=== PATIENT | female | born 1930 | race Caucasian/White ===

== ENCOUNTER 2016-12-02 15:24 | Inpatient (IN) | payer MEDICARE ==
[2016-12-02 15:56] LABS: #Basophils 0.1 thou/uL (0.0-0.2); #Eosinphils 0.1 thou/uL (0.0-0.7); #Lymphocytes 1.5 thou/uL (1.20-3.40); #Monocytes 0.4 thou/uL (0.11-0.59); #Neutrophils 4.1 thou/uL (1.40-6.50); %Basophils 0.8 % (0.0-1.0); %Eosinophils 0.8 % (0.0-10.0); %Lymphocytes 24.7 % (21.0-51.0); %Monocytes 7.1 % (0.0-10.0); Hematocrit 39.9 % (36.0-47.0); Mean Platelet Volume 10.1 fL (7.4-10.4); Red Blood Cell (RBC) Count 4.04 mill/uL (4.20-5.40); White Blood Cell (WBC) Count 6.2 thou/uL (4.8-10.8)
[2016-12-02 16:14] LABS: ALT (SGPT) 71 U/L (8-55); AST (SGOT) 116 U/L (5-34); Alkaline Phosphatase 78 U/L (40-150); Anion Gap 15 mmol/L (10-20); BUN (Urea Nitrogen) 31 mg/dL (9.8-20.1); Bilirubin, Total 0.6 mg/dL (0.2-1.2); Calc. Creatinine Clearance 0 mL/min (70-130); Calcium 9.2 mg/dL (7.8-10.44); Carbon Dioxide 23 mmol/L (23-31); Chloride 104 mmol/L (98-107); Estimated GFR-MDRD 26; Globulin 2.5 g/dL (2.4-3.5); Protein, Total 5.9 g/dL (6.0-8.3)
[2016-12-02 16:18] LABS: Troponin I 0.142 ng/mL (< 0.028)
[2016-12-02] MEDS ORDERED: Ondansetron HCl/PF 4 MG/2 ML Vial ONE (16:35)
[2016-12-02] MEDS ORDERED: Morphine Sulfate 2 MG/ML SYRINGE ONE (16:35)
[2016-12-02 17:02] LABS: Bilirubin Negative (Negative); Blood, Urine Large (Negative); Glucose, Urine (Dipstick) Negative (Negative); Ketone, Urine Trace mg/dL (Negative); Nitrite Negative (Negative); Protein, Urine (Dipstick) 100 mg/dL (Neg-Trace); Urobilinogen 0.2 mg/dL (0.2-1.0)
[2016-12-02 17:03] LABS: RBC/HPF 0-3 HPF (0-3); Squamous Epithelial 0-3 HPF (0-3); WBC/HPF 0-3 HPF (0-3)
[2016-12-02 17:15] LABS: Bacteria/HPF 1+ HPF (None Seen); Hyaline Casts/LPF 0-3 HYALINE CAST LPF (0-3 Hyaline); Renal Epithelial None Seen HPF (0-3); Transitional Epithelial NONE SEEN HPF (0-3)
[2016-12-02 20:26] LABS: Troponin I 0.138 ng/mL (< 0.028)
[2016-12-02] MEDS ORDERED: Acetaminophen 325 MG TAB PO PRN (20:29)
[2016-12-02] MEDS ORDERED: Ondansetron ODT 4 MG TAB SL PRN (20:29)
[2016-12-02] MEDS ORDERED: Sodium Chloride 0.9% 1,000 ML IV SCH (20:29)
[2016-12-02] MEDS ORDERED: Ondansetron HCl/PF 4 MG/2 ML Vial IVP PRN (20:29)
[2016-12-02] MEDS ORDERED: HumaLOG 300 UNITS/3 ML VIAL SC PRN ×2 (21:44)
[2016-12-02] MEDS ORDERED: cloNIDine HCl 0.1 MG TAB PO PRN (21:44)
[2016-12-02] MEDS ORDERED: Dextrose 5% in Water 1,000 ML IV PRN (21:44)
[2016-12-02] MEDS ORDERED: Ondansetron ODT 4 MG TAB PO PRN (21:44)
[2016-12-02] MEDS ORDERED: Dextrose 50% Abboject 50 ML SYRINGE SLOW IVP PRN (21:44)
[2016-12-02] MEDS ORDERED: Acetaminophen 500 MG TAB PO PRN (21:44)
[2016-12-02] MEDS: Sodium Chloride 0.9% 1,000 ML IV SCH (22:56)
--- NOTE | 2016-12-02 23:14 | HP ---
DATE OF ADMISSION: 12/02/2016 PRIMARY CARE PHYSICIAN: Nidia Hood MD CHIEF COMPLAINT: Dizziness, general weakness. HISTORY OF PRESENT ILLNESS: This is an 86-year-old female who presents to [facility], complaining of vertigo, dizziness, lightheadedness over the last several days. Patient has noted increasing frequency and severity of symptoms, limiting her ability in the last 24 hours to sit up or stand up. Patient states the room is spinning when she gets up or tries to move around short distances or sitting on the side of the bed. Patient's daughter reports she has not b een able to stand up or to mobilize any distance to the restroom or out of her bed. The patient sta araceli also that she had a fall on 10/24/2016, with persistent and progressive back pain. Patient has taken multiple pain medications including Tylenol and was recently prescribed a narcotic pain patch. Patient states that she has no specific complete resolution of her symptoms and was actually sched uled to receive a bone scan and CT of the spine set up by her pain specialist. Patient admits that her appetite has been decreased and she has not been drinking much water. The patient denies any sp ecific diarrhea or vomiting, but does admit to nausea. Patient denied any specific blood in her sto ol or hematuria. The patient admits to multiple somatic complaints mainly related to back pain in c onnection with prior history of vertebral compression fractures. In the emergency room, the patient underwent general evaluation, receiving intravenous normal saline x1 liter as well as morphine sulf ate and Zofran. Patient underwent lumbar radiographs on 10/29/2016, showing multilevel degenerative changes. Patient was also noted on metabolic survey showing evidence of acute kidney injury as wel l as rhabdomyolysis with the total CK of 1585. The patient was transferred to the telemetry unit fo r further evaluation. PAST MEDICAL HISTORY: 1. Chronic obstructive pulmonary disease. 2. Ischemic cardiomyopathy with ejection fraction of 30% to 35%. 3. Moderate aortic stenosis. 4. History of chronic atrial fibrillation with chronic anticoagulation with Xarelto. 5. Hypertension. 6. Diabetes mellitus, type 2, on oral hypoglycemics. 7. Dyslipidemia. 8. Coronary artery disease. 9. Hypothyroidism. 10. Congestive heart failure with systolic component. 11. History of bladder cancer. 12. History of vertebral compression fractures. 13. History of falls. PAST SURGICAL HISTORY: 1. Status post mastoid ear surgery. 2. Status post colonoscopy. 3. Status post cystourethrectomy. 4. Status post laminectomy. 5. Status post right total knee arthroplasty. 6. Status post cholecystectomy. 7. Status post hysterectomy. 8. Status post thyroidectomy due to goiter. 9. Status post ankle surgery and right wrist surgery. CURRENT MEDICATIONS: Based on previous review of the electronic medical record: 1. Aspirin 81 mg one tablet p.o. daily. 2. Vitamin D3 of 2000 units p.o. daily. 3. Zetia 10 mg p.o. at bedtime. 4. Lasix 40 mg p.o. daily p.r.n. 5. Krill Oil Soft Gel 1 capsule p.o. at bedtime. 6. Lactobacillus 1 capsule p.o. daily. 7. Lisinopril 5 mg p.o. at bedtime. 8. Magnesium oxide 400 mg p.o. b.i.d. 9. Crestor 20 mg p.o. at bedtime. 10. Coenzyme Q10 of 200 mg p.o. daily. 11. Super B-Complex 150 mg p.o. daily. 12. Metformin 1000 mg p.o. b.i.d. 13. Carvedilol 12.5 mg p.o. b.i.d. 14. Cymbalta 30 mg p.o. daily. 15. Neurontin 300 mg p.o. at bedtime. 16. Levothyroxine 25 mcg p.o. daily. 17. Spiriva HandiHaler 18 mcg inhaled daily. ALLERGIES: To CODEINE and LEVAQUIN. FAMILY HISTORY: Sister with advanced COPD. Mother with the history of coronary artery disease at a ge 60. SOCIAL HISTORY: Patient lives independently in the [place]. Accompanied by her daughter in the hospital. Ambulates with the use of a rolling walker and standby assistance. Recent fall on 10/24/2016. No current alcohol, tobacco, or illicit drug use. REVIEW OF SYSTEMS: The following complete review of systems was negative, unless otherwise mentione d in the HPI or below: Constitutional: Weight loss or gain, ability to conduct usual activities. Skin: Rash, itching. Eyes: Double vision, pain. ENT/Mouth: Nose bleeding, neck stiffness, pain, tenderness. Cardiovascular: Palpitations, dyspnea on exertion, orthopnea. Respiratory: Shortness of breath, wheezing, cough, hemoptysis, fever or night sweats. Gastrointestinal: Poor appetite, abdominal pain, heartburn, nausea, vomiting, constipation, or diar wesly. Genitourinary: Urgency, frequency, dysuria, nocturia. Musculoskeletal: Pain, swelling. Neurologic/Psychiatric: Anxiety, depression. Allergy/Immunologic: Skin rash, bleeding tendency. PHYSICAL EXAMINATION: VITAL SIGNS: On admission, blood pressure 146/61, pulse 90, respiratory rate 19, temperature 98.4 d egrees Fahrenheit, O2 saturation 96% on room air. GENERAL APPEARANCE: This is an 86-year-old female, alert and oriented x3, pleasant, smili ng, in no acute distress. HEENT EXAM: Pupils are equal, round, and reactive to light and accommodation. Extraocular muscles are intact. No scleral icterus, no conjunctival injection. Nares patent. OP is clear. Oral mucos a is dry. NECK: Supple, no cervical adenopathy, no thyromegaly, no carotid bruits, no JVD appreciated. Cervi carlos spine with full active and passive range of motion. CHEST: Lungs are clear to auscultation bilaterally. CARDIOVASCULAR EXAM: S1 and S2 with irregular rate and rhythm. A 2-3/6 systolic ejection murmur in the left lower sternal border. ABDOMEN: Obese, soft, nontender, and nondistended. Bowel sounds are positive in all four quadrants . There is no hepatosplenomegaly, no abdominal bruits, no rebound or guarding appreciated. EXTREMITIES: Warm and dry with fair turgor. No clubbing, cyanosis, or asymmetric edema appreciated . Pulses are palpable distally at the dorsalis pedis, posterior tibial, and popliteal arteries bila terally. Capillary refill less than 2 seconds. NEUROLOGIC EXAM: Cranial nerves II through XII are grossly intact. No focal or lateralizing signs appreciated. PERTINENT LABORATORY DATA AND X-RAY FINDINGS: Sodium 138, potassium 4.0, chloride 104, CO2 of 23, B UN 31, creatinine 1.86 with estimated GFR of 26, glucose 99, calcium 9.2, AST 116, ALT of 71, alkali ne phosphatase 78. Total CK of 1585. Troponin I ranged between 0.138 to 0.142. Albumin 3.4. CBC showed a white blood cell count 6.2, hemoglobin 13, hematocrit 40, platelet count 124 with normal di fferential. Urinalysis positive for blood and 1+ urine bacteria on microscopy. Lumbar spine radiog raphs dated on 10/29/2016, showed advanced multilevel lumbar degenerative changes. EKG dated on 01/2017, by my interpretation shows atrial fibrillation with premature ventricular complexes. Atten uated R waves noted in the precordial leads. Left axis deviation. No acute ST-T wave changes appre ciated. ASSESSMENT AND PLAN: 1. Acute kidney injury. We will continue intravenous normal saline at 75 mL per hour. Avoid nephr otoxic agents including lisinopril and metformin. Hold diuretic therapy. Repeat creatinine in the a.m. Suspect iatrogenic influence prompting presentation. 2. Vertigo/dizziness. We will continue IV fluid hydration and monitor clinically. We will obtain PT and OT evaluation in the a.m. Check orthostatic vital signs every 3 hours x2. 3. Rhabdomyolysis. Suspect multifactorial. We will hold all statin agents. Continue intravenous normal saline as I stated previously. Repeat total CK in the a.m. 4. Elevated troponin I. Review of electronic medical record shows elevated values dating back to 0 04/2015. Suspect secondarily to demand ischemia and chronic kidney disease. 5. Back pain with history of vertebral compression fractures. We will obtain 3 phase bone scan. S ymptomatic and supportive measures. Consider neurosurgical consult with likely TLSO bracing for dis charge. Continue symptomatic and supportive management. 6. Chronic atrial fibrillation with controlled ventricular response. We will continue rate control measures. Resume Xarelto. We will continue to monitor for acute blood loss and consider risk of a nticoagulation in the context of recent fall in 10/2016. 7. Hypothyroidism. Continue levothyroxine 25 mcg p.o. daily. 8. Prophylaxis. Sequential compression devices while in bed. Pepcid 20 mg p.o. b.i.d. General fa ll precautions. PT and OT evaluation pending. 9. Code status is FULL. Surrogate medical decision maker is the patient's daughter.
[2016-12-02 23:15] LABS: Troponin I 0.137 ng/mL (< 0.028)
[2016-12-03 05:45] LABS: Band 8 % (5-11); Hematocrit 34.9 % (36.0-47.0); Mean Platelet Volume 9.6 fL (7.4-10.4); Neutrophil 52 % (42-75); Red Blood Cell (RBC) Count 3.53 mill/uL (4.20-5.40); White Blood Cell (WBC) Count 5.6 thou/uL (4.8-10.8)
[2016-12-03] MEDS: Levothyroxine Sodium 25 MCG TAB PO SCH (05:50)
[2016-12-03 05:53] LABS: ALT (SGPT) 60 U/L (8-55); AST (SGOT) 96 U/L (5-34); Alkaline Phosphatase 67 U/L (40-150); Anion Gap 11 mmol/L (10-20); BUN (Urea Nitrogen) 24 mg/dL (9.8-20.1); Bilirubin, Total 0.5 mg/dL (0.2-1.2); CK (CPK) 1121 U/L (29-168); Calc. Creatinine Clearance 28 mL/min (70-130); Calcium 8.5 mg/dL (7.8-10.44); Carbon Dioxide 27 mmol/L (23-31); Chloride 111 mmol/L (98-107); Estimated GFR-MDRD 31; Protein, Total 4.9 g/dL (6.0-8.3)
[2016-12-03] MEDS: Ipratropium Bromide 2.5 ml Neb NEB SCH ×5 (07:46→23:59)
[2016-12-03] MEDS: Sodium Chloride 0.9% 1,000 ML IV SCH ×2 (08:55→22:33)
[2016-12-03] MEDS: Famotidine 20 MG TAB PO SCH (09:00)
[2016-12-03] MEDS: Carvedilol 6.25 MG TAB PO SCH ×2 (09:00→20:26)
[2016-12-03] MEDS: Ondansetron HCl/PF 4 MG/2 ML Vial IVP PRN (10:40)
--- NOTE | 2016-12-03 12:10 | PDOC.PN ---
- Subjective Encounter Start Date: 12/03/16 Encounter Start Time: 10:00 -: old records requested/rev Pt was unique carlin exmained on rounds earlier. Chart has been reviewe din its entirety. This is my first visit with this patient. No F/C, no N/V/D?C, no CP ro SOB, no cough or sputum rpduction. Bone scan is to be done later this morning. Pain is well controlled at present. NO palpitations, no syncope or presyncope today 10 point ROS performed and neg for all systems except as per HPI - Objective Resuscitation Status: Resuscitation Status FULL:Full Resuscitation MAR Reviewed: Yes Vital Signs & Weight: Vital Signs (12 hours) Temp Pulse Pulse Pulse Pulse Resp BP 12/03/16 11:56 97.9 F 87 16 12/03/16 10:49 12/03/16 09:00 130/67 12/03/16 08:57 98.9 F 83 16 12/03/16 08:18 98.9 F 83 81 91 84 16 12/03/16 07:46 71 16 12/03/16 04:00 97.6 F 80 18 BP BP BP BP BP BP Pulse Ox 12/03/16 11:56 155/70 H 99 12/03/16 10:49 138/82 150/65 H 12/03/16 09:00 12/03/16 08:57 130/67 94 L 12/03/16 08:18 138/58 L 156/88 H 169/72 H 94 L 12/03/16 07:46 100 12/03/16 04:00 122/56 L 96 Weight Admit Weight 160 lb 4.8 oz Weight 158 lb 11.2 oz I&O: 12/02/16 12/03/16 12/04/16 06:59 06:59 06:59 Intake Total 945 Output Total 1200 Balance -255 Result Diagrams: 12/03/16 05:13 12/03/16 05:13 Additional Labs: Accuchecks 12/03/16 10:57 POC Glucose 83 Radiology Reviewed by me: Yes EKG Reviewed by me: Yes Phys Exam - Physical Examination Constitutional: NAD HEENT: PERRLA, moist MMs, sclera anicteric, oral pharynx no lesions Neck: no nodes, no JVD, supple, full ROM Respiratory: no wheezing, no rales, no rhonchi, clear to auscultation bilateral Cardiovascular: RRR, no significant murmur, no rub Gastrointestinal: soft, non-tender, no distention, positive bowel sounds Musculoskeletal: no edema, pulses present Neurological: non-focal, normal sensation, moves all 4 limbs Lymphatic: no nodes Psychiatric: normal affect, A&O x 3 Skin: no rash, normal turgor, cap refill <2 seconds Dx/Plan (1) Pre-syncope Status: Acute Comment: better today. continue IV fluids, hold diuretics. suspect overdiuresis and orthostasis. (2) WARREN (acute kidney injury) Code(s): N17.9 - ACUTE KIDNEY FAILURE, UNSPECIFIED Status: Acute Comment: Cr improved but not mal. continue hydratiosn. due to hypovolemia (3) Dehydration, moderate Code(s): E86.0 - DEHYDRATION Status: Acute (4) Rhabdomyolysis Code(s): M62.82 - RHABDOMYOLYSIS Status: Acute Comment: CK improved. 1100 today. continue IV fluids, monitoring renal function (5) Compression fracture Code(s): [id number] - Status: Acute Comment: for bone scan today. If positive , will ask neurosurgery to eval for vertebroplasty vs LSO brace - Plan cont current plan of care, plan discussed w/ family, PT/OT * .
--- NOTE | 2016-12-03 14:54 | NM ---
WHOLE BODY BONE SCAN: Date: 12/03/16 HISTORY: Compression fracture. RADIOPHARMACEUTICAL: 33 mCi technetium-99m MDP injected intravenously. COMPARISON: 06/03/16. CORRELATION: Lumbar spine x-rays of 10/29/16. FINDINGS: There is new intense uptake at T12 level consistent with acute fracture. Mild residual stable activi ty is seen at T9 level (region of vertebroplasty on this CT scan of 06/03/16). There is new area of increased uptake in the T4 vertebral body also likely due to a new fracture. Intense uptake in the left shoulder is again seen. Increased uptake in the right shoulder joint, both elbows, wrists, left knee, and both feet are cons istent with degenerative changes. There are postop changes of right total knee arthroplasty. Focus of increased uptake in the inferior aspect of the right SI joint is stable. Mild increased upt judy at L5-S1 level is consistent with degenerative changes and stable. Increased uptake in the mandible likely due to periodontal disease is again seen. Tracer excretion through the kidneys is within normal limits. IMPRESSION: New acute compression fractures at T12 and T4 levels. POS: [facility]
--- NOTE | 2016-12-03 17:51 | CT ---
CT THORACIC SPINE NONCONTRAST: 12/03/16 HISTORY: 86-year-old female status post fall resulting in T12 compression fracture. COMPARISON: T-spine CT of 06/03/16. FINDINGS: There is a new burst fracture of T12, including anterior and middle columns, and mild bony retropuls ion of the superior half of the posterior surface of the vertebral body, decreasing the anteroposter ior dimension of the spinal canal by approximately 20%. There is overall approximately 40-75% loss o f height. Again noted is the vertebroplasty cement within the old T9 compression fracture. Again noted is an o ld mild anterior wedge compression fracture deformity of T8. Neither of these have bony retropulsion . There is mild depression of the superior end plate of the T4 vertebral body, with minimal bony ret ropulsion, new since the previous CT. There is no compromise of the spinal canal caliber by this. A new finding of air fluid level in a mildly dilated esophagus. There is no pleural effusion or consol idation visualized at the posterior lung bases. IMPRESSION: 1. Acute burst fracture of T12 with mild bony retropulsion. 2. Mild compression fracture of T4 (approximately 10-20% loss of height) of indeterminate age. It occurred sometime after the previous CT of 06/03/16. 3. Old compression fracture of T9, treated with vertebroplasty. 4. Old compression fracture of T8. 5. Diffuse severe osteopenia. POS: [facility]
--- NOTE | 2016-12-03 18:10 | CT ---
CT LUMBAR SPINE NONCONTRAST: 12/03/16 HISTORY: 86-year-old female status post fall with acute on chronic low back pain. COMPARISON: None. FINDINGS: There are five [id number] lumbar type vertebrae. There is a comminuted fracture of the anterior and posterior columns of the T12 vertebral body, resulting in approximately 40-75% loss of height. There is mild bony retropulsion which decreases the anteroposterior dimension of the spinal canal by approximately 20%, and decreases the cross-sectional area of the spinal canal by approximately 20%. There is edema in the prevertebral space associated with this. There is vertebroplasty cement within an old L2 compression fracture with about 25% loss of height m aximum. Severe degenerative facet disease at L4-5 results in grade II anterolisthesis of L4 on L5. There is severe degenerative disc disease at L1-2, L2-3, and L4-5. Severe chronic bilateral neural foraminal stenosis at L4-5 due to the spondylolisthesis, diffuse disc bulge, and degenerative facet hypertroph y. Severe central spinal canal stenosis and moderately severe bilateral neural foraminal stenosis at L3-4 due to diffuse disc bulge, slight degenerative retrolisthesis of L3 on L4, and degenerative fa cet changes. Severe right neural foraminal stenosis at L2-3, and moderate to severe right neural for aminal stenosis at L1-2. Diffuse, severe osteopenia. Lesions in the liver and kidneys, incompletely evaluated. IMPRESSION: 1. Acute burst fracture of T12. 2. Old compression fracture of L2 treated with vertebroplasty. 3. Severe lumbar spondylosis with high grade degenerative disc disease and high grade facet ost eoarthrosis at certain levels. 4. Grade II spondylolisthesis at L4-5. 5. Severe central spinal canal stenosis and severe neural foraminal stenosis at various levels. 6. Severe osteopenia/osteoporosis. POS: [facility]
[2016-12-03] MEDS: Aspirin 81 mg Enteric Coated Tablet PO SCH (20:26)
[2016-12-03] MEDS: Gabapentin 300 MG CAP PO SCH (20:26)
[2016-12-04] MEDS: Ondansetron HCl/PF 4 MG/2 ML Vial IVP PRN (03:19)
[2016-12-04] MEDS: Levothyroxine Sodium 25 MCG TAB PO SCH (05:37)
[2016-12-04 06:25] LABS: #Eosinphils 0.1 thou/uL (0.0-0.7); #Lymphocytes 1.2 thou/uL (1.20-3.40); #Monocytes 0.5 thou/uL (0.11-0.59); #Neutrophils 4.5 thou/uL (1.40-6.50); %Basophils 0.6 % (0.0-1.0); %Eosinophils 0.9 % (0.0-10.0); %Lymphocytes 19.5 % (21.0-51.0); %Monocytes 8.2 % (0.0-10.0); Hematocrit 36.4 % (36.0-47.0); Mean Platelet Volume 9.9 fL (7.4-10.4); Red Blood Cell (RBC) Count 3.67 mill/uL (4.20-5.40); White Blood Cell (WBC) Count 6.3 thou/uL (4.8-10.8)
[2016-12-04 06:38] LABS: Anion Gap 12 mmol/L (10-20); BUN (Urea Nitrogen) 16 mg/dL (9.8-20.1); Calc. Creatinine Clearance 38 mL/min (70-130); Calcium 8.2 mg/dL (7.8-10.44); Carbon Dioxide 23 mmol/L (23-31); Chloride 108 mmol/L (98-107); Estimated GFR-MDRD 44
[2016-12-04] MEDS: Ipratropium Bromide 2.5 ml Neb NEB SCH ×4 (08:18→23:22)
[2016-12-04] MEDS: Carvedilol 6.25 MG TAB PO SCH ×2 (08:36→22:42)
[2016-12-04] MEDS: Famotidine 20 MG TAB PO SCH (08:37)
--- NOTE | 2016-12-04 10:13 | PDOC.PN ---
- Subjective Encounter Start Date: 12/04/16 Encounter Start Time: 09:10 Pt seen and examined, husbad and daughters at bedside. Questions answered. No f/C, no V/D. nauseated all day and night, responded to zofran. NSG to see today, LSO brace ordered, pt doesnt like. encouraged her to use it all the time. No Cough, no CP or SON. feels week. asking for something for itching with pain meds, asking for sleep aid. 10 point ROS performed and neg for all systems except as per HPI - Objective Resuscitation Status: Resuscitation Status FULL:Full Resuscitation MAR Reviewed: Yes Vital Signs & Weight: Vital Signs (12 hours) Temp Pulse Resp BP BP BP Pulse Ox 12/04/16 08:36 172/72 H 12/04/16 08:29 98.0 F 94 16 172/72 H 182/76 H 97 12/04/16 08:18 72 16 12/04/16 04:00 97.7 F 76 18 143/66 H 93 L 12/04/16 03:21 97.8 F 86 18 158/74 H 95 12/03/16 23:59 62 16 96 Weight Admit Weight 160 lb 4.8 oz Weight 158 lb 11.2 oz I&O: 12/03/16 12/04/16 12/05/16 06:59 06:59 06:59 Intake Total 945 3113 Output Total 1200 800 Balance -255 2313 Result Diagrams: 12/04/16 04:57 12/04/16 04:57 Additional Labs: Accuchecks 12/04/16 12/03/16 12/03/16 05:59 20:36 15:36 POC Glucose 106 88 94 12/03/16 12/03/16 10:57 06:37 POC Glucose 83 81 Radiology Reviewed by me: Yes EKG Reviewed by me: Yes Phys Exam - Physical Examination Constitutional: NAD HEENT: PERRLA, moist MMs, sclera anicteric, oral pharynx no lesions Neck: no nodes, no JVD, supple, full ROM Respiratory: no wheezing, no rales, no rhonchi, clear to auscultation bilateral Cardiovascular: no rub, irregular Gastrointestinal: soft, non-tender, no distention, positive bowel sounds Musculoskeletal: no edema, pulses present Neurological: non-focal, normal sensation, moves all 4 limbs Lymphatic: no nodes Psychiatric: normal affect, A&O x 3 Skin: no rash, normal turgor, cap refill <2 seconds Dx/Plan (1) Pre-syncope Status: Acute Comment: better today. continue IV fluids, hold diuretics. suspect overdiuresis and orthostasis. (2) WARREN (acute kidney injury) Code(s): N17.9 - ACUTE KIDNEY FAILURE, UNSPECIFIED Status: Resolved Comment : Cr improved but not quite back to baseline. recheck in the AM. Due to hypovolemia (3) Dehydration, moderate Code(s): E86.0 - DEHYDRATION Status: Resolved (4) Rhabdomyolysis Code(s): M62.82 - RHABDOMYOLYSIS Status: Acute Comment: CK improved. 1100 12/03. recheck in AM (5) Compression fracture Code(s): [id number] - Status: Acute Comment: T12 burst fracture. Neurosurgery to see today, not surgicla candidate and burst fractures not typically amenable to vertebroplasty. Suspect LSO brace will be recommendations. Discussed with NSG team, will follow up on their recs, adn their assistance is greatly appreciated. Mobilize iwth PT and brace - Plan cont current plan of care, PT/OT * . pt will likely need SNF or IPR placement for rehab
[2016-12-04] MEDS ORDERED: traZODone HCl 50 MG TAB PO PRN (10:17)
--- NOTE | 2016-12-04 14:03 | PRG ---
DATE OF SERVICE: 12/04/2016 This a 30-minute initial hospital visit note, in which 30 minutes were spent in review the imaging r ecord, evaluation and examination of the patient, and formulation of a plan. Greater than 50% of e time was spent in counseling on Idania Vela. CHIEF COMPLAINT: T12 burst fracture with mid thoracic and mid lumbar history of fractures treated w ith vertebroplasty. HISTORY OF PRESENT ILLNESS: Ms. Vela is an 86-year-old woman who fell two nights ago and sustained a fracture, bone scan revealed increased activity in the T12 segment. A CT scan of the thoracic an d lumbar spine demonstrated evidence of a prior mid to lower thoracic vertebroplasty treated fractur e and midlumbar spine vertebroplasty fracture, but also a new T12 burst fracture. The patient has b een neurologically intact. A TLSO clamshell brace was arranged when the patient is out of bed. PHYSICAL EXAMINATION: She is alert, appropriate. She has excellent strength throughout her lower e xtremity myotomes and this appears to be doing quite well. IMPRESSION AND PLAN: I have emphasized the patient and her daughter the importance of wearing the b race. We will arrange for followup in my clinic in 6 weeks with upright AP and lateral thoracic and lumbar spine x-rays and the brace should be worn at all times when the patient is out of bed. This will be likely for duration of 3 months and I have emphasized this as well to the patient and her d romieer. We will arrange for outpatient followup. DIAGNOSES: 1. T12 burst fracture. 2. Osteoporosis. 3. History of compression fractures, treated with vertebroplasty.
[2016-12-04] MEDS: Sodium Chloride 0.9% 1,000 ML IV SCH (14:10)
[2016-12-04] MEDS: Gabapentin 300 MG CAP PO SCH (22:38)
[2016-12-04] MEDS: Aspirin 81 mg Enteric Coated Tablet PO SCH (22:42)
[2016-12-05] MEDS: Sodium Chloride 0.9% 1,000 ML IV SCH ×2 (03:39→16:10)
[2016-12-05] MEDS: Levothyroxine Sodium 25 MCG TAB PO SCH (06:05)
[2016-12-05] MEDS: Ipratropium Bromide 2.5 ml Neb NEB SCH ×4 (07:54→23:52)
[2016-12-05] MEDS: Carvedilol 6.25 MG TAB PO SCH ×2 (08:04→20:22)
[2016-12-05] MEDS: Famotidine 20 MG TAB PO SCH (08:06)
[2016-12-05] MEDS: traMADol HCl 50 MG TAB PO PRN ×2 (09:03→20:21)
[2016-12-05] MEDS: hydrOXYzine 25 MG TAB PO PRN (09:03)
[2016-12-05 09:27] LABS: #Monocytes 0.4 thou/uL (0.11-0.59); #Neutrophils 4.6 thou/uL (1.40-6.50); %Basophils 0.6 % (0.0-1.0); %Eosinophils 0.7 % (0.0-10.0); %Lymphocytes 16.1 % (21.0-51.0); %Monocytes 6.8 % (0.0-10.0); Hematocrit 36.3 % (36.0-47.0); Mean Platelet Volume 9.1 fL (7.4-10.4); Red Blood Cell (RBC) Count 3.66 mill/uL (4.20-5.40)
[2016-12-05 09:46] LABS: Anion Gap 9 mmol/L (10-20); BUN (Urea Nitrogen) 10 mg/dL (9.8-20.1); Calc. Creatinine Clearance 51 mL/min (70-130); Calcium 8.2 mg/dL (7.8-10.44); Carbon Dioxide 27 mmol/L (23-31); Chloride 109 mmol/L (98-107); Estimated GFR-MDRD 58
[2016-12-05] MEDS: Potassium Chloride 20 MEQ TAB PO SCH ×3 (10:15→18:26)
--- NOTE | 2016-12-05 12:29 | PDOC.PN ---
- Subjective Encounter Start Date: 12/05/16 Encounter Start Time: 09:30 Pt seen and examined earlier on rounds, chart reviewed, discusse diwht neurosurgery and nursing Pt refused PT earleir due to pain in her back. Medicated and PT to return later. Discussed with patient regarding rehab and she is agreeable 10 point ROS performed and neg froa ll systems except as per HPI - Objective Resuscitation Status: Resuscitation Status FULL:Full Resuscitation MAR Reviewed: Yes Vital Signs & Weight: Vital Signs (12 hours) Temp Pulse Resp BP BP BP Pulse Ox 12/05/16 10:49 97.9 F 98 18 134/80 92 L 12/05/16 08:04 152/85 H 12/05/16 07:54 98.4 F 72 12 98 12/05/16 04:52 98.4 F 80 20 150/81 H 98 Weight Admit Weight 160 lb 4.8 oz Weight 165 lb 12.8 oz I&O: 12/04/16 12/05/16 12/06/16 06:59 06:59 06:59 Intake Total 3113 2540 Output Total 800 1500 Balance 2313 1040 Result Diagrams: 12/05/16 09:18 12/05/16 09:18 Additional Labs: Accuchecks 12/05/16 12/05/16 12/04/16 11:44 05:40 20:38 POC Glucose 91 89 113 H 12/04/16 16:40 POC Glucose 88 Phys Exam - Physical Examination Constitutional: NAD HEENT: PERRLA, moist MMs, sclera anicteric, oral pharynx no lesions Neck: no nodes, no JVD, supple, full ROM Respiratory: no wheezing, no rales, no rhonchi, clear to auscultation bilateral Cardiovascular: RRR, no significant murmur, no rub Gastrointestinal: soft, non-tender, no distention, positive bowel sounds Musculoskeletal: no edema, pulses present Neurological: non-focal, normal sensation, moves all 4 limbs Lymphatic: no nodes Psychiatric: normal affect, A&O x 3 Skin: no rash, normal turgor, cap refill <2 seconds Dx/Plan (1) Pre-syncope Status: Resolved Comment: better today. suspect overdiuresis and orthostasis. (2) WARREN (acute kidney injury) Code(s): N17.9 - ACUTE KIDNEY FAILURE, UNSPECIFIED Status: Resolved Comment : Cr improved but not quite back to baseline. recheck in the AM. Due to hypovolemia (3) Dehydration, moderate Code(s): E86.0 - DEHYDRATION Status: Resolved (4) Rhabdomyolysis Code(s): M62.82 - RHABDOMYOLYSIS Status: Acute Qualifiers: Rhabdomyolysis type: traumatic Encounter type: initial encounter Qualified Code(s): T79.6XXA - Traumatic ischemia of muscle, initial encounter Comment: CK improved. 1100 12/03. recheck in AM (5) Compression fracture Code(s): [id number] - Status: Acute Comment: T12 burst fracture. Neurosurgery to see today, not surgicla candidate and burst fractures not typically amenable to vertebroplasty. Suspect LSO brace will be recommendations. Discussed with NSG team, will follow up on their recs, adn their assistance is greatly appreciated. 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
[2016-12-05] MEDS ORDERED: Metoprolol Tartrate 25 MG TAB PO SCH (20:15)
[2016-12-05] MEDS: Gabapentin 300 MG CAP PO SCH (20:21)
[2016-12-05] MEDS: Aspirin 81 mg Enteric Coated Tablet PO SCH (20:21)
[2016-12-05] MEDS ORDERED: Diltiazem HCl 125 MG, Admixture Fee 1 EACH in Sodium Chloride 0.9% 100 ML SLOW IVP SCH (23:30)
[2016-12-06] MEDS: Levothyroxine Sodium 25 MCG TAB PO SCH (05:46)
[2016-12-06] MEDS: Sodium Chloride 0.9% 1,000 ML IV SCH (05:47)
[2016-12-06 06:08] LABS: #Basophils 0.1 thou/uL (0.0-0.2); #Eosinphils 0.1 thou/uL (0.0-0.7); #Lymphocytes 1.4 thou/uL (1.20-3.40); #Monocytes 0.6 thou/uL (0.11-0.59); #Neutrophils 4.2 thou/uL (1.40-6.50); %Basophils 0.8 % (0.0-1.0); %Lymphocytes 22.3 % (21.0-51.0); %Monocytes 9.9 % (0.0-10.0); Hematocrit 39.2 % (36.0-47.0); Mean Platelet Volume 9.9 fL (7.4-10.4); Red Blood Cell (RBC) Count 3.92 mill/uL (4.20-5.40); White Blood Cell (WBC) Count 6.4 thou/uL (4.8-10.8)
[2016-12-06 06:32] LABS: Anion Gap 11 mmol/L (10-20); BUN (Urea Nitrogen) 10 mg/dL (9.8-20.1); Calc. Creatinine Clearance 56 mL/min (70-130); Calcium 8.4 mg/dL (7.8-10.44); Carbon Dioxide 22 mmol/L (23-31); Chloride 112 mmol/L (98-107); Estimated GFR-MDRD 64; Magnesium 1.4 mg/dL (1.6-2.6)
[2016-12-06] MEDS: Ipratropium Bromide 2.5 ml Neb NEB SCH ×3 (06:46→19:54)
[2016-12-06] MEDS: Famotidine 20 MG TAB PO SCH (08:30)
[2016-12-06] MEDS: Carvedilol 6.25 MG TAB PO SCH ×3 (08:30→20:44)
--- NOTE | 2016-12-06 09:42 | PDOC.PN ---
- Subjective Encounter Start Date: 12/06/16 Encounter Start Time: 09:30 Subjective: f/u for WARREN, T12 vertebral fx and A-fib with RVR. Overall feeling ok but -: had RVR overnight on Cardizem gtt. Rate controlled currently. Less back -: pain, only stood 15 sec per nursing. - Objective Resuscitation Status: Resuscitation Status FULL:Full Resuscitation MAR Reviewed: Yes Vital Signs & Weight: Vital Signs (12 hours) Temp Pulse Resp BP Pulse Ox 12/06/16 08:30 134/62 12/06/16 08:27 98.0 F 66 16 95 12/06/16 06:46 75 16 96 12/05/16 23:52 80 16 95 Weight Admit Weight 160 lb 4.8 oz Weight 169 lb I&O: 12/05/16 12/06/16 12/07/16 06:59 06:59 06:59 Intake Total 2540 3049 Output Total 1500 500 Balance 1040 2549 Result Diagrams: 12/06/16 04:39 12/06/16 04:39 Additional Labs: Accuchecks 12/05/16 12/05/16 12/05/16 20:19 17:01 11:44 POC Glucose 104 111 H 91 Microbiology 12/02/16 16:25 Urine Straight Catheter Urine Culture - Final NO GROWTH AT 36 HOURS Laboratory Tests 12/05/16 12/05/16 12/06/16 09:18 10:11 04:39 Potassium 2.8 L* Magnesium 1.8 1.4 L EKG Reviewed by me: Yes (Tele - A-fib in 70's) Phys Exam - Physical Examination Constitutional: NAD HEENT: PERRLA, oral pharynx no lesions Neck: no JVD, supple Respiratory: no wheezing Cardiovascular: irregular Gastrointestinal: soft, non-tender, no distention, positive bowel sounds Musculoskeletal: no edema, pulses present Neurological: normal sensation, moves all 4 limbs Psychiatric: A&O x 3 Skin: normal turgor, cap refill <2 seconds Dx/Plan (1) Chronic atrial fibrillation with RVR Code(s): I48.2 - CHRONIC ATRIAL FIBRILLATION Status: Acute Comment: Cardizem gtt overnight now with rate control, d/c Cardizem gtt, continue Coreg, monitor on tele (2) Hypokalemia Code(s): E87.6 - HYPOKALEMIA Status: Acute Comment: Resolved with supplementation (3) Compression fracture Code(s): BRJ5554 - Status: Acute Comment: T12 burst fracture. Neurosurgery to see today, not surgicla candidate and burst fractures not typically amenable to vertebroplasty. Suspect LSO brace will be recommendations. Discussed with NSG team, will follow up on their recs, adn their assistance is greatly appreciated. Mobilize iwth PT and brace (4) Rhabdomyolysis Code(s): M62.82 - RHABDOMYOLYSIS Status: Acute Qualifiers: Rhabdomyolysis type: traumatic Encounter type: initial encounter Qualified Code(s): T79.6XXA - Traumatic ischemia of muscle, initial encounter Comment: CK improved. 1100 12/03. recheck in AM, resolved (5) WARREN (acute kidney injury) Code(s): N17.9 - ACUTE KIDNEY FAILURE, UNSPECIFIED Status: Resolved Comment : Cr improved but not quite back to baseline. Resolved (6) Dehydration, moderate Code(s): E86.0 - DEHYDRATION Status: Resolved (7) Hypomagnesemia Code(s): E83.42 - HYPOMAGNESEMIA Status: Acute Comment: Magnesium 400mg BID - Plan plan discussed w/ family, PT/OT, social professionals, out of bed/ambulate, DVT proph w/SCDs Stable overall -: Pain control as tolerated -: LSO for mobilization and standing -: CM for SNF options, unable to tolerate inpt rehab -: Magnesium 400mg BID * Saline lock IVF's * D/C Cardizem * Likely to SNF in 24-48h
[2016-12-06] MEDS ORDERED: Magnesium Oxide 400 MG TAB PO SCH (09:45)
[2016-12-06] MEDS: hydrOXYzine 25 MG TAB PO PRN (13:19)
[2016-12-06] MEDS: traMADol HCl 50 MG TAB PO PRN (13:19)
[2016-12-06 14:43] VITALS: BMI 27.2
[2016-12-06] MEDS ORDERED: Digoxin 0.5 MG/2 ML AMP SLOW IVP SCH (15:00)
--- NOTE | 2016-12-06 15:04 | EKG ---
Test Reason : STAT Blood Pressure : / mmHG Vent. Rate : 140 BPM Atrial Rate : 127 BPM P-R Int : 000 ms QRS Dur : 116 ms QT Int : 320 ms P-R-T Axes : 000 007 170 degrees QTc Int : 488 ms Atrial fibrillation with rapid ventricular response Non-specific intra-ventricular conduction delay Septal infarct , age undetermined cannot be excluded Abnormal ECG Confirmed by GUADALUPE SILVERIO ([id number]) on 12/06/2016 3:04:09 PM Referred By: Confirmed By:GUADALUPE SILVERIO
[2016-12-06] MEDS: Aspirin 81 mg Enteric Coated Tablet PO SCH (20:43)
[2016-12-06] MEDS: Magnesium Oxide 400 MG TAB PO SCH (20:45)
[2016-12-06] MEDS: Gabapentin 300 MG CAP PO SCH (20:45)
--- NOTE | 2016-12-06 21:01 | CON ---
CARDIOLOGY CONSULTATION NOTE DATE OF CONSULTATION: 12/06/2016 REASON FOR CONSULTATION: Atrial fibrillation with a rapid rate, generalized weakness and dizziness. HISTORY OF PRESENT ILLNESS: Ms. Vela is a very pleasant 86-year-old patient of Dr. Antonio Blake. The patient has a history of coronary artery disease, history of atrial fibrillation diagnosed recently, history of pacemaker defibrillator implantation, atrial fibrillation with a rapid rate. Ms. Vela does have a history of coronary artery disease and underwent cardiac catheterization in 2000. She had a left dominant system with a 40% to 50% circumflex lesion. The inferior wall was akinetic at that time, she had myocardial infarction. She has done well over the years, but has developed an ejection fraction less than 35% and underwent defibrillator implantation; a dual chamber device was placed in 04/2015. The patient was doing well until this admission when she was admitted to the hospital for reasons outlined below. 1. Cardiac history, as mentioned previous defibrillator. 2. Coronary artery disease, stable. No angina. 3. The family says that she was seen by the clinical nurse occupational medicine just a couple of weeks ago and started on Xarelto. PAST MEDICAL HISTORY: 1. Chronic obstructive pulmonary disease. 2. Ischemic cardiomyopathy. 3. Moderate aortic stenosis. 4. Atrial fibrillation, recently diagnosed. 7. Diabetes. 8. Dyslipidemia. 9. She has a thoracic vertebral fracture, being treated conservatively. PAST SURGICAL HISTORY: 1. Colonoscopy. 2. Laminectomy. 3. Cholecystectomy. 4. Thyroid. MEDICATIONS PRIOR TO ADMISSION: 1. Aspirin 81 mg a day. 2. Zetia. 3. Lasix. 4. Lisinopril. 5. Xarelto was recently started. FAMILY HISTORY: Sister with COPD. REVIEW OF SYSTEMS: Constitutional: She was unable to get up and walk around due to thoracic vertebral fracture. Vision: No changes. Hearing: No changes. Pulmonary: No cough or wheezing. Gastrointestinal: No nausea, vomiting or diarrhea. Skin: No rashes. Neurologic: No unilateral weakness or numbness. Psychiatric: No unusual depression or anxiety. Hematologic: No unusual bruising. Genitourinary: No burning with urination. Musculoskeletal: No unusual joint pains. PHYSICAL EXAMINATION: GENERAL: This is a pleasant elderly woman in no distress. VITAL SIGNS: Blood pressure is 139/67 and pulse 108, it is irregular. HEENT: Eyes; sclerae nonicteric. Mouth; mucous membranes are moist. NECK: Supple. No lymphadenopathy. LUNGS: Clear. No wheezing, rales or rhonchi. CARDIAC: Irregularly irregular with a 2/6 systolic murmur. No diastolic murmur , no S3. ABDOMEN: Soft and nontender. EXTREMITIES: There is mild edema. SKIN: Warm and dry. IMAGING DATA: Reviewing the records, the patient does have atrial fibrillation. The patient had a rapid atrial fibrillation last night with a rate up to 150. She was started on intravenous Cardizem. The most recent ejection fraction is 30% to 35% per the notes. ASSESSMENT: 1. Congestive heart failure, systolic, chronic, stable. 2. Atrial fibrillation, which is now persistent. 3. Chronic obstructive pulmonary disease. 4. Generalized weakness. PLAN: 1. I discussed the options with the patient and family. One option would be to give amiodarone and try to cardiovert and see if we can maintain sinus rhythm , but the family indicates she already has pretty significant lung disease and they prefer not to do that. 2. The other option therefore will be rate control. We will give her digoxin 0.25 mg IV this afternoon, then 0.125 mg a day. 3. We would recommend continuing Xarelto. 4. Increase carvedilol. 5. Okay to be released home tomorrow. MTDD
--- NOTE | 2016-12-06 22:55 | DIS ---
DATE OF ADMISSION: 12/02/2016 DATE OF DISCHARGE: 12/06/2016 DISCHARGE DIAGNOSES: 1. Chronic atrial fibrillation with variable rate control, on chronic anticoagulation with Xarelto. 2. Ischemic cardiomyopathy with ejection fraction of 30% to 35%, compensated. 3. Acute kidney injury, resolved. 4. Rhabdomyolysis, mild, resolved. 5. T12 burst fracture, medical management. 6. Hypokalemia, resolved. 7. Moderate dehydration, resolved. 8. Hypomagnesemia. 9. Deconditioning. CONSULTATION: Dr. Barros with Neurosurgical Service. PERTINENT LABORATORY DATA AND X-RAY FINDINGS: Potassium ranged between 2.8 and 4.3, creatinine rang ed between 0.84 and 1.86 with estimated GFR ranging between 26 and 64, AST ranged between 96 and 116 , ALT ranged between 60 and 71, troponin I ranged between 0.137 and 0.142. CBC showed hemoglobin ra nging between 11.0 and 12.8. Urine culture dated on 12/02/2016, showed no growth at [address] o f the thoracic spine dated on 12/03/2016, showed acute burst fracture of T12. Mild compression frac ture of T4, indeterminate age. Old compression fracture of T8 and T9. Diffuse severe osteopenia. Bone scan dated on 12/03/2016, showed new acute compression fracture at T12 and T4. CT of the lumba r spine dated on 12/03/2016, showed old compression fracture of L2, treated with vertebroplasty. Se torrey lumbar spondylosis with high-grade degenerative disk disease and high-grade facet osteoarthrosi s. Severe central spinal canal stenosis and severe neural foraminal stenosis at various levels. Se torrey osteopenia/osteoporosis. HOSPITAL COURSE: Patient was admitted to the telemetry unit after initially presenting with general ized weakness and dizziness with associated dehydration, acute kidney injury, and vertigo. Patient underwent general evaluation and initiated on IV fluid therapy after patient was noted with acute ki dney injury. Patient was discontinued on lisinopril and metformin and all nephrotoxic agents. Sherry ent was also monitored for recovery of renal function, which improved with IV fluid hydration and av oidance of nephrotoxic agents. Patient also was noted with mild rhabdomyolysis, improving with hydr ation therapy. Patient was also evaluated due to severe back pain with multiple areas of old compre ssion fracture, as well as new compression fracture at T12. Patient was evaluated by the neurosurgi carlos service with recommendations for application of a lumbosacral orthotics brace for ambulation and mobilization. Patient also received intermittent IV pain control with narcotics in addition to tra nsitioning to oral tramadol for pain control. Due to patient's limited mobility status, fall risk, and living situation, patient was deemed an appropriate candidate for ongoing skilled care. Patient has been approved for [facility] in a supervised setting. Overall, the patient remained clinically stable through the remainder of the hospital course. The patient did have an e pisode of rapid ventricular response in the context of known chronic atrial fibrillation, treated wi th a short course of diltiazem intravenously. Overall, the patient remained clinically stable for t he hospital course and ready for discharge on 12/06/2016. DISCHARGE MEDICATIONS: 1. Acetaminophen 1000 mg p.o. every 6 hours p.r.n. 2. Enteric-coated aspirin 81 mg one tablet p.o. at bedtime. 3. Coreg 6.25 mg p.o. b.i.d. 4. Vitamin D3 of 2000 units p.o. daily. 5. Neurontin 300 mg p.o. at bedtime. 6. Krill oil one capsule p.o. at bedtime. 7. Lactobacillus one capsule p.o. daily. 8. Levothyroxine 37.5 mcg p.o. daily. 9. Lisinopril 5 mg p.o. at bedtime. 10. Magnesium oxide 400 mg p.o. b.i.d. 11. Xarelto 15 mg p.o. at bedtime. 12. Crestor 40 mg p.o. at bedtime. 13. Torsemide 20 mg p.o. every morning. 14. Coenzyme Q10 of 200 mg p.o. daily. 15. Multivitamin one tablet p.o. daily. 16. Metformin 1000 mg p.o. b.i.d. 17. Tramadol 50 mg p.o. b.i.d. p.r.n. FOLLOWUP: Patient will follow up with her primary care provider, Dr. David Whelan within 7 days of dis charge. The patient will follow up with [facility] on 01/06/2017 at 1 :40 p.m. CONDITION ON DISCHARGE: Fair. ACTIVITY: Ad marge. LSO bracing for ambulation and mobilization. High fall risk precautions. DIET: Regular as tolerated. CODE STATUS: FULL. DISPOSITION: Discharged to [facility] on 12/06/2016. Total time preparing and coordinating discharge is 35 minutes.
[2016-12-07] MEDS: Ipratropium Bromide 2.5 ml Neb NEB SCH ×3 (00:35→13:20)
[2016-12-07] MEDS: Levothyroxine Sodium 25 MCG TAB PO SCH (05:02)
[2016-12-07] MEDS ORDERED: Digoxin 0.125 MG TAB PO SCH (09:00)
[2016-12-07] MEDS: Carvedilol 6.25 MG TAB PO SCH (09:19)
[2016-12-07] MEDS: Magnesium Oxide 400 MG TAB PO SCH (09:20)
[2016-12-07] MEDS: Famotidine 20 MG TAB PO SCH (09:20)
[2016-12-07] MEDS: traMADol HCl 50 MG TAB PO PRN (10:07)
--- NOTE | 2016-12-07 10:07 | PRG ---
DATE OF SERVICE: 12/07/2016 SUBJECTIVE: Ms. Vela is feeling well today. No chest pain or pressure. Her blood pressure is imp roved at 139/67. She did not have any significant tachycardia last night. PHYSICAL EXAMINATION: VITAL SIGNS: Pulse today is 80 and irregular. LUNGS: Clear. CARDIAC: Irregulary, irregular. ASSESSMENT: 1. Atrial fibrillation, persistent right now controlled. 2. Congestive heart failure, systolic, chronic, stable. PLAN: 1. She is on Carvedilol 12.5 mg twice daily. 2. Digoxin 0.125 mg orally. 3. She is able to be released to the rehab now to see Dr. Blake in 3-4 weeks.
[2016-12-07] MEDS: hydrOXYzine 25 MG TAB PO PRN (10:08)
[2016-12-07 15:57] VITALS: BP 172/90; TEMP 98.8
--- NOTE | 2016-12-07 23:07 | ADD-DIS ---
ADDENDUM DATE OF ADMISSION: 12/02/2016 DATE OF DISCHARGE: 12/07/2016 HOSPITAL COURSE: The patient's discharge was held for approximately 24 hours for adjustment to card iac medications regarding atrial fibrillation. Coreg was increased to 12.5 mg b.i.d. and the patien t was initiated on digoxin 0.125 mg daily for more optimal rate control. Telemetry monitoring shows chronic atrial fibrillation with variable rates in the 90s to low 100s. The patient to continue an ticoagulation with Xarelto 15 mg p.o. at bedtime. Overall, patient remained clinically stable throu gh the remainder of the hospital course and ready for discharge on 12/07/2016. Please see dictated discharge summary dated 12/06/2016 for full details and medication list.
== END 2016-12-07 17:05 | DRG 683 ==
LOC: ERS 15:24 → 2NO 18:10
PROVIDERS: ADMIT Internal Medicine; ATTEND Internal Medicine
DX: N17.9 Acute kidney failure, unspecified (principal); I48.1 Persistent atrial fibrillation; I48.2 Chronic atrial fibrillation; I11.0 Hypertensive heart disease with heart failure; I50.22 Chronic systolic (congestive) heart failure; J44.9 Chronic obstructive pulmonary disease, unspecified; E86.0 Dehydration; E11.9 Type 2 diabetes mellitus without complications; E83.42 Hypomagnesemia; E03.9 Hypothyroidism, unspecified; T79.6XXA Traumatic ischemia of muscle, initial encounter; M81.0 Age-related osteoporosis without current pathological fracture; E87.6 Hypokalemia; I25.5 Ischemic cardiomyopathy; I35.0 Nonrheumatic aortic (valve) stenosis; R79.89 Other specified abnormal findings of blood chemistry; S22.081D Stable burst fracture of T11-T12 vertebra, subsequent encounter for fracture with routine healing; Z79.01 Long term (current) use of anticoagulants; Z88.1 Allergy status to other antibiotic agents; Z88.5 Allergy status to narcotic agent; Z82.49 Family history of ischemic heart disease and other diseases of the circulatory system; Z83.6 Family history of other diseases of the respiratory system; X58.XXXA Exposure to other specified factors, initial encounter
CPT/HCPCS: 36415; 36416; 51701; 72128; 72131; 78306; 80048; 80053; 81003; 81015; 82550; 82553; 83735; 84484; 85007; 85025; 85027; 87086; 93005; 93010; 93290; 94640; 96361; 96374; 96375; 99214; A4216; A4353; A9503; G0463; G8978-GP-CL; G8979-GP-CK; G8987-GO-CL; G8988-GO-CJ; G8996-GN-CJ; G8996-GN-CK; G8997-GN-CJ; J1160; J2270; J2405; J7050; J7644

== ENCOUNTER 2016-12-12 19:03 | Inpatient (IN) | payer MEDICARE ==
[~2016-12-12 19:03] MED LIST: Iopamidol 370 76% 50 ML VIAL FS ONE
[2016-12-12 19:28] LABS: #Eosinphils 0.1 thou/uL (0.0-0.7); #Lymphocytes 1.4 thou/uL (1.20-3.40); #Monocytes 0.7 thou/uL (0.11-0.59); #Neutrophils 3.6 thou/uL (1.40-6.50); %Basophils 0.7 % (0.0-1.0); %Eosinophils 1.1 % (0.0-10.0); %Lymphocytes 23.9 % (21.0-51.0); %Monocytes 11.3 % (0.0-10.0); Hematocrit 38.4 % (36.0-47.0); Mean Platelet Volume 9.4 fL (7.4-10.4); Red Blood Cell (RBC) Count 3.79 mill/uL (4.20-5.40); White Blood Cell (WBC) Count 5.8 thou/uL (4.8-10.8)
[2016-12-12 19:47] LABS: ALT (SGPT) 45 U/L (8-55); AST (SGOT) 29 U/L (5-34); Alkaline Phosphatase 66 U/L (40-150); BUN (Urea Nitrogen) 21 mg/dL (9.8-20.1); Bilirubin, Total 1.5 mg/dL (0.2-1.2); Calc. Creatinine Clearance 0 mL/min (70-130); Calcium 9.8 mg/dL (7.8-10.44); Estimated GFR-MDRD 43; Globulin 2.5 g/dL (2.4-3.5); Magnesium 1.7 mg/dL (1.6-2.6); Protein, Total 5.7 g/dL (6.0-8.3)
[2016-12-12 19:51] LABS: Troponin I 0.122 ng/mL (< 0.028)
[2016-12-12 19:57] LABS: Anion Gap 14 mmol/L (10-20); Carbon Dioxide 36 mmol/L (23-31); Chloride 87 mmol/L (98-107)
[2016-12-12 21:23] LABS: Bilirubin Negative (Negative); Blood, Urine Trace (Negative); Glucose, Urine (Dipstick) Negative (Negative); Ketone, Urine Negative (Negative); Nitrite Negative (Negative); Protein, Urine (Dipstick) Trace mg/dL (Neg-Trace); Urobilinogen 0.2 mg/dL (0.2-1.0)
[2016-12-12 21:24] LABS: Bacteria/HPF None Seen HPF (None Seen); Hyaline Casts/LPF 0-3 HYALINE CAST LPF (0-3 Hyaline); RBC/HPF None Seen HPF (0-3); Squamous Epithelial 0-3 HPF (0-3); WBC/HPF 0-3 HPF (0-3)
[2016-12-12 23:19] LABS: Troponin I 0.115 ng/mL (< 0.028)
--- NOTE | 2016-12-12 23:26 | CT ---
CT OF ABDOMEN AND PELVIS PERFORMED WITHOUT CONTRAST ENHANCEMENT: History: Nausea and vomiting. Abdominal pain. Constipation. FINDINGS: The lung bases are clear of any confluent infiltrates. Tiny bilateral effusions and atelectatic mari ges are seen in both bases. Liver shows normal size. There is marked intra and extrahepatic ductal dilatation. In reviewing a study, this was present on the prior exam and appears slightly more pronounced on today's study b ut is probably on the basis of cholecystectomy given the long-standing nature. Spleen and pancreas r egions are unremarkable. Right and left adrenal glands are normal in appearance. Small exophytic hypodensities involving the kidneys are statistically most likely cysts. Cortically based calcification is seen within the left kidney. There is cortical scarring of the left kidney which is smaller as compared to the right. The re is no significant periaortic or mesenteric adenopathy. CT OF PELVIS PERFORMED WITH CONTRAST ENHANCEMENT: Some diverticulosis of the sigmoid colon. The appendix is difficult to definitely identify. Review of osseous structures show vertebroplasty changes of L2 and a burst type fracture of T12. In reviewing the CT of the lumbar spine of 12-03-16, these changes appear stable. IMPRESSION: 1. Small bilateral pleural effusions with bibasilar atelectasis. 2. Intra and extrahepatic biliary ductal dilatation which is felt most likely to be on the basis of cholecystectomy. 3. Somewhat atrophic appearing left kidney. Hypodensities involving both kidneys are most likely cys t. 4. Sigmoid diverticulosis. 5. Burst fracture of T12 and vertebroplasty changes of L2. These changes were noted on a previous CT examination of 12-03-16. POS: FILIBERTO
--- NOTE | 2016-12-12 23:53 | HP ---
DATE OF ADMISSION: 12/12/2016 PRIMARY CARE PHYSICIAN: Dr. David Whelan. CHIEF COMPLAINT: Nausea, vomiting. HISTORY OF PRESENT ILLNESS: This is an 86-year-old female, who presents to [facility] in transfer from [facility] where the patient was recent ly discharged from [facility] after an admission in 12/02/2016 through 2016 for acute kidney injury, dehydration, rhabdomyolysis as well as pain control after sustaining a T12 burst fracture. The patient was treated for mild hypokalemia as well as moderate dehydration, overall stabilizing and transferring for ongoing rehabilitation due to the burst fracture, pain cont rol and limited mobility. The patient was placed on a TLSO brace by the Neurosurgical Services and the patient states she has been receiving approximately 2 hours of rehabilitation at [place] on a daily basis. The patient admits to decreased oral intake as well as decreased fluid intake. The pa tio states she has been having to eat sitting up with wearing the TLSO brace, which puts pressure on her stomach causing her to become nauseated. The patient admits to decreased intake of her food corroborated by family members. The patient admits more nausea then emesis, but does state that she had bowel movements in the last 24 hours after an apparent week long difficulty with constipation. The patient states she received MiraLax as well as Dulcolax suppositories, which were successful in relieving her symptoms. The patient denied any specific hematemesis, melena or difficulty with uri nation. The patient denies any prominent chest pain, shortness of breath, increased lower extremity swelling. The patient does admit that she feels thirsty and fatigue. No specific dizziness, unila teral weakness, difficulty with speech, or facial droop. In the emergency room, the patient underwe nt general evaluation including metabolic survey showing evidence of mild dehydration with elevated creatinine of 1.19. The patient received IV fluids with normal saline as well as antiemetics. The patient also underwent CT imaging of the abdomen and pelvis showing no evidence of acute process wit hout evidence for bowel obstruction. The patient was transferred to the Hospitalist Service for fur ther evaluation. PAST MEDICAL HISTORY: 1. Chronic atrial fibrillation with chronic anticoagulation with Xarelto. 2. Ischemic cardiomyopathy with ejection fraction of 30% to 35%, compensated. 3. History of chronic kidney disease, stage 2. 4. T12 burst fracture, medical management. 5. Deconditioning. 6. Chronic obstructive pulmonary disease. 7. Moderate aortic stenosis. 8. Hypertension. 9. Diabetes mellitus type 2, on oral hypoglycemics. 10. Dyslipidemia. 11. Coronary artery disease, chronic and stable. 12. Hypothyroidism. 13. History of bladder cancer. 14. History of vertebral compression fractures. 15. History of falls. PAST SURGICAL HISTORY: 1. Status post mastoid ear surgery. 2. Status post colonoscopy. 3. Status post cystourethrectomy. 4. Status post laminectomy. 5. Status post right total knee arthroplasty. 6. Status post cholecystectomy. 7. Status post hysterectomy. 8. Status post thyroidectomy due to goiter. 9. Status post ankle surgery and right wrist surgery. CURRENT MEDICATIONS: 1. Enteric coated aspirin 81 mg 1 tablet p.o. daily. 2. Coreg 12.5 mg p.o. b.i.d. 3. Vitamin D3 of 2000 units p.o. daily. 4. Digoxin 0.125 mg p.o. daily. 5. Neurontin 300 mg p.o. at bedtime. 6. Krill oil 1 capsule p.o. at bedtime. 7. Lactobacillus 1 capsule p.o. daily. 8. Levothyroxine 37.5 mcg p.o. daily. 9. Lisinopril 5 mg p.o. daily. 10. Magnesium oxide 400 mg p.o. b.i.d. 11. Xarelto 15 mg p.o. at bedtime. 12. Crestor 40 mg p.o. at bedtime. 13. Torsemide 20 mg p.o. q.a.m. 14. Coenzyme Q10 of 300 mg p.o. daily. 15. Multivitamin 1 tablet p.o. daily. 16. Metformin 1000 mg p.o. b.i.d. 17. Tramadol 50 mg p.o. b.i.d. p.r.n. ALLERGIES: CODEINE and LEVAQUIN. FAMILY HISTORY: Sister with advanced COPD. Mother with history of coronary artery disease at age 6 0. SOCIAL HISTORY: The patient resides in [place], [place]. Currently, her resident of [facility] with recent discharge from [facility] on 12/07/2016. Accomp anied by her daughter in the emergency room. No current alcohol, tobacco or illicit drug use. Hist ory of recent fall on 10/24/2016. Ambulatory with use of a rolling walker with standby assistance w ith the use of TLSO brace. REVIEW OF SYSTEMS: The following complete review of systems was negative, unless otherwise mentione d in the HPI or below: Constitutional: Weight loss or gain, ability to conduct usual activities. Skin: Rash, itching. Eyes: Double vision, pain. ENT/Mouth: Nose bleeding, neck stiffness, pain, tenderness. Cardiovascular: Palpitations, dyspnea on exertion, orthopnea. Respiratory: Shortness of breath, wheezing, cough, hemoptysis, fever or night sweats. Gastrointestinal: Poor appetite, abdominal pain, heartburn, nausea, vomiting, constipation, or diar wesly. Genitourinary: Urgency, frequency, dysuria, nocturia. Musculoskeletal: Pain, swelling. Neurologic/Psychiatric: Anxiety, depression. Allergy/Immunologic: Skin rash, bleeding tendency Otherwise negative except as stated per HPI. PHYSICAL EXAMINATION: VITAL SIGNS: Currently, blood pressure 132/76, pulse 67, respiratory rate 18, temperature 98.3 degr ees Fahrenheit, O2 saturation 94% on room air. GENERAL APPEARANCE: This is an 86-year-old female, alert and oriented x3, pleasant, smili ng, in no acute distress. HEENT: Pupils are equal, round, and reactive to light and accommodation. Extraocular muscles are i ntact. No scleral icterus, no conjunctival injection. Nares patent. OP is clear. Oral mucosa is dry. NECK: Supple, no cervical adenopathy, no thyromegaly, no carotid bruits, no JVD appreciated. Cervi carlos spine with full active and passive range of motion. No meningeal signs appreciated. CHEST: Lungs are clear to auscultation bilaterally. CARDIOVASCULAR: S1, S2 with irregular rate and rhythm. ABDOMEN: Rounded, soft, nontender, nondistended. Bowel sounds are positive in all four quadrants. There is no hepatosplenomegaly, no abdominal bruits, no rebound or guarding appreciated. EXTREMITIES: Warm and dry with fair turgor. No clubbing, cyanosis or asymmetric edema appreciated. Pulses palpable distally at the dorsalis pedis, posterior tibial, and popliteal arteries bilateral ly. Capillary refill is less than 2 seconds. NEUROLOGIC: Cranial nerves II-XII are grossly intact. No focal or lateralizing signs appreciated. PERTINENT LABORATORY AND X-RAY FINDINGS: Sodium 134, potassium 3.2, chloride 87, CO2 of 36, BUN 21, creatinine 1.19 with estimated GFR of 43, glucose 129, calcium 9.8, magnesium 1.7, total bilirubin 1.5, AST 29, ALT 45, alkaline phosphatase 66, troponin I 0.122. BNP 1041, previously noted 749 on 0 05/09/2015. Albumin is 3.2. CBC showed a white blood cell count 5.8, hemoglobin 12, hematocrit 38, MCV 101, platelet count 170 with normal differential. Urinalysis showed specific gravity of 1.007. CT of the abdomen and pelvis dated 12/12/2016 showed no evidence for bowel obstruction. Prominent intra and extrahepatic ductal dilatation consistent with prior cholecystectomy. Bilateral renal cys t noted. T12 burst fracture noted. Please see dictated report for full details. No acute process identified. Telemetry monitoring shows atrial fibrillation with heart rate in the 80s. ASSESSMENT AND PLAN: 1. Nausea and vomiting. Suspect multifactorial including dehydration. Continue Zofran 4 mg IV q.6 hours p.r.n. Continue intravenous D5 normal saline with 40 mEq of potassium chloride at night at 7 5 mL per hour. Continue supportive management. Check digoxin level in the a.m. 2. Dehydration. We will continue intravenous fluids as outlined in #1. Continue to monitor clinic al response. Encourage free water intake. 3. Acute kidney injury on chronic kidney disease, stage 2. See #1 and #2 above. Avoid nephrotoxic agents and contrast media. Hold lisinopril, metformin, and diuretics. Repeat creatinine in the a. m. 4. Hypokalemia. We will provide potassium chloride supplementation and repeat potassium level in t he a.m. 5. Chronic atrial fibrillation, rate controlled, on chronic Xarelto. We will continue to monitor o n the observation unit with telemetry. Continue Xarelto 15 mg p.o. at bedtime. 6. T12 burst fracture. Stable currently. Medical management. Continue TLSO bracing when ambulati ng or with activity level. Hold bracing while the patient is eating meals. 7. Prophylaxis. Sequential compression devices while in bed. Pepcid 20 mg p.o. b.i.d. 8. Code status is FULL. Surrogate medical decision maker is the patient's daughter.
[2016-12-13] MEDS ORDERED: cloNIDine 0.1 MG TAB PO PRN (00:01)
[2016-12-13] MEDS ORDERED: hydrALAZINE 20 MG/ML VIAL SLOW IVP PRN (00:01)
[2016-12-13] MEDS ORDERED: HumaLOG 300 UNITS/3 ML VIAL SC PRN ×2 (00:01)
[2016-12-13] MEDS ORDERED: Dextrose 50% Abboject 50 ML SYRINGE SLOW IVP PRN (00:01)
[2016-12-13] MEDS ORDERED: Dextrose 5% in Water 1,000 ML IV PRN (00:01)
[2016-12-13] MEDS ORDERED: Ondansetron ODT 4 MG TAB PO PRN (00:01)
[2016-12-13] MEDS ORDERED: Acetaminophen 500 MG TAB PO PRN (00:01)
[2016-12-13] MEDS: D5 NS w/ 40 mEq KCl 1,000 ML IV SCH ×2 (00:25→15:04)
[2016-12-13 02:23] LABS: Band 1 % (5-11); Hematocrit 34.9 % (36.0-47.0); Mean Platelet Volume 8.9 fL (7.4-10.4); Neutrophil 59 % (42-75); Red Blood Cell (RBC) Count 3.44 mill/uL (4.20-5.40); White Blood Cell (WBC) Count 5.2 thou/uL (4.8-10.8)
[2016-12-13 02:36] LABS: Troponin I 0.119 ng/mL (< 0.028)
[2016-12-13 02:40] LABS: BUN (Urea Nitrogen) 21 mg/dL (9.8-20.1); Calc. Creatinine Clearance 41 mL/min (70-130); Calcium 9.5 mg/dL (7.8-10.44); Estimated GFR-MDRD 47
[2016-12-13 02:49] LABS: Anion Gap 11 mmol/L (10-20); Carbon Dioxide 39 mmol/L (23-31); Chloride 90 mmol/L (98-107)
[2016-12-13 03:40] LABS: Digoxin 1.06 ng/mL (0.8-2.0)
[2016-12-13] MEDS: Ondansetron HCl/PF 4 MG/2 ML Vial IVP PRN (08:09)
[2016-12-13] MEDS ORDERED: Aspirin 325 mg Enteric Coated Tablet PO SCH (09:00)
[2016-12-13] MEDS ORDERED: Famotidine 20 MG TAB PO SCH (09:00)
[2016-12-13 10:54] LABS: ALT (SGPT) 38 U/L (8-55); AST (SGOT) 25 U/L (5-34); Alkaline Phosphatase 60 U/L (40-150); Bilirubin, Direct 0.6 mg/dL (0.1-0.3); Bilirubin, Total 1.3 mg/dL (0.2-1.2); Protein, Total 5.2 g/dL (6.0-8.3)
--- NOTE | 2016-12-13 13:58 | PDOC.PN ---
- Subjective Encounter Start Date: 12/13/16 Encounter Start Time: 09:50 -: old records requested/rev Pt seen and examined earlier on rounds, pt re-visited later in the morning when results available. Pt known to me from previous hospitalization. Family at bedside, all questions answered. 45 minutes in total spent with patient and family. Navya barton my first visit with this patient this hospital stay Admitted yesterday with persistent nausea and anorexia with moderate dehydrations. repsonds to zofran, but short lived. Still not well enough to want to eat nauseated, no vomiting, no D/C, no CP or sOB at present, no F/C 10 point ROS performed and neg for all systems except as per HPI - Objective Resuscitation Status: Resuscitation Status FULL:Full Resuscitation MAR Reviewed: Yes Vital Signs & Weight: Vital Signs (12 hours) Temp Pulse Resp BP Pulse Ox 12/13/16 11:22 98.6 F 67 22 H 169/67 H 91 L 12/13/16 07:36 98.1 F 64 16 166/70 H 95 12/13/16 04:05 98.3 F 60 17 123/58 L 93 L Weight Admit Weight 160 lb 12.8 oz Weight 160 lb 12.8 oz I&O: 12/12/16 12/13/16 12/14/16 06:59 06:59 06:59 Intake Total 564 Balance 564 Result Diagrams: 12/13/16 02:05 12/13/16 02:05 Additional Labs: Accuchecks 12/13/16 12/13/16 11:51 06:30 POC Glucose 122 H 119 H Radiology Reviewed by me: Yes EKG Reviewed by me: Yes Phys Exam - Physical Examination Constitutional: NAD HEENT: PERRLA, moist MMs, sclera anicteric, oral pharynx no lesions Neck: no nodes, no JVD, supple, full ROM Respiratory: no wheezing, no rales, no rhonchi, clear to auscultation bilateral Cardiovascular: RRR, no significant murmur, no rub, gallop Gastrointestinal: soft, non-tender, no distention, positive bowel sounds LUQ/LLQ hyperactive, RUQ/RLQ very hypoactive Musculoskeletal: no edema, pulses present Neurological: non-focal, normal sensation, moves all 4 limbs Lymphatic: no nodes Psychiatric: normal affect, A&O x 3 Skin: no rash, normal turgor, cap refill <2 seconds Dx/Plan (1) Nausea alone Status: Acute Comment: started severla days ago. UGI looks okay, LFTs normal despite increased biliary dilation. Will ask GI to evaluate. Will likely need to be changed to inpatient status (2) Chronic atrial fibrillation with RVR Code(s): I48.2 - CHRONIC ATRIAL FIBRILLATION Status: Chronic Comment: rate controlled, CCM (3) Compression fracture Code(s): HAD5491 - Status: Acute Comment: T12 burst fracture. acute during last hospital stay, non operative, wearing LSO brace. removing during meals to see if nausea improved (4) Diabetes 1.5, managed as type 2 Code(s): E13.9 - OTHER SPECIFIED DIABETES MELLITUS WITHOUT COMPLICATIONS Status: Chronic (5) WARREN (acute kidney injury) Code(s): N17.9 - ACUTE KIDNEY FAILURE, UNSPECIFIED Status: Resolved Comment : Cr improved but not quite back to baseline. Resolved - Plan cont current plan of care, plan discussed w/ family, PT/OT, licensed master social worker * .
--- NOTE | 2016-12-13 15:04 | RAD ---
UPPER GI: HISTORY: Persistent nausea. FINDINGS: This examination was limited. The patient took a few sips of barium and aspirated. No additional b arium was given at that time. The esophageal mucosa was normal. There were marked pronounced terti logan contractions of the esophagus and delayed passage of the barium through the GE junction which ap pears narrowed. The contrast retained in the esophagus until the patient was given some sips of waqas er, at which time it passed through the GE junction region. The stomach could not be well assessed due to the limited amount of barium. There was emptying into the duodenum. IMPRESSION: Limited examination. The patient aspirated some barium, and the exam was terminated at that time. There was evidence of tertiary contractions of the distal esophagus with delayed emptying of the bar ium from the esophagus, related to narrowing at the level of the gastroesophageal junction. POS: [facility]
[2016-12-14] MEDS: Ondansetron HCl/PF 4 MG/2 ML Vial IVP PRN (04:02)
[2016-12-14] MEDS: D5 NS w/ 40 mEq KCl 1,000 ML IV SCH ×2 (04:42→18:28)
--- NOTE | 2016-12-14 05:02 | CON ---
DATE OF CONSULTATION: 12/13/2016 CHIEF COMPLAINT: Nausea and vomiting. HISTORY OF PRESENT ILLNESS: Ms. Vela is an 86-year-old woman who was recently discharged from the hospital after a back injury. She was readmitted yesterday with persistent nausea and dry heaves. She has had nausea with dry heaves several times per day and has tolerated minimal oral intake. She had been taking ibuprofen 2 tablets every 6 hours. She has had a brace on for her back injury and has been working with physical therapy. She does have chronic constipation and has taken MiraLax da zara in the past that has been off of this recently per her report. She has had to strain at firm js wel movements. She has had no blood in the stool. Weight has been stable. PAST MEDICAL HISTORY: Atrial fibrillation on Xarelto, ischemic cardiomyopathy, chronic kidney disea se, T12 burst fracture recently, COPD, moderate aortic stenosis, hypertension, diabetes mellitus typ e 2, hyperlipidemia, hypothyroidism, coronary artery disease, and history of bladder cancer. PAST SURGICAL HISTORY: Ear surgery, laminectomy, knee replacement, cholecystectomy, hysterectomy, t hyroidectomy, ankle surgery, wrist surgery. FAMILY HISTORY: Negative for GI malignancy. SOCIAL HISTORY: No alcohol, tobacco or drugs. ALLERGIES: CODEINE, LEVOFLOXACIN. MEDICATIONS AT HOME: Famotidine as an inpatient. Prior to admission, she was taking aspirin, Xarel to, Coreg, digoxin, Neurontin, fish oil, Lactobacillus, levothyroxine, lisinopril, magnesium, Xarelt o, Crestor, torsemide, Coenzyme Q10, multiple vitamins, metformin, and tramadol. REVIEW OF SYSTEMS: Negative x10 systems reviewed except as stated in the history of present illness . PHYSICAL EXAMINATION: VITAL SIGNS: Temperature 98.7, pulse 65, blood pressure 147/66. GENERAL: She is in no acute distress, awake and alert. HEENT: Eyes have no scleral icterus. Oropharynx is clear without lesions. NECK: No cervical or supraclavicular lymphadenopathy. LUNGS: Clear to auscultation bilaterally. HEART: Regular rate and rhythm without murmur. ABDOMEN: Soft, nontender, nondistended. Bowel sounds are present. EXTREMITIES: No lower extremity edema. LABORATORY DATA: White blood cell count 5.2, hemoglobin 11.1, platelets 144, bilirubin 1.3, AST 25, ALT 38, alkaline phosphatase 60, albumin 3. IMPRESSION: 1. Nausea and vomiting, persistent for the last week. She has been taking NSAIDs with ibuprofen 2 tablets every 6 hours. We should rule out peptic ulcer disease. 2. Abnormal upper GI series showing dilated esophagus with slow emptying of contrast from the esoph ovidio. There is also some aspiration noted. She had an esophagogastroduodenoscopy with empiric dila tion of the esophagus back in 09/2015. The EGD at that time was normal. She could have achalasia d eveloping. 3. Chronic constipation. She has a history of collagenous colitis; however, her primary problem mo re recently has been constipation. This could be contributing to the nausea. RECOMMENDATIONS: 1. We will plan EGD to evaluate for esophageal stricture and rule out peptic ulcer disease. 2. Avoid NSAIDs. 3. Start proton pump inhibitor. 4. Start MiraLax daily.
[2016-12-14] MEDS: Pantoprazole 40 MG VIAL IVP SCH (09:17)
--- NOTE | 2016-12-14 13:06 | PQF ---
DATE: 12-15-16 ATTN: DR. GINA FULLER Please exercise your independent, professional judgment in responding to the clarification form. Clinical indicators are provided on the bottom of this form for your review Please check appropriate box(s): HEART FAILURE: A.TYPE: [ x ] Systolic / HFrEF [ ] Diastolic / HFpEF [ ] Combined Systolic / Diastolic B.ACUITY [ ] Acute[ ] Acute on Chronic [ x ] Chronic C.WITH (if appropriate) [ ] Hypertensive Heart Disease[ ] Hypertensive Heart and Kidney Disease [ ] Other diagnosis [ ] Unable to determine In addition, please specify: Present on Admission (POA): [ ] Yes [ ] No [ ] Unable to determine For continuity of documentation, please document condition throughout progress notes and discharge summary. Thank You. CLINICAL INDICATORS - SIGNS / SYMPTOMS / LABS ER DOCUMENTATION: HISTORY OF CHF ER DIAGNOSIS: DEHYDRATION, CHF EXACERBATION, ELEVATED TROPONIN CT OF ABDOMEN AND PELVIS 12-12-16: SMALL BILATERAL PLEURAL EFFUSIONS WITH BIBASILAR ATELECTASIS BNP: 12-12-16: 1041.0 RISKS: ER DOCUMENTATION: HISTORY OF CHF, HTN, DM 2, CAD TREATMENTS: CARDIAC MONITORING (ER AND H&P) HOME MEDS OF COREG, LISINOPRIL, TORSEMIDE (This form is maintained as a part of the permanent medical record) 2014 [employer]. All Rights Reserved RENEE [email or web address] Office: [phone] KATHLEEN
[2016-12-14] MEDS ORDERED: Ondansetron HCl/PF 4 MG/2 ML Vial IVP PRN (13:12)
--- NOTE | 2016-12-14 13:21 | PQF ---
DATE: 12-15-16 ATTN: DR. GINA FULLER Please exercise your independent, professional judgment in responding to the clarification form. Clinical indicators are provided on the bottom of this form for your review Please check appropriate box(s): [ ] NSTEMI [ ] NSTEMI Type II (d/t demand ischemia) [ x ] Demand Ischemia [ ] Associated Diagnosis: [ ] Other diagnosis [ ] Unable to determine In addition, please specify: Present on Admission (POA): [ x ] Yes [ ] No [ ] Unable to determine For continuity of documentation, please document condition throughout progress notes and discharge summary. Thank You. CLINICAL INDICATORS - SIGNS / SYMPTOMS/ LABS are present in the medical record: LABS: 12-12-16: 0.122 0.115 12-13-16: 0.119 RISK FACTORS: ER: DOCUMENTATION: DM 2, HYPERLIPIDEMIA, CHF H&P: HX OF CAD, CKD 2, CHRONIC A FIB, HX OF ISCHEMIC LOANS CONSULTANT TREATMENT: SERIES OF LABS (This form is maintained as a part of the permanent medical record) 2014 [employer]. All Rights Reserved RENEE [email or web address] Office: [phone] [facility]
--- NOTE | 2016-12-14 13:39 | OP ---
DATE OF PROCEDURE: 12/14/2016 SURGEON: Dr. Jone Frias PREOPERATIVE DIAGNOSES: 1. Persistent nausea and vomiting. 2. Abnormal upper GI series. PROCEDURE: After informed consent was obtained, the patient placed in left lateral decubitus positi on. Anesthesia was administered per the Anesthesia Department. Forward viewing endoscope was inser diane into the esophagus under direct visualization with ease and passed to the second portion of the duodenum with ease. Second portion of the duodenum and duodenal bulb were normal. The pylorus, ant rum, body, fundus, and cardia were normal. Retroflexion in the stomach was normal. The esophagus s howed no obvious stricture at the GE junction; however, it did not open fully on insufflation. The esophagus seemed slightly dilated. A 54 [place] Connolly was passed without resistance. Reinsertion of the endoscope showed no post-dilatation changes. ASSESSMENT: 1. Dilated esophagus - possible achalasia. 2. Otherwise, normal esophagogastroduodenoscopy - no change with passage of the Connolly dilator. RECOMMENDATIONS: 1. Esophageal manometry. 2. Possible botulism toxin injection.
--- NOTE | 2016-12-14 15:03 | RAD ---
KUB: Indication: Dobbhoff placement. FINDINGS: Dobbhoff tube tip is seen in the region of the gastric antrum. There is enteric contrast within the region of the colon. There is vertebroplasty change at L2. There is mild thoracolumbar scoliosis. Yolie ng bases are clear. There is vertebroplasty change at L2 and T9. There is a mild compression abnorma lity of T12 as seen on the comparison CT dated 12-03-16. IMPRESSION: Dobbhoff tube tip seen in the region of the gastric antrum. POS: [facility]
--- NOTE | 2016-12-14 16:04 | PDOC.PN ---
- Subjective Encounter Start Date: 12/14/16 Encounter Start Time: 16:00 Subjective: f/u for nausea and dysphagia. EGD performed with dilated esophagus but -: no lesions. ? Achalasia, Dobhoff FT placed per GI recommendations. -: Overall doing better. No current nausea. - Objective MAR Reviewed: Yes Vital Signs & Weight: Vital Signs (12 hours) Temp Pulse Resp BP Pulse Ox 12/14/16 15:35 98.8 F 87 20 173/74 H 93 L 12/14/16 11:47 98.4 F 63 20 176/76 H 94 L 12/14/16 09:17 60 142/66 H 12/14/16 07:45 97.6 F 61 18 12/14/16 07:40 97.6 F 61 18 187/75 H 99 Weight Admit Weight 160 lb 12.8 oz Weight 161 lb 11.2 oz I&O: 12/13/16 12/14/16 12/15/16 06:59 06:59 06:59 Intake Total 850 Output Total 300 Balance 550 Result Diagrams: 12/13/16 02:05 12/13/16 02:05 Additional Labs: Accuchecks 12/14/16 12/14/16 12/13/16 11:53 06:09 20:33 POC Glucose 120 H 134 H 129 H 12/13/16 15:48 POC Glucose 160 H Microbiology 12/02/16 16:25 Urine Straight Catheter Urine Culture - Final NO GROWTH AT 36 HOURS Laboratory Tests 12/05/16 12/05/16 12/06/16 09:18 10:11 04:39 Hgb Potassium 2.8 L* Creatinine Magnesium 1.8 1.4 L Digoxin 12/12/16 12/12/16 12/13/16 19:15 19:15 02:05 Hgb 12.2 Potassium Creatinine 1.19 H Magnesium Digoxin 1.06 Radiology Reviewed by me: Yes (EGD - ? achalasia and dilated esophagus) EKG Reviewed by me: Yes (Tele - A-fib in 80's) Phys Exam - Physical Examination Constitutional: NAD Dobhoff in place HEENT: PERRLA, oral pharynx no lesions Neck: no JVD, supple Respiratory: no wheezing, clear to auscultation bilateral Cardiovascular: irregular Gastrointestinal: soft, non-tender, no distention, positive bowel sounds Musculoskeletal: no edema, pulses present Neurological: normal sensation, moves all 4 limbs Psychiatric: A&O x 3 Skin: normal turgor, cap refill <2 seconds Dx/Plan (1) Nausea alone Status: Acute Comment: Improved, trial of TF's with Dobhoff after esophageal dilation noted on EGD (2) Hypokalemia Code(s): E87.6 - HYPOKALEMIA Status: Acute Comment: Persistent, KCL 40meq BID, repeat K+ level in am (3) Chronic atrial fibrillation with RVR Code(s): I48.2 - CHRONIC ATRIAL FIBRILLATION Status: Chronic Comment: rate controlled, CCM (4) Hypertension Code(s): I10 - ESSENTIAL (PRIMARY) HYPERTENSION Status: Chronic Qualifiers: Hypertension type: essential hypertension Qualified Code(s): I10 - Essential (primary) hypertension Comment: Labile, resume home BP regimen, hold Lisinopril another 24h then resume. (5) Hypothyroidism Code(s): E03.9 - HYPOTHYROIDISM, UNSPECIFIED Status: Chronic Comment: Continue Levothyroxine 25mcg daily (6) WARREN (acute kidney injury) Code(s): N17.9 - ACUTE KIDNEY FAILURE, UNSPECIFIED Status: Resolved Comment : Resolved (7) Dehydration, moderate Code(s): E86.0 - DEHYDRATION Status: Resolved (8) T12 burst fracture Code(s): S22.081A - STABLE BURST FRACTURE OF T11-T12 VERTEBRA, INIT FOR CLOS FX Status: Acute Comment: TLSO brace, pain control, PT/OT - Plan plan discussed w/ family, PT/OT, social insurance analyst, speech therapy, out of bed/ ambulate, DVT proph w/SCDs Stable overall -: Dobhoff FT per GI recs -: Resume home BP regimen -: Saline lock IVF -: Resume Gabapentin 300mg HS * Full liquids * AM lab: BMP
[2016-12-14] MEDS ORDERED: traMADol HCl 50 MG TAB PO PRN (16:26)
[2016-12-14] MEDS ORDERED: Rivaroxaban 15 MG TAB PO SCH (17:00)
[2016-12-14] MEDS ORDERED: Potassium Chloride 10 MEQ TAB PO SCH (17:00)
[2016-12-14] MEDS ORDERED: cloNIDine 0.1 MG TAB PER TUBE PRN (17:51)
[2016-12-14] MEDS ORDERED: Acetaminophen 500 MG TAB PER TUBE PRN (17:51)
[2016-12-14] MEDS ORDERED: Ondansetron ODT 4 MG TAB PER TUBE PRN (17:51)
[2016-12-14] MEDS ORDERED: traMADol HCl 50 MG TAB PER TUBE PRN (17:54)
[2016-12-14] MEDS ORDERED: Potassium Chloride 10 MEQ TAB PER TUBE SCH (18:00)
[2016-12-14] MEDS ORDERED: Rivaroxaban 15 MG TAB PER TUBE SCH (18:00)
[2016-12-14] MEDS ORDERED: Sodium Bicarbonate Tab 325 MG TAB PER TUBE PRN (18:26)
[2016-12-14] MEDS ORDERED: Pancrelipase DR 12000 1 CAP FS PRN (18:26)
[2016-12-14] MEDS: Gabapentin 300 MG CAP PO SCH (18:33)
[2016-12-14 19:28] LABS: Magnesium 1.8 mg/dL (1.6-2.6)
[2016-12-14 19:31] LABS: Phosphorus 1.7 mg/dL (2.3-4.7)
[2016-12-14] MEDS: Aspirin 81 mg Enteric Coated Tablet PER TUBE SCH (20:05)
[2016-12-14] MEDS: Carvedilol 6.25 MG TAB PER TUBE SCH (20:07)
[2016-12-14] MEDS ORDERED: Gabapentin 300 MG CAP PO SCH (21:00)
[2016-12-14] MEDS ORDERED: Acetaminophen 500 MG TAB PO SCH (21:00)
[2016-12-14] MEDS ORDERED: Aspirin 81 mg Enteric Coated Tablet PO SCH (21:00)
[2016-12-14] MEDS ORDERED: Carvedilol 6.25 MG TAB PO SCH (21:00)
[2016-12-14] MEDS: Acetaminophen 500 MG TAB PER TUBE SCH (21:25)
[2016-12-15 05:03] LABS: Anion Gap 7 mmol/L (10-20); BUN (Urea Nitrogen) 10 mg/dL (9.8-20.1); Calc. Creatinine Clearance 51 mL/min (70-130); Calcium 9.6 mg/dL (7.8-10.44); Carbon Dioxide 33 mmol/L (23-31); Chloride 105 mmol/L (98-107); Estimated GFR-MDRD 61
[2016-12-15] MEDS: Levothyroxine Sodium 25 MCG TAB PER TUBE SCH (05:34)
[2016-12-15] MEDS ORDERED: Levothyroxine Sodium 25 MCG TAB PO SCH (06:00)
[2016-12-15] MEDS ORDERED: Lactinex Tablet PO SCH (09:00)
[2016-12-15] MEDS ORDERED: Stress 600 With Zinc 1 TAB PO SCH (09:00)
[2016-12-15] MEDS: Lactinex Tablet PER TUBE SCH (09:00)
[2016-12-15] MEDS ORDERED: Magnesium Oxide 400 MG TAB PO SCH (09:00)
[2016-12-15] MEDS ORDERED: Ubidecarenone 50 MG CAP PO SCH (09:00)
[2016-12-15] MEDS ORDERED: Vit A,C & E/Lutein/Minerals Tablet PO SCH (09:00)
[2016-12-15] MEDS ORDERED: Digoxin 0.125 MG TAB PO SCH (09:00)
[2016-12-15] MEDS: Stress 600 With Zinc 1 TAB PO SCH (09:00)
[2016-12-15] MEDS: Acetaminophen 500 MG TAB PER TUBE SCH ×2 (09:01→20:56)
[2016-12-15] MEDS: Vit A,C & E/Lutein/Minerals Tablet PER TUBE SCH (09:01)
[2016-12-15] MEDS: Ubidecarenone 50 MG CAP PER TUBE SCH (09:01)
[2016-12-15] MEDS: Digoxin 0.125 MG TAB PER TUBE SCH (09:01)
[2016-12-15] MEDS: Pantoprazole 40 MG VIAL IVP SCH (09:02)
[2016-12-15] MEDS: Carvedilol 6.25 MG TAB PER TUBE SCH ×2 (09:02→20:55)
[2016-12-15] MEDS: Magnesium Oxide 400 MG TAB PO SCH (09:02)
--- NOTE | 2016-12-15 14:12 | PDOC.PN ---
- Subjective Encounter Start Date: 12/15/16 Encounter Start Time: 14:00 Subjective: f/u for n/v and abd pain. EGD showing ? achalasia now with Dobhoff FT -: receiving Jevity. Tolerating TF's but doesn't like the tube in the nose. - Objective MAR Reviewed: Yes Vital Signs & Weight: Vital Signs (12 hours) Temp Pulse Resp BP Pulse Ox 12/15/16 11:30 97.8 F 64 20 146/67 H 96 12/15/16 09:01 72 12/15/16 08:59 97.8 F 72 18 91 L 12/15/16 08:00 97.8 F 72 18 137/64 91 L 12/15/16 04:45 97.8 F 71 16 119/75 93 L 12/15/16 04:27 97.9 F 71 16 129/59 L 92 L Weight Admit Weight 160 lb 12.8 oz Weight 161 lb I&O: 12/14/16 12/15/16 12/16/16 06:59 06:59 06:59 Intake Total 850 600 30 Output Total 300 1 Balance 550 599 30 Result Diagrams: 12/13/16 02:05 12/15/16 04:25 Additional Labs: Accuchecks 12/15/16 12/15/16 12/14/16 10:38 05:42 20:56 POC Glucose 118 H 111 H 124 H 12/14/16 17:09 POC Glucose 109 Microbiology 12/02/16 16:25 Urine Straight Catheter Urine Culture - Final NO GROWTH AT 36 HOURS Laboratory Tests 12/05/16 12/05/16 12/06/16 09:18 10:11 04:39 Hgb Potassium 2.8 L* Creatinine Phosphorus Magnesium 1.8 1.4 L Digoxin 12/12/16 12/12/16 12/13/16 19:15 19:15 02:05 Hgb 12.2 Potassium Creatinine 1.19 H Phosphorus Magnesium Digoxin 1.06 12/14/16 18:59 Hgb Potassium Creatinine Phosphorus 1.7 L Magnesium 1.8 Digoxin EKG Reviewed by me: Yes (Tele - A-fib, V-paced) Phys Exam - Physical Examination Constitutional: NAD HEENT: PERRLA, oral pharynx no lesions Neck: no JVD, supple Respiratory: no wheezing, clear to auscultation bilateral Cardiovascular: irregular Gastrointestinal: soft, non-tender, no distention, positive bowel sounds Musculoskeletal: no edema, pulses present Neurological: normal sensation, moves all 4 limbs Psychiatric: A&O x 3 Skin: normal turgor, cap refill <2 seconds Dx/Plan (1) Nausea alone Status: Acute Comment: Improved, trial of TF's with Dobhoff after esophageal dilation noted on EGD (2) Hypokalemia Code(s): E87.6 - HYPOKALEMIA Status: Acute Comment: Persistent, KCL 40meq BID, repeat K+ level in am (3) Chronic atrial fibrillation with RVR Code(s): I48.2 - CHRONIC ATRIAL FIBRILLATION Status: Chronic Comment: rate controlled, CCM (4) Hypertension Code(s): I10 - ESSENTIAL (PRIMARY) HYPERTENSION Status: Chronic Qualifiers: Hypertension type: essential hypertension Qualified Code(s): I10 - Essential (primary) hypertension Comment: Labile, resume home BP regimen, hold Lisinopril another 24h then resume. (5) Hypothyroidism Code(s): E03.9 - HYPOTHYROIDISM, UNSPECIFIED Status: Chronic Comment: Continue Levothyroxine 25mcg daily (6) WARREN (acute kidney injury) Code(s): N17.9 - ACUTE KIDNEY FAILURE, UNSPECIFIED Status: Resolved Comment : Resolved (7) Dehydration, moderate Code(s): E86.0 - DEHYDRATION Status: Resolved (8) T12 burst fracture Code(s): S22.081A - STABLE BURST FRACTURE OF T11-T12 VERTEBRA, INIT FOR CLOS FX Status: Acute Comment: TLSO brace, pain control, PT/OT (9) Achalasia of esophagus Code(s): K22.0 - ACHALASIA OF CARDIA Status: Chronic Comment: Continue supportive measures, Dobhoff FT with Jevity, ? Botulism toxin injections - Plan plan discussed w/ family, PT/OT, group social worker, speech therapy, out of bed/ ambulate, DVT proph w/SCDs Stable currentlly -: Continue esophageal manometry -: ? Botulism toxin injections in am -: Antiemetics prn -: PT/OT for mobilization * AM lab: Phosphorous, BMP * Kphos 500mg BID
[2016-12-15] MEDS: Rivaroxaban 15 MG TAB PER TUBE SCH (16:12)
[2016-12-15] MEDS: K-Phos Neutral 250 MG TAB PO SCH (16:13)
[2016-12-15] MEDS: Aspirin 81 mg Enteric Coated Tablet PER TUBE SCH (20:55)
[2016-12-15] MEDS: Gabapentin 300 MG CAP PO SCH (20:55)
--- NOTE | 2016-12-15 21:14 | PRG ---
DATE OF SERVICE: 12/15/2016 SUBJECTIVE: Ms. Vela has tolerated her Dobbhoff tube feeds without any problems. She has no nause a. Her symptoms have been primarily dysphagia more so than nausea. OBJECTIVE: VITAL SIGNS: Temperature 97.9, pulse 72, blood pressure 137/63. GENERAL: She is in no acute distress, alert and oriented x3. LUNGS: Clear to auscultation bilaterally. HEART: Regular rate and rhythm. ABDOMEN: Soft, nontender, nondistended. Bowel sounds are present. EXTREMITIES: No lower extremity edema. LABORATORY DATA: Creatinine 0.83. IMPRESSION: Dysphagia. The esophagus appears dilated by EGD. The swallow study on 12/13/2016 show s a dilated esophagus that appears somewhat sigmoid with a tapered bird's beak type appearance, give n her esophageal symptoms although this is consistent with achalasia. We discussed options includin g referral for esophageal manometry. She would prefer to empirically treat for achalasia with Botox injection. PLAN: EGD with Botox injection of the lower esophageal sphincter tomorrow.
[2016-12-16] MEDS: Levothyroxine Sodium 25 MCG TAB PER TUBE SCH (05:29)
[2016-12-16 05:45] LABS: Anion Gap 9 mmol/L (10-20); BUN (Urea Nitrogen) 15 mg/dL (9.8-20.1); Calc. Creatinine Clearance 56 mL/min (70-130); Calcium 9.6 mg/dL (7.8-10.44); Carbon Dioxide 34 mmol/L (23-31); Chloride 104 mmol/L (98-107); Estimated GFR-MDRD 67
[2016-12-16] MEDS: K-Phos Neutral 250 MG TAB PO SCH ×2 (08:21→17:50)
[2016-12-16] MEDS: Acetaminophen 500 MG TAB PER TUBE SCH ×2 (08:22→20:02)
[2016-12-16] MEDS: Carvedilol 6.25 MG TAB PER TUBE SCH ×2 (08:22→20:01)
[2016-12-16] MEDS: Digoxin 0.125 MG TAB PER TUBE SCH (08:23)
[2016-12-16] MEDS: Pantoprazole 40 MG VIAL IVP SCH (08:24)
[2016-12-16] MEDS: Magnesium Oxide 400 MG TAB PO SCH (08:24)
[2016-12-16] MEDS: Lactinex Tablet PER TUBE SCH (08:24)
[2016-12-16] MEDS: Ubidecarenone 50 MG CAP PER TUBE SCH (08:25)
[2016-12-16] MEDS: Stress 600 With Zinc 1 TAB PO SCH (08:25)
[2016-12-16] MEDS: Vit A,C & E/Lutein/Minerals Tablet PER TUBE SCH (08:25)
--- NOTE | 2016-12-16 13:52 | PDOC.PN ---
- Subjective Encounter Start Date: 12/16/16 Encounter Start Time: 13:45 Subjective: f/u for dysphagia and esophageal dilation and suspected achalasia. -: Plan for LES Botox injections today. - Objective MAR Reviewed: Yes Vital Signs & Weight: Vital Signs (12 hours) Temp Pulse Pulse Pulse Resp BP BP 12/16/16 11:20 98 F 77 26 H 12/16/16 10:29 72 71 147/84 H 12/16/16 08:23 75 12/16/16 08:22 98.5 F 75 17 152/69 H 12/16/16 07:25 98.5 F 75 17 12/16/16 04:06 97.5 F L 72 24 H BP BP Pulse Ox Pulse Ox Pulse Ox 12/16/16 11:20 153/70 H 99 12/16/16 10:29 141/71 H 92 L 96 12/16/16 08:23 12/16/16 08:22 99 12/16/16 07:25 152/69 H 99 12/16/16 04:06 146/67 H 100 Weight Admit Weight 160 lb 12.8 oz Weight 163 lb 9.6 oz I&O: 12/15/16 12/16/16 12/17/16 06:59 06:59 06:59 Intake Total 600 1810 Output Total 1 Balance 599 1810 Result Diagrams: 12/13/16 02:05 12/16/16 04:45 Additional Labs: Accuchecks 12/16/16 12/16/16 12/15/16 11:05 05:34 20:42 POC Glucose 119 H 122 H 114 H 12/15/16 16:53 POC Glucose 130 H EKG Reviewed by me: Yes (Tele - A-fib with V-pacing) Phys Exam - Physical Examination Constitutional: NAD Dobhoff FT in nares HEENT: PERRLA, oral pharynx no lesions Neck: no JVD, supple Respiratory: no wheezing, clear to auscultation bilateral Cardiovascular: irregular Gastrointestinal: soft, non-tender, no distention, positive bowel sounds Musculoskeletal: no edema, pulses present Neurological: normal sensation, moves all 4 limbs Psychiatric: A&O x 3 Skin: normal turgor, cap refill <2 seconds Dx/Plan (1) Nausea alone Status: Acute Comment: Improved, trial of TF's with Dobhoff after esophageal dilation noted on EGD (2) Hypokalemia Code(s): E87.6 - HYPOKALEMIA Status: Acute Comment: Improved, KCL 40meq BID , repeat K+ level in am (3) Chronic atrial fibrillation with RVR Code(s): I48.2 - CHRONIC ATRIAL FIBRILLATION Status: Chronic Comment: rate controlled, CCM (4) Hypertension Code(s): I10 - ESSENTIAL (PRIMARY) HYPERTENSION Status: Chronic Qualifiers: Hypertension type: essential hypertension Qualified Code(s): I10 - Essential (primary) hypertension Comment: Labile, resume home BP regimen, hold Lisinopril another 24h then resume. (5) Hypothyroidism Code(s): E03.9 - HYPOTHYROIDISM, UNSPECIFIED Status: Chronic Comment: Continue Levothyroxine 25mcg daily (6) WARREN (acute kidney injury) Code(s): N17.9 - ACUTE KIDNEY FAILURE, UNSPECIFIED Status: Resolved Comment : Resolved (7) Dehydration, moderate Code(s): E86.0 - DEHYDRATION Status: Resolved (8) T12 burst fracture Code(s): S22.081A - STABLE BURST FRACTURE OF T11-T12 VERTEBRA, INIT FOR CLOS FX Status: Acute Comment: TLSO brace, pain control, PT/OT (9) Achalasia of esophagus Code(s): K22.0 - ACHALASIA OF CARDIA Status: Chronic Comment: Continue supportive measures, Dobhoff FT with Jevity, Botulism toxin injections planned today (10) Hypophosphatemia Code(s): E83.39 - OTHER DISORDERS OF PHOSPHORUS METABOLISM Status: Acute Comment: Improved with KPhos, continue current rx and monitor clinically - Plan plan discussed w/ family, PT/OT, social media director, speech therapy, out of bed/ ambulate, DVT proph w/SCDs Stable overall -: Plan for Botox injections today -: Hold TF's -: PT for mobilization with TLSO brace -: Continue Magnesium and Kphos daily * Likely back to [facility] in 24-48h
[2016-12-16] MEDS ORDERED: PHENYLEPHRINE-NS 100 MCG/ML 10 ML SYRINGE ONE (14:37)
[2016-12-16] MEDS ORDERED: Propofol 200 MG/20 ML VIAL ONE (14:37)
[2016-12-16] MEDS: Rivaroxaban 15 MG TAB PER TUBE SCH (17:50)
[2016-12-16] MEDS: Aspirin 81 mg Enteric Coated Tablet PER TUBE SCH (20:01)
[2016-12-16] MEDS: Gabapentin 300 MG CAP PO SCH (20:01)
[2016-12-17] MEDS: Levothyroxine Sodium 25 MCG TAB PER TUBE SCH (05:39)
[2016-12-17] MEDS: Vit A,C & E/Lutein/Minerals Tablet PER TUBE SCH (08:38)
[2016-12-17] MEDS: Ubidecarenone 50 MG CAP PER TUBE SCH (08:38)
[2016-12-17] MEDS: Digoxin 0.125 MG TAB PER TUBE SCH (08:38)
[2016-12-17] MEDS: Carvedilol 6.25 MG TAB PER TUBE SCH (08:38)
[2016-12-17] MEDS: Stress 600 With Zinc 1 TAB PO SCH (08:38)
[2016-12-17] MEDS: Lactinex Tablet PER TUBE SCH (08:38)
[2016-12-17] MEDS: K-Phos Neutral 250 MG TAB PO SCH ×2 (08:39→17:21)
[2016-12-17] MEDS: Pantoprazole 40 MG VIAL IVP SCH (08:39)
[2016-12-17] MEDS: Magnesium Oxide 400 MG TAB PO SCH (08:39)
[2016-12-17] MEDS: Acetaminophen 500 MG TAB PER TUBE SCH (08:59)
[2016-12-17 12:33] VITALS: BMI 25.5
--- NOTE | 2016-12-17 14:14 | PRG ---
DATE OF SERVICE: 12/17/2016 SUBJECTIVE: Ms. Vela has been swallowing much better since the Botox injection to her lower esopha geal sphincter. She has just been on full liquids so far. She does seem to have had significant ra pid improvement. OBJECTIVE: ABDOMEN: Soft, nontender, nondistended. Bowel sounds are present. IMPRESSION: Achalasia status post injection of Botox to the lower esophageal sphincter with signifi cant improvement. RECOMMENDATIONS: 1. Advance to a mechanical soft diet. 2. I will sign off for now. The patient is hoping to be discharged home later today or tomorrow if she tolerates the solid diet well. 3. I will sign off. Please call if GI can be of assistance.
[2016-12-17 15:47] VITALS: BP 148/66; TEMP 97.8
[2016-12-17] MEDS: Rivaroxaban 15 MG TAB PER TUBE SCH (17:21)
--- NOTE | 2016-12-17 18:59 | DIS ---
DATE OF ADMISSION: 12/12/2016 DATE OF DISCHARGE: 12/17/2016 PRIMARY CARE PHYSICIAN: Dr. David Whelan. DISCHARGE DIAGNOSES: 1. Achalasia cardia. 2. Chronic systolic congestive heart failure. 3. Demand ischemia. CONDITION OF PATIENT AT THE TIME OF DISCHARGE: Stable. I assessed Ms. Vela on the day of discharge. She denies any chest pain or shortness of breath. Vital signs are stable. She is able to tolerate mechanical soft diet. S1 and S2 are heard, regular. Lungs are clear to auscultation bilaterally. DISCHARGE MEDICATIONS: No changes were made to her home medications as dictated on the history and physical note from 12/12/2016. HOSPITAL COURSE: Ms. Vela is a pleasant 86-year-old lady who was admitted to [facility] on 12/17/2016, for nausea and vomiting. She was seen by GI service. She had EGD on 12/14/2016, which showed possible achalasia. She went on to have repeat EGD on 12/16/2016. She had botulism toxin injection into the lower esophageal sphincter. She clinically improved and was tolerating mechanical soft diet on the day of discharge. Many thanks for allowing me to participate in your patient's care. Please feel free to contact me if any questions or concerns. DISCHARGE DESTINATION: [facility], from which she was admitted to the hospital. TOTAL AMOUNT OF TIME SPENT COORDINATING THIS DISCHARGE: 32 minutes. KATHLEEN
== END 2016-12-17 17:02 | DRG 392 ==
LOC: ERS 19:03 → 2SE 22:00 → OBSVTOIN 12-13 15:13
PROVIDERS: ADMIT Family Medicine; ATTEND Family Medicine
PROC: 0D758ZZ Dilation of Esophagus, Via Natural or Artificial Opening Endoscopic (ICD-10-PCS; principal; 2016-12-14)
PROC: 3E0G8GC Introduction of Other Therapeutic Substance into Upper GI, Via Natural or Artificial Opening Endoscopic (ICD-10-PCS; 2016-12-16)
DX: K22.0 Achalasia of cardia (principal); N17.9 Acute kidney failure, unspecified; I24.8 Other forms of acute ischemic heart disease; E11.22 Type 2 diabetes mellitus with diabetic chronic kidney disease; E83.39 Other disorders of phosphorus metabolism; I48.2 Chronic atrial fibrillation; J44.9 Chronic obstructive pulmonary disease, unspecified; E86.0 Dehydration; I13.0 Hypertensive heart and chronic kidney disease with heart failure and stage 1 through stage 4 chronic kidney disease, or unspecified chronic kidney disease; I50.22 Chronic systolic (congestive) heart failure; E03.9 Hypothyroidism, unspecified; E87.6 Hypokalemia; I25.5 Ischemic cardiomyopathy; Z85.51 Personal history of malignant neoplasm of bladder; Z79.01 Long term (current) use of anticoagulants; Z79.84 Long term (current) use of oral hypoglycemic drugs; N18.2 Chronic kidney disease, stage 2 (mild); K59.00 Constipation, unspecified; Z87.311 Personal history of (healed) other pathological fracture
CPT/HCPCS: 36415; 36416; 51701; 74000; 74176; 74247; 80048; 80053; 80076; 80162; 81003; 81015; 82553; 83735; 83880; 84100; 84484; 85007; 85025; 85027; A4216; A4353; C9113; G8978-GP-CK; G8979-GP-CJ; J0585; J2405; J2704; Q0162

== ENCOUNTER 2017-01-17 12:51 | Outpatient (CLI) | payer MEDICARE ==
--- NOTE | 2017-01-17 18:24 | RAD ---
LUMBAR SPINE THREE VIEWS: History: T12 compression fracture. Comparison: CT lumbar spine 12-03-16. FINDINGS: Severe compression deformity at the T12 vertebra is noted. This has progressed significantly since th e CT scan of 12-03-16. There is now a vertebral plana type deformity at the T12 level. Vertebroplasty changes at L2 with mild loss of central height at L2 which appears stable. Spondylolis thesis at L4-5 is stable. There is scoliotic curvature with convexity to the left at L3, stable. Vert ebroplasty changes are also noted at T9, however, this was not visualized on the CT scan. Atherosclerotic calcification and mild aneurysmal dilatation of the abdominal aorta again noted. IMPRESSION: Progression of the compression deformity at T12 with vertebral plana now noted. POS: [facility]
--- NOTE | 2017-01-17 18:26 | RAD ---
THORACIC SPINE TWO VIEWS: History: Follow up T12 compression fracture. Comparison: Thoracic spine CT, 06-03-16. FINDINGS: Vertebroplasty changes at the T9 vertebra again noted. Vertebral plana deformity at T12 is seen. This is better evaluated on lumbar spine films. Please see separate report of lumbar spine. There is mild anterior wedging of the T8 vertebra which appears stable. The other thoracic vertebra m aintain height and alignment. Mild degenerative change is seen. Osteopenia. IMPRESSION: Progression of the compression of T12 vertebra. See lumbar spine films which better evaluate this def ormity. POS: [facility]
== END 2017-01-17 12:52 | disposition home or self-care (01) ==
LOC: TBSIIMAG 12:51
PROVIDERS: ATTEND Surgery
DX: S22.089D Unspecified fracture of T11-T12 vertebra, subsequent encounter for fracture with routine healing (principal)
CPT/HCPCS: 72070; 72100

== ENCOUNTER 2017-02-06 10:49 | Inpatient (IN) | payer MEDICARE ==
[2017-02-06] MEDS ORDERED: Acetaminophen 500 MG TAB ONE ×2 (11:31)
[2017-02-06] MEDS ORDERED: Ondansetron HCl/PF 4 MG/2 ML Vial ONE (11:42)
[2017-02-06 11:44] LABS: Hematocrit 37.4 % (36.0-47.0); Mean Platelet Volume 8.8 fL (7.4-10.4); Red Blood Cell (RBC) Count 3.54 mill/uL (4.20-5.40); White Blood Cell (WBC) Count 6.4 thou/uL (4.8-10.8)
[2017-02-06 11:51] LABS: Lactic Acid - Sepsis 2.1 mmol/L (0.5-2.2)
[2017-02-06 12:03] LABS: ALT (SGPT) 10 U/L (8-55); AST (SGOT) 25 U/L (5-34); Alkaline Phosphatase 55 U/L (40-150); Anion Gap 17 mmol/L (10-20); BUN (Urea Nitrogen) 18 mg/dL (9.8-20.1); Bilirubin, Total 1.5 mg/dL (0.2-1.2); Calc. Creatinine Clearance 0 mL/min (70-130); Carbon Dioxide 24 mmol/L (23-31); Chloride 100 mmol/L (98-107); Estimated GFR-MDRD 51; Globulin 2.4 g/dL (2.4-3.5)
[2017-02-06 12:11] LABS: #Lymphocytes 0.8 thou/uL (1.20-3.40); #Monocytes 0.5 thou/uL (0.11-0.59); #Neutrophils 5.1 thou/uL (1.40-6.50); %Eosinophils 0.3 % (0.0-10.0); %Lymphocytes 12.9 % (21.0-51.0); Macrocytosis SLIGHT = 6-15 cells (100X) (0-5/hpf)
--- NOTE | 2017-02-06 12:45 | RAD ---
AP VIEW OF THE CHEST: INDICATION: Weakness with fever and productive cough. COMPARISON: Prior exam dated 12/26/16. FINDINGS: There is stable cardiomegaly. AICD is unchanged. Pulmonary vasculature is within normal limits. No pleural effusion or pneumothorax is evident. Chronic osseous changes are similar. IMPRESSION: Stable cardiomegaly. POS: [facility]
[2017-02-06 14:07] LABS: Bilirubin Negative (Negative); Blood, Urine Negative (Negative); Glucose, Urine (Dipstick) Negative (Negative); Ketone, Urine 15 mg/dL (Negative); Nitrite Negative (Negative); Protein, Urine (Dipstick) 100 mg/dL (Neg-Trace)
[2017-02-06 14:09] LABS: Bacteria/HPF None Seen HPF (None Seen); Hyaline Casts/LPF 0-3 HYALINE CAST LPF (0-3 Hyaline); RBC/HPF None Seen HPF (0-3); Squamous Epithelial 0-3 HPF (0-3); WBC/HPF 0-3 HPF (0-3)
[2017-02-06 14:25] LABS: Renal Epithelial None Seen HPF (0-3); Transitional Epithelial 0-3 HPF (0-3)
[2017-02-06] MEDS ORDERED: Piperacillin/Tazobactam 3.375 GM in Sodium Chloride 0.9% 100 ML IVPB SCH ×2 (15:15→23:59)
[2017-02-06] MEDS ORDERED: Ondansetron ODT 4 MG TAB SL PRN (19:49)
[2017-02-06] MEDS ORDERED: HYDROcodone/Acetaminophen 5/325 mg Tablet PO PRN ×2 (19:49)
[2017-02-06] MEDS ORDERED: Acetaminophen 325 MG TAB PO PRN ×2 (19:49→19:56)
[2017-02-06] MEDS ORDERED: Sodium Chloride 0.9% 1,000 ML IV SCH (19:49)
[2017-02-06] MEDS ORDERED: Ondansetron HCl/PF 4 MG/2 ML Vial IVP PRN (19:49)
[2017-02-06] MEDS ORDERED: Bisacodyl 5 MG TAB PO PRN (19:56)
[2017-02-06] MEDS ORDERED: Dextrose 5% in Water 1,000 ML IV PRN (19:56)
[2017-02-06] MEDS ORDERED: Dextrose 50% Abboject 50 ML SYRINGE SLOW IVP PRN (19:56)
[2017-02-06] MEDS ORDERED: traMADol HCl 50 MG TAB PO PRN (19:56)
[2017-02-06] MEDS ORDERED: Ondansetron ODT 4 MG TAB PO PRN (19:56)
[2017-02-06 20:02] VITALS: BMI 24.7
[2017-02-06] MEDS: Docusate 100 MG CAP PO SCH (20:41)
[2017-02-06] MEDS: Aspirin 81 mg Enteric Coated Tablet PO SCH (20:41)
[2017-02-06] MEDS: Carvedilol 6.25 MG TAB PO SCH (20:42)
[2017-02-06] MEDS: Gabapentin 300 MG CAP PO SCH (20:42)
--- NOTE | 2017-02-06 22:54 | HP-2 ---
CODE STATUS: Full. PRIMARY CARE PHYSICIAN: Krystal, ATTENDING PHYSICIAN: Dr. Marina. RESIDENT: Sharita. HISTORIAN: Self. SPECIALIST: Dr. Blake who is her inspector barrel. CHIEF COMPLAINT: Shortness of breath and fever. HISTORY OF PRESENT ILLNESS: This is an 86-year-old female with past medical history of CHF, COPD, AFib, diabetes type 2 and hypertension who was brought [facility] the ED from [facility] facility by EMS for worsened shortness of breath, fever, productive cough, nausea and weakness. She noticed that she did not have this much energy for physical therapy. The upper respiratory symptoms started on Tuesday and had progressed, but then the fever started this morning. She has been having shortness of breath and then had been doing breathing treatments and oxygen at the retirement facility and then went to see Dr. Blake who told her that her pacemaker needed to be adjusted with a third wire put in because it was malfunctioning. He gave her 2 days of torsemide and decreased her lisinopril dose at that time. She also reports chronic constipation and her last bowel movement was on . In the ER, she was given 1 gram of vancocmycin, 3.375 grams of Zosyn, 1 gram of Tylenol, 1 liter of normal saline and 4 mg of Zofran. PAST MEDICAL HISTORY: 1. COPD. 2. Heart failure, which reduced the ejection fraction, the EF of 30% to 35% in 04/2015. 3. Coronary artery disease. 4. AFib. 5. Diabetes type 2. 6. Hyperlipidemia. 7. Hypertension. 8. Hypothyroidism. 9. Achalasia. 10. T11-T12 Burst Fracture PAST SURGICAL HISTORY: 1. Cholecystectomy. 2. Knee surgery. 3. Back surgery. 4. Arm surgery. 5. AICD/pacemaker placement. 6. Bladder cancer surgery. ALLERGIES: 1. CODEINE. 2. LEVAQUIN. 3. DULOXETINE. MEDICATIONS: 1. Magnesium oxide 40 mg b.i.d. 2. Tramadol 50 mg q.12 hours as needed. 3. Gabapentin 300 mg at bedtime. 4. Aspirin 81 mg delayed release daily. 5. Metformin 500 mg b.i.d. 6. Vitamin D3 one tablet daily. 7. B complex 150 mg 1 tablet daily. 8. CoQ10 200 mg 1 tablet daily. 9. Krill oil 300 mg 1 tablet at bedtime. 10. Crestor 40 mg 1 tablet at bedtime. 11. Synthroid 25 mcg 1 tablet daily. 12. Lisinopril 2.5 mg daily. 13. Xarelto 15 mg daily with supper. 14. Digoxin 125 mcg daily. 15. Carvedilol 6.25 mg b.i.d. 16. DuoNebs inhaled q.4-6 hours p.r.n. shortness of breath. 17. Albuterol nebulizer q.4-6 Hours p.r.n. wheezing. 18. Calcium 600+ D, 600 one tablet daily. 19. Vitamin C 100 mg b.i.d. FAMILY HISTORY: No sick contacts and noncontributory. SOCIAL HISTORY: Former smoker. Denies alcohol or drug use. Currently, at the [facility]. REVIEW OF SYSTEMS: General: Positive for fever and chills. Negative for appetite changes Eyes: Denies vision changes or eye pain. ENT: Positive for nasal congestion, rhinorrhea and sore throat. Respiratory: Positive for cough , congestion and shortness of breath. Cardiovascular: Negative for chest pain or edema. Gastrointestinal: Positive for nausea and constipation. Negative for vomiting, diarrhea or abdominal pain. Genitourinary: Negative for dysuria or polyuria. Skin: Negative for rashes or lesions. Musculoskeletal: Positive for pain and tenderness. Neurologic: Negative for weakness or numbness. PHYSICAL EXAMINATION: VITAL SIGNS: Blood pressure 143/50, pulse 76, respiratory rate 26, temperature 103.2, pulse ox 97% on room air and weight 68.49 kilograms. GENERAL: Alert, oriented x3, in no acute distress, well-nourished and appropriately interactive. EYES: Pupils are equal, round and reactive to light. Extraocular muscles are intact. Conjunctivae within normal limits. ENT: Nasal mucosa and oropharynx within normal limits. NECK: Supple. No lymphadenopathy, no thyromegaly. CARDIOVASCULAR: Irregularly irregular. 3/6 systolic murmur, 2+ radial and pedal pulses. RESPIRATORY: Normal effort. No retractions. Rales on the left side. No wheezes. SKIN: Warm and dry. No cyanosis. ABDOMEN: Soft, nontender to palpation, normoactive bowel sounds. No mass or distention. EXTREMITIES: No cyanosis or edema. MUSCULOSKELETAL: Structure and tone within normal limits. Full range of motion. NEUROLOGIC: No focal deficits. Sensation within normal limits. PSYCHIATRIC: Appropriate. LABORATORY AND IMAGING DATA: WBC 6.4, hemoglobin 12.2, hematocrit 37.4 and platelets 113. Sodium 137, potassium 3.7, chloride 100, CO2 of 24, BUN 18, creatinine 1.03, GFR 51, glucose 127, calcium 9.0, total protein 6.0, albumin 3.6, T-bilirubin 1.5, AST 25, ALT 10, alkaline phosphatase 55, lactic acid 2.1. Influenza A and B negative. EKG, AFib. Chest x-ray, stable cardiomegaly. ASSESSMENT AND PLAN: This is an 86-year-old female who presents with: 1. Community-acquired pneumonia versus viral upper respiratory infection. The patient has upper respiratory symptoms and also has high fevers and left-sided rales and shortness of breath as well as productive cough. Cannot get a lateral chest x-ray due the to patient's burst fracture at T11-T12. We will check a viral respiratory panel and if it is positive, then we will discontinue antibiotics. There is no other source for the fever found at this time. We will check blood culture and urine culture. We will give Tylenol as needed for fever. 2. Shortness of breath secondary to pacemaker malfunction. Per the daughter, the pacemaker needs a third wire and Dr. Blake thinks shortness of breath is cardiac in nature. We will check a BMP. No signs of fluid overload on exam or on x-ray. We will consider letting Dr. Blake know the patient is here tomorrow. 3. T11-T12 burst fracture. The patient should be in a clamshell brace, but left it at rehabilitation. The patient's daughter will bring it tomorrow. We will order PT, OT once the patient has her brace and the patient will need to go back to retirement facility after discharge from the hospital. 4. Systolic congestive heart failure with ejection fraction of 30% to 35% on diuresis. Continue home medications. We will fluid restrict. We will check a BMP and monitor for any signs of fluid overload. 5. Hypertension. Continue home medications. 6. Chronic obstructive pulmonary disease, oxygen as needed, DuoNebs, not in an acute exacerbation at this time. 7. Atrial fibrillation. We will continue home medications. 8. Diabetes type 2. We will continue metformin, Accu-Cheks a.c. and at bedtime , diabetic diet. 9. VT prophylaxis. Patient is on Xarelto. We will continue. Disposition and length of hospital stay, admit to tele, likely greater than 2 days. Symptomatic medications will be provided. History of physical exam as well as management were discussed with Dr. Marina. KATHLEEN
[2017-02-07 05:25] LABS: #Monocytes 0.5 thou/uL (0.11-0.59); #Neutrophils 2.1 thou/uL (1.40-6.50); %Basophils 0.4 % (0.0-1.0); %Eosinophils 0.3 % (0.0-10.0); %Lymphocytes 26.9 % (21.0-51.0); %Monocytes 14.1 % (0.0-10.0); Hematocrit 30.3 % (36.0-47.0); Mean Platelet Volume 8.9 fL (7.4-10.4); Red Blood Cell (RBC) Count 2.81 mill/uL (4.20-5.40); White Blood Cell (WBC) Count 3.6 thou/uL (4.8-10.8)
[2017-02-07] MEDS: Levothyroxine Sodium 25 MCG TAB PO SCH (05:35)
[2017-02-07 05:43] LABS: Anion Gap 11 mmol/L (10-20); BUN (Urea Nitrogen) 17 mg/dL (9.8-20.1); Calc. Creatinine Clearance 49 mL/min (70-130); Calcium 7.9 mg/dL (7.8-10.44); Carbon Dioxide 26 mmol/L (23-31); Chloride 106 mmol/L (98-107); Estimated GFR-MDRD 61
[2017-02-07 08:20] LABS: Hematocrit 30.8 % (36.0-47.0)
--- NOTE | 2017-02-07 08:54 | PDOC.FM ---
- Subjective Subjective: Pt states she is doing much better compared to yesterday. Says SOB is better. Has not gotten up and walked around yet as she is still waiting on her back brace. Denies any fever, chills. Denies any chest pain. Denies any acute events overnight. States does not have much of an appetite. Denies any pain. No other concerns or complaints at this time. - Objective MAR Reviewed: Yes Vital Signs & Weight: Vital Signs (12 hours) Temp Pulse Resp BP Pulse Ox 02/07/17 04:00 98.0 F 62 16 98/66 94 L Weight Weight 69.672 kg I&O: 02/06/17 02/07/17 02/08/17 06:59 06:59 06:59 Intake Total 1275 Balance 1275 Result Diagrams: 02/07/17 08:07 02/07/17 04:50 Radiology Reviewed by me: Yes (stable cardiomegaly) <Toan Phelan - Last Filed: 02/07/17 09:17> - Objective Vital Signs & Weight: Vital Signs (12 hours) Temp Pulse Resp BP Pulse Ox 02/07/17 09:38 97.8 F 66 20 120/56 L 97 02/07/17 04:00 98.0 F 62 16 98/66 94 L Weight Weight 69.672 kg I&O: 02/06/17 02/07/17 02/08/17 06:59 06:59 06:59 Intake Total 1275 Balance 1275 Result Diagrams: 02/07/17 08:07 02/07/17 04:50 <Tres Mack - Last Filed: 02/07/17 12:07> Phys Exam - Physical Examination HEENT: moist MMs Neck: no nodes, no JVD, supple, full ROM Respiratory: no wheezing, no rales, no rhonchi decreased breath sounds in the bases Cardiovascular: RRR, no rub systolic murmur noted Gastrointestinal: soft, non-tender, no distention, positive bowel sounds Musculoskeletal: no edema, pulses present Neurological: non-focal, moves all 4 limbs Lymphatic: no nodes Psychiatric: normal affect, A&O x 3 Skin: no rash <Toan Phelan - Last Filed: 02/07/17 09:17> Dx/Plan (1) Community acquired pneumonia Code(s): J18.9 - PNEUMONIA, UNSPECIFIED ORGANISM Status: Acute QualifierTitle: Laterality: unspecified laterality Qualified Code(s): J18.9 - Pneumonia, unspecified organism Plan: -Possible Pneumonia vs URI. Having increased SOB, cough over the weekend. Having fevers as well. -Given Vanc and Zosyn yesterdy. -Blood cx- NGTD, Urine Cx-NGTD. Flu- Neg -Viral Respiratory panel pending -CXR- negative. Could not get 2 view xray due to burst fx and does not have back brace, will get 2 view CXR today when gets brace -Pt not requiring O2 at this time. Has hx of COPD. Will tx for possible pneumonia with augmentin for now. Checking Procalcitonin (2) COPD (chronic obstructive pulmonary disease) Status: Acute Plan: -Came in for increased SOB. Does not seem like COPD excacerbation. Possible pnuemonia -Allergic to Levaquin, so treating possible pneumonia with Augmentin at this time. -Will continue to monitor vital signs. Not requiring O2 at this time. (3) Afib Code(s): I48.91 - UNSPECIFIED ATRIAL FIBRILLATION Status: Chronic QualifierTitle: Atrial fibrillation type: paroxysmal Qualified Code(s): I48.0 - Paroxysmal atrial fibrillation Plan: Has pacemaker. Heart in normal rhythm at this time. Sees Dr. Blake. Says that she currently is being evaluated for faulty pacemaker. May need a 3rd wire. Could be the possible cause of her SOB. Has appointment with pacemaker company this . -Will consult Cardiology and see if they want any evaluation for the pacemaker while here. -On tele. Vital signs stable. (4) Systolic CHF Code(s): I50.20 - UNSPECIFIED SYSTOLIC (CONGESTIVE) HEART FAILURE Status: Acute Plan: EF-30% on diuresis BNP-709 seems to be around baseline looking at past labs. -No sign of fluid overload on CXR or physical exam. No swelling noted. -Will continue home medications at this time. (5) Diabetes type 2, controlled Code(s): E11.9 - TYPE 2 DIABETES MELLITUS WITHOUT COMPLICATIONS Status: Acute Plan: continue home meds -Accuchecks in morning and night time. -No need for inuslin at this time (6) Burst fracture of thoracic vertebra Code(s): S22.001A - STABLE BURST FRACTURE OF UNSP THORACIC VERTEBRA, INIT Status: Acute Plan: -Has burst fx of T11-T12 back in October. Not allowed to get out of bed without backbrace. -Daughter bringing brace today. Will then get 2 view XRay. -Will get PT/OT to assess for SOB. - Plan Plan: This patient has multiple problems that could be causing SOB. All could be related leading to a mixed picture. A.fib with possbile pacemaker malfunction. Recent illness could just be exacerbating COPD and CHF. Will evaluate all problems as discussed above. Xarelto for DVT ppx <Toan Phelan - Last Filed: 02/07/17 09:17> Attending Addendum - Attending Addendum I personally evaluated the patient and discussed the management with Dr. Phelan. I agree with the History, Examination, Assessment and Plan documented above with any addition or exceptions noted below. Patient here with productive cough, shortness of breath, and fever. XR does not show focal pneumonia, though has received empiric abx. Will repeat 2 view CXR today to confirm or refute infection. Could be viral in nature. Will check pro- calcitonin to rule out serious bacterial cause. Also consulting Cardiology to see if some degree of pacemaker malfunction could be the cause of her symptoms. <Tres Mack - Last Filed: 02/07/17 12:07>
[2017-02-07] MEDS: metFORMIN 500 MG TAB PO SCH ×2 (09:23→18:05)
[2017-02-07] MEDS: Docusate 100 MG CAP PO SCH ×2 (09:23→20:52)
[2017-02-07] MEDS: Ubidecarenone 50 MG CAP PO SCH (09:24)
[2017-02-07] MEDS: Carvedilol 6.25 MG TAB PO SCH ×2 (09:24→20:52)
[2017-02-07] MEDS: Lisinopril 2.5 MG TAB PO SCH (09:24)
[2017-02-07] MEDS: Digoxin 0.125 MG TAB PO SCH (09:24)
[2017-02-07] MEDS: Polyethylene Glycol 3350 17 GM Packet PO SCH (09:26)
--- NOTE | 2017-02-07 16:08 | RAD ---
CHEST 2 VIEWS: History Dyspnea. Chest pain. Pneumonia. COMPARISON: 02/06/17. FINDINGS: Cardiac silhouette is upper limits of normal in size. Pulmonary vasculature is unremarkable. Medias tinum is midline with aortic calcification. Mild atelectasis projects over each lung base. There is calcification over the aorta. Dual-lead left subclavian cardiac electronic device remains in place. No evidence of pneumothorax. Osseous structures are demineralized. wharf laborer leads overlie the chest. IMPRESSION: 1. Borderline cardiomegaly. 2. Chronic obstructive pulmonary disease. 3. Atherosclerosis. 4. Stable radiographic appearance of the chest. POS: [facility]
[2017-02-07] MEDS: Rivaroxaban 15 MG TAB PO SCH (18:05)
--- NOTE | 2017-02-07 19:25 | CON ---
DATE OF CONSULTATION: 02/07/2017 DATE OF ADMISSION: 02/06/2017 INDICATION FOR CONSULTATION: An 86-year-old female with history of cardiomyopathy and shortness of b reath. HISTORY OF PRESENT ILLNESS: This is a very unfortunate 86-year-old female seen in followup by Dr. Corutney gonzalez for quite some time. She has a history of nonischemic cardiomyopathy with mild coronary arter y disease. She has had a significant decrease in left ventricular systolic function and she eventual ly underwent an AICD implant. Since that time, it appears that her ejection fraction has gotten wors e. Her shortness of breath has become worse and she has used oxygen while at physical therapist. Placido matamoros recently was seen in the office on 02/03/2017. At that time, it was decided that perhaps she shoul d visit with the proposal coordinator to have an upgrade of the AICD at least to have it interrogated. Her ejection fraction has decreased and the ejection fraction is now about 30%-35% on last echocard iogram. She is pacing about 60% at the time. She denied any chest pain at this time. She continues to have shortness of breath. She recently has had a fall from bed. She had had a ruptured disk and has been in turtle shell and had difficulty also ambulating due to this. She actually was brought t o the emergency room after she was found to have a low grade fever and upper respiratory tract infect ion by the rehab facility where she resides and she has been having some coughing. She denied any ch est pain and she says her shortness of breath has not become significantly worse than what it was. A t this time, we will interrogate the device and see how much she is pacing still and then we will ask proposal coordinator to see her for evaluation of possible upgrade. PAST MEDICAL HISTORY: Significant for her coronary artery disease, cardiomyopathy, a T12 disk ruptur e for which she is wearing a cast type surgically was called a turtle shell. She also has a history of hypertension and hypercholesterolemia. She has had bladder cancer. She has diabetes. She has hi story of cholecystectomy, hysterectomy, thyroidectomy, right knee replacement. She has had a hand mackay rgery. She has had a history of colon polyps. She has mild diverticulosis. She has mild aortic tramaine ve regurgitation. She has had a history of lumbar spinal stenosis. She has had a distal radius and ulnar fracture. ALLERGIES: She is allergic to LEVOFLOXACIN, TRAMADOL, CODEINE, and ADHESIVE TAPE. LIST OF MEDICATIONS: Prior to admission included Colace, MiraLax, Marinol, ipratropium/albuterol neb ulizer solutions, promethazine, bisacodyl, tramadol, torsemide 20 mg a day, Xarelto 15 mg a day, metf ormin 1000 mg b.i.d., levothyroxine 25 mcg daily, digoxin 100 mcg daily, Tylenol, vitamin D3, [place] 3 Krill oil, gabapentin 300 mg daily, Prolensa 0.07% ophthalmic drops, Coreg 6.25 mg b.i.d., aspirin 8 1 mg a day. She is also taking Crestor 40 mg a day, Zetia 10 mg 1/2 tab daily, Lisinopril 2.5 mg a d ay. REVIEW OF SYSTEMS: The 12-point review of systems is negative except for the following: The continu ed shortness of breath and some sore throat, mild fever, back pain associated with the recent fractur e or difficulties ambulating due to this also. Otherwise, she denies any hemoptysis. She had no sig nificant sputum production. She had no GI or complaints. PHYSICAL EXAMINATION: GENERAL: Reveals an elderly female who is in no acute distress. She is alert and oriented, very ple asant. VITAL SIGNS: Her blood pressure is 131/62, heart rate 64, respiratory rate 18. She is afebrile at t his time 97.2. HEENT: Reveals the head to be normocephalic, atraumatic. Carotid pulses are present. I did not hea r any significant bruits. CHEST: Has some mild rales or rhonchi noted in the left base and there were none in the right noted. CARDIOVASCULAR: Exam reveals a regular rate and rhythm. I did not hear any significant murmur. She has a very soft systolic murmur noted at the apex. ABDOMEN: Soft and nontender. She has obesity. I cannot palpate any masses. EXTREMITIES: Showed no clubbing or cyanosis. She did not have any significant edema. Pedal pulses are difficult to palpate. Popliteal pulses are present and also some decrease in the left femoral pu lse. NEUROLOGIC: She appears to be intact. LABORATORY AND DATA: Shows a creatinine 0.87, BUN was 17. Her sodium is 139 with potassium of 3.6, hemoglobin is 9.8. Her BNP was 709. IMPRESSION: 1. Evidence of worsening congestive heart failure type symptoms with decrease in his ejection fracti on. She has undergone a dual chamber automated implantable cardioverter defibrillator in the past an d she appears to be pacing at least 60% at the time by recent evaluation. She may benefit from under going an upgrade to a biventricular device since she is pacing more than 50% of the time. 2. Upper respiratory tract infection with sore throat, mild fever and coughing. She will be treated with antibiotics. She has already been started on these here in the hospital. 3. History of hypertension. This is under good control at this time. 4. History of dyslipidemia. When she becomes more stable, I would resume her anti-cholesterol medic ations. 5. Some degree of deconditioning due to the recent back fracture. She is unable to ambulate very we ll due to this and this needs to be dealt with by the primary care service. 6. History of chronic obstructive pulmonary disease and history of tobacco abuse in the past. This appears to be relatively stable at this time. We will continue to monitor very carefully. We will c heck the automated implantable cardioverter defibrillator and will discuss with proposal coordinator f or consultation whether or not she may be a candidate for upgrade to a biventricular device which may improve her left ventricular systolic function and decrease her overall congestive heart failure sym ptoms. At this time, I would agree with present management of her medications. She appears to be co mfortable otherwise.
[2017-02-07] MEDS: guaiFENesin/DM ER PO SCH (20:52)
[2017-02-07] MEDS: Amoxicillin/Potassium Clav 875 MG TAB PO SCH (20:52)
[2017-02-07] MEDS: Gabapentin 300 MG CAP PO SCH (20:53)
[2017-02-07] MEDS: Aspirin 81 mg Enteric Coated Tablet PO SCH (20:53)
[2017-02-08] MEDS: Levothyroxine Sodium 25 MCG TAB PO SCH (05:50)
[2017-02-08] MEDS: guaiFENesin/DM ER PO SCH ×2 (08:50→20:59)
[2017-02-08] MEDS: Digoxin 0.125 MG TAB PO SCH (08:50)
[2017-02-08] MEDS: Lisinopril 2.5 MG TAB PO SCH (08:51)
[2017-02-08] MEDS: Ubidecarenone 50 MG CAP PO SCH (08:51)
[2017-02-08] MEDS: Amoxicillin/Potassium Clav 875 MG TAB PO SCH ×2 (08:51→20:58)
[2017-02-08] MEDS: Carvedilol 6.25 MG TAB PO SCH ×2 (08:51→20:59)
[2017-02-08] MEDS: Polyethylene Glycol 3350 17 GM Packet PO SCH (08:52)
[2017-02-08] MEDS: Docusate 100 MG CAP PO SCH ×2 (08:53→20:59)
--- NOTE | 2017-02-08 08:55 | PDOC.FM ---
- Subjective Subjective: Pt reports doing about the same compared to yesterday. Denies any acute events overnight. Using 3 L of O2 overnight. has not gotten up much due to difficulty with back brace. Still having productive cough. No fevers or chills. No other concerns or complaints at this time. - Objective Vital Signs & Weight: Vital Signs (12 hours) Temp Pulse Resp BP BP Pulse Ox 02/08/17 08:44 98.1 F 62 16 123/60 100 02/08/17 04:06 97 02/08/17 04:00 98.9 F 62 18 134/61 99 Weight Weight 69.536 kg I&O: 02/07/17 02/08/17 02/09/17 06:59 06:59 06:59 Intake Total 1275 1028 Balance 1275 1028 Result Diagrams: 02/07/17 08:07 02/07/17 04:50 Radiology Reviewed by me: Yes Radiology: CXR 2 view: borderline cardiomegaly. COPD. Atherosclerosis. Stable radiographic appearance of chest. <Toan Phelan - Last Filed: 02/08/17 11:18> - Objective Vital Signs & Weight: Vital Signs (12 hours) Temp Pulse Resp BP BP BP Pulse Ox 02/08/17 11:22 98.3 F 60 16 124/60 95 02/08/17 08:51 62 123/60 02/08/17 08:50 62 02/08/17 08:45 98.1 F 62 16 100 02/08/17 08:44 98.1 F 62 16 123/60 100 02/08/17 04:06 97 02/08/17 04:00 98.9 F 62 18 134/61 99 Weight Weight 69.536 kg I&O: 02/07/17 02/08/17 02/09/17 06:59 06:59 06:59 Intake Total 1275 1028 Balance 1275 1028 Result Diagrams: 02/07/17 08:07 02/07/17 04:50 <Tres Mack - Last Filed: 02/08/17 12:37> Phys Exam - Physical Examination HEENT: moist MMs, oral pharynx no lesions Neck: no nodes, supple Respiratory: no wheezing, no rales breath sounds decreased in bases. No crackles, rhales rhonchi noted Cardiovascular: RRR systolic murmur noted Gastrointestinal: soft, non-tender, no distention, positive bowel sounds Musculoskeletal: no edema, pulses present Neurological: non-focal, normal sensation, moves all 4 limbs Lymphatic: no nodes Psychiatric: normal affect Skin: no rash, normal turgor, cap refill <2 seconds <TapanToan - Last Filed: 02/08/17 11:18> Dx/Plan (1) Viral URI with cough Code(s): J06.9 - ACUTE UPPER RESPIRATORY INFECTION, UNSPECIFIED; B97.89 - OTH VIRAL AGENTS THE CAUSE OF DISEASES CLASSD ELSWHR Status: Acute Plan: -Viral URI vs Pneumonia. Looking more like Viral URI picture at this time. -2 view CXR negative for pneumonia. Procalcitonin normal. Viral resp panel positive for parainfluenza infection. -Will still continue abx Augmentin at this time as Viral URI could be leading to a little COPD excacerbation. -Will continue supportive care at this time. -Mucinex DM for congestion (2) COPD (chronic obstructive pulmonary disease) Status: Acute Plan: -Came in for increased SOB. Possibly mild COPD excacerbation 2/2 Viral URI -Allergic to Levaquin, so treating possible pneumonia with Augmentin at this time. -Will continue to monitor vital signs. Not requiring O2 this morning. -Uses O2 as needed. (3) Afib Code(s): I48.91 - UNSPECIFIED ATRIAL FIBRILLATION Status: Chronic QualifierTitle: Atrial fibrillation type: paroxysmal Qualified Code(s): I48.0 - Paroxysmal atrial fibrillation Plan: Has pacemaker. Heart in normal rhythm at this time. Sees Dr. Blake. Says that she currently is being evaluated for faulty pacemaker. May need a 3rd wire. Could be the possible cause of her SOB. Has appointment with pacemaker company this . -Cardiology- Dr. Rahman consulted. Recommends getting pacemaker evaluated. thinks could benefit from biventricular pacemaker. Consulted Electrophysiology- Dr. Wilde, will await recommendations -On tele. Vital signs stable. -RRR on exam. Will continue to monitor (4) Systolic CHF Code(s): I50.20 - UNSPECIFIED SYSTOLIC (CONGESTIVE) HEART FAILURE Status: Acute Plan: EF-30% on diuresis BNP-709 seems to be around baseline looking at past labs. -No sign of fluid overload on CXR or physical exam. No swelling noted. -Will continue home medications at this time. -Cardiology Consulted-Dr. Rahman Will follow recs (5) Diabetes type 2, controlled Code(s): E11.9 - TYPE 2 DIABETES MELLITUS WITHOUT COMPLICATIONS Status: Acute Plan: continue home meds -Accuchecks in morning and night time. Blood sugars stable -No need for inuslin at this time (6) Burst fracture of thoracic vertebra Code(s): S22.001A - STABLE BURST FRACTURE OF UNSP THORACIC VERTEBRA, INIT Status: Acute Plan: -Has burst fx of T11-T12 back in October. Not allowed to get out of bed without backbrace. -Daughter bringing brace today. Will then get 2 view XRay. -Will get PT/OT to help with tx and get out of bed to prevent deconditioning. (7) Community acquired pneumonia Code(s): J18.9 - PNEUMONIA, UNSPECIFIED ORGANISM Status: Ruled-out QualifierTitle: Laterality: unspecified laterality Qualified Code(s): J18.9 - Pneumonia, unspecified organism Plan: -URI likely. Procalcitonin neg and Repeat CXR not concerning for pneumonia. Pneumonia ruled out at this time. -Given Vanc and Zosyn yesterdy. -Blood cx- NGTD, Urine Cx-NGTD. Flu- Neg -Viral Respiratory positive for paraflu infection. -Will provide supportive care. Augmentin discussed in problems above <Toan Phelan - Last Filed: 02/08/17 11:18> Attending Addendum - Attending Addendum I personally evaluated the patient and discussed the management with Dr. Phelan. I agree with the History, Examination, Assessment and Plan documented above with any addition or exceptions noted below. Patient with some improvement in symptoms. She has positive parainfluenza virus infection, likely resulting in at least part of her symptoms. She has suboptimal AICD that may also be contributing to symptoms, and EP has been consulted to consider biventricular pacing. Await their recs. Continue therapy and symptomatic support. <Tres Mack - Last Filed: 02/08/17 12:37>
[2017-02-08] MEDS: metFORMIN 500 MG TAB PO SCH ×2 (10:31→17:09)
[2017-02-08 14:19] LABS: Folate,Hemolysate >620.0 ng/mL (Not Estab.); Hematocrit 28.8 % (34.0-46.6); RBC Folate Test Component Greater than 2153 ng/mL (>498)
[2017-02-08] MEDS: Rivaroxaban 15 MG TAB PO SCH (16:41)
[2017-02-08] MEDS: Gabapentin 300 MG CAP PO SCH (20:58)
[2017-02-08] MEDS: Aspirin 81 mg Enteric Coated Tablet PO SCH (20:59)
--- NOTE | 2017-02-08 22:45 | CON ---
DATE OF CONSULTATION: 02/08/2017 ELECTROPHYSIOLOGY CONSULTATION REPORT REFERRING PHYSICIAN: Janis Rahman M.D. I am seeing Ms. 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 Her problems are: 1. Chronic systolic congestive heart failure with likely ischemic cardiomyopathy. A. Worsening LVEF of 30%-35% on last echocardiogram. 2. Chronic dual chamber ICD implant in place, a [employer] device. A. Increasing ventricular pacing up to 60% of the time is noted with wide complex. 3. Current admission with upper respiratory tract infection, now resolved. 4. Coronary artery risk factors for hypertension, hypercholesterolemia, and type 2 diabetes. 5. History of bladder cancer, thyroidectomy. ALLERGIES: LEVOFLOXACIN, TRAMADOL, CODEINE, ADHESIVE TAPE. MEDICATIONS AT HOME: Included aspirin, metformin, cholecalciferol, vitamin D, Krill omega 3 fatty acids, rosuvastatin, levothyroxine, lisinopril, rivaroxaban , vitamin C, digoxin, carvedilol, coenzyme Q10, Tylenol, gabapentin, docusate, polyethylene glycol, loratadine, dronabinol, promethazine, bisacodyl. SUBJECTIVE: Ms. Vela was admitted with issues with fevers and some cough. She was evaluated for generalized weakness. She was noted to have not much energy on physical therapy. URTI symptoms have progressed since Tuesday. X- rays were not revealing pneumonia. She is doing better on that. She has some mild cough. No other sinus infections, fevers not present since admission. She denies PND, orthopnea, or lower extremity edema. no dizziness or loss of consciousness. No stroke-like symptoms or bleeding issues are noted. REVIEW OF SYSTEMS: The rest of the 12-point review of system is unremarkable. PAST MEDICAL HISTORY: As above. She has a history of cholecystectomy, hysterectomy, thyroidectomy, COPD, paroxysmal atrial fibrillation, achalasia, diabetes, hyperlipidemia, hypertension, arm surgery, bladder cancer surgery. SOCIAL HISTORY: Prior smoker. Denies ETOH or drug use. She is in a half-way facility. FAMILY HISTORY: Noncontributory. OBJECTIVE DATA: VITAL SIGNS: Blood pressure 126/60, heart rate is 64, respiratory rate is 16, temperature 98.3 degrees Fahrenheit. GENERAL: Alert and oriented woman, in no apparent distress. NECK: Supple. Jugular veins are not distended. CHEST: Coarse without crackles. CARDIAC: Heart sounds are regular to rate and rhythm. No murmur or gallop. ABDOMEN: Benign. Bowel sounds positive. EXTREMITIES: Lower extremities without edema, clubbing, or cyanosis. Pulses are adequate. NEUROLOGIC: The patient is nonfocal. MUSCULOSKELETAL: No joint swelling or deformities. SKIN: Without rash. DATABASE: EKGs reviewed, initial EKG suggestive of possible atrial fibrillation rate of 79 beats per minute, narrow complex QRS is seen. Subsequent EKG shows continued atrial fibrillation with ventricular pacing, intermittently natively-conducted beats are also seen. LABORATORY DATA: The white cell count is 3.6, previous is 6.4; hemoglobin 9.8 and today 10.0, original 12.2; platelet counts are 101. Sodium 139, potassium 3.6, BUN is 17, creatinine 0.87. BNP initially 709. Echo from 04/2015 reveals moderate aortic stenosis, LVEF 30%-35%, mild tricuspid regurgitation. Chest x- ray this admit reveals no acute cardiopulmonary process but chronic COPD and borderline cardiomegaly. ASSESSMENT AND PLAN: Ms. Vela is a pleasant 86-year-old woman with a prior history of congestive heart failure, cardiomyopathy with a keypagwd-xy-jijaczfe reduced left ventricular systolic function of 30% -35% on last echo in 2015. also seem to be persisting in slow atrial fibrillation on xarelto dig andf coreg. She was noted to have increased fluid levels, elevated OptiVol levels and increased RV pacing on the ICD interrogation at last cardiology office visit. She was given torsemide, but consideration was given even as an outpatient to consider a biventricular ICD upgrade. My plan would be at this point: 1. We will re-interrogate the ICD today, attempt reducing ventricular pacing. It that is not feasible and indeed her LVEF is still reduced, it could be a good consideration to upgrade the device to biventricular device. We will make arrangements for this, but we will recheck again tomorrow to ascertain that her URTI symptoms now resolve. KATHLEEN
[2017-02-09] MEDS: Levothyroxine Sodium 25 MCG TAB PO SCH (05:41)
[2017-02-09 07:21] LABS: #Eosinphils 0.1 thou/uL (0.0-0.7); #Lymphocytes 1.1 thou/uL (1.20-3.40); #Monocytes 0.4 thou/uL (0.11-0.59); #Neutrophils 1.7 thou/uL (1.40-6.50); %Basophils 0.7 % (0.0-1.0); %Lymphocytes 32.6 % (21.0-51.0); %Monocytes 12.6 % (0.0-10.0); Hematocrit 33.1 % (36.0-47.0); Mean Platelet Volume 8.4 fL (7.4-10.4); Red Blood Cell (RBC) Count 3.09 mill/uL (4.20-5.40); White Blood Cell (WBC) Count 3.3 thou/uL (4.8-10.8)
--- NOTE | 2017-02-09 08:20 | PDOC.FM ---
- Subjective Subjective: Pt reports feeling better this morning. Says that cough is resolving. says that nasal congestion is improving. Denies fever or chills. Denies any acute events overnight. Used O2 at night but uses O2 at home PRN. Got up with PT yesterday and walked the halls. Got a little short of breath. Overall doing well. No other concerns or complaints - Objective Vital Signs & Weight: Vital Signs (12 hours) Temp Pulse Resp BP BP Pulse Ox 02/09/17 07:42 66 16 100 02/09/17 04:20 98.0 F 65 22 H 173/75 H 95 02/08/17 20:59 123/60 02/08/17 20:29 68 18 100 02/08/17 20:20 98.8 F 68 18 97 Weight Weight 69.4 kg I&O: 02/08/17 02/09/17 02/10/17 06:59 06:59 06:59 Intake Total 1028 340 Balance 1028 340 Result Diagrams: 02/09/17 07:11 02/07/17 04:50 EKG Reviewed by me: Yes <Toan Phelan - Last Filed: 02/09/17 08:26> - Objective Vital Signs & Weight: Vital Signs (12 hours) Temp Pulse Resp BP BP BP Pulse Ox 02/09/17 10:54 98.7 F 71 20 137/62 96 02/09/17 10:47 61 02/09/17 09:30 99.1 F 61 16 99 02/09/17 09:28 61 142/65 H 02/09/17 09:27 142/65 H 02/09/17 08:00 99.1 F 61 20 142/65 H 99 02/09/17 07:42 66 16 100 02/09/17 04:20 98.0 F 65 22 H 173/75 H 95 Weight Weight 69.4 kg I&O: 02/08/17 02/09/17 02/10/17 06:59 06:59 06:59 Intake Total 1028 340 Balance 1028 340 Result Diagrams: 02/09/17 07:11 02/07/17 04:50 <Tres Mack - Last Filed: 02/09/17 11:54> Phys Exam - Physical Examination HEENT: PERRLA, moist MMs, oral pharynx no lesions Neck: no nodes, no JVD, supple, full ROM Respiratory: no wheezing, no rales, no rhonchi, clear to auscultation bilateral Cardiovascular: RRR, no rub systolic murmur noted Gastrointestinal: soft, non-tender, no distention, positive bowel sounds Musculoskeletal: no edema, pulses present Neurological: non-focal, normal sensation, moves all 4 limbs Lymphatic: no nodes Psychiatric: normal affect Skin: no rash, normal turgor, cap refill <2 seconds <Toan Phelan - Last Filed: 02/09/17 08:26> Dx/Plan (1) Viral URI with cough Code(s): J06.9 - ACUTE UPPER RESPIRATORY INFECTION, UNSPECIFIED; B97.89 - OTH VIRAL AGENTS THE CAUSE OF DISEASES CLASSD ELSWHR Status: Acute Plan: -Paraflu positive Viral URI. -2 view CXR negative for pneumonia. Procalcitonin normal. Viral resp panel positive for parainfluenza infection. -Will still continue abx Augmentin at this time as Viral URI could be leading to a little COPD excacerbation. -Will continue supportive care at this time. -Mucinex DM for congestion (2) COPD (chronic obstructive pulmonary disease) Status: Acute Plan: -Came in for increased SOB. Possibly mild COPD excacerbation 2/2 Viral URI -Allergic to Levaquin, so treating with Augmentin at this time. -Will continue to monitor vital signs. Used O2 overnight. Uses O2 as needed. (3) Afib Code(s): I48.91 - UNSPECIFIED ATRIAL FIBRILLATION Status: Chronic QualifierTitle: Atrial fibrillation type: paroxysmal Qualified Code(s): I48.0 - Paroxysmal atrial fibrillation Plan: Has pacemaker. Heart in normal rhythm at this time. Sees Dr. Blake. Says that she currently is being evaluated for faulty pacemaker. May need a 3rd wire. Could be the possible cause of her SOB. Has appointment with pacemaker company this . -Cardiology- Dr. Rahman consulted. Recommends getting pacemaker evaluated. thinks could benefit from biventricular pacemaker. -Electrophysiology-Dr. Wilde-Plan is to revaluate pacemaker today and possibly consider replacement or switching out. Will await recommendations. -On tele. Vital signs stable. -RRR on exam. Will continue to monitor (4) Systolic CHF Code(s): I50.20 - UNSPECIFIED SYSTOLIC (CONGESTIVE) HEART FAILURE Status: Acute Plan: EF-30% on diuresis BNP-709 seems to be around baseline looking at past labs. -No sign of fluid overload on CXR or physical exam. No swelling noted. -Will continue home medications at this time. -Cardiology Consulted-Dr. Rahman Will follow recs -Electrophys consulted- Dr. Wilde will follow recs (5) Diabetes type 2, controlled Code(s): E11.9 - TYPE 2 DIABETES MELLITUS WITHOUT COMPLICATIONS Status: Acute Plan: continue home meds -Accuchecks in morning and night time. Blood sugars stable -No need for inuslin at this time (6) Burst fracture of thoracic vertebra Code(s): S22.001A - STABLE BURST FRACTURE OF UNSP THORACIC VERTEBRA, INIT Status: Acute Plan: -Has burst fx of T11-T12 back in October. Not allowed to get out of bed without backbrace. -PT/OT consulted to help with tx and get out of bed to prevent deconditioning. (7) Community acquired pneumonia Code(s): J18.9 - PNEUMONIA, UNSPECIFIED ORGANISM Status: Ruled-out QualifierTitle: Laterality: unspecified laterality Qualified Code(s): J18.9 - Pneumonia, unspecified organism Plan: -URI likely. Procalcitonin neg and Repeat CXR not concerning for pneumonia. Pneumonia ruled out at this time. -Given Vanc and Zosyn yesterdy. -Blood cx- NGTD, Urine Cx-NGTD. Flu- Neg -Viral Respiratory positive for paraflu infection. -Will provide supportive care. Augmentin discussed in problems above (8) Macrocytic anemia Code(s): D53.9 - NUTRITIONAL ANEMIA, UNSPECIFIED Status: Acute Plan: MCV elevated. Hgb around 10. Seems to be around baseline. -RBC folate in range. -Vitamin B12 checked at past visits and was normal. -Will continue to monitor. <Toan Phelan - Last Filed: 02/09/17 08:26> Attending Addendum - Attending Addendum I personally evaluated the patient and discussed the management with Dr. Phelan. I agree with the History, Examination, Assessment and Plan documented above with any addition or exceptions noted below. Patient improved symptomatically. She has been confirmed to have parainfluenza virus URTI. In regards to EP, they have deferred intervention at this time. Patient feeling well. Will see if cardiology has any further recommendations, and possible d/c back to SNF today. <Tres Mack - Last Filed: 02/09/17 11:54>
[2017-02-09] MEDS: guaiFENesin/DM ER PO SCH (09:27)
[2017-02-09] MEDS: Amoxicillin/Potassium Clav 875 MG TAB PO SCH (09:27)
[2017-02-09] MEDS: Docusate 100 MG CAP PO SCH (09:27)
[2017-02-09] MEDS: Ubidecarenone 50 MG CAP PO SCH (09:27)
[2017-02-09] MEDS: Carvedilol 6.25 MG TAB PO SCH (09:27)
[2017-02-09] MEDS: metFORMIN 500 MG TAB PO SCH (09:27)
[2017-02-09] MEDS: Lisinopril 2.5 MG TAB PO SCH (09:28)
[2017-02-09] MEDS: Polyethylene Glycol 3350 17 GM Packet PO SCH (09:28)
[2017-02-09] MEDS: Digoxin 0.125 MG TAB PO SCH (10:47)
[2017-02-09 11:47] VITALS: TEMP 98.7
[2017-02-09 14:32] VITALS: BP 129/57
--- NOTE | 2017-02-10 14:00 | DIS-2 ---
DATE OF ADMISSION: 02/06/2017 DATE OF DISCHARGE: 02/09/2017 ADMITTING ATTENDING: Dr. Luke Marina DISCHARGE ATTENDING: Dr. Tres Makc RESIDENT: Toan Phelan M.D., PGY1. CONSULTATIONS: Dr. Rahman of Cardiology and Dr. Wilde with Electrophysiology. PROCEDURES: None. IMAGING STUDY: Chest x-ray on 02/06/2017, which showed stable cardiomegaly. Would get a chest x-ray on 02/07/2017 which would show; 1) borderline cardiomegaly; 2) chronic obstructive pulmonary diseas e; 3) atherosclerosis; 4) stable radiographic appearance of the chest. She also got an echo while here which showed an ejection fraction of 30-35%, defibrillator wire in th e right ventricle, left atrium moderately dilated, moderate mitral regurgitation, moderate aortic melania nosis, moderate aortic regurgitation. DISCHARGE MEDICATIONS: Tylenol 1000 mg p.o. b.i.d., aspirin 81 mg p.o. at bedtime, Bisacodyl 10 mg s ubcu daily, carvedilol 6.25 mg p.o. b.i.d., vitamin D3 p.o. daily, digoxin 0.125 mg daily, docusate 1 00 mg p.o. b.i.d., dronabinol 2.5 mg p.o. b.i.d., gabapentin 1 tab p.o. at bedtime, Mucinex DM 1 tab p.o. q.12h., Krill oil 1 cap p.o. at bedtime, levothyroxine 25 mcg p.o. daily, lisinopril 2.5 mg p.o. daily, Loratadine 2.5 mg daily, metformin 500 mg b.i.d., 17 grams p.o. daily of polyethylene glycol, Promethazine 25 mg p.o. q.6h., rivaroxaban 15 mg p.o. q.p.m., Rosuvastatin 40 mg p.o. q.p.m., tramad ol 50 mg p.o. q.12h. as needed, CoQ10 100 mg p.o. daily, PreserVision AREDs 2 soft gel 1 daily, and Super B complex 140 mg p.o. daily. No medications were discontinued at this visit. PRIMARY DIAGNOSES: 1. Influenza positive viral upper respiratory infection with a productive cough. 2. Mild chronic obstructive pulmonary disease exacerbation. 3. History of paroxysmal atrial fibrillation. 4. Systolic congestive heart failure with ejection fraction of 30-35%. 5. Type 2 diabetes, controlled. 6. Burst fracture of T11, T12. 7. Macrocytic anemia. HISTORY OF PRESENT ILLNESS AND BRIEF HOSPITAL COURSE: This is an 86-year-old female that was at a [facility] as she had recently had a burst fracture of T11, T12, and was being treated . She had this back in October and was being treated at care home facility where she start ed having fever, productive cough and increased weakness. She did not have much energy in physical t herapy. Says that the symptoms started Tuesday, just started to progressively get worse. When she came to the ER, she had a temperature of 103.2, had increased respiratory rate at 26 and was satting fine 97% on room air. They did a chest x-ray and thought maybe they saw a possible community-acquir ed pneumonia versus viral upper respiratory infection. Also, the other thought was maybe CHF exacerb ation which was not fluid overloaded. Chest x-ray did not look fluid overloaded and did not show sig ns of CHF exacerbation. She had though been currently seeing Dr. Blake who told her that her pace maker was malfunctioning. She did have an appointment for later this week to get her pacema ker evaluated and for possible replacement. The thought is maybe that pacemaker could also be leadin g to a little bit of increased shortness of breath. So at this visit her white blood cell count was never elevated, it was 6.4 on admission. Her BMP did not show any abnormalities except for a BNP whi ch is a little elevated at 709, but was sitting around her baseline from previous visits. We got a p rocalcitonin because we were unsure of pneumonia diagnosis which was shown to be 0.20, not concerning for bacterial type infection. We also got a RSV panel which showed flu positive. She was parainflu heri negative. We got urine cultures, blood cultures, which showed no growth at 48 hours. One blood culture did grow out coag negative Staph, but we determined that to be a contaminant, and then we di d a repeat 2 view chest x-ray, AP, lateral and again did not see anything on chest x-ray concerning f or pneumonia. So at this time we called her upper respiratory infection due to the parainfluenza pos itive respiratory panel. She was started on vancomycin and Zosyn down in the ER. We would then swit ch her antibiotics more to just Augmentin. The reason we gave her antibiotics even for a viral URI i s we thought maybe she had a little bit of mild COPD exacerbation due to the viral URI and so we james diane her with Augmentin during her hospital stay. We treated her with Augmentin as she was allergic t o Levaquin. Also, during this time due to a history of being worked up for a faulty pacemaker, we c onsulted Dr. Rahman with Cardiology who at this time thought she was stable on all her blood pressure m edications for CHF, did not note CHF exacerbation, but did agree that shortness of breath may be due to the pacemaker. At this time consulted Dr. Wilde with Electrophysiology. Dr. Wilde came and saw her on the , at which time he thought that she would do better getting a biventricular pacemaker, bu t was a little concerned with her viral upper respiratory infection. She reassessed her on Tuesday and said that she was able to go home, but did say that she will need to follow up outpatient and wo uld replacement and fix pacemaker on a later date when she was not dealing with an illness. On the day of admission, again, she never had any increase in her white blood cell count. Her BNP staye d stable throughout. She never did spike a fever again, was satting fine on room air during the day. She did use some O2 while here, but she uses O2 occasionally at home as well, was not changed from baseline. Family thought she was stable to go back to the care home unit so at this time we di scharged her. DISCHARGE DISPOSITION: Stable. DISCHARGE INSTRUCTIONS: 1. Location: alf facility. 2. Diet is a heart healthy diet. 3. Activities; activity as tolerated. We will do rehab and PT and OT for the back fracture. 4. Disposition: She will need to follow up with her primary care physician within a week for hospit al followup. One other follow up with Dr. Blake within a month and then will need to follow up [facility] Dr. Wilde within 2 weeks after resolution of illness to get assessed for replacement of the pacemak er.
== END 2017-02-09 14:10 | DRG 153 ==
LOC: ERS 10:49 → 2NO 15:11
PROVIDERS: ADMIT Family Medicine; ATTEND Family Medicine
DX: J06.9 Acute upper respiratory infection, unspecified (principal); I50.20 Unspecified systolic (congestive) heart failure; T82.198A Other mechanical complication of other cardiac electronic device, initial encounter; J44.1 Chronic obstructive pulmonary disease with (acute) exacerbation; E11.9 Type 2 diabetes mellitus without complications; D53.9 Nutritional anemia, unspecified; J11.1 Influenza due to unidentified influenza virus with other respiratory manifestations; I48.91 Unspecified atrial fibrillation; S22.081D Stable burst fracture of T11-T12 vertebra, subsequent encounter for fracture with routine healing; X58.XXXD Exposure to other specified factors, subsequent encounter; Z87.891 Personal history of nicotine dependence; Y71.3 Surgical instruments, materials and cardiovascular devices (including sutures) associated with adverse incidents; E78.5 Hyperlipidemia, unspecified; I25.5 Ischemic cardiomyopathy
CPT/HCPCS: 36415; 36416; 51701; 71010; 71020; 80048; 80053; 81003; 81015; 82747; 83605; 83880; 84145; 84443; 85025; 87040; 87086; 87149; 87633; 93005; 93306; 94640; 94760; 96361; 96365; 96366; 96375; A4216; A4353; G8978-GP-CL; G8979-GP-CK; G8987-GO-CL; G8988-GO-CJ; J2405; J2543; J3370; J7050; J7620

== ENCOUNTER 2017-03-02 12:43 | Outpatient (CLI) | payer MEDICARE ==
--- NOTE | 2017-03-02 15:04 | RAD ---
THORACIC SPINE 2 VIEWS: HISTORY: An 86-year-old female with unspecified injury at the T1 level of the thoracic spine. Views of the thoracic spine demonstrate kyphoplasty changes at T9 with some vertical height loss of T 8 and mild vertical height loss of T11 which appear stable. There are generalized disk-osteophytosis changes. Diffuse bone demineralization. Stable appearance from prior study. IMPRESSION: Stable severe T12 burst fracture. Status post kyphoplasty changes at T9. Mild vertical height loss at T8 and T1. No new process. No acute fracture. POS: [facility]
--- NOTE | 2017-03-02 15:11 | RAD ---
STANDING FRONTAL AND LATERAL RADIOGRAPH OF LUMBAR SPINE: Date: 03-02-17 Comparison: 01-17-17 History: Re-evaluate lumbar spine fracture seen on prior imaging. FINDINGS: There is tortuosity and calcification of the abdominal aorta. Incompletely imaged transvenous pacing device is present. There is evidence of prior kyphoplasty at the L2 vertebral body. There is a burst fracture with sever e loss of vertebral body height at the T12 level demonstrating anterior and posterior displacement of fracture fragments, not significantly changed when compared to the 01-17-17 examination. There is an terolisthesis of L4 on L5 measuring approximately 1.6 cm, unchanged. There is multilevel lower lumbar spine facet hypertrophic change. IMPRESSION: 1. Stable burst fracture with severe loss of vertebral body height at T12. 2. Atherosclerotic disease. 3. Stable anterolisthesis of L4 on L5 measuring in the 1.6 cm range. No new fracture. POS: [facility]
== END 2017-03-02 12:44 | disposition home or self-care (01) ==
LOC: TBSIIMAG 12:43
PROVIDERS: ATTEND Surgery
DX: M80.88XA Other osteoporosis with current pathological fracture, vertebra(e), initial encounter for fracture (principal); M54.5 Low back pain; S22.081A Stable burst fracture of T11-T12 vertebra, initial encounter for closed fracture; I70.90 Unspecified atherosclerosis; M43.16 Spondylolisthesis, lumbar region; Z98.890 Other specified postprocedural states; R29.890 Loss of height
CPT/HCPCS: 72072; 72110

== ENCOUNTER 2017-03-14 13:47 | Outpatient (CLI) | payer MEDICARE ==
[2017-03-14 14:29] LABS: Hemoglobin 11.8 g/dL (12.0-16.0); Mean Corpuscular HGB CONC 31.4 g/dL (32.0-36.0); Mean Corpuscular Hemoglobin 32.9 pg (27.0-31.0); Mean Platelet Volume 9.5 fL (7.4-10.4); Platelet Count 190 thou/uL (130-400); RBC Distribution Width 12.2 % (11.5-14.5); White Blood Cell (WBC) Count 4.4 thou/uL (4.8-10.8)
[2017-03-14 14:53] LABS: Anion Gap 13 mmol/L (10-20); BUN (Urea Nitrogen) 15 mg/dL (9.8-20.1); Calc. Creatinine Clearance 0 mL/min (70-130); Calcium 9.2 mg/dL (7.8-10.44); Carbon Dioxide 26 mmol/L (23-31); Chloride 103 mmol/L (98-107); Estimated GFR-MDRD 32; Glucose 114 mg/dL (83-110); Potassium 4.1 mmol/L (3.5-5.1); Sodium 138 mmol/L (136-145)
--- NOTE | 2017-03-15 23:40 | EKG ---
Test Reason : Blood Pressure : / mmHG Vent. Rate : 054 BPM Atrial Rate : 014 BPM P-R Int : 000 ms QRS Dur : 108 ms QT Int : 420 ms P-R-T Axes : 000 030 251 degrees QTc Int : 398 ms Demand pacemaker; interpretation is based on intrinsic rhythm Atrial fibrillation with slow ventricular response with premature ventricular or aberrantly conducted complexes Possible Anterior infarct , age undetermined Marked ST abnormality, possible inferolateral subendocardial injury Abnormal ECG When compared with ECG of 06-FEB-2017 17:58, Atrial fibrillation has replaced Electronic ventricular pacemaker Confirmed by Miryam RODRIGUEZ ([id number]) on 03/15/2017 11:39:40 PM Referred By: [facility] Confirmed By:Miryam RODRIGUEZ
== END 2017-03-14 13:48 | disposition home or self-care (01) ==
LOC: LABBT 13:47
PROVIDERS: ATTEND Internal Medicine Cardiovascular Disease
DX: Z01.810 Encounter for preprocedural cardiovascular examination (principal); Z01.812 Encounter for preprocedural laboratory examination
CPT/HCPCS: 80048; 85027; 93005; 93010

== ENCOUNTER 2017-03-16 05:58 | Day surgery (SDC) | payer MEDICARE ==
[2017-03-15 15:05] VITALS: BMI 22.2
[2017-03-16] MEDS ORDERED: Propofol 1,000 MG/100 ML VIAL IV ONE (07:27)
[2017-03-16] MEDS ORDERED: Lidocaine 1% PF 5 ML VIAL ONE (07:27)
== END 2017-03-16 10:35 | disposition home or self-care (01) ==
LOC: CCL 05:58
PROVIDERS: ATTEND Internal Medicine Cardiovascular Disease
DX: I48.1 Persistent atrial fibrillation (principal); I25.5 Ischemic cardiomyopathy; I25.10 Atherosclerotic heart disease of native coronary artery without angina pectoris; I47.2 Ventricular tachycardia; I10 Essential (primary) hypertension; I35.0 Nonrheumatic aortic (valve) stenosis; E78.00 Pure hypercholesterolemia, unspecified; E89.0 Postprocedural hypothyroidism; Z87.891 Personal history of nicotine dependence; J44.9 Chronic obstructive pulmonary disease, unspecified; E78.5 Hyperlipidemia, unspecified; Z86.010 Personal history of colon polyps; Z88.5 Allergy status to narcotic agent; Z88.1 Allergy status to other antibiotic agents; Z91.048 Other nonmedicinal substance allergy status; Z79.899 Other long term (current) drug therapy; Z79.01 Long term (current) use of anticoagulants; Z79.82 Long term (current) use of aspirin; Z79.84 Long term (current) use of oral hypoglycemic drugs; Z96.651 Presence of right artificial knee joint; Z95.810 Presence of automatic (implantable) cardiac defibrillator; Z90.49 Acquired absence of other specified parts of digestive tract; Z90.711 Acquired absence of uterus with remaining cervical stump; Z98.890 Other specified postprocedural states
CPT/HCPCS: 92960; J2001; J2704

== ENCOUNTER 2017-07-17 17:07 | Emergency (ER) | payer MEDICARE ==
[2017-07-17] MEDS ORDERED: Lidocaine 2% 10 ML INJ ONE (17:48)
[2017-07-17] MEDS ORDERED: Lidocaine 1% w/Epinephrine 1:100K 20 ML VIAL ONE (17:55)
[2017-07-17] MEDS ORDERED: Bacitracin Zinc 1 Packet ONE ×2 (18:39→18:45)
== END 2017-07-17 19:11 | disposition home or self-care (01) ==
LOC: SCSER 17:07
DX: S81.812A Laceration without foreign body, left lower leg, initial encounter (principal); E11.9 Type 2 diabetes mellitus without complications; E78.5 Hyperlipidemia, unspecified; J44.9 Chronic obstructive pulmonary disease, unspecified; I11.0 Hypertensive heart disease with heart failure; I50.9 Heart failure, unspecified; E03.9 Hypothyroidism, unspecified; M19.90 Unspecified osteoarthritis, unspecified site; Z87.891 Personal history of nicotine dependence; Z79.84 Long term (current) use of oral hypoglycemic drugs; Z79.01 Long term (current) use of anticoagulants; Z79.82 Long term (current) use of aspirin; Z79.899 Other long term (current) drug therapy; W20.8XXA Other cause of strike by thrown, projected or falling object, initial encounter
CPT/HCPCS: 12004; J2001

== ENCOUNTER 2017-12-13 13:34 | Outpatient (CLI) | payer MEDICARE ==
--- NOTE | 2017-12-13 15:12 | RAD ---
CHEST PA AND LATERAL: History: 87-year-old female with history of dyspnea. Comparison: 02-07-17 FINDINGS: Two views of the chest demonstrate cardiomegaly. Left ICD. Small bilateral pleural effusions. Multile paula vertebroplasty changes with bony demineralization with at least one thoracolumbar vertebral body showing marked vertebral collapse, but stable. Biapical pleural thickening. IMPRESSION: Cardiomegaly with small bilateral pleural effusions. Bony demineralization with some healed rib fract ures as well as multiple lumbar and thoracic vertebral body compressions with multilevel vertebroplas ty changes. Healed right rib fractures. Arthrosis changes of both shoulders. No significant no intrat horacic disease. POS: [facility]
== END 2017-12-13 13:35 | disposition home or self-care (01) ==
LOC: RAD 13:34
PROVIDERS: ATTEND Internal Medicine Pulmonary Disease
DX: R06.00 Dyspnea, unspecified (principal); J90 Pleural effusion, not elsewhere classified; I51.7 Cardiomegaly; M19.012 Primary osteoarthritis, left shoulder; M19.011 Primary osteoarthritis, right shoulder
CPT/HCPCS: 71046

== ENCOUNTER 2018-02-16 09:16 | Inpatient (IN) | payer MEDICARE ==
[2018-02-16] MEDS ORDERED: Amiodarone 150 MG, Admixture Fee 1 EACH in Dextrose 5% in Water 100 ML IVPB SCH (10:15)
[2018-02-16 10:24] LABS: #Eosinphils 0.1 thou/uL (0.0-0.7); #Lymphocytes 1.2 thou/uL (1.20-3.40); #Monocytes 0.6 thou/uL (0.11-0.59); #Neutrophils 3.7 thou/uL (1.40-6.50); %Basophils 0.8 % (0.0-1.0); %Eosinophils 1.6 % (0.0-10.0); %Lymphocytes 21.7 % (21.0-51.0); %Monocytes 9.8 % (0.0-10.0); Hemoglobin 8.6 g/dL (12.0-16.0); Mean Corpuscular HGB CONC 30.8 g/dL (32.0-36.0); Mean Corpuscular Hemoglobin 28.3 pg (27.0-31.0); Mean Corpuscular Volume 91.9 fL (78.0-98.0); Mean Platelet Volume 8.3 fL (7.4-10.4); Platelet Count 191 thou/uL (130-400); RBC Distribution Width 17.9 % (11.5-14.5); Red Blood Cell (RBC) Count 3.04 mill/uL (4.20-5.40); White Blood Cell (WBC) Count 5.6 thou/uL (4.8-10.8)
[2018-02-16 10:37] LABS: INR-International Normal Ratio 2.5; Prothrombin Time 26.8 SEC (12.0-14.7)
--- NOTE | 2018-02-16 10:38 | RAD ---
PORTABLE CHEST ONE VIEW: Date: 02-16-18 Time: 10:17 a.m. History: Dyspnea. FINDINGS: Comparison made with exam of 02-06-17. The heart is enlarged. Left sided AICD remains in place. Lungs are expanded without focal areas of co nsolidation, pneumothoraces, cachorro pulmonary edema or pleural effusions. There are degenerative benavides es in the shoulder joints. IMPRESSION: No acute process. POS: OFF
[2018-02-16 10:47] LABS: ALT (SGPT) 19 U/L (8-55); AST (SGOT) 24 U/L (5-34); Albumin 3.6 g/dL (3.4-4.8); Alkaline Phosphatase 73 U/L (40-150); Anion Gap 16 mmol/L (10-20); BUN (Urea Nitrogen) 29 mg/dL (9.8-20.1); Bilirubin, Total 1.1 mg/dL (0.2-1.2); CK (CPK) 51 U/L (29-168); Calc. Creatinine Clearance 0 mL/min (70-130); Calcium 9.6 mg/dL (7.8-10.44); Carbon Dioxide 28 mmol/L (23-31); Chloride 96 mmol/L (98-107); Estimated GFR-MDRD 26; Globulin 2.7 g/dL (2.4-3.5); Glucose 143 mg/dL (83-110); Potassium 4.1 mmol/L (3.5-5.1); Protein, Total 6.3 g/dL (6.0-8.3); Sodium 136 mmol/L (136-145)
[2018-02-16 11:07] LABS: CKMB 1.8 ng/mL (0-6.6)
[2018-02-16] MEDS ORDERED: Dextrose 50% Abboject 50 ML SYRINGE SLOW IVP PRN (12:23)
[2018-02-16] MEDS ORDERED: Dextrose 5% in Water 1,000 ML IV PRN (12:23)
[2018-02-16] MEDS ORDERED: Amiodarone 450 MG in Dextrose 5% in Water 250 ML IVPB SCH (13:00)
[2018-02-16 13:59] LABS: Reticulocyte Count 1.9 % (0.5-1.5)
[2018-02-16] MEDS ORDERED: Furosemide 40 MG/4 ML VIAL SLOW IVP SCH (14:00)
[2018-02-16] MEDS ORDERED: Midazolam HCl 2 mg/2 ml Vial ONE (14:10)
[2018-02-16 14:21] LABS: Iron 23 ug/dL (50-170); Iron Binding Capacity, Total 409 mcg/dL (265-497)
[2018-02-16 14:44] LABS: CKMB 1.8 ng/mL (0-6.6)
[2018-02-16 14:55] LABS: Folate (Folic Acid) 13.6 ng/mL (7.0-31.4)
--- NOTE | 2018-02-16 15:20 | HP ---
CHIEF COMPLAINT: Shortness of breath and generalized weakness. HISTORY OF PRESENT ILLNESS: The patient is an 87-year-old female, who felt sick for the last several weeks. This was mainly generalized weakness and a shortness of breath. Even without any exertion, she felt short of breath. Apparently, she had her pacemaker checked, which showed that she was shocked for a wide-complex tachycardia. She does not remember feeling of being shocked. She denied any chest pain. No fever. No chills. No cough. No headache. She just finished antibiotic for some abscesses of her teeth in the jaw. PAST MEDICAL HISTORY: 1. Chronic obstructive pulmonary disease. 2. Congestive heart failure with LVEF of 30% to 35% based on latest echocardiogram from 2016. 3. Coronary artery disease. 4. Atrial fibrillation. 5. Diabetes mellitus type 2. 6. Hyperlipidemia. 7. Hypertension. 8. Hypothyroidism. 9. Achalasia. 10. T11-T12 burst fracture. PAST SURGICAL HISTORY: 1. Cholecystectomy. 2. Knee surgery. 3. Back surgery. 4. Arm surgery. 5. AICD/pacemaker placement. 6. Bladder cancer surgery. ALLERGIES: CODEINE, LEVAQUIN, AND DULOXETINE. MEDICATIONS: Please refer to the medications list. FAMILY HISTORY: Her father had chronic obstructive pulmonary disease, he in his 60s and mother had heart disease and she in her 60s. REVIEW OF SYSTEMS: All 14-systems were reviewed and they were positive for positive findings in HPI, otherwise they were negative. PHYSICAL EXAMINATION: VITAL SIGNS: Blood pressure is 128/87, pulse is 110, respiratory rate is 23, and pulse oximetry is 91% on room air. HEENT: Head is atraumatic and normocephalic. Eyes are PERRLA. Sclerae are nonicteric. Conjunctivae palish. Oral mucosa is moist. NECK: Supple. No lymphadenopathy. Thyroid is not palpable. CHEST: Left upper chest area with a placed AICD/pacemaker. No erythema or tenderness to palpation. LUNGS: Clear. HEART: S1 and S2. Tachycardic, somewhat irregularly irregular. No S3. No S4. ABDOMEN: Soft, nontender, and nondistended. EXTREMITIES: No clubbing, cyanosis, or edema. She has diminished pulses on both tibialis posterior and dorsalis pedis arteries similar bilaterally. NEUROLOGIC: She is alert and oriented x4. There is no any motor or sensory deficits. Cranial nerves are intact. SKIN: No rash or erythema. LABORATORY DATA: Labs showed white count of 5.6, hemoglobin 8.6, hematocrit 27.9, and platelet count is 191,000. Chemistry showed sodium of 136, potassium of 4.1, chloride 96, BUN 29, creatinine 1.86. Glucose 143. [QAMARKER] 1919.6, and troponin I 0.072. The rest of chemistry within normal limits. INR 2.5. PT of 26.8. EKG, first EKG done at 0925 hours showed wide QRS tachycardia with frequent premature ventricular complexes and the second EKG done at 1114 hours showed atrial fibrillation with Q-waves in V1 and V2 and ST-segment depression in V5 and V6. Both EKGs were reviewed personally by me. Chest x-ray was personally reviewed by me and it showed no acute intrathoracic disease. AICD in place. Heart is somewhat enlarged and some degenerative changes in both shoulders. IMPRESSION: 1. Wide-complex tachycardia, status post shocks by automatic implantable cardioverter-defibrillator. 2. Atrial fibrillation with rapid ventricular response, status post amiodarone bolus at 150 mg x1. 3. Chronic obstructive pulmonary disease. 4. Heart failure with left ventricular ejection fraction of 30% to 35%. 5. Coronary artery disease. Her first troponin I is mildly elevated. 6. Diabetes mellitus type 2. 7. Hyperlipidemia. 8. Hypertension. 9. Hypothyroidism. 10. Renal insufficiency, [id number] most likely. 11. Achalasia. 12. T11-T12 burst fracture per history. PLAN: Full admission to the telemetry floor. Condition is guarded. IV Hep-Lock. Start Lasix 40 q.12 IV push. Close heart monitoring. EP consult with Dr. Wilde. Continue Xarelto. We will keep her n.p.o. in case she needs to have any procedure done by proof sorter. We will reconcile her home medications and we will follow with serial BMPs every morning. Job ID: [id number]
[2018-02-16 15:57] LABS: Troponin I 0.053 ng/mL (< 0.028)
[2018-02-16] MEDS ORDERED: Furosemide 40 MG/4 ML VIAL ONE (15:57)
[2018-02-16] MEDS ORDERED: Ondansetron PF 4 MG/2 ML Vial ONE ×2 (16:05→19:30)
[2018-02-16] MEDS ORDERED: Lorazepam 2 MG/ML VIAL ONE (16:37)
--- NOTE | 2018-02-16 16:53 | CON ---
DATE OF CONSULTATION: 02/16/2018 REASON FOR CONSULTATION: Ventricular tachycardia and atrial fibrillation. HISTORY OF PRESENT ILLNESS: Ms. Vela is a pleasant 87-year-old woman, known to our practice for history of persistent atrial fibrillation, chronic systolic heart failure with ischemic cardiomyopathy, and occlusion of a dual-chamber ICD that was placed in April of 2015. She also carries a diagnosis of COPD. She has had chronic shortness of breath, but unfortunately this has been progressive over the past 1 to 2 months. Earlier this year, she had congestive heart failure exacerbation and fluid overload, and required outpatient diuresing, but when she was seen last month in clinic, was doing well and fluid levels are stable. She was not having any recurrent atrial arrhythmias since her cardioversion in February of this year. She is maintained on renally dosed Xarelto for stroke prophylaxis and other than some superficial bleeding and frequent bruising, has not had any significant bleeding dyscrasias. Ms. Vela presented to the emergency room today for worsening shortness of breath and fatigue as well as with low blood pressure that has been progressive over the past few weeks. When she presented to the emergency room, she was found to have atrial fibrillation with RVR, and occasionally, a wide-complex tachycardia at approximately 140 to 150 beats per minute, resembling a slow VT. She was given IV amiodarone 150 mg, which slowed her rate to approximately 100 to 110 beats per minute. She continues to have substantial shortness of breath as well as fatigue. She denies any heart racing, palpitations, chest pain or pressure, syncope or near syncope, stroke or stroke-like symptoms. We see that her hemoglobin is 8.6, which is lower than her baseline of 10 to 11. She denies any blood in her stool, blood in her urine, or any history of GI bleed. Her daughters are present with her during exam. REVIEW OF SYSTEMS: A 12-point review of systems is conducted and is negative except as listed above in the HPI. PAST MEDICAL HISTORY: 1. Chronic systolic heart failure. 2. Ischemic cardiomyopathy, LV ejection fraction 30% to 35%. 3. Dual-chamber Medtronic ICD in situ, placed in April. 4. Persistent atrial fibrillation, status post cardioversion in February 2017. 5. COPD. 6. History of back fracture. 7. Diabetes. 8. Hypertension. 9. Hyperlipidemia. 10. Hypothyroidism. 11. Achalasia. 12. Bladder cancer, status post surgical intervention. ALLERGIES: INCLUDE CODEINE, LEVOFLOXACIN, ADHESIVE TAPE, AND DULOXETINE. HOME MEDICATIONS: Include: 1. Metformin 500 mg p.o. b.i.d. 2. MiraLAX daily. 3. Furosemide as needed. 4. Levoxyl 50 mcg daily. 5. Coreg 3.125 mg p.o. b.i.d. 6. DHEA daily. 7. Xarelto 15 mg daily. 8. Aspirin 81 mg daily. 9. Crestor 40 mg p.o. at bedtime. 10. Gabapentin 300 mg p.o. daily. 11. Tylenol PM at bedtime. FAMILY HISTORY: Noncontributory. SOCIAL HISTORY: Former smoker. Denies alcohol or illicit drug use. PHYSICAL EXAMINATION: VITAL SIGNS: Available on the ER chart for review. Heart rate is currently 120 beats per minute. GENERAL: Ms. Vela is alert and oriented. Her speech is clear. She is in mild distress. Appears short of breath. NECK: Supple. There is mild jugular venous distention in a semi upright position. PULMONARY: Lungs are clear to auscultation. Respirations are somewhat rapid and do appears to be slightly labored. CARDIAC: Heart rate is irregularly irregular and rapid at 120 beats per minute. No substantial murmur, rub, or gallop is appreciated. PMI is nondisplaced. Defibrillator is seated at the left infraclavicular fossa without swelling, bruising, erosion, or drainage. ABDOMEN: Benign. There are positive bowel sounds throughout. Hepatojugular reflux is negative. There are no palpable masses. EXTREMITIES: Warm and dry to touch without clubbing, cyanosis, or edema. NEUROLOGIC: Grossly intact and nonfocal. MUSCULOSKELETAL: Gait was not assessed. DIAGNOSTIC STUDIES: EKG currently reflects atrial fibrillation with RVR at a rate of 120 beats per minute. Review of previous EKGs show transition from atrial fibrillation to a slow ventricular tachycardia at 140 to 150 beats per minute with evidence of a fusion beat. DEVICE INTERROGATION: This patient has a Lenet Evera XT DR, date of implant is May 12, 2015. New parameters are stable. There is adequate sensing. Capture thresholds are stable. Current mode is DDDR with a lower rate limit of 60, upper track limit of 120 beats per minute. VT detection zone is 150 to 200 beats per minute. Four episodes of VT were captured and 4/4 were successfully pace terminated. Frequent nonsustained VT episodes were captured. Frequent paroxysmal atrial fibrillation episodes were also captured starting since her most recent interrogation a few weeks past. She has not had any shocks. OptiVol fluid index is currently stable and below the threshold and has been since December. LABORATORY DATA: Hemoglobin 8.6, platelet count 191. INR is 2.5. Chemistry panel; potassium 4.1, sodium 136, BUN is 29, creatinine 1.86. Troponin 0.07. BNP 1919. IMAGING STUDIES: Chest x-ray, heart is enlarged. Left-sided AICD in place. No acute processes, cachorro pulmonary edema or pleural effusions are seen. IMPRESSION: 1. Paroxsymal atrial fibrillation with recurrence and rapid ventricular response. 2. Slow ventricular tachycardia with intermittent response to ATP. 3. Congestive heart failure, chronic systolic heart failure, and ischemic cardiomyopathy with an ejection fraction of 30% to 35%. 4. Elevated CHADS-VASc score of 7, on Xarelto, renally dosed. 5. Anemia with a hemoglobin drop at 8.6 with unknown etiology. RECOMMENDATIONS: Ms. Vela is dyspneic, short of breath and feeling quite poorly. She is in atrial fibrillation with RVR. Her immediate recommendation would be for a cardioversion while she is in the emergency room. She is anticoagulated and n.p.o. She was given an amiodarone bolus of 150 mg. We will start her on amiodarone drip and convert her to p.o. amiodarone as we monitor her through her hospital stay. We will have the defibrillator reps come by and decrease her VT detection rate to 140 beats per minute, who recommend further investigation into her anemia possibly with Hemoccult for looking into obscure GI bleed. We will continue to monitor for bleeding issues as well as recurrent ventricular and atrial arrhythmias. We recommend continuing Xarelto unless acute bleeding issues are evident. We recommend she would be admitted to telemetry for further monitoring and evaluation. We will continue to follow through her stay. Job ID: [id number]
[2018-02-16 17:15] LABS: Actual Bicarbonate (HCO3a) 22.5 mEq/L (22-28); Analyzer IN Cardio ER; Base Excess (BEa) -2.2 mEq/L (-2.0 to +3.0); CO2 Tension 38.5 mmHg (35.0-45.0); Calcium, Ionized 1.15 mmol/L (1.12-1.30); Carboxyhemoglobin (COHb) 0.1 gm% (0.0-3.0); Hemoglobin (Hb) 9.7 g/dL (12.0-16.0); O2 Tension (PaO2) 124.2 mmHg (> 60.0); Potassium - ABG Lab 4.69 mmol/L (3.70-5.30); pH, Arterial 7.39 (7.35-7.45)
[2018-02-16 17:18] LABS: Puncture Site LRA
[2018-02-16 17:19] LABS: ALV-art Gradient 41.575 (0-20)
[2018-02-16] MEDS ORDERED: methylPREDNISolone Sod Succ/PF 125 MG/2 ML VIAL ONE (18:29)
[2018-02-16] MEDS ORDERED: Morphine 4 MG/ML VIAL ONE (19:32)
[2018-02-16] MEDS: Rivaroxaban 15 MG TAB PO SCH (23:17)
[2018-02-17 05:48] LABS: #Lymphocytes 0.4 thou/uL (1.20-3.40); #Monocytes 0.4 thou/uL (0.11-0.59); #Neutrophils 5.4 thou/uL (1.40-6.50); %Basophils 0.3 % (0.0-1.0); %Eosinophils 0.4 % (0.0-10.0); %Monocytes 5.7 % (0.0-10.0); %Neutrophils 87.6 % (42.0-75.0); Hemoglobin 8.4 g/dL (12.0-16.0); Mean Corpuscular HGB CONC 30.5 g/dL (32.0-36.0); Mean Corpuscular Hemoglobin 28.5 pg (27.0-31.0); Mean Corpuscular Volume 93.3 fL (78.0-98.0); Mean Platelet Volume 9.8 fL (7.4-10.4); PLT Morphology Comment Appears Decreased; Platelet Count 107 thou/uL (130-400); Red Blood Cell (RBC) Count 2.96 mill/uL (4.20-5.40); White Blood Cell (WBC) Count 6.1 thou/uL (4.8-10.8)
[2018-02-17 05:50] LABS: Anion Gap 22 mmol/L (10-20); BUN (Urea Nitrogen) 39 mg/dL (9.8-20.1); Calc. Creatinine Clearance 24 mL/min (70-130); Calcium 9.4 mg/dL (7.8-10.44); Carbon Dioxide 23 mmol/L (23-31); Chloride 96 mmol/L (98-107); Estimated GFR-MDRD 18; Glucose 136 mg/dL (83-110); Sodium 135 mmol/L (136-145)
[2018-02-17] MEDS ORDERED: Furosemide 40 MG/4 ML VIAL SLOW IVP SCH (06:00)
[2018-02-17] MEDS ORDERED: Sodium Bicarbonate 150 MEQ in Dextrose 5% in Water 1,000 ML IV SCH (08:15)
[2018-02-17] MEDS ORDERED: Sodium Chloride 0.9% 1,000 ML IV SCH ×2 (08:30→15:55)
--- NOTE | 2018-02-17 08:45 | PDOC.PN ---
- Subjective Encounter Start Date: 02/17/18 (f/u hyperkalemia) Encounter Start Time: 08:43 Subjective: Pt reports she feels better today. Denies any pain. Does report some -: nausea. - Objective Resuscitation Status - Order Detail: 02/16/18 12:23 Resuscitation Status Routine Resuscitation Status: FULL: Full Resuscitation Vital Signs & Weight: Vital Signs (12 hours) Temp Pulse Resp BP Pulse Ox 02/17/18 07:27 97.4 F L 60 16 125/62 98 02/17/18 07:20 60 20 98 02/17/18 04:15 98.0 F 100 15 114/50 L 96 02/17/18 02:14 60 16 94 L 02/17/18 00:36 97.2 F L 100 18 120/59 L 100 02/16/18 22:40 98.2 F 60 16 111/49 L 100 Weight Weight 216 lb 7.903 oz I&O: 02/16/18 02/17/18 02/18/18 06:59 06:59 06:59 Intake Total 500 Balance 500 Result Diagrams: 02/17/18 04:44 02/17/18 13:23 Additional Labs: Accuchecks 02/17/18 06:20 POC Glucose 158 H EKG Reviewed by me: Yes (paced rhythm, a fib) Phys Exam - Physical Examination Constitutional: NAD Respiratory: no wheezing, no rales, no rhonchi Cardiovascular: no significant murmur, irregular Gastrointestinal: soft, non-tender, no distention, positive bowel sounds Musculoskeletal: no edema Neurological: non-focal, moves all 4 limbs Psychiatric: normal affect Skin: no rash Dx/Plan (1) Hyperkalemia Code(s): E87.5 - HYPERKALEMIA Status: Acute (2) Chronic systolic heart failure Code(s): I50.22 - CHRONIC SYSTOLIC (CONGESTIVE) HEART FAILURE Status: Chronic (3) Atrial fibrillation Code(s): I48.91 - UNSPECIFIED ATRIAL FIBRILLATION Status: Chronic Qualifiers: Atrial fibrillation type: unspecified Qualified Code(s): I48.91 - Unspecified atrial fibrillation (4) Wide-complex tachycardia Code(s): I47.2 - VENTRICULAR TACHYCARDIA Status: Acute (5) Diabetes type 2, controlled Code(s): E11.9 - TYPE 2 DIABETES MELLITUS WITHOUT COMPLICATIONS Status: Chronic (6) WARREN (acute kidney injury) Code(s): N17.9 - ACUTE KIDNEY FAILURE, UNSPECIFIED Status: Acute Comment: Resolved (7) Anemia Code(s): D64.9 - ANEMIA, UNSPECIFIED Status: Acute Qualifiers: Anemia type: unspecified type Qualified Code(s): D64.9 - Anemia, unspecified - Plan * Hyperkalemia - by history pt has had a low blood pressure over the past few days and has taken 1/2 her usual lasix dose. No UOP overnight concerning for intravascular depletion and she has received additional IV lasix today. * d/c lasix * d/c gabapentin * start NS at 75 ml/hr and reassess in early afternoon * renal ultrasound * Nephrology consult * low potassium/renal diet * Systolic heart failure - will consult dr. Blake to be part of patient's care, due to renal issues and a fib with RVR * resume home carvedilol * resume home statin * resume home aspirin after procedure * wide complex tachy - EP * Dm - monitor blood sugars and sliding scale insulin * anemia - stable here, will need outpatient evaluation of this * * dvt prophy - full anticoagulation with Xarelto * gi prophy - not indicated * * reviewed with patient the critical nature of renal function/elevated potassium and giving IVF to try and correct this. Discussed that this may cause temporary worsening of her heart due to the low EF. She remains at high risk in current condition. No questions or further needs at end of eval. Pt demonstrates understanding and agrees. 15:57/Pt evaluated and has some basilar rales, no shortness of breath. Last potassium 5.0. Will lower IVF rate to 40 ml/hr and continue to hydrate. Next check of renal function in AM. REviewed current status with patient/3 daughters , no questions or further needs at end of eval.
[2018-02-17 08:54] LABS: Anion Gap 23 mmol/L (10-20); BUN (Urea Nitrogen) 41 mg/dL (9.8-20.1); Calc. Creatinine Clearance 23 mL/min (70-130); Carbon Dioxide 21 mmol/L (23-31); Chloride 96 mmol/L (98-107); Estimated GFR-MDRD 17; Glucose 147 mg/dL (83-110); Potassium 5.3 mmol/L (3.5-5.1); Sodium 135 mmol/L (136-145)
--- NOTE | 2018-02-17 10:23 | ULT ---
RENAL ULTRASOUND: COMPARISON: None. HISTORY: Acute kidney injury. TECHNIQUE: Multiplanar, chavez scale, and color Doppler images were obtained in a renal ultrasound. FINDINGS: Cysts are seen in the left kidney measuring up to 2.2 cm in size. The kidneys demonstrate normal cor tical echogenicity without hydronephrosis or calculi and measure 9.5 and 7.8 cm in length on the righ t and left, respectively. Limited visualization of the urinary bladder is unremarkable. IMPRESSION: Left renal cysts. POS: [facility]
--- NOTE | 2018-02-17 11:56 | PDOC.CTH ---
Cardiology Progress Note - Subjective EP PROGRESS NOTE: 02/17/18 Patient seen for a.fib, VT, and ICD management. - Objective Vital Signs Temp Pulse Resp BP Pulse Ox 02/17/18 11:25 97.4 F L 61 29 H 139/78 100 02/17/18 11:02 60 18 99 02/17/18 07:27 97.4 F L 60 16 125/62 98 02/17/18 07:20 60 20 98 02/17/18 04:15 98.0 F 100 15 114/50 L 96 02/17/18 02:14 60 16 94 L 02/17/18 00:36 97.2 F L 100 18 120/59 L 100 Weight 216 lb 7.903 oz 02/16/18 02/17/18 02/18/18 06:59 06:59 06:59 Intake Total 500 Balance 500 - Physical Examination General/Neuro: alert & oriented x3, NAD Neck: carotid US brisk, no JVD present Lungs: CTA, unlabored respirations Heart: PMI normal, RRR Abdomen: NT/ND, soft - Telemetry Telemetry Rhythm: SR (AP/VS) - Labs Result Diagrams: 02/17/18 04:44 02/17/18 13:23 Troponin/CKMB CK-MB (CK-2) 1.8 ng/mL (0-6.6) 02/16/18 13:49 Troponin I 0.055 ng/mL (< 0.028) H 02/16/18 15:18 - Assessment/Plan 1. Paroxysmal atrial fibrillation - diagnosed in 2016. s/p CV in 02/2017. maintained SR until 2-3 weeks ago by ICD report. -successful CV on02/16 in ER. Now AP, VS. sinus rhythm -on amiodarone gtt. will be transitioned to PO before DC 2. Ventricular tachycardia -slow, rates 140-150bpm -Responsive to ATP therapies from ICD -No ICD shocks required/given by device 3. Congestive hear failure -Optivol fluid levels below threshold on ICD report -Lasix DCd d/t WARREN intravascular depletion 4. Ischemic cardiomyopathy -EF 30-35% 5. CHADS2-VASC: 7 - renal dosed Xarelto 15mg QHS 6. Anemia -Hgb 8.4 today -stool guiac x 3 ordered -etiology unknown 7. Hyperkalemia -6.0 this AM 8. Acute Kidney injury - Creat 1.86 yesterday, 2.58 today. Nephrology consulted. 9. Dual chamber ICD - normal operation. -VT detect reduced to 140-200 In sinus rhythm after CV yesterday. Remains on Amiodarone gtt to suppress AF & VT. Continue Xarelto unless acute bleeding occurs. Continue current EP treatment plan. Changing to PO amiodarone today. 200mg TID. Will reduce to 200mg BID upon discharge home.
[2018-02-17 13:55] LABS: Anion Gap 21 mmol/L (10-20); BUN (Urea Nitrogen) 45 mg/dL (9.8-20.1); Calc. Creatinine Clearance 21 mL/min (70-130); Calcium 8.7 mg/dL (7.8-10.44); Carbon Dioxide 22 mmol/L (23-31); Chloride 95 mmol/L (98-107); Estimated GFR-MDRD 16; Glucose 181 mg/dL (83-110); Sodium 133 mmol/L (136-145)
[2018-02-17] MEDS: Levothyroxine Sodium 50 MCG TAB PO SCH (13:59)
[2018-02-17 15:41] LABS: Bilirubin Small (Negative); Blood, Urine Moderate (Negative); Clarity CLOUDY (Clear); Glucose, Urine (Dipstick) Negative (Negative); Leukocyte Trace (Negative); Nitrite Negative (Negative); Protein, Urine (Dipstick) 100 mg/dL (Neg-Trace); Specific Gravity, Urine 1.023 (1.002-1.036); Urobilinogen 0.2 mg/dL (0.2-1.0)
[2018-02-17 15:44] LABS: Bacteria/HPF None Seen HPF (None Seen); Pathc Cast-AUWi Flag 4.36 (0-2.49); RBC/HPF 0-3 HPF (0-3)
[2018-02-17 15:55] LABS: Hyaline Casts/LPF 0-3 HYALINE CAST LPF (0-3 Hyaline); Other Casts/LPF None Seen LPF (0-3 Hyaline)
[2018-02-17 15:56] LABS: Crystals/HPF 1+ AMORPH URATES HPF (Negative)
--- NOTE | 2018-02-17 17:24 | CON ---
DATE OF CONSULTATION: 02/17/2018 SERVICE: Pulmonary Medicine. REASON FOR CONSULT: IMCU patient. HISTORY OF PRESENT ILLNESS: The patient is an 87-year-old white female with past medical history significant for a pacemaker that was placed. She was in her usual state of health when she started developing increasing fatigue, and shortness of breath. It came on over a period of three or four weeks. She was not having any fevers or chills. She is coughing a little bit, but felt that was coming from her upper airway. She noted having a raspy voice. She did not have any chest discomfort. Ultimately, somebody checked her pacemaker and she was apparently in prolonged episode of ventricular tachycardia. As such, she was asked to come directly to the emergency department. Ultimately, she returned to sinus rhythm after cardioversion in the emergency department. She was maintained on the amiodarone. Ultimately, she has been suggested to go home on an amiodarone taper. She currently denies any chest pain or fevers or chills. Her strength is improving a little bit. PAST MEDICAL HISTORY: 1. COPD. 2. Chronic systolic heart failure (30% EF). 3. Coronary artery disease. 4. Atrial fibrillation. 5. Type 2 diabetes mellitus. 6. Dyslipidemia. 7. Hypertension. 8. Hypothyroidism. 9. Achalasia. 10. T11-T12 burst fracture. 11. Ventricular tachycardia, stable. PAST SURGICAL HISTORY: 1. Cholecystectomy. 2. Knee surgery. 3. Back surgery. 4. Arm surgery. 5. AICD placement. 6. Bladder cancer surgery. ALLERGIES: CODEINE, LEVAQUIN, DULOXETINE. MEDICATIONS: List of her inpatient medications was reviewed. No specific updates were made at this time. REVIEW OF SYSTEMS: General, head, ears, eyes, nose, throat, cardiovascular, respiratory, GI, , musculoskeletal, neurologic, and skin are negative, except as mentioned is the HPI. PHYSICAL EXAMINATION: VITAL SIGNS: Afebrile, pulse 61, blood pressure 139/78, respirations 29, saturation 100% on room air. GENERAL: The patient is awake and alert, in no apparent distress. LUNGS: Excellent air entry. There is a minimally prolonged expiratory phase, but I do not appreciate any wheezing, rhonchi, or crackles. HEART: Normal rate regular. ABDOMEN: Soft, nontender, and nondistended. Bowel sounds are positive. MUSCULOSKELETAL: No cyanosis or clubbing. No pitting in the bilateral lower extremities. NEUROLOGIC: Grossly nonfocal. LABORATORY DATA: WBC 6.1, hemoglobin 8.4, platelets 107,000 and downtrending. Retic count is 1.9%, MCV 93, with a very elevated RDW. Creatinine 2.56 and up-trending (baseline 1.5). Potassium 5.3, anion gap 23. Troponin 0.053, BNP 1900, in historic high, B12 and folate fall within the normal limits. Iron deficiency is noted. TIBC falls at the upper limits of normal. PH 7.39, pCO2 38, PO2 124. IMAGING DATA: 1. Ultrasound of the kidneys demonstrates no hydronephrosis. That being said, there was limited evaluation of the urinary bladder. 2. Chest x-ray demonstrates no acute cardiopulmonary abnormality. Left-sided AICD is in good position. ASSESSMENT: 1. Atrial fibrillation with rapid ventricular response, returned to sinus rhythm following cardioversion. 2. Sustained ventricular tachycardia, resolved. 3. Chronic systolic heart failure. 4. Acute kidney injury on CKD 3. DISCUSSION AND PLAN: I agree with gentle IV hydration. I think that the heart failure event was associated with the tachy arrhythmia and not associated with true volume overload. The patient is moving in the right direction. She remains in sinus rhythm. We will check a TSH with tomorrow morning's laboratories, but from my perspective, she is stable for transition to the Telemetry unit. If her laboratories continue to improve, she will be a candidate for discharge from the hospital in the morning with an amiodarone taper. Iron deficiency will need to be worked up on the in- or outpatient setting. When she leaves the ICU, she will have no further requirements for inpatient Pulmonary/Critical Care opinion, and I will sign off. She does not have any active lung issues. Job ID: [id number]
[2018-02-17] MEDS: Rivaroxaban 15 MG TAB PO SCH (17:52)
[2018-02-17] MEDS: Sodium Chloride 0.9% 1,000 ML IV SCH (17:52)
--- NOTE | 2018-02-17 19:07 | CON ---
DATE OF CONSULTATION: REASON FOR CONSULTATION: Congestive heart failure. PRIMARY PERIPATOLOGIST: Dr. Antonio Blake. HISTORY OF PRESENT ILLNESS: Ms. Vela is an 87-year-old woman who re-presented with tachycardia. She has had weakness and fatigue noted recently. She then had a reading on her ICD and was found to be in atrial fibrillation. She was recommended to proceed to the emergency room. While in the emergency room, she was seen and evaluated by Dr. Wilde and underwent a cardioversion after being placed on IV amiodarone. She feels much better. She states she has diuresed. PAST MEDICAL HISTORY: 1. Nonischemic cardiomyopathy. 2. COPD. 3. Diabetes mellitus. 4. Hypertension. 5. Hyperlipidemia. 6. Hypothyroidism. 7. Achalasia. 8. Moderate aortic stenosis. 9. Paroxysmal atrial fibrillation, on anticoagulation therapy. ALLERGIES: 1. CODEINE. 2. LEVOFLOXACIN. 3. ADHESIVE TAPE. 4. DULOXETINE. MEDICATIONS: Include: 1. Aspirin. 2. Crestor. 3. Xarelto. 4. Coreg. 5. Levoxyl. 6. Lasix. 7. MiraLAX. 8. Metformin. FAMILY HISTORY: Negative. SOCIAL HISTORY: Previous tobacco use. REVIEW OF SYSTEMS: A 10-point review of systems is reviewed and as above, otherwise negative. PHYSICAL EXAMINATION: VITAL SIGNS: Blood pressure 139/60, pulse 60, and temperature 97.2. GENERAL: Patient is a pleasant female who is in no acute distress. The patient appears their stated age. NEUROLOGIC: The patient is alert and oriented x3 with no focal neurologic deficits. HEENT: Sclerae without icterus. Mouth has moist mucous membranes with normal pallor. NECK: No JVD. Carotid upstroke brisk. No bruits bilaterally. LUNGS: Crackles noted bilaterally. BACK: No scoliosis or kyphosis. CARDIAC: Regular rate and rhythm with normal S1 and S2. No S3 or S4 noted. No significant rubs, murmurs, thrills, or gallops noted throughout the precordium. PMI is not displaced. There is no parasternal heave. ABDOMEN: Soft, nontender, nondistended. No peritoneal signs present. No hepatosplenomegaly. No abnormal striae. EXTREMITIES: 2+ femoral and 2+ dorsalis pedis pulses. No cyanosis, clubbing, or edema. SKIN: No gross abnormalities. PERTINENT LABORATORY: Hemoglobin 8.4. Creatinine 2.76. IMPRESSION: 1. Acute on chronic systolic heart failure. 2. Ventricular tachycardia. 3. Atrial fibrillation. 4. Status post ICD. 5. Moderate aortic stenosis. RECOMMENDATIONS: Ms. Vela appears to be doing much better. She has diuresed. Her creatinine unfortunately has increased, so we will continue to monitor closely. Nephrology has been consulted. IV Lasix was discontinued this morning due to increase in her creatinine. Continue carvedilol and discontinue aspirin. Job ID: [id number]
[2018-02-17] MEDS: Amiodarone 200 MG TAB PO SCH (20:22)
[2018-02-17] MEDS: Carvedilol 3.125 MG TAB PO SCH (20:22)
[2018-02-17] MEDS: Magnesium Oxide 400 MG TAB PO SCH (20:22)
[2018-02-17] MEDS: Rosuvastatin 20 MG TAB PO SCH (20:22)
[2018-02-17] MEDS ORDERED: Aspirin 81 mg Enteric Coated Tablet PO SCH (21:00)
--- NOTE | 2018-02-17 22:18 | CON ---
DATE OF CONSULTATION: TYPE OF CONSULTATION: Nephrology. REASON FOR CONSULTATION: Elevated creatinine. HISTORY OF PRESENT ILLNESS: This is a very pleasant 87-year-old female, who was admitted for ventricular tachycardia and uncontrolled atrial fibrillation. The patient's creatinine baseline was 1.8 yesterday, was increased to 2.76, so I was consulted. Prior baseline was 1.6 earlier this morning. PAST MEDICAL HISTORY: Significant for congestive heart failure, ischemic cardiomyopathy, EF 10%, ICD, atrial fibrillation, COPD, back fracture, diabetes, hypertension, hyperlipidemia, hypothyroidism, achalasia, and bladder cancer. MEDICATIONS: Home medication list reviewed. Hospital medication list reviewed. ALLERGIES: REVIEWED. REVIEW OF SYSTEMS: A 15-point review of systems was performed, negative except what is noted above. GENERAL: HEAD: NECK: No swelling or lumps. NOSE: No epistaxis or discharge. EYES: No diplopia or pain. RESPIRATORY: CARDIOVASCULAR: GASTROINTESTINAL: /SURGICAL GARMENT FITTER: MUSCULOSKELETAL: No joint pain. NEUROPSYCHIATRIC SYSTEMS: No suicidal ideation. No ideation. SKIN: Denies any rash or ulcer. CONSTITUTIONAL: No fever or chills. PHYSICAL EXAMINATION: GENERAL: The patient is awake and alert. VITAL SIGNS: Afebrile. Pulse 61, breathing 16, and blood pressure 139/78. Awake, alert, in no acute distress. GENERAL APPEARANCE AND MENTAL STATUS: Fair. HEAD/NECK: Normocephalic. Atraumatic. EYES: EOMI. No deformity. EARS: Clear. No ulcers. NOSE: Intact. No lesions. MOUTH: Clear. No discharge. THROAT: Clear. No exudate. LUNGS: Clear. No crackles. CARDIAC: S1, S2. No rub. ABDOMEN: Benign. Bowel sounds positive. GENITALIA/RECTUM: Trammell absent. BACK/EXTREMITIES: Edema 0+. NEUROLOGICAL: Alert and motor intact. SKIN: LYMPHATICS: LABORATORY DATA: Labs show creatinine 2.7. Potassium 5. ASSESSMENT AND PLAN: 1. Acute kidney injury on CKD due to cardiorenal syndrome. Continue gentle hydration. 2. Hyperkalemia, improved. 3. Metabolic acidosis, improved. No indication for dialysis. We will follow renal function closely. I will follow renal imaging once it is available. Kidney shows left renal cyst. Job ID: [id number]
[2018-02-18] MEDS: Sodium Chloride 0.9% 1,000 ML IV SCH (02:42)
[2018-02-18] MEDS: Ondansetron PF 4 MG/2 ML Vial IVP PRN (04:53)
[2018-02-18 05:21] LABS: #Lymphocytes 0.7 thou/uL (1.20-3.40); #Monocytes 0.3 thou/uL (0.11-0.59); #Neutrophils 7.5 thou/uL (1.40-6.50); %Basophils 0.1 % (0.0-1.0); %Eosinophils 0.2 % (0.0-10.0); %Lymphocytes 8.7 % (21.0-51.0); %Monocytes 3.5 % (0.0-10.0); %Neutrophils 87.5 % (42.0-75.0); Hemoglobin 8.3 g/dL (12.0-16.0); Mean Corpuscular Hemoglobin 28.5 pg (27.0-31.0); Mean Corpuscular Volume 91.7 fL (78.0-98.0); Mean Platelet Volume 11.1 fL (7.4-10.4); Platelet Count 72 thou/uL (130-400); Red Blood Cell (RBC) Count 2.91 mill/uL (4.20-5.40); White Blood Cell (WBC) Count 8.6 thou/uL (4.8-10.8)
[2018-02-18 05:29] LABS: Anion Gap 19 mmol/L (10-20); BUN (Urea Nitrogen) 57 mg/dL (9.8-20.1); Calc. Creatinine Clearance 20 mL/min (70-130); Calcium 8.2 mg/dL (7.8-10.44); Carbon Dioxide 21 mmol/L (23-31); Chloride 96 mmol/L (98-107); Estimated GFR-MDRD 15; Glucose 141 mg/dL (83-110); Potassium 5.9 mmol/L (3.5-5.1); Sodium 130 mmol/L (136-145)
[2018-02-18] MEDS: HumaLOG 300 UNITS/3 ML VIAL SC PRN (05:58)
[2018-02-18] MEDS: Levothyroxine Sodium 50 MCG TAB PO SCH (05:58)
[2018-02-18 06:37] VITALS: BMI 26.4
[2018-02-18 07:45] LABS: Potassium 5.5 mmol/L (3.5-5.1)
[2018-02-18] MEDS: Carvedilol 3.125 MG TAB PO SCH ×2 (08:28→20:12)
[2018-02-18] MEDS: Amiodarone 200 MG TAB PO SCH ×3 (08:28→20:12)
[2018-02-18] MEDS: Magnesium Oxide 400 MG TAB PO SCH (08:28)
[2018-02-18] MEDS: Ferrous Sulfate 325 MG TAB PO SCH (08:28)
--- NOTE | 2018-02-18 08:33 | PDOC.CTH ---
Cardiology Progress Note - Subjective Feels a little SOB. Mild wheezing noted. - Objective Vital Signs Temp Pulse Resp BP Pulse Ox 02/18/18 07:13 97.8 F 60 26 H 114/52 L 97 02/18/18 06:41 60 14 99 02/18/18 03:52 98.7 F 58 L 16 114/56 L 93 L 02/18/18 02:07 60 12 97 02/17/18 23:56 97.6 F 60 16 110/51 L 96 02/17/18 22:14 63 16 97 Weight 171 lb 1.259 oz 02/17/18 02/18/18 02/19/18 06:59 06:59 06:59 Intake Total 500 1930 Output Total 450 Balance 500 1480 - Physical Examination General/Neuro: alert & oriented x3, NAD Neck: no JVD present Lungs: CTA, unlabored respirations, other: (mild wheezing and crackles present) Heart: PMI normal, RRR Abdomen: NT/ND, soft Extremities: + femoral B - Labs Result Diagrams: 02/18/18 03:55 02/18/18 07:09 Troponin/CKMB CK-MB (CK-2) 1.8 ng/mL (0-6.6) 02/16/18 13:49 Troponin I 0.055 ng/mL (< 0.028) H 02/16/18 15:18 - Assessment/Plan 1. Acute on chrinis HF 2. Afib 3. VT 4. s/p AICD 5. Acute on chronic RI Stop ACEI, ARB Pt may have been overdiuresed IVF slowly Renal following Continue amiodarone, ACT Hold lasix Monitor CBC
--- NOTE | 2018-02-18 11:04 | PRG ---
DATE OF SERVICE: 02/18/2018 SUBJECTIVE: An 87-year-old female being seen for acute kidney injury. The patient denies any nausea, vomiting, or chest pain. OBJECTIVE: CONSTITUTIONAL: On examination, the patient is awake, alert. VITAL SIGNS: Afebrile, pulse 60, breathing 16, and blood pressure 114/56. GENERAL APPEARANCE AND MENTAL STATUS: Fair. HEAD/NECK: Normocephalic. Atraumatic. EYES: EOMI. No deformity. EARS: Clear. No ulcers. NOSE: Intact. No lesions. MOUTH: Clear. No discharge. THROAT: Clear. No exudate. LUNGS: Clear. No crackles. CARDIAC: S1, S2. No rub. ABDOMEN: Benign. Bowel sounds positive. GENITALIA/RECTUM: Trammell absent. BACK/EXTREMITIES: Edema 0+. NEUROLOGICAL: Alert and motor intact. LABORATORY DATA: Labs show hemoglobin 8.3. Potassium is 5.5, creatinine 3.03. ASSESSMENT AND PLAN: 1. Acute kidney injury with chronic kidney disease, stage 4 due to cardiorenal syndrome. 2. Hyperkalemia. We will give Kayexalate. Continue gentle hydration. 3. Metabolic acidosis, stable. 4. Medications based on glomerular filtration rate are appropriate. 5. Hyponatremia due to renal failure. No indication for dialysis. There is no hydronephrosis. Job ID: [id number]
--- NOTE | 2018-02-18 13:44 | PDOC.PN ---
- Subjective Encounter Start Date: 02/18/18 Encounter Start Time: 10:00 Pt seen for followup re: hyperkalemia. Feels better. Denies chest pain, shortness of breath, fevers or chills. - Objective Resuscitation Status - Order Detail: 02/16/18 12:23 Resuscitation Status Routine Resuscitation Status: FULL: Full Resuscitation MAR Reviewed: Yes Vital Signs & Weight: Vital Signs (12 hours) Temp Pulse Resp BP Pulse Ox 02/18/18 11:50 98.0 F 60 24 H 115/64 95 02/18/18 07:13 97.8 F 60 26 H 114/52 L 97 02/18/18 06:41 60 14 99 02/18/18 03:52 98.7 F 58 L 16 114/56 L 93 L 02/18/18 02:07 60 12 97 Weight Weight 171 lb 1.259 oz I&O: 02/17/18 02/18/18 02/19/18 06:59 06:59 06:59 Intake Total 500 1930 Output Total 450 Balance 500 1480 Result Diagrams: 02/18/18 03:55 02/18/18 07:09 Additional Labs: Accuchecks 02/18/18 02/18/18 02/17/18 10:52 05:38 20:22 POC Glucose 215 H 192 H 188 H 02/17/18 16:47 POC Glucose 179 H EKG Reviewed by me: Yes (tele: A-paced) Phys Exam - Physical Examination Constitutional: NAD HEENT: sclera anicteric, oral pharynx no lesions, 2+ tonsils Dry mucoase Neck: supple Respiratory: clear to auscultation bilateral Cardiovascular: RRR, no rub S1, s2 Gastrointestinal: soft, non-tender, no distention, positive bowel sounds Neurological: moves all 4 limbs Psychiatric: normal affect, A&O x 3 Dx/Plan (1) Hyperkalemia Code(s): E87.5 - HYPERKALEMIA Status: Acute Comment: administer kayexalate (2) Acute worsening of stage 4 chronic kidney disease Code(s): N18.4 - CHRONIC KIDNEY DISEASE, STAGE 4 (SEVERE) Status: Acute Comment: nephrology following (3) Wide-complex tachycardia Code(s): I47.2 - VENTRICULAR TACHYCARDIA Status: Acute Comment: EP following , on amio (4) Chronic systolic heart failure Code(s): I50.22 - CHRONIC SYSTOLIC (CONGESTIVE) HEART FAILURE Status: Chronic Comment: stable (5) DM type 2 (diabetes mellitus, type 2) Status: Chronic Qualifiers: Diabetes mellitus long term acute care registered nurse insulin use: without usp use Diabetes mellitus complication status: with unspecified complications Qualified Code(s) : E11.8 - Type 2 diabetes mellitus with unspecified complications Comment: continue accuchecks, insulin sliding scale (6) Dyslipidemia Code(s): E78.5 - HYPERLIPIDEMIA, UNSPECIFIED Status: Chronic Comment: continue statin (7) Hypertension Code(s): I10 - ESSENTIAL (PRIMARY) HYPERTENSION Status: Chronic Qualifiers: Hypertension type: essential hypertension Qualified Code(s): I10 - Essential (primary) hypertension Comment: controlled (8) Hypothyroidism Code(s): E03.9 - HYPOTHYROIDISM, UNSPECIFIED Status: Chronic Qualifiers: Hypothyroidism type: unspecified Qualified Code(s): E03.9 - Hypothyroidism , unspecified Comment: continue synthroid - Plan * . Review of Systems - Review of Systems Constitutional: negative: fever, chills, sweats, weakness, malaise Respiratory: negative: Cough, Shortness of Breath, SOB with Excertion, Pleuritic Pain, Wheezing Cardiovascular: negative: chest pain, palpitations, orthopnea, paroxysmal nocturnal dyspnea, edema, light headedness Gastrointestinal: negative: Nausea, Vomiting, Abdominal Pain, Diarrhea, Constipation, Melena, Hematochezia Genitourinary: negative: Dysuria, Frequency, Incontinence, Hematuria, Retention Skin: negative: Rash, Lesions, Luke, Bruising - Medications/Allergies Allergies/Adverse Reactions: Allergies Allergy/AdvReac Type Severity Reaction Status Date / Time codeine [Codeine] Allergy Severe CHEST Verified 03/15/17 15:06 TIGHTNESS levofloxacin [From Levaquin] Allergy Intermediate Rash Verified 03/15/17 15:06 adhesive tape Allergy Verified 03/15/17 15:06 duloxetine [From Cymbalta] AdvReac Verified 03/15/17 15:06 Medications: Current Medications Albuterol/Ipratropium (Duoneb) 3 ml NEB [id number] [facility] Last Admin: 02/18/18 06:41 Dose: 3 ml Amiodarone HCl (Cordarone) 200 mg PO TID [facility] Last Admin: 02/18/18 08:28 Dose: 200 mg Carvedilol (Coreg) 3.125 mg PO BID [facility] Last Admin: 02/18/18 08:28 Dose: 3.125 mg Dextrose/Water (Dextrose 50%) 25 gm SLOW IVP PRN PRN PRN Reason: Hypoglycemia Ferrous Sulfate (Feosol) 325 mg PO QAM-[facility] Last Admin: 02/18/18 08:28 Dose: 325 mg Glucagon (Glucagon) 1 mg IM PRN PRN PRN Reason: Hypoglycemia Dextrose/Water (D5w) 1,000 mls @ 0 mls/hr IV .Q0M PRN PRN Reason: Hypoglycemia Sodium Chloride (Normal Saline 0.9%) 1,000 mls @ 40 mls/hr IV .Q24H [facility] Last Admin: 02/18/18 02:42 Dose: 1,000 mls Insulin Human Lispro (Humalog) 0 units SC .MILD SLIDING SCALE PRN PRN Reason: Mild Correctional Scale Last Admin: 02/18/18 05:58 Dose: 2 unit Levothyroxine Sodium (Synthroid) 50 mcg PO 0600 [facility] Last Admin: 02/18/18 05:58 Dose: 50 mcg Magnesium Oxide (Magnesium Oxide) 400 mg PO BID [facility] Last Admin: 02/18/18 08:28 Dose: 400 mg Ondansetron HCl (Zofran) 4 mg IVP Q6H PRN PRN Reason: Nausea/Vomiting Last Admin: 02/18/18 04:53 Dose: 4 mg Rivaroxaban (Xarelto) 15 mg PO QPM-[facility] Last Admin: 02/17/18 17:52 Dose: 15 mg Rosuvastatin Calcium (Crestor) 40 mg PO QPM [facility] Last Admin: 02/17/18 20:22 Dose: 40 mg Sodium Chloride (Flush - Normal Saline) 10 ml IVF Q12HR [facility] Last Admin: 02/18/18 08:38 Dose: Not Given Sodium Chloride (Flush - Normal Saline) 10 ml IVF PRN PRN PRN Reason: Saline Flush
--- NOTE | 2018-02-18 15:49 | PRG ---
DATE OF SERVICE: 02/18/2018 SERVICE: Pulmonary Medicine. INTERVAL HISTORY: The patient has increasing work of breathing today. She denies any current chest pain, fevers, or chills. Otherwise, there has been no interval change to her condition. PHYSICAL EXAMINATION: VITAL SIGNS: Afebrile, pulse 60, blood pressure 115/64, respirations 24, and saturation 95% on room air. GENERAL: The patient is awake and alert, in no apparent distress. LUNGS: Decent air entry. There is no prolonged expiratory phase. Crackles are present. There is no wheezing or rhonchi appreciated. HEART: Normal rate, regular. ABDOMEN: Soft, nontender, and nondistended. Bowel sounds are positive. MUSCULOSKELETAL: No cyanosis or clubbing. There is 1+ pitting in bilateral lower extremities. NEUROLOGIC: Grossly nonfocal. LABORATORY DATA: WBC 8.6, hemoglobin 8.3 and stable, and platelets are 72,000 and downtrending. Potassium 5.9; sodium 130; chloride 96; bicarb 21; anion gap 19; creatinine 3.03, which is gently up-trending; and BUN 57. Urinalysis is otherwise unremarkable. Urine culture is negative to date. ASSESSMENT: 1. Atrial fibrillation with rapid ventricular response, returned to sinus rhythm following cardioversion. 2. Sustained ventricular tachycardia, resolved. 3. Chronic systolic heart failure (ejection fraction 30%). 4. Acute kidney injury on chronic kidney disease, 3. DISCUSSION AND PLAN: The acute kidney injury is getting a little bit worse. She is also showing some signs of a touch of volume overload. She will need to remain in the IMCU for an additional 24 hours. Pulmonary/Critical Care will continue to follow along. We may need to increase the rate on her pacemaker to improve cardiac output. Job ID: [id number]
[2018-02-18] MEDS: Rivaroxaban 15 MG TAB PO SCH (15:57)
--- NOTE | 2018-02-18 17:58 | EKG ---
Test Reason : Blood Pressure : / mmHG Vent. Rate : 063 BPM Atrial Rate : 063 BPM P-R Int : 234 ms QRS Dur : 122 ms QT Int : 456 ms P-R-T Axes : 044 002 150 degrees QTc Int : 466 ms Atrial-paced rhythm with prolonged AV conduction with occasional ventricular-paced complexes Non-specific intra-ventricular conduction delay Abnormal ECG Confirmed by KRISTIN GALAVIZ DO ([id number]), international editorial producer GONZALES BARROS ([id number]) on 02/18/2018 5:58:09 PM Referred By: Confirmed By:KRISTIN GALAVIZ DO
--- NOTE | 2018-02-18 17:58 | EKG ---
Test Reason : Blood Pressure : / mmHG Vent. Rate : 062 BPM Atrial Rate : 062 BPM P-R Int : 240 ms QRS Dur : 122 ms QT Int : 468 ms P-R-T Axes : 042 -04 139 degrees QTc Int : 475 ms Atrial-paced rhythm with prolonged AV conduction with Premature atrial complexes Non-specific intra-ventricular conduction delay Abnormal ECG Confirmed by KRISTIN GALAVIZ DO ([id number]), online content editor GONZALES BARROS ([id number]) on 02/18/2018 5:58:06 PM Referred By: GUILLAUME Confirmed By:KRISTIN GALAVIZ DO
--- NOTE | 2018-02-18 17:58 | EKG ---
Test Reason : Blood Pressure : / mmHG Vent. Rate : 111 BPM Atrial Rate : 046 BPM P-R Int : 000 ms QRS Dur : 120 ms QT Int : 376 ms P-R-T Axes : 000 -02 140 degrees QTc Int : 511 ms Atrial fibrillation with rapid ventricular response with premature ventricular or aberrantly conducte d complexes Septal infarct , age undetermined Abnormal ECG Confirmed by KRISTIN GALAVIZ DO ([id number]), supervising editor trailer GONZALES BARROS ([id number]) on 02/18/2018 5:58:02 PM Referred By: GUILLAUME Confirmed By:KRISTIN GALAVIZ DO
--- NOTE | 2018-02-18 17:58 | EKG ---
Test Reason : Blood Pressure : / mmHG Vent. Rate : 138 BPM Atrial Rate : 056 BPM P-R Int : 000 ms QRS Dur : 134 ms QT Int : 350 ms P-R-T Axes : 000 -08 151 degrees QTc Int : 530 ms Wide QRS tachycardia with frequent Premature ventricular complexes Non-specific intra-ventricular conduction block Cannot rule out Septal infarct , age undetermined T wave abnormality, consider lateral ischemia Abnormal ECG Confirmed by KRISTIN GALAVIZ DO ([id number]), newspaper editor managing GONZALES BARROS ([id number]) on 02/18/2018 5:58:01 PM Referred By: Confirmed By:KRISTIN GALAVIZ DO
[2018-02-18 18:10] LABS: Anion Gap 18 mmol/L (10-20); BUN (Urea Nitrogen) 66 mg/dL (9.8-20.1); Calc. Creatinine Clearance 14 mL/min (70-130); Calcium 8.1 mg/dL (7.8-10.44); Carbon Dioxide 25 mmol/L (23-31); Chloride 94 mmol/L (98-107); Estimated GFR-MDRD 13; Glucose 142 mg/dL (83-110); Potassium 4.8 mmol/L (3.5-5.1); Sodium 132 mmol/L (136-145)
[2018-02-18] MEDS: Rosuvastatin 20 MG TAB PO SCH (20:12)
[2018-02-19] MEDS ORDERED: Temazepam 15 MG CAP PO SCH (00:45)
[2018-02-19] MEDS: Levothyroxine Sodium 50 MCG TAB PO SCH (05:21)
[2018-02-19 07:31] LABS: Anion Gap 15 mmol/L (10-20); BUN (Urea Nitrogen) 73 mg/dL (9.8-20.1); Calc. Creatinine Clearance 14 mL/min (70-130); Calcium 7.5 mg/dL (7.8-10.44); Carbon Dioxide 26 mmol/L (23-31); Chloride 96 mmol/L (98-107); Estimated GFR-MDRD 13; Glucose 141 mg/dL (83-110); Potassium 4.1 mmol/L (3.5-5.1); Sodium 133 mmol/L (136-145)
--- NOTE | 2018-02-19 07:59 | PDOC.CTH ---
Cardiology Progress Note - Objective Vital Signs Temp Pulse Resp BP Pulse Ox 02/19/18 07:27 97.4 F L 60 17 111/65 98 02/19/18 04:18 98.0 F 61 16 103/52 L 93 L 02/19/18 00:14 97.6 F 63 15 113/75 96 02/18/18 22:02 63 16 96 02/18/18 20:00 98 Weight 171 lb 3.2 oz 02/18/18 02/19/18 02/20/18 06:59 06:59 06:59 Intake Total 1930 1100 Output Total 450 850 Balance 1480 250 - Labs Result Diagrams: 02/18/18 03:55 02/19/18 06:58 Troponin/CKMB CK-MB (CK-2) 1.8 ng/mL (0-6.6) 02/16/18 13:49 Troponin I 0.055 ng/mL (< 0.028) H 02/16/18 15:18 - Assessment/Plan 1. Acute on chrinis HF 2. Afib 3. VT 4. s/p AICD 5. Acute on chronic RI Continues with SOB Creatinine appears to have plateaued Hold diuretics for now Recheck echo Stop Coreg Add low dose dobutrex Symptoms may be related to Recheck Hb
[2018-02-19] MEDS: Carvedilol 3.125 MG TAB PO SCH (09:05)
[2018-02-19] MEDS: Amiodarone 200 MG TAB PO SCH ×3 (09:05→21:50)
[2018-02-19] MEDS: Ferrous Sulfate 325 MG TAB PO SCH (09:05)
[2018-02-19] MEDS ORDERED: DOBUTamine 500 mg/250 ml 250 ML IVPB SCH (12:30)
[2018-02-19 13:11] LABS: #Lymphocytes 0.7 thou/uL (1.20-3.40); #Monocytes 0.6 thou/uL (0.11-0.59); #Neutrophils 9.4 thou/uL (1.40-6.50); %Basophils 0.3 % (0.0-1.0); %Eosinophils 0.3 % (0.0-10.0); %Lymphocytes 6.8 % (21.0-51.0); %Monocytes 5.6 % (0.0-10.0); Hemoglobin 8.5 g/dL (12.0-16.0); Mean Corpuscular HGB CONC 31.6 g/dL (32.0-36.0); Mean Corpuscular Hemoglobin 28.7 pg (27.0-31.0); Mean Corpuscular Volume 90.6 fL (78.0-98.0); Mean Platelet Volume 10.5 fL (7.4-10.4); Platelet Count 90 thou/uL (130-400); RBC Distribution Width 17.9 % (11.5-14.5); Red Blood Cell (RBC) Count 2.97 mill/uL (4.20-5.40); White Blood Cell (WBC) Count 10.8 thou/uL (4.8-10.8)
--- NOTE | 2018-02-19 13:39 | PRG ---
DATE OF SERVICE: 02/19/2018 SERVICE: Pulmonary Medicine. INTERVAL HISTORY: The patient is doing great from respiratory standpoint. Denies any current chest pain, fevers, chills, nausea, or vomiting. Otherwise, there has been no interval change in the patient's condition. She is breathing comfortably. She has not had any significant ventricular ectopy over the last 24 hours. OBJECTIVE: VITAL SIGNS: Afebrile. Pulse 62, blood pressure 115/65, respirations 17, and saturation 94% on room air now. HEENT: Normocephalic and atraumatic. Sclerae are white. Conjunctivae are pink. Oral mucosa is moist without lesions. LUNGS: Excellent air entry. There is no prolonged expiratory phase. Minimal dependent crackles are present. HEART: Normal rate, regular. ABDOMEN: Soft, nontender, and nondistended. Bowel sounds are positive. MUSCULOSKELETAL: No cyanosis or clubbing. There is no significant edema in the bilateral lower extremities. NEUROLOGIC: Grossly nonfocal. LABORATORY DATA: Creatinine 3.36 and stable, BUN 73. Basic metabolic profile is otherwise unremarkable/improving. Calcium 7.5. Urine culture is unremarkable. ASSESSMENT: 1. Atrial fibrillation with rapid ventricular response, returned to sinus rhythm, following cardioversion. 2. Sustained ventricular tachycardia, resolved. 3. Chronic systolic heart failure (EF 30%). 4. Acute kidney injury on Chronic kidney disease 3. DISCUSSION AND PLAN: The kidney injury has peaked. She will likely start to improve through time. She has been hemodynamically stable and in a good rhythm since being here. Pulmonary Critical Care will continue to follow for an additional 24 to 48 hours, but at this point, she is stable for transition to the telemetry unit. Job ID: [id number]
--- NOTE | 2018-02-19 14:15 | PRG ---
DATE OF SERVICE: 02/19/2018 SUBJECTIVE: An 87-year-old female being seen for acute kidney injury. The patient denies any nausea, vomiting or chest pain. OBJECTIVE: CONSTITUTIONAL: Awake, alert, in no acute distress. VITAL SIGNS: Afebrile. Pulse 62, breathing 16, blood pressure 115/64. GENERAL APPEARANCE AND MENTAL STATUS: Fair. HEAD/NECK: Normocephalic. Atraumatic. EYES: EOMI. No deformity. EARS: Clear. No ulcers. NOSE: Intact. No lesions. MOUTH: Clear. No discharge. THROAT: Clear. No exudate. LUNGS: Clear. No crackles. CARDIAC: S1, S2. No rub. ABDOMEN: Benign. Bowel sounds positive. GENITALIA/RECTUM: Trammell absent. BACK/EXTREMITIES: Edema 0+. NEUROLOGICAL: Alert and motor intact. LABORATORY DATA: Hemoglobin 8.5. Creatinine 3.3. ASSESSMENT AND PLAN: 1. Acute kidney injury, improved, plateaued. 2. Hypertension, stable. 3. Anemia, stable. 4. Chronic kidney disease stage 5. No indication for dialysis. We will follow renal function closely. Job ID: [id number]
--- NOTE | 2018-02-19 15:26 | PDOC.PN ---
- Subjective Encounter Start Date: 02/19/18 Encounter Start Time: 10:20 Pt seen for followup re: acute on chronic renal failure. Sleepy but arousable, no complaints. - Objective Resuscitation Status - Order Detail: 02/16/18 12:23 Resuscitation Status Routine Resuscitation Status: FULL: Full Resuscitation MAR Reviewed: Yes Vital Signs & Weight: Vital Signs (12 hours) Temp Pulse Resp BP Pulse Ox 02/19/18 11:48 63 16 02/19/18 11:31 98.2 F 62 17 115/65 94 L 02/19/18 09:05 98 02/19/18 07:27 97.4 F L 60 17 111/65 98 02/19/18 04:18 98.0 F 61 16 103/52 L 93 L Weight Weight 171 lb 3.2 oz I&O: 02/18/18 02/19/18 02/20/18 06:59 06:59 06:59 Intake Total 1930 1100 Output Total 450 850 Balance 1480 250 Result Diagrams: 02/19/18 12:50 02/19/18 06:58 Additional Labs: Accuchecks 02/19/18 02/19/18 02/18/18 10:38 06:07 20:03 POC Glucose 151 H 159 H 189 H 02/18/18 16:51 POC Glucose 159 H Tele: A-paced Phys Exam - Physical Examination Constitutional: NAD HEENT: moist MMs Neck: supple Respiratory: clear to auscultation bilateral Cardiovascular: RRR Gastrointestinal: soft Neurological: moves all 4 limbs Psychiatric: normal affect Dx/Plan (1) Acute worsening of stage 4 chronic kidney disease Code(s): N18.4 - CHRONIC KIDNEY DISEASE, STAGE 4 (SEVERE) Status: Acute Comment: creatinine stabilizing (2) Wide-complex tachycardia Code(s): I47.2 - VENTRICULAR TACHYCARDIA Status: Acute Comment: EP following (3) Chronic systolic heart failure Code(s): I50.22 - CHRONIC SYSTOLIC (CONGESTIVE) HEART FAILURE Status: Chronic Comment: stable (4) DM type 2 (diabetes mellitus, type 2) Status: Chronic Qualifiers: Diabetes mellitus group home insulin use: without terminal computer operator use Diabetes mellitus complication status: with unspecified complications Qualified Code(s) : E11.8 - Type 2 diabetes mellitus with unspecified complications Comment: continue accuchecks, insulin sliding scale (5) Dyslipidemia Code(s): E78.5 - HYPERLIPIDEMIA, UNSPECIFIED Status: Chronic Comment: on statin (6) Hypertension Code(s): I10 - ESSENTIAL (PRIMARY) HYPERTENSION Status: Chronic Qualifiers: Hypertension type: essential hypertension Qualified Code(s): I10 - Essential (primary) hypertension Comment: controlled (7) Hypothyroidism Code(s): E03.9 - HYPOTHYROIDISM, UNSPECIFIED Status: Chronic Qualifiers: Hypothyroidism type: unspecified Qualified Code(s): E03.9 - Hypothyroidism , unspecified Comment: on synthroid (8) Hyperkalemia Code(s): E87.5 - HYPERKALEMIA Status: Resolved - Plan * . Review of Systems - Review of Systems Constitutional: weakness Respiratory: negative: Cough, Shortness of Breath, SOB with Excertion, Pleuritic Pain, Wheezing Cardiovascular: negative: chest pain, palpitations, orthopnea, paroxysmal nocturnal dyspnea, edema, light headedness - Medications/Allergies Allergies/Adverse Reactions: Allergies Allergy/AdvReac Type Severity Reaction Status Date / Time codeine [Codeine] Allergy Severe CHEST Verified 03/15/17 15:06 TIGHTNESS levofloxacin [From Levaquin] Allergy Intermediate Rash Verified 03/15/17 15:06 adhesive tape Allergy Verified 03/15/17 15:06 duloxetine [From Cymbalta] AdvReac Verified 03/15/17 15:06 Medications: Current Medications Albuterol/Ipratropium (Duoneb) 3 ml NEB [id number] [facility] Last Admin: 02/19/18 15:01 Dose: Not Given Amiodarone HCl (Cordarone) 200 mg PO TID [facility] Last Admin: 02/19/18 09:05 Dose: 200 mg Dextrose/Water (Dextrose 50%) 25 gm SLOW IVP PRN PRN PRN Reason: Hypoglycemia Ferrous Sulfate (Feosol) 325 mg PO QAM-WM [facility] Last Admin: 02/19/18 09:05 Dose: 325 mg Glucagon (Glucagon) 1 mg IM PRN PRN PRN Reason: Hypoglycemia Dextrose/Water (D5w) 1,000 mls @ 0 mls/hr IV .Q0M PRN PRN Reason: Hypoglycemia Dobutamine HCl/Dextrose (Dobutamine 500 Mg/250 Ml) 250 mls @ 11.648 mls/hr IVPB INF [facility]; Protocol Insulin Human Lispro (Humalog) 0 units SC .MILD SLIDING SCALE PRN PRN Reason: Mild Correctional Scale Last Admin: 02/18/18 05:58 Dose: 2 unit Levothyroxine Sodium (Synthroid) 50 mcg PO 0600 [facility] Last Admin: 02/19/18 05:21 Dose: 50 mcg Ondansetron HCl (Zofran) 4 mg IVP Q6H PRN PRN Reason: Nausea/Vomiting Last Admin: 02/18/18 04:53 Dose: 4 mg Rivaroxaban (Xarelto) 15 mg PO QPM-[facility] Last Admin: 02/18/18 15:57 Dose: 15 mg Rosuvastatin Calcium (Crestor) 40 mg PO QPM [facility] Last Admin: 02/18/18 20:12 Dose: 40 mg Sodium Chloride (Flush - Normal Saline) 10 ml IVF Q12HR [facility] Last Admin: 02/19/18 09:06 Dose: 10 ml Sodium Chloride (Flush - Normal Saline) 10 ml IVF PRN PRN PRN Reason: Saline Flush
[2018-02-19] MEDS: Rivaroxaban 15 MG TAB PO SCH (16:32)
[2018-02-19] MEDS: Rosuvastatin 20 MG TAB PO SCH (21:50)
[2018-02-20] MEDS: Levothyroxine Sodium 50 MCG TAB PO SCH (05:17)
[2018-02-20 05:51] LABS: Anion Gap 15 mmol/L (10-20); BUN (Urea Nitrogen) 75 mg/dL (9.8-20.1); Calc. Creatinine Clearance 14 mL/min (70-130); Calcium 7.4 mg/dL (7.8-10.44); Carbon Dioxide 27 mmol/L (23-31); Chloride 97 mmol/L (98-107); Estimated GFR-MDRD 13; Glucose 132 mg/dL (83-110); Potassium 3.4 mmol/L (3.5-5.1); Sodium 136 mmol/L (136-145)
[2018-02-20] MEDS: Amiodarone 200 MG TAB PO SCH ×3 (08:13→20:43)
[2018-02-20] MEDS: Ferrous Sulfate 325 MG TAB PO SCH (08:13)
--- NOTE | 2018-02-20 09:57 | PRG ---
DATE OF SERVICE: 02/20/2018 SUBJECTIVE: This is an 87-year-old female, being seen for acute kidney injury. The patient denies any nausea, vomiting, or chest pain. OBJECTIVE: GENERAL: The patient is awake and alert. VITAL SIGNS: Afebrile, pulse 93, breathing 16, blood pressure 135/64. GENERAL APPEARANCE AND MENTAL STATUS: Fair. HEAD/NECK: Normocephalic. Atraumatic. EYES: EOMI. No deformity. EARS: Clear. No ulcers. NOSE: Intact. No lesions. MOUTH: Clear. No discharge. THROAT: Clear. No exudate. LUNGS: Clear. No crackles. CARDIAC: S1, S2. No rub. ABDOMEN: Benign. Bowel sounds positive. GENITALIA/RECTUM: Trammell absent. BACK/EXTREMITIES: Edema 0+. NEUROLOGICAL: Alert and motor intact. SKIN: LYMPHATICS: LABORATORY DATA: Labs show hemoglobin 8.5. Creatinine 3.3. ASSESSMENT AND PLAN: 1. Chronic kidney disease stage 5, stable. 2. Acute kidney injury, stable. 3. Hypokalemia, recommend 20 mEq of potassium. 4. Medications based on GFR appropriate. No indication for dialysis. Job ID: [id number]
--- NOTE | 2018-02-20 10:12 | PDOC.CTH ---
Cardiology Progress Note - Subjective EP PROGRESS NOTE 02/20/18 Pt anxious to get home. Mild SOB. No LOC or severe dizziness. - ROS shortness of breath - Objective Vital Signs Temp Pulse Resp BP Pulse Ox 02/20/18 08:10 93 L 02/20/18 07:52 96.8 F L 61 20 135/64 93 L 02/20/18 04:59 97.4 F L 62 16 128/60 98 02/20/18 00:10 89 107/60 Weight 169 lb 14.4 oz 02/19/18 02/20/18 02/21/18 06:59 06:59 06:59 Intake Total 1100 520 Output Total 850 550 Balance 250 -30 - Physical Examination General/Neuro: alert & oriented x3, NAD Neck: other: (JVD elevated) Lungs: CTA Heart: RRR, other: (tach) Abdomen: no HSM, soft Extremities: other: - Telemetry Telemetry Rhythm: SR-> AFL - Labs Result Diagrams: 02/19/18 12:50 02/20/18 05:12 Troponin/CKMB CK-MB (CK-2) 1.8 ng/mL (0-6.6) 02/16/18 13:49 Troponin I 0.055 ng/mL (< 0.028) H 02/16/18 15:18 - Assessment/Plan 1. Paroxysmal atrial fibrillation - diagnosed in 2016. s/p CV in 02/2017. maintained SR until 2-3 weeks ago by ICD report. -successful CV on02/16 in ER. Now AP, VS. sinus rhythm -on amiodarone gtt. transitioned to PO -Recurrent slow AFL/ AT seen seen this am- which was pace terminable. 2. Ventricular tachycardia -slow, rates 140-150bpm -Responsive to ATP therapies from ICD -No ICD shocks required/given by device 3. Congestive hear failure with Ischemic cardiomyopathy, - LVEF 30-35% in the past. Now 10-15%. - Optivol fluid levels below threshold on ICD report - Lasix DCd d/t WARREN intravascular depletion. - Dobutamin started yesterday. Possibly arrhtyhmogenic. Would stop. 4. Valvular heart disease. Severe /MR/TR on ECHO, 5. CHADS2-VASC: 7 - renal dosed Xarelto 15mg QHS 6. Anemia -Hgb 8.4 today -stool guiac x 3 ordered -etiology unknown 7. Hyperkalemia -6.0 this AM 8. Acute Kidney injury - Creat 1.86 yesterday, 2.58 today. Nephrology consulted. 9. Dual chamber ICD - Rechecked today. normal operation. Increased pacing rate to reduce AFL recurrence. -- May need BiV upgrade in the future.
[2018-02-20] MEDS ORDERED: Bisacodyl 5 MG TAB PO PRN (10:18)
[2018-02-20] MEDS ORDERED: ALPRAZolam 0.25 MG TAB PO SCH (10:30)
[2018-02-20] MEDS ORDERED: Bisacodyl 5 MG TAB PO SCH (10:30)
--- NOTE | 2018-02-20 14:01 | PQF ---
LAVERNEKRISTIN LACHELLE PIERRE [id number] CLINICAL DOCUMENTATION IMPROVEMENT CLARIFICATION FORM: ICD-10 Updated PLEASE DO AN ADDENDUM TO THE PROGRESS NOTE WITH ANY DOCUMENTATION UPDATES OR ADDITIONS AND CARRY THROUGH TO DC SUMMARY. THANK YOU. DATE: 02/20 ATTN: DR. PIERRE LAROSE Please exercise your independent, professional judgment in responding to the clarification form. Clinical indicators are provided on the bottom of this form for your review. Please check appropriate box(s): Conflicting documentation was noted in the Medical Record, please clarify if patient is being treated/monitored for: [ ] CHRONIC SYSTOLIC HEART FAILURE [ ] ACUTE ON CHRONIC SYSTOLIC HEART FAILURE [ ] Other diagnosis [ ] Unable to determine For continuity of documentation, please document condition throughout progress notes and discharge summary. Thank You. CLINICAL INDICATORS - SIGNS / SYMPTOMS/ LABS BNP: 1919 CARDIOLOGY CONSULT 02/17 & PN 02/18 & 30 (MIKA): ASSESSMENT: 1) ACUTE ON CHRONIC SYSTOLIC CHF ATTENDING PN 02/17 (IAN): DX/PLAN: 2) CHRONIC SYSTOLIC HEART FAILURE PN 02/18 & (LACHELLE): DX/PLAN: 4) CHRONIC SYSTOLIC HEART FAILURE RISK FACTORS: SOB HX CHRONIC SYSTOLIC HF CKD 3 TREATMENT: IV LASIX (02/17 & DC'D) CARDIOLOGY CONSULT THANK YOU! Traci (This form is maintained as a part of the permanent medical record) 2014 [employer]. All Rights Reserved Traci Garcia RN, BSN [email or web address] Office: [phone] [facility]
[2018-02-20] MEDS: Rivaroxaban 15 MG TAB PO SCH (16:34)
--- NOTE | 2018-02-20 16:44 | PDOC.PN ---
- Subjective Encounter Start Date: 02/20/18 Encounter Start Time: 07:40 Pt seen for followup re: acute on chronic renal failure. c/o constipation. No chest pain or shortness of breath. - Objective Resuscitation Status - Order Detail: 02/16/18 12:23 Resuscitation Status Routine Resuscitation Status: FULL: Full Resuscitation MAR Reviewed: Yes Vital Signs & Weight: Vital Signs (12 hours) Temp Pulse Resp BP Pulse Ox 02/20/18 16:30 97.6 F 89 18 119/56 L 100 02/20/18 11:20 97.8 F 80 16 110/57 L 96 02/20/18 08:10 93 L 02/20/18 07:52 96.8 F L 61 20 135/64 93 L 02/20/18 04:59 97.4 F L 62 16 128/60 98 Weight Weight 169 lb 14.4 oz I&O: 02/19/18 02/20/18 02/21/18 06:59 06:59 06:59 Intake Total 1100 520 Output Total 850 550 Balance 250 -30 Result Diagrams: 02/19/18 12:50 02/21/18 10:47 Additional Labs: Accuchecks 02/20/18 02/20/18 02/20/18 16:22 10:40 06:20 POC Glucose 192 H 175 H 162 H 02/19/18 02/19/18 20:52 16:24 POC Glucose 162 H 175 H EKG Reviewed by me: Yes (Tele: A-paced) Phys Exam - Physical Examination Constitutional: NAD HEENT: moist MMs Neck: supple Respiratory: clear to auscultation bilateral Cardiovascular: irregular Gastrointestinal: soft Neurological: moves all 4 limbs Psychiatric: normal affect Dx/Plan (1) Acute worsening of stage 4 chronic kidney disease Code(s): N18.4 - CHRONIC KIDNEY DISEASE, STAGE 4 (SEVERE) Status: Acute Comment: creatinine stable (2) Wide-complex tachycardia Code(s): I47.2 - VENTRICULAR TACHYCARDIA Status: Acute Comment: appreciate EP service input. Pt is on oral amiodarone. (3) Constipation Code(s): K59.00 - CONSTIPATION, UNSPECIFIED Status: Acute Comment: trial Dulcolax (4) Acute on chronic systolic CHF (congestive heart failure), NYHA class 3 Code(s): I50.23 - ACUTE ON CHRONIC SYSTOLIC (CONGESTIVE) HEART FAILURE Status : Acute Comment: stable. Pt was overdiuresed, improving now. (5) DM type 2 (diabetes mellitus, type 2) Status: Chronic Qualifiers: Diabetes mellitus usp insulin use: without usp use Diabetes mellitus complication status: with unspecified complications Qualified Code(s) : E11.8 - Type 2 diabetes mellitus with unspecified complications Comment: reasonable control (6) Dyslipidemia Code(s): E78.5 - HYPERLIPIDEMIA, UNSPECIFIED Status: Chronic Comment: on statin (7) Hypertension Code(s): I10 - ESSENTIAL (PRIMARY) HYPERTENSION Status: Chronic Qualifiers: Hypertension type: essential hypertension Qualified Code(s): I10 - Essential (primary) hypertension Comment: controlled (8) Hypothyroidism Code(s): E03.9 - HYPOTHYROIDISM, UNSPECIFIED Status: Chronic Qualifiers: Hypothyroidism type: unspecified Qualified Code(s): E03.9 - Hypothyroidism , unspecified Comment: continue synthroid (9) Hyperkalemia Code(s): E87.5 - HYPERKALEMIA Status: Resolved - Plan * . Review of Systems - Review of Systems Cardiovascular: negative: chest pain, palpitations, orthopnea, paroxysmal nocturnal dyspnea, edema, light headedness Gastrointestinal: Constipation. negative: Nausea, Vomiting, Abdominal Pain, Diarrhea, Melena, Hematochezia - Medications/Allergies Allergies/Adverse Reactions: Allergies Allergy/AdvReac Type Severity Reaction Status Date / Time codeine [Codeine] Allergy Severe CHEST Verified 03/15/17 15:06 TIGHTNESS levofloxacin [From Levaquin] Allergy Intermediate Rash Verified 03/15/17 15:06 adhesive tape Allergy Verified 03/15/17 15:06 duloxetine [From Cymbalta] AdvReac Verified 03/15/17 15:06 Medications: Current Medications Amiodarone HCl (Cordarone) 200 mg PO TID [facility] Last Admin: 02/20/18 16:33 Dose: 200 mg Bisacodyl (Dulcolax) 10 mg PO DAILYPRN PRN PRN Reason: Constipation Dextrose/Water (Dextrose 50%) 25 gm SLOW IVP PRN PRN PRN Reason: Hypoglycemia Ferrous Sulfate (Feosol) 325 mg PO QAM-WM [facility] Last Admin: 02/20/18 08:13 Dose: 325 mg Glucagon (Glucagon) 1 mg IM PRN PRN PRN Reason: Hypoglycemia Dextrose/Water (D5w) 1,000 mls @ 0 mls/hr IV .Q0M PRN PRN Reason: Hypoglycemia Insulin Human Lispro (Humalog) 0 units SC .MILD SLIDING SCALE PRN PRN Reason: Mild Correctional Scale Last Admin: 02/18/18 05:58 Dose: 2 unit Levothyroxine Sodium (Synthroid) 50 mcg PO 0600 [facility] Last Admin: 02/20/18 05:17 Dose: 50 mcg Ondansetron HCl (Zofran) 4 mg IVP Q6H PRN PRN Reason: Nausea/Vomiting Last Admin: 02/18/18 04:53 Dose: 4 mg Rivaroxaban (Xarelto) 15 mg PO QPM-WM [facility] Last Admin: 02/20/18 16:34 Dose: 15 mg Rosuvastatin Calcium (Crestor) 40 mg PO QPM [facility] Last Admin: 02/19/18 21:50 Dose: 40 mg Sodium Chloride (Flush - Normal Saline) 10 ml IVF Q12HR [facility] Last Admin: 02/20/18 08:14 Dose: Not Given Sodium Chloride (Flush - Normal Saline) 10 ml IVF PRN PRN PRN Reason: Saline Flush
--- NOTE | 2018-02-20 17:54 | PDOC.CTH ---
Cardiology Progress Note - Subjective No new issues. - Objective Vital Signs Temp Pulse Resp BP Pulse Ox 02/20/18 16:30 97.6 F 89 18 119/56 L 100 02/20/18 11:20 97.8 F 80 16 110/57 L 96 02/20/18 08:10 93 L 02/20/18 07:52 96.8 F L 61 20 135/64 93 L Weight 169 lb 14.4 oz 02/19/18 02/20/18 02/21/18 06:59 06:59 06:59 Intake Total 1100 520 Output Total 850 550 Balance 250 -30 - Physical Examination General/Neuro: alert & oriented x3, NAD Neck: no JVD present Lungs: CTA, unlabored respirations Heart: RRR Abdomen: NT/ND Extremities: other: (no edema) - Telemetry Telemetry Rhythm: NSR - Labs Result Diagrams: 02/19/18 12:50 02/20/18 05:12 Troponin/CKMB CK-MB (CK-2) 1.8 ng/mL (0-6.6) 02/16/18 13:49 Troponin I 0.055 ng/mL (< 0.028) H 02/16/18 15:18 - Assessment/Plan 1. Acute on chronic Heart failure 2. Paroxismal afib 3. VT 4. s/p AICD 5. Ischemic CM EF t 10-15% 6. WARREN 7. Hyperkalemia, resolved. PLAN: - Continue to hold diuretic - Hold Coreg - Stop dobutamine. - Xarelto for CVA prophylaxis.
[2018-02-20] MEDS: Rosuvastatin 20 MG TAB PO SCH (20:43)
[2018-02-20] MEDS ORDERED: Melatonin 3 MG TAB PO PRN (21:02)
[2018-02-20] MEDS ORDERED: HumaLOG 300 UNITS/3 ML VIAL SC PRN (21:03)
[2018-02-21] MEDS: Temazepam 15 MG CAP PO PRN ×2 (01:33→20:27)
[2018-02-21] MEDS: Levothyroxine Sodium 50 MCG TAB PO SCH (05:48)
[2018-02-21] MEDS: Ondansetron PF 4 MG/2 ML Vial IVP PRN (08:50)
[2018-02-21] MEDS: Ferrous Sulfate 325 MG TAB PO SCH (08:51)
[2018-02-21] MEDS: Amiodarone 200 MG TAB PO SCH ×3 (08:51→20:27)
[2018-02-21] MEDS ORDERED: Magnesium Citrate 300 ML BOT PO SCH (10:30)
[2018-02-21 11:24] LABS: Anion Gap 15 mmol/L (10-20); BUN (Urea Nitrogen) 64 mg/dL (9.8-20.1); Calc. Creatinine Clearance 14 mL/min (70-130); Carbon Dioxide 25 mmol/L (23-31); Chloride 101 mmol/L (98-107); Estimated GFR-MDRD 14; Glucose 151 mg/dL (83-110); Potassium 3.3 mmol/L (3.5-5.1); Sodium 138 mmol/L (136-145)
--- NOTE | 2018-02-21 12:38 | PRG ---
DATE OF SERVICE: 02/21/2018 SUBJECTIVE: An 87-year-old female, being seen for acute kidney injury. The patient denies any nausea, vomiting, or chest pain. OBJECTIVE: GENERAL: The patient is awake and alert. VITAL SIGNS: Afebrile, pulse 88, breathing 16, blood pressure 139/65. GENERAL APPEARANCE AND MENTAL STATUS: Fair. HEAD/NECK: Normocephalic. Atraumatic. EYES: EOMI. No deformity. EARS: Clear. No ulcers. NOSE: Intact. No lesions. MOUTH: Clear. No discharge. THROAT: Clear. No exudate. LUNGS: Clear. No crackles. CARDIAC: S1, S2. No rub. ABDOMEN: Benign. Bowel sounds positive. GENITALIA/RECTUM: Trammell absent. BACK/EXTREMITIES: Edema 0+. NEUROLOGICAL: Alert and motor intact. SKIN: LYMPHATICS: LABORATORY DATA: Hemoglobin 8.5. Creatinine 3.07. ASSESSMENT AND PLAN: 1. Acute kidney injury, improved. 2. Hypertension, stable. 3. Anemia, stable. 4. Medication based on GFR appropriate. No indication for dialysis. The patient has chronic kidney disease, stage 5, due to cardiorenal syndrome. Job ID: [id number]
--- NOTE | 2018-02-21 15:40 | PDOC.PN ---
- Subjective Encounter Start Date: 02/21/18 Encounter Start Time: 08:00 Pt seen for followup re: acute renal failure. denies chest pain, shortness of breath, fevers or chills. No nausea or vomiting. - Objective Resuscitation Status - Order Detail: 02/16/18 12:23 Resuscitation Status Routine Resuscitation Status: FULL: Full Resuscitation MAR Reviewed: Yes Vital Signs & Weight: Vital Signs (12 hours) Temp Pulse Pulse Pulse Resp BP BP 02/21/18 14:00 89 120 H 128/61 140/61 02/21/18 11:40 98.2 F 88 20 02/21/18 07:39 98.1 F 89 20 02/21/18 04:00 97.4 F L 82 14 BP Pulse Ox 02/21/18 14:00 02/21/18 11:40 129/65 96 02/21/18 07:39 128/67 95 02/21/18 04:00 132/65 99 Weight Weight 162 lb 11.2 oz I&O: 02/20/18 02/21/18 02/22/18 06:59 06:59 06:59 Intake Total 520 340 Output Total 550 950 Balance -30 -610 Result Diagrams: 02/19/18 12:50 02/21/18 10:47 Additional Labs: Accuchecks 02/21/18 02/21/18 02/20/18 10:57 06:27 20:31 POC Glucose 151 H 106 256 H 02/20/18 16:22 POC Glucose 192 H EKG Reviewed by me: Yes (Tele: V-paced) Phys Exam - Physical Examination Constitutional: NAD HEENT: moist MMs Neck: supple Respiratory: clear to auscultation bilateral Cardiovascular: RRR Gastrointestinal: soft Neurological: moves all 4 limbs Psychiatric: normal affect Dx/Plan (1) Acute worsening of stage 4 chronic kidney disease Code(s): N18.4 - CHRONIC KIDNEY DISEASE, STAGE 4 (SEVERE) Status: Acute Comment: creatinine improved to 3.07 today (2) Wide-complex tachycardia Code(s): I47.2 - VENTRICULAR TACHYCARDIA Status: Acute Comment: continue oral amiodarone. (3) Constipation Code(s): K59.00 - CONSTIPATION, UNSPECIFIED Status: Acute Comment: trial Dulcolax and magnesium citrate (4) Acute on chronic systolic CHF (congestive heart failure), NYHA class 3 Code(s): I50.23 - ACUTE ON CHRONIC SYSTOLIC (CONGESTIVE) HEART FAILURE Status : Acute Comment: stable. (5) DM type 2 (diabetes mellitus, type 2) Status: Chronic Qualifiers: Diabetes mellitus long term care social worker insulin use: without penitentiary use Diabetes mellitus complication status: with unspecified complications Qualified Code(s) : E11.8 - Type 2 diabetes mellitus with unspecified complications Comment: reasonably controlled (6) Dyslipidemia Code(s): E78.5 - HYPERLIPIDEMIA, UNSPECIFIED Status: Chronic Comment: continue statin (7) Hypertension Code(s): I10 - ESSENTIAL (PRIMARY) HYPERTENSION Status: Chronic Qualifiers: Hypertension type: essential hypertension Qualified Code(s): I10 - Essential (primary) hypertension Comment: controlled (8) Hypothyroidism Code(s): E03.9 - HYPOTHYROIDISM, UNSPECIFIED Status: Chronic Qualifiers: Hypothyroidism type: unspecified Qualified Code(s): E03.9 - Hypothyroidism , unspecified Comment: on synthroid (9) Hyperkalemia Code(s): E87.5 - HYPERKALEMIA Status: Resolved - Plan * . Review of Systems - Review of Systems Cardiovascular: negative: chest pain, palpitations, orthopnea, paroxysmal nocturnal dyspnea, edema, light headedness Gastrointestinal: Constipation. negative: Nausea, Vomiting, Abdominal Pain, Diarrhea, Melena, Hematochezia - Medications/Allergies Allergies/Adverse Reactions: Allergies Allergy/AdvReac Type Severity Reaction Status Date / Time codeine [Codeine] Allergy Severe CHEST Verified 03/15/17 15:06 TIGHTNESS levofloxacin [From Levaquin] Allergy Intermediate Rash Verified 03/15/17 15:06 adhesive tape Allergy Verified 03/15/17 15:06 duloxetine [From Cymbalta] AdvReac Verified 03/15/17 15:06 Medications: Current Medications Amiodarone HCl (Cordarone) 200 mg PO TID [facility] Last Admin: 02/21/18 15:33 Dose: 200 mg Bisacodyl (Dulcolax) 10 mg PO DAILYPRN PRN PRN Reason: Constipation Last Admin: 02/21/18 08:54 Dose: 10 mg Dextrose/Water (Dextrose 50%) 25 gm SLOW IVP PRN PRN PRN Reason: Hypoglycemia Ferrous Sulfate (Feosol) 325 mg PO QAM-[facility] Last Admin: 02/21/18 08:51 Dose: 325 mg Glucagon (Glucagon) 1 mg IM PRN PRN PRN Reason: Hypoglycemia Dextrose/Water (D5w) 1,000 mls @ 0 mls/hr IV .Q0M PRN PRN Reason: Hypoglycemia Insulin Human Lispro (Humalog) 0 units SC .MILD SLIDING SCALE PRN PRN Reason: Mild Correctional Scale Last Admin: 02/18/18 05:58 Dose: 2 unit Insulin Human Lispro (Humalog) 0 units SC .BEDTIME SLIDING SC PRN; Protocol PRN Reason: BEDTIME SLIDING SCALE Last Admin: 02/20/18 21:17 Dose: 3 unit Levothyroxine Sodium (Synthroid) 50 mcg PO 0600 [facility] Last Admin: 02/21/18 05:48 Dose: 50 mcg Melatonin (Melatonin) 3 mg PO HS PRN PRN Reason: Insomnia Last Admin: 02/20/18 21:16 Dose: 3 mg Ondansetron HCl (Zofran) 4 mg IVP Q6H PRN PRN Reason: Nausea/Vomiting Last Admin: 02/21/18 08:50 Dose: 4 mg Rivaroxaban (Xarelto) 15 mg PO QPM-[facility] Last Admin: 02/20/18 16:34 Dose: 15 mg Rosuvastatin Calcium (Crestor) 40 mg PO QPM [facility] Last Admin: 02/20/18 20:43 Dose: 40 mg Sodium Chloride (Flush - Normal Saline) 10 ml IVF Q12HR [facility] Last Admin: 02/21/18 08:51 Dose: 10 ml Sodium Chloride (Flush - Normal Saline) 10 ml IVF PRN PRN PRN Reason: Saline Flush Temazepam (Restoril) 15 mg PO HSPRN PRN PRN Reason: Insomnia Last Admin: 02/21/18 01:33 Dose: 15 mg
[2018-02-21] MEDS: Rivaroxaban 15 MG TAB PO SCH (16:57)
[2018-02-21] MEDS: HumaLOG 300 UNITS/3 ML VIAL SC PRN (16:59)
--- NOTE | 2018-02-21 17:02 | PDOC.CTH ---
Cardiology Progress Note - Subjective No new issues. - Objective Vital Signs Temp Pulse Pulse Pulse Resp BP BP 02/21/18 14:00 89 120 H 128/61 140/61 02/21/18 11:40 98.2 F 88 20 02/21/18 07:39 98.1 F 89 20 BP Pulse Ox 02/21/18 14:00 02/21/18 11:40 129/65 96 02/21/18 07:39 128/67 95 Weight 162 lb 11.2 oz 02/20/18 02/21/18 02/22/18 06:59 06:59 06:59 Intake Total 520 340 Output Total 550 950 Balance -30 -610 - Physical Examination General/Neuro: NAD Neck: no JVD present Lungs: unlabored respirations Heart: RRR Abdomen: NT/ND Extremities: + edema B (1+) - Telemetry Telemetry Rhythm: Paced - Labs Result Diagrams: 02/19/18 12:50 02/21/18 10:47 Troponin/CKMB CK-MB (CK-2) 1.8 ng/mL (0-6.6) 02/16/18 13:49 Troponin I 0.055 ng/mL (< 0.028) H 02/16/18 15:18 - Assessment/Plan 1. Acute on chronic Heart failure 2. Paroxismal afib 3. VT 4. s/p AICD 5. Ischemic CM EF at 10-15% 6. WARREN, improving 7. Hyperkalemia, resolved. PLAN: - Continue to hold diuretic - Hold Coreg - Stop dobutamine. - Xarelto for CVA prophylaxis. - If no further improvement in renal function may need re starting innotropic support.
[2018-02-21] MEDS: Rosuvastatin 20 MG TAB PO SCH (20:27)
[2018-02-22] MEDS: Ondansetron PF 4 MG/2 ML Vial IVP PRN (03:17)
[2018-02-22] MEDS: Levothyroxine Sodium 50 MCG TAB PO SCH (05:43)
[2018-02-22] MEDS: Ferrous Sulfate 325 MG TAB PO SCH (07:46)
[2018-02-22] MEDS: Amiodarone 200 MG TAB PO SCH ×2 (07:46→15:46)
--- NOTE | 2018-02-22 09:41 | PDOC.CTH ---
Cardiology Progress Note - Subjective She is feeling better. No LOC/or near syncope, or dizziness. - Objective Vital Signs Temp Pulse Resp BP Pulse Ox 02/22/18 07:07 97.7 F 104 H 18 126/65 97 02/22/18 04:00 97.5 F L 63 20 144/78 H 99 Weight 162 lb 6.4 oz 02/21/18 02/22/18 02/23/18 06:59 06:59 06:59 Intake Total 340 990 240 Output Total 950 1150 Balance -610 -160 240 - Physical Examination General/Neuro: alert & oriented x3, NAD Neck: carotid US brisk Lungs: CTA Heart: other: (irregular) Abdomen: no HSM, soft Extremities: other: (no edema or cyanosis) - Telemetry Telemetry Rhythm: AT with variable AV conduction. - Labs Result Diagrams: 02/22/18 10:16 02/22/18 14:54 Troponin/CKMB CK-MB (CK-2) 1.8 ng/mL (0-6.6) 02/16/18 13:49 Troponin I 0.055 ng/mL (< 0.028) H 02/16/18 15:18 - Assessment/Plan EP progess note 02/22/18 - Assessment/Plan 1. Paroxysmal atrial fibrillation -diagnosed in 2016. s/p CV in 02/2017. maintained SR until 2-3 weeks ago by ICD report. -successful CV on02/16 in ER. Now AP, VS. sinus rhythm -on amiodarone gtt. transitioned to PO -Recurrent slow AFL/ AT seen seen this am- which was pace terminable, but below atach cutoff. Variable AV conduction, adequate rate control. 2. Ventricular tachycardia -slow, rates 140-150bpm -Responsive to ATP therapies from ICD -No ICD shocks required/given by device 3. Congestive hear failure with Ischemic cardiomyopathy, - LVEF 30-35% in the past. Now 10-15%. - Optivol fluid levels below threshold on ICD report - Lasix DCd d/t WARREN intravascular depletion. - Dobutamin started yesterday. Possibly arrhtyhmogenic. Would stop. 4. Valvular heart disease. Severe /MR/TR on ECHO, 5. CHADS2-VASC: 7 - renal dosed Xarelto 15mg QHS 6. Anemia -Hgb 8.4 today -stool guiac x 3 ordered -etiology unknown 7. Hyperkalemia -6.0 this AM 8. Acute Kidney injury - Creat 1.86 yesterday, 2.58 today. Nephrology consulted. 9. Dual chamber ICD - Rechecked today. normal operation. Increased pacing rate to reduce AFL recurrence. -- May need BiV upgrade in the future. For now she is doing better. Seem to be adequately rate controlled. Continue amiodaorne taper. 200 BID on DC and 200 a day on 2 weeks. Addendum - Attending - Attending Attestation Date/Time: 02/24/18 [id number] I personally evaluated the patient and discussed the management with Ms Gimenez. I agree with the History, Examination, Assessment and Plan documented above with any addition or exceptions noted below.
[2018-02-22 10:30] LABS: #Lymphocytes 0.9 thou/uL (1.20-3.40); #Monocytes 0.8 thou/uL (0.11-0.59); #Neutrophils 5.7 thou/uL (1.40-6.50); %Basophils 0.3 % (0.0-1.0); %Eosinophils 0.1 % (0.0-10.0); %Lymphocytes 12.2 % (21.0-51.0); %Monocytes 10.3 % (0.0-10.0); %Neutrophils 77.1 % (42.0-75.0); Mean Corpuscular HGB CONC 30.6 g/dL (32.0-36.0); Mean Corpuscular Hemoglobin 27.7 pg (27.0-31.0); Mean Corpuscular Volume 90.3 fL (78.0-98.0); Mean Platelet Volume 9.9 fL (7.4-10.4); Platelet Count 119 thou/uL (130-400); RBC Distribution Width 18.2 % (11.5-14.5); Red Blood Cell (RBC) Count 3.26 mill/uL (4.20-5.40); White Blood Cell (WBC) Count 7.4 thou/uL (4.8-10.8)
[2018-02-22 10:42] LABS: Anion Gap 13 mmol/L (10-20); BUN (Urea Nitrogen) 51 mg/dL (9.8-20.1); Calc. Creatinine Clearance 16 mL/min (70-130); Calcium 8.1 mg/dL (7.8-10.44); Carbon Dioxide 27 mmol/L (23-31); Chloride 99 mmol/L (98-107); Estimated GFR-MDRD 16; Glucose 112 mg/dL (83-110); Potassium 3.2 mmol/L (3.5-5.1); Sodium 136 mmol/L (136-145)
[2018-02-22] MEDS ORDERED: Potassium Chloride 20 MEQ TAB PO SCH (11:00)
--- NOTE | 2018-02-22 11:32 | PRG ---
DATE OF SERVICE: 02/22/2018 SUBJECTIVE: An 87-year-old female being seen for acute kidney injury. The patient denies any nausea, vomiting, or chest pain. OBJECTIVE: CONSTITUTIONAL: The patient is awake and alert. VITAL SIGNS: Afebrile. Pulse 63, breathing 16, blood pressure 126/65. GENERAL APPEARANCE AND MENTAL STATUS: Fair. HEAD/NECK: Normocephalic. Atraumatic. EYES: EOMI. No deformity. EARS: Clear. No ulcers. NOSE: Intact. No lesions. MOUTH: Clear. No discharge. THROAT: Clear. No exudate. LUNGS: Clear. No crackles. CARDIAC: S1, S2. No rub. ABDOMEN: Benign. Bowel sounds positive. GENITALIA/RECTUM: Trammell absent. BACK/EXTREMITIES: Edema 0+. NEUROLOGICAL: Alert and motor intact. LABORATORY DATA: Hemoglobin 9. Potassium 3.2. Magnesium 2.4. ASSESSMENT AND PLAN: 1. Chronic kidney disease, stage 4, stable. 2. Acute kidney injury, improved. 3. Hypokalemia. We will give 40 mEq of potassium. No indication for dialysis. From my perspective, the patient can be discharged. Job ID: [id number]
[2018-02-22 15:38] LABS: Potassium 3.6 mmol/L (3.5-5.1)
[2018-02-22 15:45] VITALS: BP 137/88; TEMP 97.6
--- NOTE | 2018-02-22 16:55 | PDOC.PN ---
- Subjective Encounter Start Date: 02/22/18 Encounter Start Time: 16:53 Pt seen for followup re: acute on chronic renal failure. Pt says she feels better. - Objective Resuscitation Status - Order Detail: 02/16/18 12:23 Resuscitation Status Routine Resuscitation Status: FULL: Full Resuscitation Vital Signs & Weight: Vital Signs (12 hours) Temp Pulse Resp BP BP Pulse Ox 02/22/18 15:41 97.6 F 102 H 18 137/88 02/22/18 11:18 98.1 F 97 16 134/67 100 02/22/18 07:07 97.7 F 104 H 18 126/65 97 Weight Weight 162 lb 6.4 oz I&O: 02/21/18 02/22/18 02/23/18 06:59 06:59 06:59 Intake Total 680 275 7596 Output Total 950 1150 750 Balance -610 -160 450 Result Diagrams: 02/22/18 10:16 02/22/18 14:54 Additional Labs: Accuchecks 02/22/18 02/22/18 02/21/18 11:10 06:18 20:16 POC Glucose 188 H 126 H 125 H 02/21/18 16:59 POC Glucose 217 H Phys Exam - Physical Examination Constitutional: NAD HEENT: moist MMs Neck: supple Respiratory: clear to auscultation bilateral Cardiovascular: RRR Gastrointestinal: soft Neurological: moves all 4 limbs Psychiatric: normal affect Dx/Plan (1) Acute worsening of stage 4 chronic kidney disease Code(s): N18.4 - CHRONIC KIDNEY DISEASE, STAGE 4 (SEVERE) Status: Acute Comment: creatinine improved to 2.86 today. (2) Wide-complex tachycardia Code(s): I47.2 - VENTRICULAR TACHYCARDIA Status: Acute Comment: continue oral amiodarone. 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 use: without alf use Diabetes mellitus complication status: with unspecified complications Qualified Code(s) : E11.8 - Type 2 diabetes mellitus with unspecified complications Comment: start glyburide since metformin is on hold (5) Dyslipidemia Code(s): E78.5 - HYPERLIPIDEMIA, UNSPECIFIED Status: Chronic Comment: on statin (6) Hypertension Code(s): I10 - ESSENTIAL (PRIMARY) HYPERTENSION Status: Chronic Qualifiers: Hypertension type: essential hypertension Qualified Code(s): I10 - Essential (primary) hypertension Comment: controlled (7) Hypothyroidism Code(s): E03.9 - HYPOTHYROIDISM, UNSPECIFIED Status: Chronic Qualifiers: Hypothyroidism type: unspecified Qualified Code(s): E03.9 - Hypothyroidism , unspecified Comment: on synthroid (8) Hyperkalemia Code(s): E87.5 - HYPERKALEMIA Status: Resolved (9) Constipation Code(s): K59.00 - CONSTIPATION, UNSPECIFIED Status: Resolved Comment: resolved - Plan * . Review of Systems - Review of Systems Cardiovascular: negative: chest pain, palpitations, orthopnea, paroxysmal nocturnal dyspnea, edema, light headedness Gastrointestinal: negative: Nausea, Vomiting, Abdominal Pain, Diarrhea, Constipation, Melena, Hematochezia - Medications/Allergies Allergies/Adverse Reactions: Allergies Allergy/AdvReac Type Severity Reaction Status Date / Time codeine [Codeine] Allergy Severe CHEST Verified 03/15/17 15:06 TIGHTNESS levofloxacin [From Levaquin] Allergy Intermediate Rash Verified 03/15/17 15:06 adhesive tape Allergy Verified 03/15/17 15:06 duloxetine [From Cymbalta] AdvReac Verified 03/15/17 15:06 Medications: Current Medications Amiodarone HCl (Cordarone) 200 mg PO TID [facility] Last Admin: 02/22/18 15:46 Dose: 200 mg Bisacodyl (Dulcolax) 10 mg PO DAILYPRN PRN PRN Reason: Constipation Last Admin: 02/21/18 08:54 Dose: 10 mg Dextrose/Water (Dextrose 50%) 25 gm SLOW IVP PRN PRN PRN Reason: Hypoglycemia Ferrous Sulfate (Feosol) 325 mg PO QAM-[facility] Last Admin: 02/22/18 07:46 Dose: 325 mg Glucagon (Glucagon) 1 mg IM PRN PRN PRN Reason: Hypoglycemia Glyburide (Micronase) 2.5 mg PO DAILY-[facility] Dextrose/Water (D5w) 1,000 mls @ 0 mls/hr IV .Q0M PRN PRN Reason: Hypoglycemia Insulin Human Lispro (Humalog) 0 units SC .MILD SLIDING SCALE PRN PRN Reason: Mild Correctional Scale Last Admin: 02/21/18 16:59 Dose: 3 unit Insulin Human Lispro (Humalog) 0 units SC .BEDTIME SLIDING SC PRN; Protocol PRN Reason: BEDTIME SLIDING SCALE Last Admin: 02/20/18 21:17 Dose: 3 unit Levothyroxine Sodium (Synthroid) 50 mcg PO 0600 [facility] Last Admin: 02/22/18 05:43 Dose: 50 mcg Melatonin (Melatonin) 3 mg PO HS PRN PRN Reason: Insomnia Last Admin: 02/20/18 21:16 Dose: 3 mg Ondansetron HCl (Zofran) 4 mg IVP Q6H PRN PRN Reason: Nausea/Vomiting Last Admin: 02/22/18 03:17 Dose: 4 mg Rivaroxaban (Xarelto) 15 mg PO QPM-[facility] Last Admin: 02/21/18 16:57 Dose: 15 mg Rosuvastatin Calcium (Crestor) 40 mg PO QPM [facility] Last Admin: 02/21/18 20:27 Dose: 40 mg Sodium Chloride (Flush - Normal Saline) 10 ml IVF Q12HR [facility] Last Admin: 02/22/18 07:46 Dose: 10 ml Sodium Chloride (Flush - Normal Saline) 10 ml IVF PRN PRN PRN Reason: Saline Flush Temazepam (Restoril) 15 mg PO HSPRN PRN PRN Reason: Insomnia Last Admin: 02/21/18 20:27 Dose: 15 mg
[2018-02-22] MEDS: Rivaroxaban 15 MG TAB PO SCH (17:44)
--- NOTE | 2018-02-22 18:07 | DIS ---
DATE OF ADMISSION: 02/16/2018 DATE OF DISCHARGE: 02/22/2018 PRIMARY CARE PROVIDER: Dr. Nidia Hood. DISCHARGE DIAGNOSES: 1. Atrial fibrillation with rapid ventricular response. 2. Acute on chronic kidney disease, stage 4. 3. Wide-complex tachycardia. 4. Acute on chronic systolic congestive heart failure, [place] Heart Association class III and ACC/AHA class C. 5. Hyperkalemia. 6. Constipation. CONDITION OF PATIENT ON THE DAY OF DISCHARGE: Stable. PHYSICAL EXAMINATION: GENERAL: I assessed Ms. Vela on the day of discharge. She denies any chest pain or shortness of breath. VITAL SIGNS: Stable. HEART: S1 and S2 are heard, regular. LUNGS: Clear to auscultation bilaterally. DISCHARGE MEDICATIONS: 1. Aspirin 81 mg at bedtime. 2. Levothyroxine 50 mcg daily. 3. Magnesium 400 mg 2 times a day. 4. DHEA 50 mg daily. 5. Rivaroxaban 15 mg every evening. 6. Crestor 40 mg every evening. 7. Tylenol 650 mg every 4 hours as needed. 8. Amiodarone 200 mg 2 times a day for two weeks followed by 200 mg daily. 9. Glyburide 2.5 mg daily. 10. Carvedilol 3.125 mg two times a day. Please note that metformin, furosemide, and gabapentin are on hold at the time of discharge. CONSULTATION DURING THIS HOSPITALIZATION: 1. Electrophysiology, Dr. Wilde. 2. Cardiology, Dr. Gallego. 3. Nephrology, . 4. Pulmonology, Dr. Viramontes. HOSPITAL COURSE: Ms. Vela is a pleasant 87-year-old lady, who was admitted to [facility] on February 16, 2018, for atrial fibrillation with rapid ventricular response. Please refer to Dr. Zaragoza's history and physical note, dated February 16, 2018, for further details. She was seen by Cardiology Service. She was electrically cardioverted from atrial fibrillation with rapid ventricular response. Interrogation of her ICD also showed that she had runs of wide-complex tachycardia. She was also found to be in systolic heart failure exacerbation and received intravenous diuretics. After initiation of diuretics, her creatinine worsened. She also appears to have been intravascularly volume depleted. She was treated with dobutamine to maintain her blood pressure. Furosemide was discontinued. A 2D echocardiogram done on February 19 showed left ventricular ejection fraction of 10% to 15%, moderately dilated left atrium, moderately enlarged right atrial size, severe mitral regurgitation, moderate aortic regurgitation, moderate-to- severe aortic stenosis, severe tricuspid regurgitation, mildly elevated pulmonary artery pressure, small pericardial effusion, and left pleural effusion. She was also treated with amiodarone drip and subsequently transitioned to oral amiodarone for arrhythmias. Electrophysiology Service will follow up with her as outpatient. She may eventually need upgrade to her ICD. She has been cleared by Nephrology, Cardiology, and Electrophysiology Services for discharge. Her creatinine was 2.86 on the day of discharge. Metformin was discontinued, and the patient is being started on glyburide at the time of discharge. She is advised to check her blood sugars and show the readings to her primary care provider. Because of renal failure, she is not being discharged on SAPPHIRE inhibitor or ARB, since it is a contraindication. Gabapentin is on hold as well because of renal failure. Furosemide is also on hold and will be reassessed in the Heart Failure Clinic on February 23, 2018. Many thanks for allowing me to participate in your patient's care. Please feel free to contact me with any questions or concerns. On the day of discharge, she has sodium 136, potassium 3.6, blood urea nitrogen 51, creatinine 2.86. White count 7400, hemoglobin 9.0, and platelet count 119,000. DISCHARGE DESTINATION: Home. TOTAL AMOUNT OF TIME SPENT COORDINATING THIS DISCHARGE: 33 minutes. Job ID: [id number] MTDD
[2018-02-23] MEDS ORDERED: glyBURIDE 2.5 MG TAB PO SCH (07:30)
== END 2018-02-22 20:09 | disposition home or self-care (01) | DRG 682 ==
LOC: ERS 09:16 → ERHOLD 12:17 → IMCU/EMU 22:37 → 2NO 02-19 15:41
PROVIDERS: ADMIT Internal Medicine; ATTEND Internal Medicine
DX: N17.9 Acute kidney failure, unspecified (principal); I50.23 Acute on chronic systolic (congestive) heart failure; I13.0 Hypertensive heart and chronic kidney disease with heart failure and stage 1 through stage 4 chronic kidney disease, or unspecified chronic kidney disease; I47.2 Ventricular tachycardia; I48.0 Paroxysmal atrial fibrillation; J44.9 Chronic obstructive pulmonary disease, unspecified; I25.10 Atherosclerotic heart disease of native coronary artery without angina pectoris; E78.5 Hyperlipidemia, unspecified; E03.9 Hypothyroidism, unspecified; E11.22 Type 2 diabetes mellitus with diabetic chronic kidney disease; K22.0 Achalasia of cardia; D64.9 Anemia, unspecified; E87.5 Hyperkalemia; N18.4 Chronic kidney disease, stage 4 (severe); K59.00 Constipation, unspecified; I25.5 Ischemic cardiomyopathy; Z85.51 Personal history of malignant neoplasm of bladder; Z90.49 Acquired absence of other specified parts of digestive tract; Z95.810 Presence of automatic (implantable) cardiac defibrillator; Z82.49 Family history of ischemic heart disease and other diseases of the circulatory system; Z82.5 Family history of asthma and other chronic lower respiratory diseases
CPT/HCPCS: 36415; 36416; 71045; 76770; 80048; 80053; 81003; 81015; 82274; 82550; 82553; 82607; 82728; 82746; 82805; 83540; 83550; 83735; 83880; 84443; 84484; 85025; 85046; 85610; 87086; 93005; 93306; 93798; 94660; 96365; 96366; 96375; 96376; G8978-GP-CM; G8979-GP-CK; J0282; J1250; J1940; J2060; J2250; J2270; J2405; J2920; J2930; J7070; J7620

== ENCOUNTER 2018-02-24 13:28 | Inpatient (IN) | payer MEDICARE ==
[2018-02-24 14:09] LABS: #Lymphocytes 1.2 thou/uL (1.20-3.40); #Monocytes 0.7 thou/uL (0.11-0.59); #Neutrophils 4.5 thou/uL (1.40-6.50); %Basophils 0.2 % (0.0-1.0); %Eosinophils 0.1 % (0.0-10.0); %Monocytes 10.4 % (0.0-10.0); %Neutrophils 71.3 % (42.0-75.0); Hemoglobin 8.4 g/dL (12.0-16.0); Mean Corpuscular HGB CONC 31.4 g/dL (32.0-36.0); Mean Corpuscular Hemoglobin 28.3 pg (27.0-31.0); Mean Corpuscular Volume 90.3 fL (78.0-98.0); Mean Platelet Volume 10.2 fL (7.4-10.4); Platelet Count 131 thou/uL (130-400); Red Blood Cell (RBC) Count 2.96 mill/uL (4.20-5.40); White Blood Cell (WBC) Count 6.4 thou/uL (4.8-10.8)
[2018-02-24] MEDS ORDERED: Ondansetron PF 4 MG/2 ML Vial ONE (14:32)
[2018-02-24 14:40] LABS: ALT (SGPT) 384 U/L (8-55); AST (SGOT) 202 U/L (5-34); Albumin 3.2 g/dL (3.4-4.8); Alkaline Phosphatase 100 U/L (40-150); Anion Gap 11 mmol/L (10-20); BUN (Urea Nitrogen) 48 mg/dL (9.8-20.1); Bilirubin, Total 1.8 mg/dL (0.2-1.2); Calc. Creatinine Clearance 0 mL/min (70-130); Carbon Dioxide 27 mmol/L (23-31); Chloride 101 mmol/L (98-107); Estimated GFR-MDRD 14; Globulin 2.3 g/dL (2.4-3.5); Glucose 70 mg/dL (83-110); Potassium 3.2 mmol/L (3.5-5.1); Protein, Total 5.5 g/dL (6.0-8.3); Sodium 136 mmol/L (136-145)
--- NOTE | 2018-02-24 15:08 | RAD ---
CHEEST 1 VIEW: COMPARISON: 02/16/2018. HISTORY: Dyspnea. Shortness of breath. FINDINGS: There is a left-sided transvenous defibrillator with led position, unchanged in position. There is c ardiomegaly There is atherosclerosis of the aorta. Pleural and parenchymal changes of the left lung base are suspected. A small right-sided pleural effusion with adjacent parenchymal changes is also suspected. Adequate aeration of the upper lungs. There is no pneumothorax. There are degenerative changes of both shoulders. Old right rib fractures are noted. There is evidence of previous vertebr oplasty change of the distal thoracic spine. IMPRESSION: Congestive heart failure. Continued surveillance to ensure resolution is recommended. POS: [facility]
[2018-02-24 15:17] LABS: CKMB 3.2 ng/mL (0-6.6)
[2018-02-24] MEDS ORDERED: Dextrose 5% in Water 1,000 ML IV PRN (15:54)
--- NOTE | 2018-02-24 16:09 | PDOC.EVN ---
Event Note - Event Note Event Note: DC SUMMARY #[id number]
[2018-02-24 17:43] LABS: Iron 33 ug/dL (50-170); Iron Binding Capacity, Total 401 mcg/dL (265-497)
[2018-02-24 17:44] LABS: Troponin I 0.259 ng/mL (< 0.028)
[2018-02-24 20:31] LABS: Troponin I 0.269 ng/mL (< 0.028)
[2018-02-24] MEDS ORDERED: Heparin 5,000 UNITS/ML VIAL SC SCH (21:00)
[2018-02-24] MEDS: Melatonin 3 MG TAB PO PRN (22:07)
[2018-02-24] MEDS: Amiodarone 200 MG TAB PO SCH (22:07)
[2018-02-24] MEDS: Magnesium Oxide 400 MG TAB PO SCH (22:07)
[2018-02-24] MEDS: Carvedilol 3.125 MG TAB PO SCH (22:07)
[2018-02-24] MEDS: Atorvastatin Calcium 20 MG TAB PO SCH (22:11)
[2018-02-24 22:55] LABS: Troponin I 0.239 ng/mL (< 0.028)
--- NOTE | 2018-02-24 23:10 | HP ---
CHIEF COMPLAINT: Shortness of breath. HISTORY OF PRESENT ILLNESS: This is an 87-year-old female, who was recently here, discharged approximately 3-4 weeks ago for atrial fibrillation and shortness of breath, was admitted to Internal Medicine Team back then and was found to have congestive heart failure and CKD. The patient was supposed to follow up outpatient with her PCP as well as Nephrology, but was unable to do so. The patient now presents with worsening shortness of breath to the ER, states that she has been having dyspnea on exertion as well as some lower extremity swelling. The patient otherwise denies any other associated symptoms or complaints. No other alleviating or aggravating factors. The patient states that she has taken all the medications that was given to her without missing any medications. States that her symptoms are worsening. No alleviating or aggravating factors noted. The patient was seen and examined in the hospital. Daughter at bedside. All questions answered. REVIEW OF SYSTEMS: All systems reviewed. Pertinent positives in HPI, otherwise negative. FAMILY HISTORY: Noncontributory. SOCIAL HISTORY: Nonsmoker, nondrinker. PAST MEDICAL HISTORY: Congestive heart failure, diabetes mellitus, hypertension, CKD 4 worsening. SOCIAL HISTORY: Nondrinker and nonsmoker. HOME MEDICATIONS: See APR. PHYSICAL EXAMINATION: VITAL SIGNS: Blood pressure is 127/73, heart rate 88, temperature of 98, respiratory rate of 18. GENERAL: The patient is lying in bed, appears in mild discomfort. HEENT: Pupils are equal and reactive to light and accommodation. Extraocular muscles are intact. Nontender. Mobile thyroid noted. PULMONARY: Mild decrease in breath sounds bilateral lower lobes, otherwise clear to auscultation in all the lung collins. No respiratory distress noted. No increase in AP diameter. CARDIOVASCULAR: Regular rate and rhythm. S1 and S2. No murmurs. 2/6 systolic ejection murmur noted. No gallops or rubs appreciated. ABDOMEN: Positive bowel sounds. Soft, nontender, and nondistended. EXTREMITIES: 2+ peripheral pulses. Trace bilateral lower extremity edema noted. NEUROLOGICAL: Cranial nerves 2 through 12 intact. No loss of motor or sensory function. LABORATORY DATA: The patient has CBC with hemoglobin of 8.2. Basic metabolic panel shows potassium of 3.2, creatinine of 3.08. Brain natriuretic peptide of 3406. Transaminitis. Glucose of 70. ASSESSMENT AND PLAN: 1. Atrial fibrillation. 2. Shortness of breath. 3. Elevated troponins. 4. Acute kidney injury on chronic kidney disease 5. 5. Hypertension. 6. Hypokalemia. 7. Hypervolemia. PLAN: At this point in time, we will admit the patient to tele observation. Consult Nephrology and Cardiology. We will provide the patient with Lasix 100 mg daily slow push over 5 minutes to evaluate for any urine output and blood pressure measurement and control. We will also provide the patient with aspirin and statin for any measures against ACS. We will do a low-dose statin as the patient does have significantly reduced kidney function. We will also repeat AST and ALT in the morning as these were elevated and this may be just transient passing due to liver congestion from volume overload. No uremic symptomatology. No emergent indications for dialysis at this point in time. However, if Nephrology evaluates and deems the patient to be volume resistant and is not responsive to Lasix, then she may need to have dialysis started for the purposes of refractory hypervolemia secondary to renal disease. We will give heparin subcu 5000 q.12 for DVT prophylaxis. We will continue home medications when medical reconciliation is performed. Target systolic blood pressure 120/80. Hemoglobin appears to be 8.2, low. We will check for iron studies and guaiac studies, likely iron deficiency anemia versus reduction in EPO due to renal failure. The patient wishes to remain as a full code at this point in time. Daughter at bedside. Case and plan discussed with the patient and daughter at length. They understood and agreed with this plan. Job ID: [id number]
[2018-02-25 05:31] LABS: Anion Gap 13 mmol/L (10-20); BUN (Urea Nitrogen) 56 mg/dL (9.8-20.1); Calc. Creatinine Clearance 13 mL/min (70-130); Calcium 8.9 mg/dL (7.8-10.44); Carbon Dioxide 26 mmol/L (23-31); Chloride 101 mmol/L (98-107); Estimated GFR-MDRD 13; Glucose 242 mg/dL (83-110); Potassium 3.4 mmol/L (3.5-5.1); Sodium 137 mmol/L (136-145)
[2018-02-25 05:33] LABS: ALT (SGPT) 338 U/L (8-55); AST (SGOT) 159 U/L (5-34); Alkaline Phosphatase 94 U/L (40-150); Bilirubin, Direct 1.1 mg/dL (0.1-0.3); Bilirubin, Total 1.7 mg/dL (0.2-1.2); Protein, Total 5.4 g/dL (6.0-8.3)
[2018-02-25 05:40] LABS: Troponin I 0.215 ng/mL (< 0.028)
[2018-02-25] MEDS: HumaLOG 300 UNITS/3 ML VIAL SC PRN ×2 (06:13→12:28)
[2018-02-25 07:17] LABS: #Lymphocytes 0.4 thou/uL (1.20-3.40); #Monocytes 0.1 thou/uL (0.11-0.59); %Lymphocytes 16.7 % (21.0-51.0); %Monocytes 2.3 % (0.0-10.0); Anisocytosis MODERATE=16-30 cells (100X) (0-5/hpf); MDiff Complete? YES; Mean Corpuscular HGB CONC 30.8 g/dL (32.0-36.0); Mean Corpuscular Volume 90.9 fL (78.0-98.0); Mean Platelet Volume 10.4 fL (7.4-10.4); Platelet Count 116 thou/uL (130-400); Platelet Morphology Comment Appears Decreased; RBC Distribution Width 18.3 % (11.5-14.5); Red Blood Cell (RBC) Count 2.86 mill/uL (4.20-5.40); White Blood Cell (WBC) Count 2.5 thou/uL (4.8-10.8)
[2018-02-25] MEDS: Mometasone/Formoterol 120 PUFF INHALER INH SCH ×2 (08:39→18:55)
[2018-02-25] MEDS ORDERED: PRASTERONE 50 MG PO SCH (09:00)
[2018-02-25] MEDS: Amiodarone 200 MG TAB PO SCH ×2 (09:09→21:01)
[2018-02-25] MEDS: glyBURIDE 2.5 MG TAB PO SCH (09:09)
[2018-02-25] MEDS: Magnesium Oxide 400 MG TAB PO SCH ×2 (09:10→21:00)
[2018-02-25] MEDS: Levothyroxine Sodium 25 MCG TAB PO SCH (09:10)
[2018-02-25] MEDS: Carvedilol 3.125 MG TAB PO SCH ×2 (09:10→21:01)
[2018-02-25] MEDS: Furosemide 100 MG/10 ML VIAL SLOW IVP SCH ×2 (09:11→14:28)
[2018-02-25] MEDS ORDERED: Iron Sucrose Complex 200 MG in Sodium Chloride 0.9% 250 ML 250 ML IVPB SCH (09:15)
[2018-02-25] MEDS: Iron, Sodium Ferric Gluconate 250 MG in Sodium Chloride 0.9% 250 ML 250 ML IVPB SCH ×2 (12:21→17:26)
[2018-02-25] MEDS: Midodrine HCl 5 MG TAB PO SCH ×2 (13:39→21:00)
[2018-02-25] MEDS: Rivaroxaban 15 MG TAB PO SCH (17:26)
--- NOTE | 2018-02-25 17:49 | CON ---
DATE OF CONSULTATION: 02/25/2018 NEPHROLOGY CONSULTATION REASON FOR CONSULTATION: Elevated creatinine. HISTORY OF PRESENT ILLNESS: This is a very pleasant 87-year-old female, who presented to the hospital after recent discharge with a creatinine of less than 2, which has increased back up to 3 and 3.3 today. The patient has dyspnea on minimal exertion. Denies chest pain. PAST MEDICAL HISTORY: Significant for hypertension, CKD, anemia. HOME MEDICATIONS: List reviewed. HOSPITAL MEDICATIONS: Reviewed. REVIEW OF SYSTEMS: A 15-point review of system was performed and negative except for positives above. GENERAL: HEAD: NECK: No swelling or lumps. NOSE: No epistaxis or discharge. EYES: No diplopia or pain. RESPIRATORY: CARDIOVASCULAR: GASTROINTESTINAL: /COMPUTER ARCHITECT: MUSCULOSKELETAL: No joint pain. NEUROPSYCHIATIC SYSTEMS: No suicidal ideation. No ideation. SKIN: Denies any rash or ulcer. CONSTITUTIONAL: No fever or chills. PHYSICAL EXAMINATION: CONSTITUTIONAL: The patient is awake and alert. VITAL SIGNS: Afebrile. Pulse 75, breathing 16, blood pressure was 117/68. GENERAL APPEARANCE AND MENTAL STATUS: Fair. HEAD/NECK: Normocephalic. Atraumatic. EYES: EOMI. No deformity. EARS: Clear. No ulcers. NOSE: Intact. No lesions. MOUTH: Clear. No discharge. THROAT: Clear. No exudate. LUNGS: Clear. No crackles. CARDIAC: S1, S2. No rub. ABDOMEN: Benign. Bowel sounds positive. GENITALIA/RECTUM: Trammell absent. BACK/EXTREMITIES: Edema 0+. NEUROLOGICAL: Alert and motor intact. SKIN: LYMPHATICS: ASSESSMENT AND RECOMMENDATION: 1. Acute kidney injury with chronic kidney disease due to cardiorenal syndrome. No urgent indication for dialysis. 2. Hypertension, stable. 3. Medications based on GFR are appropriate. No urgent indication for dialysis. We will follow. Job ID: [id number]
[2018-02-25] MEDS: Ondansetron PF 4 MG/2 ML Vial IVP PRN (19:59)
[2018-02-25] MEDS: Acetaminophen 325 MG TAB PO PRN (20:59)
[2018-02-25] MEDS: Melatonin 3 MG TAB PO PRN (20:59)
[2018-02-25] MEDS ORDERED: Aspirin 81 mg Enteric Coated Tablet PO SCH (21:00)
[2018-02-25] MEDS: diphenhydrAMINE 25 MG CAP PO SCH (21:00)
[2018-02-25] MEDS: Rosuvastatin 20 MG TAB PO SCH (21:00)
[2018-02-25] MEDS: Atorvastatin Calcium 20 MG TAB PO SCH (21:02)
--- NOTE | 2018-02-25 23:49 | CON ---
DATE OF CONSULTATION: 02/25/2018 INDICATION FOR CONSULTATION: An 87-year-old female with CHF exacerbation and multiple other medical problems which include nonischemic cardiomyopathy, atrial fibrillation, and aortic valve stenosis. HISTORY OF PRESENT ILLNESS: This is a very unfortunate 87-year-old female, who was recently in the hospital. I believe she was admitted just less than a week ago, on 02/17/2018, I believe she was admitted for congestive heart failure symptoms, but she left the hospital early. She admits herself, she was due to anxiety she wanted to be discharged from the hospital and she left home early. Since being at home, she became more short of breath, unable sleep and increasing coughing, with shortness of breath and dyspnea. She denied any chest pain. She has increased fatigue and weakness and she presented to the hospital again and was admitted and was again volume overloaded. At this time, she is having some diuresis. She does have chronic kidney disease and she has had increasing amounts of Lasix, but still has no significant urinary output, but is diuresing slightly. PAST MEDICAL HISTORY: Significant for nonischemic cardiomyopathy, diabetes, hypertension, hyperlipidemia, aortic valve stenosis, achalasia, hypothyroidism, COPD, and paroxysmal atrial fibrillation appears to be maybe chronic now as she is in atrial fibrillation since being admitted. ALLERGIES: SHE IS ALLERGIC TO ADHESIVE TAPE, LEVOFLOXACIN, CODEINE, AND DULOXETINE. MEDICATIONS: Please refer the notes dictated by the nurse practitioner. For family history, social history, and review of systems please refer to the notes already dictated. PHYSICAL EXAMINATION: GENERAL: Reveals an elderly female, who is in no acute distress at this time. She has oxygen by nasal cannula and is very pleasant and is comfortable at this time. VITAL SIGNS: Indicative of blood pressure of 121/58. She is afebrile. Heart rate is 86 and is irregular. She has occasional pacing and ventricular pacing. Respiratory rate is 24. O2 saturation is 100%. HEENT: Shows head to be normocephalic and atraumatic. Carotid pulses are present. I did not hear any significant bruits at this time. She does have some radiation from the aortic area up to the carotid. CHEST: I do not hear any rales, rhonchi, or wheezing at this time. She has decreased inspiratory effort. CARDIOVASCULAR: Irregularly irregular rhythm. She does have a systolic murmur of the aortic area at least 3/6. Also, there is a systolic murmur noted at the apex. ABDOMEN: Soft and nontender. She has positive bowel sounds. She does have mild obesity. EXTREMITIES: Showed only left ankle edema, otherwise there was no significant lower extremity edema noted. NEUROLOGIC: She appears to be fully intact. LABORATORY DATA: Her WBC was 2.5, hemoglobin was 8, hematocrit was 26, and platelet count was 116,000. Sodium is 137, potassium is 3.4. Her BUN was 56 with a creatinine of 3.34. Blood sugar was 222. Her liver functions are also elevated with a total bilirubin of 1.7. The AST is 159, ALT of 338. Cardiac enzymes are slightly abnormal, which could be compatible with stress-induced ischemia with a troponin I of 0.239, decreased down to 0.215, on admission it was 0.293. Her MBs have remained negative. Her ferritin level also was found to be 203, which is actually within normal limits, but her iron level was 33, a TIBC was 401. Her BNP was over 3000, it was 3406. Her EKG shows atrial fibrillation with a bundle branch block and occasional ventricular pacing. IMPRESSION: 1. Congestive heart failure exacerbation due to chronic atrial fibrillation, most likely diastolic dysfunction and cardiomyopathy. At this time, she is diuresing some, but is still positive on her I's and O's. We will continue her medications at this time. Her case has been discussed with the home service consultant, who does not feel that she is a candidate yet for dialysis and at 87 years old, this would be questionable whether or not she would be a good candidate overall. 2. History of pacemaker insertion. This appears to be very stable at this time. There is no indication. We need to proceed with any other further evaluation from the pacemaker. She does have occasional pacing, but mainly she has underlying atrial fibrillation. 3. History of chronic obstructive pulmonary disease. This appears to be stable at this time. 4. Hypertension, under good control. As far as her diabetes, this needs to be dealt by the Primary Care Service as well as her hypercholesterolemia. She also has decreased iron levels and she has been given IV iron. 5. Moderate aortic valve stenosis. We will just continue to monitor that. She is not a very good candidate for aortic valve replacement. We will have to continue to follow the patient with you throughout her hospitalization and we will need to try to find some way to diurese the patient and if not, then we will need to reconsider a possible dialysis despite being 87 years old. Her last echocardiogram was done on 02/19/2018, this showed an ejection fraction which was severely compromised at 10 to 15 percent and she is status post AICD placement in the past and she also has severe mitral valve regurgitation as well as moderate aortic valve regurgitation and moderate to severe aortic valve stenosis. She also was noted to have a trivial pericardial effusion on the last echocardiogram. Overall prognosis in this 87-year-old female with ejection fraction of 10 to 15% is obviously very poor. Job ID: [id number]
[2018-02-26] MEDS ORDERED: Furosemide 40 MG/4 ML VIAL SLOW IVP SCH (06:00)
[2018-02-26 06:53] LABS: #Lymphocytes 0.9 thou/uL (1.20-3.40); #Monocytes 0.6 thou/uL (0.11-0.59); #Neutrophils 8.9 thou/uL (1.40-6.50); %Basophils 0.2 % (0.0-1.0); %Eosinophils 0.1 % (0.0-10.0); %Lymphocytes 8.1 % (21.0-51.0); %Monocytes 6.1 % (0.0-10.0); %Neutrophils 85.5 % (42.0-75.0); Hemoglobin 7.6 g/dL (12.0-16.0); Mean Corpuscular HGB CONC 31.1 g/dL (32.0-36.0); Mean Corpuscular Hemoglobin 28.4 pg (27.0-31.0); Mean Platelet Volume 10.2 fL (7.4-10.4); Platelet Count 144 thou/uL (130-400); RBC Distribution Width 18.6 % (11.5-14.5); Red Blood Cell (RBC) Count 2.67 mill/uL (4.20-5.40); White Blood Cell (WBC) Count 10.5 thou/uL (4.8-10.8)
[2018-02-26 07:13] LABS: Anion Gap 14 mmol/L (10-20); BUN (Urea Nitrogen) 79 mg/dL (9.8-20.1); Calc. Creatinine Clearance 12 mL/min (70-130); Calcium 8.6 mg/dL (7.8-10.44); Carbon Dioxide 24 mmol/L (23-31); Chloride 102 mmol/L (98-107); Estimated GFR-MDRD 12; Potassium 3.7 mmol/L (3.5-5.1); Sodium 136 mmol/L (136-145)
[2018-02-26 07:16] LABS: Glucose 59 mg/dL (83-110)
[2018-02-26] MEDS: Mometasone/Formoterol 120 PUFF INHALER INH SCH ×2 (08:09→20:00)
[2018-02-26] MEDS ORDERED: Dextrose 50% Abboject 50 ML SYRINGE ONE (08:17)
[2018-02-26] MEDS: glyBURIDE 2.5 MG TAB PO SCH (09:57)
[2018-02-26] MEDS: Magnesium Oxide 400 MG TAB PO SCH ×2 (09:58→21:14)
[2018-02-26] MEDS: Levothyroxine Sodium 25 MCG TAB PO SCH (09:58)
[2018-02-26] MEDS: Amiodarone 200 MG TAB PO SCH ×2 (09:58→21:13)
[2018-02-26] MEDS: Carvedilol 3.125 MG TAB PO SCH ×2 (09:58→21:14)
[2018-02-26] MEDS: Midodrine HCl 5 MG TAB PO SCH ×3 (09:58→21:13)
[2018-02-26] MEDS: Ondansetron PF 4 MG/2 ML Vial IVP PRN ×2 (10:15→16:33)
--- NOTE | 2018-02-26 10:55 | PDOC.PN ---
- Subjective Encounter Start Date: 02/26/18 Encounter Start Time: 10:52 Patient seen and examined, family at bedside, no major issues overnight, all questions answered. - Objective Vital Signs & Weight: Vital Signs (12 hours) Temp Pulse Resp BP Pulse Ox 02/26/18 08:11 98 02/26/18 08:09 84 20 98 02/26/18 07:35 97.5 F L 83 24 H 107/78 99 02/26/18 04:30 84 24 H 109/57 L 100 02/25/18 23:36 97.6 F 97 24 H 98/57 L 99 Weight Weight 162 lb 9.6 oz I&O: 02/25/18 02/26/18 02/27/18 06:59 06:59 06:59 Intake Total 1570 240 Output Total 250 550 Balance -250 1020 240 Result Diagrams: 02/26/18 06:40 02/26/18 06:40 Additional Labs: Accuchecks 02/26/18 02/25/18 02/25/18 06:17 20:51 16:54 POC Glucose 69 L 135 H 118 H 02/25/18 10:47 POC Glucose 222 H Phys Exam - Physical Examination Constitutional: NAD HEENT: PERRLA, moist MMs, sclera anicteric Neck: no nodes, no JVD, supple Respiratory: no wheezing, no rales, no rhonchi Cardiovascular: RRR, no significant murmur, no rub Gastrointestinal: soft, non-tender, no distention, positive bowel sounds Musculoskeletal: pulses present, edema present (trace) Dx/Plan (1) WARREN (acute kidney injury) Code(s): N17.9 - ACUTE KIDNEY FAILURE, UNSPECIFIED Status: Acute Comment: Resolved (2) Acute on chronic systolic CHF (congestive heart failure), NYHA class 3 Code(s): I50.23 - ACUTE ON CHRONIC SYSTOLIC (CONGESTIVE) HEART FAILURE Status : Acute Comment: Lasix on hold, pt to followup with heart failure clinic (3) Acute worsening of stage 4 chronic kidney disease Code(s): N18.4 - CHRONIC KIDNEY DISEASE, STAGE 4 (SEVERE) Status: Acute Comment: creatinine improved to 2.86 today. (4) Anemia Code(s): D64.9 - ANEMIA, UNSPECIFIED Status: Acute Qualifiers: (5) COPD (chronic obstructive pulmonary disease) Status: Acute - Plan * lasix 100mg IV given and patient only had 300cc of urine output, patient likely refractive to diuretics, nephrology following * nakita discussing if they'd like to pursue dialysis treatments or not, patient overall does not seem to be a good candidate for dialysis given border line low BP and not sure if she will be able to sit 4 hours every other day for HD * for now continue current plan of care * will await to see if family decide HD or not post discussion with nephrology * case and plan d/w patient and family at length, they understand and agree with this plan.
--- NOTE | 2018-02-26 11:47 | PDOC.CTH ---
Cardiology Progress Note - Subjective The pt seen and examined. No overnight events. She could not sleep well last night due to SOB. She is not on any breathing treatment for hx of COPD. - Objective Vital Signs Temp Pulse Resp BP Pulse Ox 02/26/18 08:11 98 02/26/18 08:09 84 20 98 02/26/18 07:35 97.5 F L 83 24 H 107/78 99 02/26/18 04:30 84 24 H 109/57 L 100 Weight 162 lb 9.6 oz 02/25/18 02/26/18 02/27/18 06:59 06:59 06:59 Intake Total 1570 240 Output Total 250 550 Balance -250 1020 240 - Physical Examination General/Neuro: alert & oriented x3 Neck: no JVD present Lungs: other: (very diminished at bases corases) Heart: other: (irregular) Abdomen: soft Extremities: other: (No edema) - Telemetry Telemetry Rhythm: Afib with V paced - Labs Result Diagrams: 02/26/18 06:40 02/26/18 06:40 Troponin/CKMB CK-MB (CK-2) 3.2 ng/mL (0-6.6) 02/24/18 13:53 Troponin I 0.215 ng/mL (< 0.028) H 02/25/18 04:59 - Assessment/Plan 1. Acute on Chronic Systolic HF - cont. having SOB. will start fluid restriction 1200ml/day. 2. 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 Chronic Afib - HR well controlled. 4. COPD exacerbation - May benefit from breathing tx. 5. HTN - stable 6. DM type 2 - managed by PCP 7. AICD placement MAR reviewed 8. Anemia. received iron transfusion yesterday. Hgb is decreased today. Pt. seen and eval. by me. Chest with bilat. rales, pt. with dyspnea. Regular rhythm, pacing. appears to have underlying afib. Review of Systems - Review of Systems Constitutional: reports: weakness EENTM: reports: no symptoms reported Respiratory: reports: see HPI Cardiac (ROS): reports: no symptoms reported ABD/GI: reports: no symptoms reported : reports: no symptoms reported
[2018-02-26] MEDS ORDERED: Bumetanide 1 MG TAB PO SCH (13:00)
--- NOTE | 2018-02-26 14:49 | PRG ---
DATE OF SERVICE: 02/26/2018 SUBJECTIVE: An 87-year-old female, being seen for acute kidney injury. The patient denies any nausea, vomiting, or chest pain, but has dyspnea on rest. OBJECTIVE: GENERAL: The patient is awake and alert. VITAL SIGNS: Afebrile, pulse 82, breathing 16, blood pressure 97/68. GENERAL APPEARANCE AND MENTAL STATUS: Fair. HEAD/NECK: Normocephalic. Atraumatic. EYES: EOMI. No deformity. EARS: Clear. No ulcers. NOSE: Intact. No lesions. MOUTH: Clear. No discharge. THROAT: Clear. No exudate. LUNGS: Clear. No crackles. CARDIAC: S1, S2. No rub. ABDOMEN: Benign. Bowel sounds positive. GENITALIA/RECTUM: Trammell absent. BACK/EXTREMITIES: Edema 0+. NEUROLOGICAL: Alert and motor intact. SKIN: LYMPHATICS: LABORATORY DATA: Hemoglobin 7.6. Creatinine 3.65. ASSESSMENT AND PLAN: 1. Acute kidney injury with chronic kidney disease due to cardiorenal syndrome. 2. Anemia. We would recommend transfusion. 3. Hypertension, stable. 4. Medications based on GFR appropriate. 5. Discussed risks versus benefits of dialysis. Family is undecided. No urgent indication for dialysis. Job ID: [id number]
[2018-02-26] MEDS: Furosemide 40 MG/4 ML VIAL SLOW IVP SCH (15:26)
[2018-02-26] MEDS: Rivaroxaban 15 MG TAB PO SCH (16:33)
[2018-02-26] MEDS: Acetaminophen 325 MG TAB PO PRN (21:13)
[2018-02-26] MEDS: diphenhydrAMINE 25 MG CAP PO SCH (21:13)
[2018-02-26] MEDS: Rosuvastatin 20 MG TAB PO SCH (21:13)
[2018-02-26] MEDS: Melatonin 3 MG TAB PO PRN (21:14)
[2018-02-26] MEDS: Atorvastatin Calcium 20 MG TAB PO SCH (23:57)
[2018-02-27] MEDS: Furosemide 40 MG/4 ML VIAL SLOW IVP SCH ×2 (05:52→13:37)
[2018-02-27 06:05] LABS: #Basophils 0.1 thou/uL (0.0-0.2); #Monocytes 0.9 thou/uL (0.11-0.59); #Neutrophils 8.1 thou/uL (1.40-6.50); %Basophils 1.4 % (0.0-1.0); %Eosinophils 0.1 % (0.0-10.0); %Monocytes 9.1 % (0.0-10.0); %Neutrophils 79.5 % (42.0-75.0); Hemoglobin 7.3 g/dL (12.0-16.0); Mean Corpuscular HGB CONC 30.7 g/dL (32.0-36.0); Mean Corpuscular Hemoglobin 28.2 pg (27.0-31.0); Mean Corpuscular Volume 91.9 fL (78.0-98.0); Mean Platelet Volume 10.5 fL (7.4-10.4); Platelet Count 132 thou/uL (130-400); RBC Distribution Width 19.6 % (11.5-14.5); Red Blood Cell (RBC) Count 2.58 mill/uL (4.20-5.40); White Blood Cell (WBC) Count 10.2 thou/uL (4.8-10.8)
[2018-02-27 06:54] LABS: Chloride 100 mmol/L (98-107); Potassium 3.4 mmol/L (3.5-5.1); Sodium 136 mmol/L (136-145)
[2018-02-27 06:55] LABS: Calcium 8.4 mg/dL (7.8-10.44); Glucose 98 mg/dL (83-110)
[2018-02-27 06:57] LABS: Anion Gap 14 mmol/L (10-20); Carbon Dioxide 25 mmol/L (23-31)
[2018-02-27 06:59] LABS: BUN (Urea Nitrogen) 104 mg/dL (9.8-20.1); Calc. Creatinine Clearance 11 mL/min (70-130); Estimated GFR-MDRD 11
[2018-02-27] MEDS: Mometasone/Formoterol 120 PUFF INHALER INH SCH ×2 (07:45→18:21)
[2018-02-27] MEDS: Levothyroxine Sodium 25 MCG TAB PO SCH (08:22)
[2018-02-27] MEDS: glyBURIDE 2.5 MG TAB PO SCH (08:22)
[2018-02-27] MEDS: Magnesium Oxide 400 MG TAB PO SCH ×2 (08:23→21:29)
[2018-02-27] MEDS: Amiodarone 200 MG TAB PO SCH ×2 (08:23→21:29)
[2018-02-27] MEDS: Bumetanide 1 MG TAB PO SCH (08:23)
[2018-02-27] MEDS: Carvedilol 3.125 MG TAB PO SCH ×2 (08:25→21:29)
[2018-02-27] MEDS: Midodrine HCl 5 MG TAB PO SCH ×4 (08:25→21:30)
[2018-02-27] MEDS: Ondansetron PF 4 MG/2 ML Vial IVP PRN ×2 (08:58→14:58)
[2018-02-27] MEDS: Enoxaparin Sodium 80 MG/0.8 ML SYRINGE SC SCH (08:58)
[2018-02-27] MEDS ORDERED: Enoxaparin Sodium 30 MG/0.3 ML SYRINGE SC SCH (09:00)
--- NOTE | 2018-02-27 09:39 | PQF ---
LAVERNEKRISTIN LACHELLE PIERRE [id number] [facility]-239 [id number] CLINICAL DOCUMENTATION IMPROVEMENT CLARIFICATION FORM: ICD-10 Updated PLEASE DO AN ADDENDUM TO THE PROGRESS NOTE WITH ANY DOCUMENTATION UPDATES OR ADDITIONS AND CARRY THROUGH TO DC SUMMARY. THANK YOU. DATE: 02/27 ATTN: DR. PIERRE LAROSE Please exercise your independent, professional judgment in responding to the clarification form. Clinical indicators are provided on the bottom of this form for your review. Please check appropriate box(s): ELEVATED TROPONINS D/T: [ ] DEMAND ISCHEMIA [ ] NOT D/T DEMAND ISCHEMIA [ ] Other diagnosis [ ] Unable to determine For continuity of documentation, please document condition throughout progress notes and discharge summary. Thank You. CLINICAL INDICATORS - SIGNS / SYMPTOMS/ LABS are present in the medical record: TROP I: 0.293, 0.259, 0.269, 0.239, 0.215 (/ -5) H&P / (PANTANKAR): ASSESSMENT: 3. ELEVATED TROPONINS RISK FACTORS: ACUTE ON CHRONIC SYSTOLIC CHF NONISCHEMIC CARDIOMYOPATHY TREATMENT: SERIAL TROPONINS CARDIOLOGY CONSULT THANK YOU! Traci (This form is maintained as a part of the permanent medical record) 2014 [employer]. All Rights Reserved Traci Garcia RN, BSN [email or web address] Office: [phone] [facility]ITAL[facility]itt[facility]
--- NOTE | 2018-02-27 09:46 | PQF ---
LAVERNEKRISTIN LACHELLE PIERRE [id number] W-[id number] CLINICAL DOCUMENTATION IMPROVEMENT CLARIFICATION FORM: ICD-10 Updated PLEASE DO AN ADDENDUM TO THE PROGRESS NOTE WITH ANY DOCUMENTATION UPDATES OR ADDITIONS AND CARRY THROUGH TO DC SUMMARY. THANK YOU. DATE: 02/27 ATTN: DR. PIERRE LAROSE Please exercise your independent, professional judgment in responding to the clarification form. Clinical indicators are provided on the bottom of this form for your review. Please check appropriate box(s): [ ] Acute Respiratory Failure: [ ] with Hypoxia [ ] with Hypercapnia [ ] Acute Respiratory Failure due to: (etiology) [ ] Hypoxia [ ] Other diagnosis [ ] Unable to determine For continuity of documentation, please document condition throughout progress notes and discharge summary. Thank You. CLINICAL INDICATORS - SIGNS / SYMPTOMS / LABS ER PRESENTATION 02/24: SOB FOR 2 DAYS RA SAT 70%, PLACED ON 3L: 100%, WEANED TO 2L: 95-100%; TRANSFERRED TO FLOOR ON 2L NC RISK FACTORS: ACUTE ON CHRONIC SYSTOLIC HF HX OF COPD (STABLE CURRENTLY) TREATMENTS: 02 2L NC (02/24 - PRESENT) MONITORING OF 02 SATS RESPIRATORY TREATMENTS (DULERA INHALER BID 02/24 - PRESENT; DUONEBS PRN) IV LASIX (02/26 - PRESENT) THANK YOU! Traci (This form is maintained as a part of the permanent medical record) 2014 [employer]. All Rights Reserved Traci Garcia RN, BSN [email or web address] Office: [phone] [facility]
--- NOTE | 2018-02-27 12:13 | PDOC.PN ---
- Subjective Encounter Start Date: 02/27/18 Encounter Start Time: 07:20 Pt seen for followup re: acute hypoxic respiratory failure. Feels short of breath, not sleeping well. - Objective MAR Reviewed: Yes Vital Signs & Weight: Vital Signs (12 hours) Temp Pulse Resp BP Pulse Ox 02/27/18 08:00 100 02/27/18 07:45 87 20 100 02/27/18 07:38 97.8 F 79 20 113/60 100 02/27/18 07:22 100 02/27/18 07:20 87 20 100 02/27/18 04:00 97.4 F L 78 16 95/53 L 100 02/27/18 02:12 20 99 Weight Weight 162 lb 9.6 oz I&O: 02/26/18 02/27/18 02/28/18 06:59 06:59 06:59 Intake Total 1570 840 Output Total 550 975 Balance 1020 -135 Result Diagrams: 02/28/18 05:25 02/28/18 05:25 Additional Labs: Accuchecks 02/27/18 02/27/18 02/27/18 11:31 05:52 05:30 POC Glucose 170 H 107 114 H 02/26/18 02/26/18 02/26/18 20:39 16:42 11:42 POC Glucose 108 108 155 H 02/26/18 09:57 POC Glucose 150 H EKG Reviewed by me: Yes (Tele: V-paced, underlying a. fib) Phys Exam - Physical Examination Constitutional: NAD HEENT: moist MMs Neck: supple [place] crackles Cardiovascular: irregular Gastrointestinal: soft Musculoskeletal: edema present Neurological: moves all 4 limbs Psychiatric: normal affect Dx/Plan (1) Acute respiratory failure with hypoxia Code(s): J96.01 - ACUTE RESPIRATORY FAILURE WITH HYPOXIA Status: Acute Comment: secondary to CHF +/- COPD (2) Demand ischemia Code(s): I24.8 - OTHER FORMS OF ACUTE ISCHEMIC HEART DISEASE Status: Acute Comment: mild elevation in troponin, stable (3) Acute on chronic systolic CHF (congestive heart failure), NYHA class 3 Code(s): I50.23 - ACUTE ON CHRONIC SYSTOLIC (CONGESTIVE) HEART FAILURE Status : Acute Comment: continue IV furosemide (4) Acute worsening of stage 4 chronic kidney disease Code(s): N18.4 - CHRONIC KIDNEY DISEASE, STAGE 4 (SEVERE) Status: Acute Comment: creatinine 4.01 today (5) CAD (coronary artery disease) Code(s): I25.10 - ATHSCL HEART DISEASE OF [place] CORONARY ARTERY W/O ANG PCTRS Status: Chronic Qualifiers: Coronary Disease-Associated Artery/Lesion type: [place] artery [place] vs. 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: without custodial use Diabetes mellitus complication status: with unspecified complications Qualified Code(s) : E11.8 - Type 2 diabetes mellitus with unspecified complications Comment: reasonable control (7) Dyslipidemia Code(s): E78.5 - HYPERLIPIDEMIA, UNSPECIFIED Status: Chronic Comment: continue statin (8) Hypertension Code(s): I10 - ESSENTIAL (PRIMARY) HYPERTENSION Status: Chronic Qualifiers: Hypertension type: essential hypertension Qualified Code(s): I10 - Essential (primary) hypertension Comment: controlled (9) Hypothyroidism Code(s): E03.9 - HYPOTHYROIDISM, UNSPECIFIED Status: Chronic Qualifiers: Hypothyroidism type: unspecified Qualified Code(s): E03.9 - Hypothyroidism , unspecified Comment: continue synthroid - Plan * . Review of Systems - Review of Systems Constitutional: weakness Respiratory: Shortness of Breath, SOB with Excertion. negative: Cough, Dry, Hemoptysis, Pleuritic Pain, Sputum, Wheezing Cardiovascular: negative: chest pain, palpitations, orthopnea, paroxysmal nocturnal dyspnea, edema, light headedness - Medications/Allergies Allergies/Adverse Reactions: Allergies Allergy/AdvReac Type Severity Reaction Status Date / Time codeine [Codeine] Allergy Severe CHEST Verified 02/24/18 19:39 TIGHTNESS levofloxacin [From Levaquin] Allergy Intermediate Rash Verified 02/24/18 19:39 adhesive tape Allergy Verified 02/24/18 19:39 duloxetine [From Cymbalta] AdvReac Verified 02/24/18 19:39 Medications: Current Medications Acetaminophen (Tylenol) 650 mg PO Q4H PRN PRN Reason: Headache/Fever/Mild Pain (1-3) Last Admin: 02/26/18 21:13 Dose: 650 mg Albuterol/Ipratropium (Duoneb) 3 ml NEB Q4H PRN PRN Reason: Dyspnea Last Admin: 02/27/18 07:20 Dose: 3 ml Amiodarone HCl (Cordarone) 200 mg PO BID [facility] Stop: 03/08/18 09:01 Last Admin: 02/27/18 08:23 Dose: 200 mg Atorvastatin Calcium (Lipitor) 20 mg PO HS [facility] Last Admin: 02/26/18 23:57 Dose: Not Given Bumetanide (Bumex) 1 mg PO QAM [facility] Last Admin: 02/27/18 08:23 Dose: 1 mg Carvedilol (Coreg) 3.125 mg PO BID [facility] Last Admin: 02/27/18 08:25 Dose: 3.125 mg Dextrose/Water (Dextrose 50%) 25 gm SLOW IVP PRN PRN PRN Reason: Hypoglycemia Diphenhydramine HCl (Benadryl) 25 mg PO HS [facility] Last Admin: 02/26/18 21:13 Dose: 25 mg Enoxaparin Sodium (Lovenox) 70 mg SC 0900 [facility] Last Admin: 02/27/18 08:58 Dose: 70 mg Furosemide (Lasix) 40 mg SLOW IVP 0600,1400 [facility] Last Admin: 02/27/18 05:52 Dose: 40 mg Glucagon (Glucagon) 1 mg IM PRN PRN PRN Reason: Hypoglycemia Glyburide (Micronase) 2.5 mg PO DAILY[facility] Last Admin: 02/27/18 08:22 Dose: 2.5 mg Dextrose/Water (D5w) 1,000 mls @ 0 mls/hr IV .Q0M PRN PRN Reason: Hypoglycemia Insulin Human Lispro (Humalog) 0 units SC .MILD SLIDING SCALE PRN PRN Reason: Mild Correctional Scale Last Admin: 02/25/18 12:28 Dose: 3 unit Levothyroxine Sodium (Synthroid) 50 mcg PO DAILY [facility] Last Admin: 02/27/18 08:22 Dose: 50 mcg Magnesium Oxide (Magnesium Oxide) 400 mg PO BID [facility] Last Admin: 02/27/18 08:23 Dose: 400 mg Melatonin (Melatonin) 3 mg PO HS PRN PRN Reason: Insomnia Last Admin: 02/26/18 21:14 Dose: 3 mg Midodrine (Proamatine) 5 mg PO TID [facility] Last Admin: 02/27/18 09:00 Dose: Not Given Mometasone Furoate/Formoterol Fumar (Dulera 100 Mcg/5 Mcg Inhaler) 2 puff INH BID-[facility] Last Admin: 02/27/18 07:45 Dose: 2 puff Ondansetron HCl (Zofran) 4 mg IVP Q6H PRN PRN Reason: Nausea/Vomiting Last Admin: 02/27/18 08:58 Dose: 4 mg Rosuvastatin Calcium (Crestor) 40 mg PO QPM [facility] Last Admin: 02/26/18 21:13 Dose: 40 mg Sodium Chloride (Flush - Normal Saline) 10 ml IVF Q12HR PRN PRN Reason: Saline Flush
--- NOTE | 2018-02-27 16:15 | CON ---
DATE OF CONSULTATION: HISTORY OF PRESENT ILLNESS: Idania Vela is an elderly 87-year-old female, who has been in the hospital since 02/24/2018 with respiratory failure, severe deconditioning, cough, peripheral neuropathy, she can barely walk in 50 feet without getting markedly short of breath since admission. She has been seen by Cardiology, Nephrology. Now Pulmonary was consulted because of her breathing issues. PAST MEDICAL HISTORY: Pertinent otherwise for cardiac disease, CHF, hypertension, hypothyroidism, diabetes. PREVIOUS SURGERIES: Multiple including laminectomy, right total knee, cholecystectomy, mastoid surgery, hysterectomy, ankle surgery, wrist surgery. SOCIAL HISTORY: Tobacco, none recently. Alcohol, none. Primary care doctor is at [facility]. Do see Dr. Blake for ongoing cardiac care locally. MEDICATIONS: From home include: 1. Micronase 2.5. 2. Crestor 40. 3. Xarelto 15. 4. Synthroid 50. 5. Breo once a day. 6. Coreg 3.125. 7. Aspirin. 8. Cordarone 200 twice a day. She has been on Bumex in the hospital, amiodarone 200 twice a day, neb treatments as scheduled. ALLERGIES: CYMBALTA, LEVAQUIN, AND CODEINE. REVIEW OF SYSTEMS: Otherwise, 10-point negative. PHYSICAL EXAMINATION: GENERAL: The patient is lying in bed without much distress complaining of numbness and tingling in the lower legs. VITAL SIGNS: Oxygen saturation was 100% on 2 L, respirations 16, temperature 97, blood pressure 95/51. CHEST: Decreased breath sounds. Minimal crackles. CARDIAC: Normal S1 and S2. Negative mass. LABORATORY DATA: White count 10,000, H and H of 7 and 23, platelet count is 132. Creatinine is 4, which has increased from a baseline of about 1.86 about 2 weeks ago and BUN is 104, which has increased from a baseline of 39. IMAGING STUDIES: X-ray shows a left pleural effusion. IMPRESSION: 1. Worsening renal failure. 2. Left pleural effusion. 3. Congestive cardiomyopathy. 4. Chronic obstructive pulmonary disease. 5. Diabetes. PLAN: Pulmonary has not much to offer at this stage. She may require dialysis if her kidney function did not improve. She will also be placed back on her gabapentin for her neuropathy, which I will do that. I will try and schedule neb treatments. Supportive care. I do not think the pleural effusion is large enough to do a thoracentesis. This is a 70 minutes consultation note with 50% direct patient care. Job ID: [id number]
[2018-02-27] MEDS: HumaLOG 300 UNITS/3 ML VIAL SC PRN (16:51)
[2018-02-27] MEDS: Budesonide 0.25 MG/2 ML NEB INH SCH (18:21)
--- NOTE | 2018-02-27 18:52 | PRG ---
DATE OF SERVICE: 02/27/2018 SUBJECTIVE: Patient was seen and examined at bedside and overnight events noted. Patient denies any shortness of breath or chest pain or palpitation. No history of nausea or vomiting or diarrhea or fever or chills or cramps. OBJECTIVE: GENERAL: This is a kandis female, in no acute distress. VITAL SIGNS: Temperature 98.6. Heart rate 90. Respiratory rate 20. Blood pressure 93/51. HEENT: Atraumatic, normocephalic. Oral mucosa is moist NECK: Supple. CARDIOVASCULAR: S1, S2 heard. Rate and rhythm regular. RESPIRATORY: Clear to auscultation. GASTROINTESTINAL: Abdomen is soft. MUSCULOSKELETAL: No tenderness. No edema. DERMATOLOGIC: No skin rash. NEUROLOGIC: Alert and awake and oriented X3. No focal neurologic deficits. Moving all the extremities. PSYCHIATRIC: Mood and affect normal. LABORATORY DATA: Sodium is 136, potassium is 3.1, BUN 104, creatinine 12.01. ASSESSMENT AND PLAN: 1. Acute kidney injury on chronic kidney disease, stage 4. Worsening creatinine is most likely from cardiorenal syndrome. 2. Cardiorenal syndrome. Follow with Cardiology. 3. Anemia. 4. Hypertension. Prognosis is guarded. Severe cardiomyopathy. Avoid nephrotoxins. We will follow. Job ID: [id number] [facility]
[2018-02-27] MEDS: Rosuvastatin 20 MG TAB PO SCH (21:29)
[2018-02-27] MEDS: Atorvastatin Calcium 20 MG TAB PO SCH (21:29)
[2018-02-27] MEDS: Melatonin 3 MG TAB PO PRN (21:29)
[2018-02-27] MEDS: diphenhydrAMINE 25 MG CAP PO SCH (21:29)
[2018-02-28] MEDS: Ondansetron PF 4 MG/2 ML Vial IVP PRN ×3 (01:19→13:45)
--- NOTE | 2018-02-28 04:08 | CON ---
DATE OF CONSULTATION: 02/27/2018 This is an electrophysiology followup note. HISTORY OF PRESENT ILLNESS: I am seeing Ms. Vela at our [facility] as a followup, her following problems are: 1. Acute on chronic systolic congestive heart failure. a. 2D echo from 02/19/2018, LVEF 10% to 15% with heavy enlargement, ICD in place. Severe mitral regurgitation. Moderate aortic regurgitation. [id number] aortic stenosis is present. Severe tricuspid regurgitation. 2. Paroxysmal atrial fibrillation. a. Presentation on February 16, 2018 with ventricular/atrial tachyarrhythmias requiring IV amiodarone loading and eventual cardioversion. b. Recurrent atrial fibrillation noted and amiodarone continued. 3. Valvular heart disease as above. 4. Anemia with hemoglobin 8.6 of unclear etiology. 5. Chronic kidney disease. 6. Hypertension. 7. History of ICD implant to dual-chamber Medtronic device, functioning adequate. ALLERGIES: CODEINE, LEVOFLOXACIN, ADHESIVE TAPE, AND DULOXETINE. MEDICATIONS: At home included; 1. Aspirin. 2. Rosuvastatin. 3. Levothyroxine. 4. Xarelto 15 mg a day. 5. Tylenol. 6. Magnesium supplement. 7. Prasterone (DHEA). 8. Amiodarone 200 mg b.i.d. 9. Carvedilol 3.125 mg twice a day. 10. Fluticasone. 11. Tylenol Extra Strength. SUBJECTIVE: Ms. Vela was recently discharged from our facility on the , but at home, she developed progressive dyspnea and eventually to be readmitted. Dyspnea has been mostly exertional, although associated with angina. No chest pain. No PND or orthopnea either. REVIEW OF SYSTEMS: Rest of review of systems, otherwise unremarkable. PAST MEDICAL HISTORY: As above. SOCIAL HISTORY: The patient denies smoking, EtOH, or drug abuse. FAMILY HISTORY: Not contributory. OBJECTIVE DATA: VITAL SIGNS: Blood pressure is 113/60, heart rate 79, respiratory rate 20, and temperature 97.8 degrees Fahrenheit. GENERAL: Reveals an alert and oriented woman, in no apparent distress. NECK: Supple. Jugular veins not distended. CHEST: Coarse with crackles. HEART: Sounds are irregularly irregular. S1 ane S2 are variable. 1/6 systolic ejection murmur is heard and holosystolic murmur also noted in the left lower sternal border. No gallop. The left precordial ICD insertion site is well healed. ABDOMEN: Benign. Bowel sounds are positive. No hepatosplenomegaly. LOWER EXTREMITIES: No edema, clubbing, or cyanosis. Pulses are adequate. NEUROLOGIC: The patient nonfocal. MUSCULOSKELETAL: Without joint swelling or deformity. SKIN: Without rash. DATABASE: Lab data; white count is 10.2, hemoglobin 7.3, and platelet count is 132. Sodium 136, potassium 3.4, BUN is 14, and creatinine is 4.01, which is markedly increased compared to prior values on discharge 2.86. The EKG is reviewed, reveal wide complex atrial fibrillation alternating with ventricular pacing. Interrogation of device is a dual-chamber Medtronic pacemaker defibrillator. Atrial fibrillation has been persisting since the end of January. Previously, it is in sinus rhythm. Chest x-ray shows CHF. ASSESSMENT AND PLAN: Ms. Vela is a pleasant 87-year-old woman with prior history of cardiomyopathy, dual-chamber ICD in place, who originally presented with new onset of persisting atrial fibrillation with RVR, requiring amiodarone and cardioversion , but has subsequently recurred. She also had slow sustained ventricular tachycardia though which has not recurred on amiodarone. She has significant valvular heart disease as noted above. She has chronic dyspnea and has been diuresed progressively and her renal function is worsening. She has a difficult time to have rate control and likely has dyssynchrony, does not help her condition. We had hopes that amiodarone eventually will maintain SR, but it has not happened. Also, in addition to that, she has significant hemoglobin decrease, which likely contributes to her problems. The dilemma is hard to proceed from here. General medical stabilization improving. Her hemoglobin is mildly prudent. She is somewhat difficult to keep euvolemic and with borderline blood pressures, with progressive diuresis seems to be making fairly prerenal, this is likely also partially due to her poor cardiac output. At this point, any kind of support for the ventricles would be welcomed. I think restoring IV dyssynchrony by adding an LV lead would be a reasonable approach after medical stabilization. She might benefit from AV christina ablation as well. I discussed these concepts with them and they are agreeable. Afterwards, I am planning to reduce the dose or stop amiodarone unless ventricular arrhtyhmias re-occur. Anemia of unclear origin managed as per primary team. If indeed gastrointestinal bleed is found, she may benefit from Gastroenterology evaluation, possible long-term Watchman procedure is a consideration, although it is difficult proposition with this elderly and lady with multiple comorbidities. Job ID: [id number] MTDD
[2018-02-28 05:52] LABS: #Lymphocytes 1.1 thou/uL (1.20-3.40); #Monocytes 1.2 thou/uL (0.11-0.59); #Neutrophils 8.9 thou/uL (1.40-6.50); %Basophils 0.1 % (0.0-1.0); %Eosinophils 0.3 % (0.0-10.0); %Lymphocytes 10.2 % (21.0-51.0); %Monocytes 10.3 % (0.0-10.0); %Neutrophils 79.1 % (42.0-75.0); Hemoglobin 8.2 g/dL (12.0-16.0); Mean Corpuscular Hemoglobin 28.2 pg (27.0-31.0); Mean Platelet Volume 10.4 fL (7.4-10.4); Platelet Count 124 thou/uL (130-400); RBC Distribution Width 18.6 % (11.5-14.5); Red Blood Cell (RBC) Count 2.91 mill/uL (4.20-5.40); White Blood Cell (WBC) Count 11.2 thou/uL (4.8-10.8)
[2018-02-28 06:04] LABS: Anion Gap 13 mmol/L (10-20); BUN (Urea Nitrogen) 104 mg/dL (9.8-20.1); Calc. Creatinine Clearance 11 mL/min (70-130); Calcium 8.7 mg/dL (7.8-10.44); Carbon Dioxide 27 mmol/L (23-31); Chloride 98 mmol/L (98-107); Estimated GFR-MDRD 11; Glucose 84 mg/dL (83-110); Sodium 135 mmol/L (136-145)
[2018-02-28] MEDS: Furosemide 40 MG/4 ML VIAL SLOW IVP SCH ×2 (06:14→13:45)
[2018-02-28] MEDS: Budesonide 0.25 MG/2 ML NEB INH SCH ×2 (07:06→19:53)
[2018-02-28] MEDS: Mometasone/Formoterol 120 PUFF INHALER INH SCH ×2 (07:07→19:54)
[2018-02-28] MEDS: Enoxaparin Sodium 80 MG/0.8 ML SYRINGE SC SCH (07:33)
[2018-02-28] MEDS: glyBURIDE 2.5 MG TAB PO SCH (07:55)
[2018-02-28] MEDS: Amiodarone 200 MG TAB PO SCH ×2 (07:55→23:54)
[2018-02-28] MEDS: Levothyroxine Sodium 25 MCG TAB PO SCH (07:56)
[2018-02-28] MEDS: Magnesium Oxide 400 MG TAB PO SCH ×2 (07:56→23:35)
[2018-02-28] MEDS: Midodrine HCl 5 MG TAB PO SCH ×3 (07:56→23:36)
[2018-02-28] MEDS: Carvedilol 3.125 MG TAB PO SCH ×2 (07:56→23:35)
[2018-02-28] MEDS: Bumetanide 1 MG TAB PO SCH (07:57)
--- NOTE | 2018-02-28 08:02 | RAD ---
FRONTAL RADIOGRAPH CHEST: Date: 02-28-18 Comparison: 02-24-18 History: Congestive heart failure. FINDINGS: Stable prominence of the cardiac silhouette. Stable multi-lead transvenous AICD inserted via the left subclavian approach. Prominent degenerative change involving bilateral shoulders, stable. No pneumothorax. There is dense opacity in both lung bases, left greater than right, suggesting a combination of bibas ilar airspace disease and bilateral pleural effusions. Aeration in the lung bases has worsened slight ly since the 02-24-18 examination. IMPRESSION: Bibasilar pleural and parenchymal opacity with prominence of the cardiac silhouette and pulmonary vas cular congestion suggests worsening pulmonary edema. Superimposed infection or aspiration cannot be e xcluded. Follow up to resolution advised. POS: [facility]
[2018-02-28] MEDS ORDERED: Potassium Chloride 20 MEQ TAB PO SCH (09:00)
[2018-02-28] MEDS: Dextrose 50% Abboject 50 ML SYRINGE SLOW IVP PRN (10:44)
--- NOTE | 2018-02-28 11:24 | PRG ---
DATE OF SERVICE: 02/28/2018 SUBJECTIVE: This morning, she is awake, alert, responsive, slightly better pulmonary status. OBJECTIVE: VITAL SIGNS: Saturations 90% on 2 L, respiratory rate 18, temperature 97, blood pressure 112/63. CHEST: Extensive rhonchi and crackles. CARDIAC: Normal S1 and S2. No gallops. ABDOMEN: No masses. LABORATORY DATA: Creatinine is 3.94, BUN is 104. IMPRESSION: 1. Respiratory failure, chronic obstructive pulmonary disease, congestive heart failure. 2. Renal failure. PLAN: At this stage, nothing additional to offer except comfort care. X-ray shows cardiomegaly, small pleural effusion. Not enough to do a thoracentesis. Job ID: [id number]
--- NOTE | 2018-02-28 11:42 | PDOC.PN ---
- Subjective Encounter Start Date: 02/28/18 Encounter Start Time: 07:20 Pt seen for followup re: acute hypoxic respiratory failure. Reports SOBOE. No nausea or vomiting. - Objective Resuscitation Status - Order Detail: 02/27/18 16:08 Resuscitation Status Routine Resuscitation Status: FULL: Full Resuscitation Discussed with: confirmed with pt MAR Reviewed: Yes Vital Signs & Weight: Vital Signs (12 hours) Temp Pulse Resp BP Pulse Ox 02/28/18 08:00 97.4 F L 85 18 112/63 99 02/28/18 07:09 96 02/28/18 07:02 50 L 20 96 02/28/18 03:47 97.7 F 89 18 113/58 L 100 02/28/18 00:37 86 20 Weight Weight 162 lb 9.6 oz I&O: 02/27/18 02/28/18 03/01/18 06:59 06:59 06:59 Intake Total 840 1349 Output Total 975 1675 Balance -135 -326 Result Diagrams: 02/28/18 05:25 02/28/18 05:25 Additional Labs: Accuchecks 02/28/18 02/27/18 02/27/18 05:20 21:10 16:48 POC Glucose 109 230 H 265 H 02/27/18 11:31 POC Glucose 170 H EKG Reviewed by me: Yes (V-paced) Phys Exam - Physical Examination Constitutional: NAD HEENT: moist MMs Neck: supple [place] crackles Cardiovascular: irregular Dx/Plan (1) Acute respiratory failure with hypoxia Code(s): J96.01 - ACUTE RESPIRATORY FAILURE WITH HYPOXIA Status: Acute Comment: secondary to CHF, continue diuretics (2) Demand ischemia Code(s): I24.8 - OTHER FORMS OF ACUTE ISCHEMIC HEART DISEASE Status: Acute Comment: stable (3) Acute on chronic systolic CHF (congestive heart failure), NYHA class 3 Code(s): I50.23 - ACUTE ON CHRONIC SYSTOLIC (CONGESTIVE) HEART FAILURE Status : Acute Comment: continue IV furosemide (4) Acute worsening of stage 4 chronic kidney disease Code(s): N18.4 - CHRONIC KIDNEY DISEASE, STAGE 4 (SEVERE) Status: Acute Comment: creatinine improved to 3.94 today (5) CAD (coronary artery disease) Code(s): I25.10 - ATHSCL HEART DISEASE OF [place] CORONARY ARTERY W/O ANG PCTRS Status: Chronic Qualifiers: Coronary Disease-Associated Artery/Lesion type: [place] artery [place] vs. transplanted heart: [place] heart Associated angina: without angina Qualified Code(s): I25.10 - Atherosclerotic heart disease of [place] coronary artery without angina pectoris Comment: pt denies chest pain (6) DM type 2 (diabetes mellitus, type 2) Status: Chronic Qualifiers: Diabetes mellitus watermelon inspector insulin use: without watermelon inspector use Diabetes mellitus complication status: with unspecified complications Qualified Code(s) : E11.8 - Type 2 diabetes mellitus with unspecified complications Comment: reasonable control (7) Dyslipidemia Code(s): E78.5 - HYPERLIPIDEMIA, UNSPECIFIED Status: Chronic Comment: on statin (8) Hypertension Code(s): I10 - ESSENTIAL (PRIMARY) HYPERTENSION Status: Chronic Qualifiers: Hypertension type: essential hypertension Qualified Code(s): I10 - Essential (primary) hypertension Comment: controlled (9) Hypothyroidism Code(s): E03.9 - HYPOTHYROIDISM, UNSPECIFIED Status: Chronic Qualifiers: Hypothyroidism type: unspecified Qualified Code(s): E03.9 - Hypothyroidism , unspecified Comment: continue synthroid - Plan * . Pt to go for pacemaker revision today Received 1 unit pRBC yesterday for symptomatic anemia Review of Systems - Review of Systems Constitutional: weakness Respiratory: SOB with Excertion. negative: Cough, Shortness of Breath, Pleuritic Pain, Wheezing Cardiovascular: negative: chest pain, palpitations, orthopnea, paroxysmal nocturnal dyspnea, edema, light headedness, other - Medications/Allergies Allergies/Adverse Reactions: Allergies Allergy/AdvReac Type Severity Reaction Status Date / Time codeine [Codeine] Allergy Severe CHEST Verified 02/24/18 19:39 TIGHTNESS levofloxacin [From Levaquin] Allergy Intermediate Rash Verified 02/24/18 19:39 adhesive tape Allergy Verified 02/24/18 19:39 duloxetine [From Cymbalta] AdvReac Verified 02/24/18 19:39 Medications: Current Medications Acetaminophen (Tylenol) 650 mg PO Q4H PRN PRN Reason: Headache/Fever/Mild Pain (1-3) Last Admin: 02/26/18 21:13 Dose: 650 mg Albuterol/Ipratropium (Duoneb) 3 ml NEB Q4H PRN PRN Reason: Dyspnea Last Admin: 02/27/18 14:12 Dose: 3 ml Albuterol/Ipratropium (Duoneb) 3 ml NEB [id number] [facility] Last Admin: 02/28/18 07:02 Dose: 3 ml Amiodarone HCl (Cordarone) 200 mg PO BID [facility] Stop: 03/08/18 09:01 Last Admin: 02/28/18 07:55 Dose: Not Given Atorvastatin Calcium (Lipitor) 20 mg PO [facility] Last Admin: 02/27/18 21:29 Dose: 20 mg Budesonide (Pulmicort Neb Solution) 0.25 mg INH BID-RT [facility] Last Admin: 02/28/18 07:06 Dose: 0.25 mg Bumetanide (Bumex) 1 mg PO QAM [facility] Last Admin: 02/28/18 07:57 Dose: Not Given Carvedilol (Coreg) 3.125 mg PO BID [facility] Last Admin: 02/28/18 07:56 Dose: Not Given Dextrose/Water (Dextrose 50%) 25 gm SLOW IVP PRN PRN PRN Reason: Hypoglycemia Last Admin: 02/28/18 10:44 Dose: 25 gm Diphenhydramine HCl (Benadryl) 25 mg PO [facility] Last Admin: 02/27/18 21:29 Dose: 25 mg Enoxaparin Sodium (Lovenox) 70 mg SC 0900 [facility] Last Admin: 02/28/18 07:33 Dose: Not Given Furosemide (Lasix) 40 mg SLOW IVP 0600,1400 [facility] Last Admin: 02/28/18 06:14 Dose: 40 mg Glucagon (Glucagon) 1 mg IM PRN PRN PRN Reason: Hypoglycemia Glyburide (Micronase) 2.5 mg PO DAILY-[facility] Last Admin: 02/28/18 07:55 Dose: Not Given Dextrose/Water (D5w) 1,000 mls @ 0 mls/hr IV .Q0M PRN PRN Reason: Hypoglycemia Insulin Human Lispro (Humalog) 0 units SC .MILD SLIDING SCALE PRN PRN Reason: Mild Correctional Scale Last Admin: 02/27/18 16:51 Dose: 4 unit Levothyroxine Sodium (Synthroid) 50 mcg PO DAILY [facility] Last Admin: 02/28/18 07:56 Dose: Not Given Magnesium Oxide (Magnesium Oxide) 400 mg PO BID [facility] Last Admin: 02/28/18 07:56 Dose: Not Given Melatonin (Melatonin) 3 mg PO HS PRN PRN Reason: Insomnia Last Admin: 02/27/18 21:29 Dose: 3 mg Midodrine (Proamatine) 5 mg PO TID [facility] Last Admin: 02/28/18 07:56 Dose: Not Given Mometasone Furoate/Formoterol Fumar (Dulera 100 Mcg/5 Mcg Inhaler) 2 puff INH BID-RT [facility] Last Admin: 02/28/18 07:07 Dose: 2 puff Ondansetron HCl (Zofran) 4 mg IVP Q6H PRN PRN Reason: Nausea/Vomiting Last Admin: 02/28/18 07:53 Dose: 4 mg Potassium Chloride (K-Dur) 40 meq PO BID-WM [facility] Stop: 03/01/18 08:01 Rosuvastatin Calcium (Crestor) 40 mg PO QPM [facility] Last Admin: 02/27/18 21:29 Dose: 40 mg Sodium Chloride (Flush - Normal Saline) 10 ml IVF Q12HR PRN PRN Reason: Saline Flush Last Admin: 02/28/18 01:18 Dose: 10 ml
[2018-02-28] MEDS ORDERED: Iopamidol 370 76% 50 ML VIAL FS ONE (12:15)
[2018-02-28] MEDS ORDERED: CEFAZOLIN 2 GM/50 ML BAG ONE (15:52)
[2018-02-28] MEDS ORDERED: Heparin 10,000 UNITS/1 ML VIAL ONE (15:57)
[2018-02-28] MEDS: Potassium Chloride 20 MEQ TAB PO SCH (16:14)
[2018-02-28] MEDS ORDERED: Lidocaine 1% (PF) 30 ML VIAL ONE (17:12)
--- NOTE | 2018-02-28 17:13 | PRG ---
DATE OF SERVICE: 02/28/2018 SUBJECTIVE: Patient was seen and examined at bedside and overnight events noted. Patient denies any shortness of breath or chest pain or palpitation. No history of nausea or vomiting or diarrhea or fever or chills or cramps. OBJECTIVE: GENERAL: This is an elderly female, in no apparent distress. VITAL SIGNS: Temperature 97.6. Pulse 107. Respiratory rate 20. Blood pressure 113/81. HEENT: Atraumatic, normocephalic. Oral mucosa is moist NECK: Supple. CARDIOVASCULAR: S1, S2 heard. Rate and rhythm regular. RESPIRATORY: Clear to auscultation. GASTROINTESTINAL: Abdomen is soft. MUSCULOSKELETAL: No tenderness. No edema. DERMATOLOGIC: No skin rash. NEUROLOGIC: Alert and awake and oriented X3. No focal neurologic deficits. Moving all the extremities. PSYCHIATRIC: Mood and affect normal. LABORATORY DATA: Potassium is 3.0, BUN is 104, creatinine is 3.9. ASSESSMENT AND PLAN: 1. Acute kidney injury on chronic kidney disease, stable. 2. Edema. 3. Cardiorenal syndrome. Follow with Cardiology. 4. Hypokalemia. Replace and monitor. 5. Hypertension, stable. 6. Replace potassium. Monitor renal function closely. Recheck labs in the morning. Await nephrotoxins. Job ID: [id number]
[2018-02-28] MEDS ORDERED: KETAMINE 100 MG/ML (5ML VIAL) ONE (17:49)
[2018-02-28] MEDS ORDERED: Fentanyl 100 MCG/2 ML VIAL ONE (18:34)
[2018-02-28] MEDS ORDERED: DOPamine 400 MG/D5W 250 ML 250 ML ONE (18:35)
--- NOTE | 2018-02-28 21:00 | OP ---
DATE OF PROCEDURE: 02/28/2018 PROCEDURE PERFORMED: AV christina ablation. REFERRING PHYSICIAN: Herlinda Boles MD REASON FOR PROCEDURE: Ms. Vela is an 87-year-old woman with a prior history of atrial arrhythmias and aortic stenosis, who has had recurrent atrial stenosis and CHF exacerbation requiring amiodarone loading and cardioversion, but the recurrence is noted afterwards. She also has nonsustained ventricular tachycardia, possibly induced by atrial fibrillation. She has a dual-chamber ICD in place. She is here for AV node ablation. DESCRIPTION OF PROCEDURE: The patient received propofol by anesthesia specialist. After adequate level of sedation achieved, the right femoral venous area was prepped, draped, and anesthetized using subcutaneous lidocaine with ultrasound guidance. The right femoral vein was cannulated and an 8-[place] short sheath was introduced. Through this, a ThermoCool SF ablation catheter was advanced to the right atrium, His bundle, right ventricular area, also CS was entered. The His bundle was mapped. HV duration 50 ms was noted. Radiofrequency ablation of the compact AV node and His bundle was performed, a total of 2 lesions were delivered, a total of 2 minutes and 30 seconds in time. A complete AV block was achieved at the end of the ablation. Atrial fibrillation continued. The pacemaker function was verified. Dopamine was administered and during the dopamine administration, continued AV block was present. CONCLUSION: Successful AV christina ablation. PLAN: Proceed with BiV ICD upgrade. Job ID: [id number] MTDD
[2018-02-28] MEDS: Rosuvastatin 5 MG TAB PO SCH (23:35)
[2018-02-28] MEDS: Cephalexin 250 MG CAP PO SCH (23:36)
[2018-02-28] MEDS: diphenhydrAMINE 25 MG CAP PO SCH (23:36)
[2018-03-01] MEDS: Ondansetron PF 4 MG/2 ML Vial IVP PRN (06:37)
[2018-03-01] MEDS: Furosemide 40 MG/4 ML VIAL SLOW IVP SCH ×2 (06:40→15:26)
[2018-03-01] MEDS: Budesonide 0.25 MG/2 ML NEB INH SCH ×2 (07:12→18:37)
[2018-03-01] MEDS: Mometasone/Formoterol 120 PUFF INHALER INH SCH ×2 (07:13→18:50)
[2018-03-01 07:43] LABS: Hemoglobin 7.1 g/dL (12.0-16.0); Platelet Count 128 thou/uL (130-400)
[2018-03-01] MEDS ORDERED: Rivaroxaban 15 MG TAB PO SCH (08:00)
[2018-03-01 08:01] LABS: Anion Gap 17 mmol/L (10-20); BUN (Urea Nitrogen) 99 mg/dL (9.8-20.1); Calc. Creatinine Clearance 11 mL/min (70-130); Calcium 8.2 mg/dL (7.8-10.44); Carbon Dioxide 25 mmol/L (23-31); Chloride 98 mmol/L (98-107); Estimated GFR-MDRD 10; Glucose 108 mg/dL (83-110); Magnesium 2.8 mg/dL (1.6-2.6); Sodium 137 mmol/L (136-145)
[2018-03-01 08:05] LABS: Potassium 2.7 mmol/L (3.5-5.1)
--- NOTE | 2018-03-01 08:20 | PDOC.CTH ---
Cardiology Progress Note - Subjective EP PROGRESS NOTE:03/01/18 Seen as follow up for arrhythmia and device/ ICD management. s/p upgrade to Bi- V ICD last night. + pain, swelling at implant site, weakness. No additional cardiac concerns or complaints. - Objective Vital Signs Temp Pulse Resp BP Pulse Ox 03/01/18 07:09 80 16 98 03/01/18 04:35 97.8 F 82 18 116/56 L 99 03/01/18 03:35 97.1 F L 80 20 114/57 L 100 03/01/18 02:35 81 17 126/57 L 96 03/01/18 01:35 79 18 119/56 L 100 03/01/18 00:48 85 16 100 03/01/18 00:35 82 20 103/55 L 100 02/28/18 23:35 80 20 124/58 L 100 02/28/18 23:32 97.1 F L 02/28/18 23:05 83 20 127/57 L 100 02/28/18 22:35 80 20 134/63 100 02/28/18 22:05 80 20 127/58 L 99 02/28/18 21:35 80 20 122/56 L 100 02/28/18 21:05 97.5 F L 83 18 125/62 98 Weight 167 lb 02/28/18 03/01/18 03/02/18 06:59 06:59 06:59 Intake Total 1349 480 Output Total 1675 2025 Balance -326 -1545 - Physical Examination General/Neuro: alert & oriented x3, NAD Neck: carotid US brisk, no JVD present Lungs: CTA, unlabored respirations Heart: PMI normal, other: (AF) Abdomen: NT/ND, soft Other PE findings: hematoma at ICD site - Telemetry Telemetry Rhythm: AF, [employer] pacing - Labs Result Diagrams: 03/01/18 07:24 03/01/18 07:24 Troponin/CKMB CK-MB (CK-2) 3.2 ng/mL (0-6.6) 02/24/18 13:53 Troponin I 0.215 ng/mL (< 0.028) H 02/25/18 04:59 - Assessment/Plan 1. A/C systolic congestive heart failure 2. Severe mitral regurgitations 3. Persistent atrial fibrillation -s/p AVJ ablation on 02/28/18 -Amiodarone DCd in favor of rate control strategy - Aysmptomatic with AF 4. Ventricular tachycardia 5. Bi-V ICD, medtronic -upgrade on 02/28/18 to correct LV dyssynchrony -hematoma at implant site. pressure dressing applied. Xarelto was ordered BID instead of daily. Xarelto on hold until tomorrow night. 6. CKD 7. Hypokalemia-replete. 8. Anemia -etiology unknown. - Transfused pre procedure. Will transfuse an other unit today. 9. CHADS2-VASC </= 5 - Xarelto on hold until tomorrow d/t hematoma 10. COPD - chronic dyspnea 11. Cardiomyopathy Pressure dressing to remain in place x 2 days. Plan to resume Xarelto tomorrow night at usual renal dose of 15mg PO daily.
--- NOTE | 2018-03-01 09:00 | RAD ---
AP CHEST: Date: 03/01/18 INDICATION: Assess cardiac device placement. COMPARISON: 02/28/18. FINDINGS/IMPRESSION: AICD leads are noted with cardiac device overlying the left chest. There is abnormal opacification of the left lung base obscuring the left hemidiaphragm, consistent wi th dense atelectasis or consolidation. There is evidence of bilateral effusions. Mild vascular conges tion. Cardiomegaly. POS: [facility]
[2018-03-01] MEDS: Midodrine HCl 5 MG TAB PO SCH ×3 (11:33→22:30)
[2018-03-01] MEDS: Potassium Chloride 20 MEQ TAB PO SCH ×3 (11:34→15:25)
[2018-03-01] MEDS: Magnesium Oxide 400 MG TAB PO SCH ×2 (11:34→21:50)
[2018-03-01] MEDS: Levothyroxine Sodium 25 MCG TAB PO SCH (11:34)
[2018-03-01] MEDS: Cephalexin 250 MG CAP PO SCH ×4 (11:34→21:50)
[2018-03-01] MEDS: Carvedilol 3.125 MG TAB PO SCH ×2 (11:34→22:31)
[2018-03-01] MEDS: Bumetanide 1 MG TAB PO SCH (11:34)
[2018-03-01] MEDS: glyBURIDE 2.5 MG TAB PO SCH (11:35)
--- NOTE | 2018-03-01 12:06 | PRG ---
DATE OF SERVICE: 03/01/2018 SUBJECTIVE: An 87-year-old female, who underwent AV ablation yesterday. She is doing better. She is much more awake, responsive. Denies any pain or discomfort. OBJECTIVE: VITAL SIGNS: Saturations are 95% on supplemental oxygen, CHEST: Decreased breath sounds. No wheezing. CARDIAC: Normal S1 and S2. No gallops. ABDOMEN: No masses. IMPRESSION: 1. Chronic obstructive pulmonary disease. 2. Congestive heart failure. 3. Supraventricular tachycardia. PLAN: Continue present neb treatments, PT, supportive care. We will follow. Job ID: [id number]
--- NOTE | 2018-03-01 12:22 | PRG ---
DATE OF SERVICE: 03/01/2018 SUBJECTIVE: Patient was seen and examined at bedside and overnight events noted. Patient denies any shortness of breath or chest pain or palpitation. No history of nausea or vomiting or diarrhea or fever or chills or cramps. OBJECTIVE: GENERAL: This is a thin-built female, in no apparent distress. VITAL SIGNS: Temperature 97.5, pulse 80, respiratory rate , blood pressure 121/57. HEENT: Atraumatic, normocephalic. Oral mucosa is moist NECK: Supple. CARDIOVASCULAR: S1, S2 heard. Rate and rhythm regular. RESPIRATORY: Clear to auscultation. GASTROINTESTINAL: Abdomen is soft. MUSCULOSKELETAL: No tenderness. No edema. DERMATOLOGIC: No skin rash. NEUROLOGIC: Alert and awake and oriented X3. No focal neurologic deficits. Moving all the extremities. PSYCHIATRIC: Mood and affect normal. LABORATORY DATA: Potassium is 2.7, BUN is 99, creatinine is 4.1. ASSESSMENT AND PLAN: 1. Acute kidney injury on chronic kidney disease stage 4. Renal function is stable. No acute indication for dialysis. Continue to monitor. 2. Hypokalemia. We will replace with caution. Recheck labs in the evening. 3. Edema, controlled. 4. Cardiorenal syndrome. Prognosis is guarded. We will follow labs. Renal function seems to be stable. No acute indication for dialysis, but if no significant improvement might need in the near future. We will follow. Job ID: [id number]
--- NOTE | 2018-03-01 12:57 | EKG ---
Test Reason : Blood Pressure : / mmHG Vent. Rate : 080 BPM Atrial Rate : 086 BPM P-R Int : 000 ms QRS Dur : 174 ms QT Int : 524 ms P-R-T Axes : 000 043 011 degrees QTc Int : 604 ms Electronic ventricular pacemaker When compared with ECG of 28-FEB-2018 20:32, (Unconfirmed) No significant change was found Confirmed by DR. Shanda SCHAEFFER (3) on 03/01/2018 12:56:46 PM Referred By: [facility] Confirmed By:DR. Shanda SCHAEFFER
--- NOTE | 2018-03-01 15:04 | PDOC.PN ---
- Subjective Encounter Start Date: 03/01/18 Encounter Start Time: 07:20 Pt seen for followup re: acute hypoxic respiratory failure. c/o SOBOE. - Objective Resuscitation Status - Order Detail: 02/27/18 16:08 Resuscitation Status Routine Resuscitation Status: FULL: Full Resuscitation Discussed with: confirmed with pt MAR Reviewed: Yes Vital Signs & Weight: Vital Signs (12 hours) Temp Pulse Pulse Resp BP BP Pulse Ox 03/01/18 12:48 82 20 97 03/01/18 11:28 98.0 F 70 16 128/60 03/01/18 07:32 97.5 F L 80 20 121/57 L 100 03/01/18 07:09 80 16 98 03/01/18 04:35 97.8 F 82 18 116/56 L 99 03/01/18 03:35 97.1 F L 80 20 114/57 L 100 Weight Weight 167 lb I&O: 02/28/18 03/01/18 03/02/18 06:59 06:59 06:59 Intake Total 1349 480 0 Output Total 1675 2024 Balance -326 -1545 0 Result Diagrams: 03/02/18 05:33 03/02/18 05:33 Additional Labs: Accuchecks 03/01/18 03/01/18 03/01/18 11:25 06:33 05:31 POC Glucose 124 H 103 54 L* 02/28/18 02/28/18 02/28/18 21:09 16:43 16:29 POC Glucose 98 149 H 63 L EKG Reviewed by me: Yes (Tele: demand V-paced) Phys Exam - Physical Examination Constitutional: NAD HEENT: moist MMs Neck: supple Respiratory: clear to auscultation bilateral Cardiovascular: irregular Gastrointestinal: soft Neurological: moves all 4 limbs Psychiatric: normal affect Dx/Plan (1) Acute respiratory failure with hypoxia Code(s): J96.01 - ACUTE RESPIRATORY FAILURE WITH HYPOXIA Status: Acute Comment: continue diuretics (2) Demand ischemia Code(s): I24.8 - OTHER FORMS OF ACUTE ISCHEMIC HEART DISEASE Status: Acute Comment: stable (3) Acute on chronic systolic CHF (congestive heart failure), NYHA class 3 Code(s): I50.23 - ACUTE ON CHRONIC SYSTOLIC (CONGESTIVE) HEART FAILURE Status : Acute Comment: on IV furosemide (4) Acute worsening of stage 4 chronic kidney disease Code(s): N18.4 - CHRONIC KIDNEY DISEASE, STAGE 4 (SEVERE) Status: Acute Comment: creatinine worsened to 4.11 today (5) CAD (coronary artery disease) Code(s): I25.10 - ATHSCL HEART DISEASE OF [place] CORONARY ARTERY W/O ANG PCTRS Status: Chronic Qualifiers: Coronary Disease-Associated Artery/Lesion type: [place] artery [place] vs. transplanted heart: [place] heart Associated angina: without angina Qualified Code(s): I25.10 - Atherosclerotic heart disease of [place] coronary artery without angina pectoris Comment: stable (6) DM type 2 (diabetes mellitus, type 2) Status: Chronic Qualifiers: Diabetes mellitus salvage determiner insulin use: without halfway use Diabetes mellitus complication status: with unspecified complications Qualified Code(s) : E11.8 - Type 2 diabetes mellitus with unspecified complications Comment: reasonable control (7) Dyslipidemia Code(s): E78.5 - HYPERLIPIDEMIA, UNSPECIFIED Status: Chronic Comment: on statin (8) Hypertension Code(s): I10 - ESSENTIAL (PRIMARY) HYPERTENSION Status: Chronic Qualifiers: Hypertension type: essential hypertension Qualified Code(s): I10 - Essential (primary) hypertension Comment: controlled (9) Hypothyroidism Code(s): E03.9 - HYPOTHYROIDISM, UNSPECIFIED Status: Chronic Qualifiers: Hypothyroidism type: unspecified Qualified Code(s): E03.9 - Hypothyroidism , unspecified Comment: on synthroid - Plan * . Review of Systems - Review of Systems Respiratory: SOB with Excertion. negative: Cough, Shortness of Breath, Pleuritic Pain, Wheezing Cardiovascular: negative: chest pain, palpitations, orthopnea, paroxysmal nocturnal dyspnea, edema, light headedness - Medications/Allergies Allergies/Adverse Reactions: Allergies Allergy/AdvReac Type Severity Reaction Status Date / Time codeine [Codeine] Allergy Severe CHEST Verified 02/24/18 19:39 TIGHTNESS levofloxacin [From Levaquin] Allergy Intermediate Rash Verified 02/24/18 19:39 adhesive tape Allergy Verified 02/24/18 19:39 duloxetine [From Cymbalta] AdvReac Verified 02/24/18 19:39 Medications: Current Medications Acetaminophen (Tylenol) 650 mg PO Q4H PRN PRN Reason: Headache/Fever/Mild Pain (1-3) Last Admin: 02/26/18 21:13 Dose: 650 mg Albuterol/Ipratropium (Duoneb) 3 ml NEB Q4H PRN PRN Reason: Dyspnea Last Admin: 02/27/18 14:12 Dose: 3 ml Albuterol/Ipratropium (Duoneb) 3 ml NEB [id number] [facility] Last Admin: 03/01/18 12:48 Dose: 3 ml Budesonide (Pulmicort Neb Solution) 0.25 mg INH BID-RT [facility] Last Admin: 03/01/18 07:12 Dose: 0.25 mg Bumetanide (Bumex) 1 mg PO QAM [facility] Last Admin: 03/01/18 11:34 Dose: 1 mg Carvedilol (Coreg) 3.125 mg PO BID [facility] Last Admin: 03/01/18 11:34 Dose: 3.125 mg Cephalexin (Keflex) 250 mg PO QID [facility] Stop: 03/07/18 17:01 Last Admin: 03/01/18 11:34 Dose: 250 mg Dextrose/Water (Dextrose 50%) 25 gm SLOW IVP PRN PRN PRN Reason: Hypoglycemia Last Admin: 02/28/18 10:44 Dose: 25 gm Diphenhydramine HCl (Benadryl) 25 mg PO HS [facility] Last Admin: 02/28/18 23:36 Dose: 25 mg Furosemide (Lasix) 40 mg SLOW IVP 0600,1400 [facility] Last Admin: 03/01/18 06:40 Dose: 40 mg Glucagon (Glucagon) 1 mg IM PRN PRN PRN Reason: Hypoglycemia Glyburide (Micronase) 2.5 mg PO DAILY-AC [facility] Last Admin: 03/01/18 11:35 Dose: Not Given Dextrose/Water (D5w) 1,000 mls @ 0 mls/hr IV .Q0M PRN PRN Reason: Hypoglycemia Insulin Human Lispro (Humalog) 0 units SC .MILD SLIDING SCALE PRN PRN Reason: Mild Correctional Scale Last Admin: 02/27/18 16:51 Dose: 4 unit Levothyroxine Sodium (Synthroid) 50 mcg PO DAILY [facility] Last Admin: 03/01/18 11:34 Dose: 50 mcg Magnesium Oxide (Magnesium Oxide) 400 mg PO BID [facility] Last Admin: 03/01/18 11:34 Dose: 400 mg Melatonin (Melatonin) 3 mg PO HS PRN PRN Reason: Insomnia Last Admin: 02/27/18 21:29 Dose: 3 mg Midodrine (Proamatine) 5 mg PO TID [facility] Last Admin: 03/01/18 11:33 Dose: Not Given Mometasone Furoate/Formoterol Fumar (Dulera 100 Mcg/5 Mcg Inhaler) 2 puff INH BID-RT [facility] Last Admin: 03/01/18 07:13 Dose: 2 puff Ondansetron HCl (Zofran) 4 mg IVP Q6H PRN PRN Reason: Nausea/Vomiting Last Admin: 03/01/18 06:37 Dose: 4 mg Potassium Chloride (K-Dur) 40 meq PO TID [facility] Stop: 03/02/18 09:01 Last Admin: 03/01/18 11:35 Dose: 40 meq Rivaroxaban (Xarelto) 15 mg PO BID-[facility] Rosuvastatin Calcium (Crestor) 5 mg PO QPM [facility] Last Admin: 02/28/18 23:35 Dose: 5 mg Sodium Chloride (Flush - Normal Saline) 10 ml IVF Q12HR PRN PRN Reason: Saline Flush Last Admin: 02/28/18 01:18 Dose: 10 ml Sodium Chloride (Flush - Normal Saline) 10 ml IVF PRN PRN PRN Reason: Saline Flush
[2018-03-01 20:29] LABS: Potassium 4.3 mmol/L (3.5-5.1)
[2018-03-01] MEDS: Rosuvastatin 5 MG TAB PO SCH (21:50)
[2018-03-01] MEDS: Acetaminophen 325 MG TAB PO PRN (21:50)
[2018-03-01] MEDS: diphenhydrAMINE 25 MG CAP PO SCH (21:50)
[2018-03-01] MEDS: Carvedilol 6.25 MG TAB PO SCH (22:02)
[2018-03-02] MEDS: Acetaminophen 325 MG TAB PO PRN ×3 (05:34→20:34)
[2018-03-02] MEDS: Furosemide 40 MG/4 ML VIAL SLOW IVP SCH ×2 (05:34→13:02)
[2018-03-02 06:03] LABS: Mean Corpuscular HGB CONC 31.9 g/dL (32.0-36.0); Mean Corpuscular Hemoglobin 28.4 pg (27.0-31.0); Mean Platelet Volume 10.8 fL (7.4-10.4); Platelet Count 120 thou/uL (130-400); RBC Distribution Width 18.4 % (11.5-14.5); Red Blood Cell (RBC) Count 3.18 mill/uL (4.20-5.40); White Blood Cell (WBC) Count 10.5 thou/uL (4.8-10.8)
[2018-03-02 06:28] LABS: Anion Gap 16 mmol/L (10-20); BUN (Urea Nitrogen) 93 mg/dL (9.8-20.1); Calc. Creatinine Clearance 11 mL/min (70-130); Calcium 8.5 mg/dL (7.8-10.44); Carbon Dioxide 23 mmol/L (23-31); Chloride 99 mmol/L (98-107); Estimated GFR-MDRD 10; Glucose 104 mg/dL (83-110); Potassium 4.8 mmol/L (3.5-5.1); Sodium 133 mmol/L (136-145)
[2018-03-02] MEDS: Mometasone/Formoterol 120 PUFF INHALER INH SCH ×2 (08:09→19:12)
[2018-03-02] MEDS: Budesonide 0.25 MG/2 ML NEB INH SCH ×2 (08:12→19:16)
[2018-03-02] MEDS: Bumetanide 1 MG TAB PO SCH (08:21)
[2018-03-02] MEDS: Carvedilol 6.25 MG TAB PO SCH ×2 (08:22→20:32)
[2018-03-02] MEDS: Cephalexin 250 MG CAP PO SCH ×4 (08:22→20:33)
[2018-03-02] MEDS: Magnesium Oxide 400 MG TAB PO SCH ×2 (08:22→20:33)
[2018-03-02] MEDS: Midodrine HCl 5 MG TAB PO SCH ×3 (08:23→20:33)
[2018-03-02] MEDS: Levothyroxine Sodium 25 MCG TAB PO SCH (08:23)
[2018-03-02] MEDS: glyBURIDE 2.5 MG TAB PO SCH (08:23)
--- NOTE | 2018-03-02 10:38 | PRG ---
DATE OF SERVICE: 03/02/2018 SUBJECTIVE: She looks much improved. Less short of breath, less cough, and less wheezing. Renal function improving. They are in the process of trying to get her to rehab in the next several days. Pulmonary rogers, she appears stable. OBJECTIVE: VITAL SIGNS: Respirations are 18, pulse is 80, blood pressure . CHEST: Reveal decreased breath sounds. No wheezing. CARDIAC: Normal S1, S2. No gallops. ABDOMEN: Soft. IMPRESSION: Congestive heart failure, chronic obstructive pulmonary disease, status post ablation, renal failure. Pulmonary will follow at a distance. She can probably be transferred to the rehab any time. Job ID: [id number]
[2018-03-02] MEDS ORDERED: Warfarin Sodium 5 MG TAB PO SCH (12:45)
--- NOTE | 2018-03-02 15:46 | PDOC.PN ---
- Subjective Encounter Start Date: 03/02/18 Encounter Start Time: 07:20 Pt seen for followup re: acute hypoxic respiratory failure. Feels slightly better. - Objective Resuscitation Status - Order Detail: 02/27/18 16:08 Resuscitation Status Routine Resuscitation Status: FULL: Full Resuscitation Discussed with: confirmed with pt MAR Reviewed: Yes Vital Signs & Weight: Vital Signs (12 hours) Temp Pulse Pulse Pulse Resp BP BP 03/02/18 14:16 101 H 20 03/02/18 11:25 71 69 115/54 L 112/53 L 03/02/18 11:23 97.7 F 69 16 03/02/18 08:10 70 18 03/02/18 08:00 03/02/18 07:43 97.5 F L 75 14 BP Pulse Ox Pulse Ox Pulse Ox 03/02/18 14:16 03/02/18 11:25 98 100 03/02/18 11:23 116/58 L 100 03/02/18 08:10 03/02/18 08:00 100 03/02/18 07:43 109/52 L 100 Weight Weight 169 lb 6.4 oz I&O: 03/01/18 03/02/18 03/03/18 06:59 06:59 06:59 Intake Total 480 1290 300 Output Total 2024 1500 550 Balance -1546 -210 -250 Result Diagrams: 03/02/18 05:33 03/03/18 04:35 Additional Labs: Accuchecks 03/02/18 03/02/18 03/01/18 10:17 05:33 20:42 POC Glucose 122 H 113 H 131 H 03/01/18 16:58 POC Glucose 139 H EKG Reviewed by me: Yes (Tele: V-paced) Phys Exam - Physical Examination Constitutional: NAD HEENT: moist MMs Neck: supple Respiratory: clear to auscultation bilateral Cardiovascular: RRR Gastrointestinal: soft Neurological: moves all 4 limbs Psychiatric: normal affect Dx/Plan (1) Acute respiratory failure with hypoxia Code(s): J96.01 - ACUTE RESPIRATORY FAILURE WITH HYPOXIA Status: Acute Comment: Improving with diuretics (2) Demand ischemia Code(s): I24.8 - OTHER FORMS OF ACUTE ISCHEMIC HEART DISEASE Status: Acute Comment: stable (3) Acute on chronic systolic CHF (congestive heart failure), NYHA class 3 Code(s): I50.23 - ACUTE ON CHRONIC SYSTOLIC (CONGESTIVE) HEART FAILURE Status : Acute Comment: continue IV furosemide (4) Acute worsening of stage 4 chronic kidney disease Code(s): N18.4 - CHRONIC KIDNEY DISEASE, STAGE 4 (SEVERE) Status: Acute Comment: creatinine stabilizing, 4.06 today (5) CAD (coronary artery disease) Code(s): I25.10 - ATHSCL HEART DISEASE OF [place] CORONARY ARTERY W/O ANG PCTRS Status: Chronic Qualifiers: Coronary Disease-Associated Artery/Lesion type: [place] artery [place] vs. transplanted heart: [place] heart Associated angina: without angina Qualified Code(s): I25.10 - Atherosclerotic heart disease of [place] coronary artery without angina pectoris Comment: stable (6) DM type 2 (diabetes mellitus, type 2) Status: Chronic Qualifiers: Diabetes mellitus biotech production specialist insulin use: without prison use Diabetes mellitus complication status: with unspecified complications Qualified Code(s) : E11.8 - Type 2 diabetes mellitus with unspecified complications Comment: reasonable control (7) Dyslipidemia Code(s): E78.5 - HYPERLIPIDEMIA, UNSPECIFIED Status: Chronic Comment: on statin (8) Hypertension Code(s): I10 - ESSENTIAL (PRIMARY) HYPERTENSION Status: Chronic Qualifiers: Hypertension type: essential hypertension Qualified Code(s): I10 - Essential (primary) hypertension Comment: controlled (9) Hypothyroidism Code(s): E03.9 - HYPOTHYROIDISM, UNSPECIFIED Status: Chronic Qualifiers: Hypothyroidism type: unspecified Qualified Code(s): E03.9 - Hypothyroidism , unspecified Comment: continue synthroid - Plan * . s/p PPM upgrade Review of Systems - Review of Systems Cardiovascular: negative: chest pain, palpitations, orthopnea, paroxysmal nocturnal dyspnea, edema, light headedness Gastrointestinal: negative: Nausea, Vomiting, Abdominal Pain, Diarrhea, Constipation, Melena, Hematochezia - Medications/Allergies Allergies/Adverse Reactions: Allergies Allergy/AdvReac Type Severity Reaction Status Date / Time codeine [Codeine] Allergy Severe CHEST Verified 02/24/18 19:39 TIGHTNESS levofloxacin [From Levaquin] Allergy Intermediate Rash Verified 02/24/18 19:39 adhesive tape Allergy Verified 02/24/18 19:39 duloxetine [From Cymbalta] AdvReac Verified 02/24/18 19:39 Medications: Current Medications Acetaminophen (Tylenol) 650 mg PO Q4H PRN PRN Reason: Headache/Fever/Mild Pain (1-3) Last Admin: 03/02/18 13:03 Dose: 650 mg Albuterol/Ipratropium (Duoneb) 3 ml NEB Q4H PRN PRN Reason: Dyspnea Last Admin: 02/27/18 14:12 Dose: 3 ml Albuterol/Ipratropium (Duoneb) 3 ml NEB [id number] [facility] Last Admin: 03/02/18 14:16 Dose: 3 ml Budesonide (Pulmicort Neb Solution) 0.25 mg INH BID-RT [facility] Last Admin: 03/02/18 08:12 Dose: 0.25 mg Bumetanide (Bumex) 1 mg PO QAM [facility] Last Admin: 03/02/18 08:21 Dose: 1 mg Carvedilol (Coreg) 3.125 mg PO BID [facility] Last Admin: 03/02/18 08:22 Dose: 3.125 mg Cephalexin (Keflex) 250 mg PO QID [facility] Stop: 03/07/18 17:01 Last Admin: 03/02/18 13:02 Dose: 250 mg Dextrose/Water (Dextrose 50%) 25 gm SLOW IVP PRN PRN PRN Reason: Hypoglycemia Last Admin: 02/28/18 10:44 Dose: 25 gm Diphenhydramine HCl (Benadryl) 25 mg PO HS [facility] Last Admin: 03/01/18 21:50 Dose: 25 mg Furosemide (Lasix) 40 mg SLOW IVP 0600,1400 [facility] Last Admin: 03/02/18 13:02 Dose: 40 mg Glucagon (Glucagon) 1 mg IM PRN PRN PRN Reason: Hypoglycemia Glyburide (Micronase) 2.5 mg PO DAILY-AC [facility] Last Admin: 03/02/18 08:23 Dose: 2.5 mg Dextrose/Water (D5w) 1,000 mls @ 0 mls/hr IV .Q0M PRN PRN Reason: Hypoglycemia Insulin Human Lispro (Humalog) 0 units SC .MILD SLIDING SCALE PRN PRN Reason: Mild Correctional Scale Last Admin: 02/27/18 16:51 Dose: 4 unit Levothyroxine Sodium (Synthroid) 50 mcg PO DAILY [facility] Last Admin: 03/02/18 08:23 Dose: 50 mcg Magnesium Oxide (Magnesium Oxide) 400 mg PO BID [facility] Last Admin: 03/02/18 08:22 Dose: 400 mg Melatonin (Melatonin) 3 mg PO HS PRN PRN Reason: Insomnia Last Admin: 02/27/18 21:29 Dose: 3 mg Midodrine (Proamatine) 5 mg PO TID [facility] Last Admin: 03/02/18 13:53 Dose: Not Given Mometasone Furoate/Formoterol Fumar (Dulera 100 Mcg/5 Mcg Inhaler) 2 puff INH BID-RT [facility] Last Admin: 03/02/18 08:09 Dose: 2 puff Ondansetron HCl (Zofran) 4 mg IVP Q6H PRN PRN Reason: Nausea/Vomiting Last Admin: 03/01/18 06:37 Dose: 4 mg Rosuvastatin Calcium (Crestor) 5 mg PO QPM [facility] Last Admin: 03/01/18 21:50 Dose: 5 mg Sodium Chloride (Flush - Normal Saline) 10 ml IVF Q12HR PRN PRN Reason: Saline Flush Last Admin: 02/28/18 01:18 Dose: 10 ml Sodium Chloride (Flush - Normal Saline) 10 ml IVF PRN PRN PRN Reason: Saline Flush Warfarin Sodium (Coumadin) 2.5 mg PO 1700 [facility]
[2018-03-02] MEDS: Warfarin Sodium 2.5 MG TAB PO SCH (16:38)
[2018-03-02] MEDS ORDERED: Rivaroxaban 15 MG TAB PO SCH ×2 (17:00→21:00)
--- NOTE | 2018-03-02 17:32 | PDOC.CTH ---
Cardiology Progress Note - Subjective EP progress note 03/02/18 Pt feels fair. Still in bed. ambulation started,. Feels stronger post transfusion. - Objective Vital Signs Temp Pulse Pulse Pulse Resp BP BP 03/02/18 15:55 03/02/18 15:52 98.0 F 69 16 03/02/18 14:16 101 H 20 03/02/18 11:25 71 69 115/54 L 112/53 L 03/02/18 11:23 97.7 F 69 16 03/02/18 08:10 70 18 03/02/18 08:00 03/02/18 07:43 97.5 F L 75 14 BP Pulse Ox Pulse Ox Pulse Ox 03/02/18 15:55 100 03/02/18 15:52 100 03/02/18 14:16 03/02/18 11:25 98 100 03/02/18 11:23 116/58 L 100 03/02/18 08:10 03/02/18 08:00 100 03/02/18 07:43 109/52 L 100 Weight 169 lb 6.4 oz 03/01/18 03/02/18 03/03/18 06:59 06:59 06:59 Intake Total 480 1290 300 Output Total 2025 1500 550 Balance -1545 -210 -250 - Physical Examination General/Neuro: alert & oriented x3, NAD Neck: no JVD present Lungs: CTA Heart: RRR Abdomen: no HSM, soft - Telemetry Telemetry Rhythm: afib, 3rd degree AV block. V paced. - Labs Result Diagrams: 03/02/18 05:33 03/02/18 05:33 Troponin/CKMB CK-MB (CK-2) 3.2 ng/mL (0-6.6) 02/24/18 13:53 Troponin I 0.215 ng/mL (< 0.028) H 02/25/18 04:59 - Assessment/Plan - Assessment/Plan 1. A/C systolic congestive heart failure 2. Severe mitral regurgitations 3. Persistent atrial fibrillation -s/p AVJ ablation on 02/28/18 -Amiodarone DCd in favor of rate control strategy - Aysmptomatic with AF 4. Ventricular tachycardia 5. Bi-V ICD, medtronic -upgrade on 02/28/18 to correct LV dyssynchrony -hematoma at implant site. pressure dressing applied. Will start Coumadin in favor over Xarelto hence renal insuf. 6. CKD 7. Hypokalemia-replete. 8. Anemia -etiology unknown. - Transfused pre procedure. Will transfuse an other unit today. 9. CHADS2-VASC </= 5 Warfarin to start tonight . Please adjust to keep INR 2-2.5 10. COPD - chronic dyspnea 11. Cardiomyopathy
[2018-03-02] MEDS: Rosuvastatin 5 MG TAB PO SCH (20:33)
[2018-03-02] MEDS: diphenhydrAMINE 25 MG CAP PO SCH (20:33)
[2018-03-03] MEDS: Dextrose 50% Abboject 50 ML SYRINGE SLOW IVP PRN ×3 (00:06→14:51)
[2018-03-03] MEDS: Acetaminophen 325 MG TAB PO PRN ×2 (00:48→22:39)
[2018-03-03] MEDS: Furosemide 40 MG/4 ML VIAL SLOW IVP SCH (05:06)
[2018-03-03 05:58] LABS: Anion Gap 13 mmol/L (10-20); BUN (Urea Nitrogen) 92 mg/dL (9.8-20.1); Calc. Creatinine Clearance 12 mL/min (70-130); Calcium 8.3 mg/dL (7.8-10.44); Carbon Dioxide 26 mmol/L (23-31); Chloride 102 mmol/L (98-107); Estimated GFR-MDRD 11; Sodium 137 mmol/L (136-145)
[2018-03-03 06:01] LABS: Glucose 38 mg/dL (83-110)
[2018-03-03] MEDS: Mometasone/Formoterol 120 PUFF INHALER INH SCH ×2 (07:16→19:14)
[2018-03-03] MEDS: Budesonide 0.25 MG/2 ML NEB INH SCH ×2 (07:18→19:13)
--- NOTE | 2018-03-03 07:39 | PRG ---
DATE OF SERVICE: 03/02/2018 SUBJECTIVE: Patient was seen and examined at bedside and overnight events noted. Patient denies any shortness of breath or chest pain or palpitation. No history of nausea or vomiting or diarrhea or fever or chills or cramps. OBJECTIVE: GENERAL: This is an elderly female, in no apparent distress. VITAL SIGNS: Temperature 97.7. Pulse 69. Respiratory rate 16. Blood pressure 112/53. HEENT: Atraumatic, normocephalic. Oral mucosa is moist NECK: Supple. CARDIOVASCULAR: S1, S2 heard. Rate and rhythm regular. RESPIRATORY: Clear to auscultation. GASTROINTESTINAL: Abdomen is soft. MUSCULOSKELETAL: No tenderness. No edema. DERMATOLOGIC: No skin rash. NEUROLOGIC: Alert and awake and oriented X3. No focal neurologic deficits. Moving all the extremities. PSYCHIATRIC: Mood and affect normal. LABORATORY DATA: Potassium 4.8, BUN is 93, and creatinine is 4.0 ASSESSMENT AND PLAN: 1. Acute kidney injury on chronic kidney disease, stage 4. Stable labs, but might have to consider renal replacement if no significant improvement in next few days. 2. Hypokalemia. 3. Edema. 4. Cardiorenal syndrome. The patient is status post renal replacement therapy. We will continue to monitor. Job ID: [id number]
[2018-03-03] MEDS: glyBURIDE 2.5 MG TAB PO SCH (08:50)
[2018-03-03] MEDS: Bumetanide 1 MG TAB PO SCH (10:26)
[2018-03-03] MEDS: Midodrine HCl 5 MG TAB PO SCH ×5 (10:27→22:39)
[2018-03-03] MEDS: Cephalexin 250 MG CAP PO SCH ×4 (10:27→22:39)
[2018-03-03] MEDS: Carvedilol 6.25 MG TAB PO SCH ×2 (10:28→23:02)
[2018-03-03] MEDS: Levothyroxine Sodium 25 MCG TAB PO SCH (10:28)
[2018-03-03] MEDS: Magnesium Oxide 400 MG TAB PO SCH ×2 (10:28→22:39)
--- NOTE | 2018-03-03 11:54 | PRG ---
DATE OF SERVICE: 03/03/2018 SUBJECTIVE: This morning, she is better. She is still weak. OBJECTIVE: VITAL SIGNS: Blood pressure is 112/50, pulse 70, saturation 90% on room air, respiratory rate 20, and temperature 97. CHEST: Minimal crackles. CARDIAC: Normal S1 and S2. No gallops. ABDOMEN: No masses. LABORATORY DATA: Blood sugar had dropped to 38, it is 115 right now. IMPRESSION: 1. Renal failure, creatinine 3.76. 2. Chronic obstructive pulmonary disease. 3. Hypoglycemia. PLAN: Trying to get her to rehab. Continue supportive care and PT. If hypoglycemia persists, we may to consider discontinuing glyburide. Job ID: [id number]
--- NOTE | 2018-03-03 13:51 | EKG ---
Test Reason : Blood Pressure : / mmHG Vent. Rate : 093 BPM Atrial Rate : 093 BPM P-R Int : 000 ms QRS Dur : 134 ms QT Int : 410 ms P-R-T Axes : 000 -09 196 degrees QTc Int : 509 ms Demand pacemaker; interpretation is based on intrinsic rhythm Undetermined rhythm Non-specific intra-ventricular conduction block T wave abnormality, consider lateral ischemia Abnormal ECG Confirmed by DUNCAN FRANK D.O. ([id number]), editor department GONZALES BARROS ([id number] on 03/03/2018 1:51:15 PM Referred By: Confirmed By:DUNCAN FRANK D.O.
--- NOTE | 2018-03-03 14:16 | PDOC.CTH ---
Cardiology Progress Note - Subjective EP progress note 03/03/18 Pt feels fair. Starting ambulating yesterday. Feels stronger post transfusion. Low blood sugar issues today. - Objective Vital Signs Temp Pulse Pulse Pulse Resp BP BP 03/03/18 12:19 97.6 F 70 20 03/03/18 08:40 70 69 112/54 L 115/54 L 03/03/18 08:05 97.6 F 70 20 03/03/18 07:19 75 16 03/03/18 07:18 75 16 03/03/18 07:16 75 16 03/03/18 05:00 03/03/18 04:10 97.4 F L 70 18 BP Pulse Ox 03/03/18 12:19 112/55 L 100 03/03/18 08:40 03/03/18 08:05 125/59 L 95 03/03/18 07:19 100 03/03/18 07:18 100 03/03/18 07:16 100 03/03/18 05:00 108/50 L 03/03/18 04:10 96/52 L 100 Weight 169 lb 4.8 oz 03/02/18 03/03/18 03/04/18 06:59 06:59 06:59 Intake Total 1290 1740 Output Total 1500 1850 Balance -210 -110 - Physical Examination General/Neuro: alert & oriented x3, NAD Neck: carotid US brisk, no JVD present Lungs: CTA, unlabored respirations Heart: PMI normal, other: (AF) Abdomen: NT/ND, soft - Telemetry Telemetry Rhythm: AF, 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 rate controlled - Labs Result Diagrams: 03/02/18 05:33 03/03/18 04:35 Troponin/CKMB CK-MB (CK-2) 3.2 ng/mL (0-6.6) 02/24/18 13:53 Troponin I 0.215 ng/mL (< 0.028) H 02/25/18 04:59 - Assessment/Plan 1. A/C systolic congestive heart failure 2. Severe mitral regurgitations 3. Persistent atrial fibrillation -s/p AVJ ablation on 02/28/18 -Amiodarone DCd 02/28/18 in favor of rate control strategy -Aysmptomatic with AF 4. Ventricular tachycardia 5. Bi-V ICD, medtronic -upgrade on 02/28/18 to correct LV dyssynchrony -hematoma at implant site. pressure dressing reapplied today. Keep in place over weekend and change PRN 6. CKD -Creat 3.76 -per nephrology 7. Hypokalemia -4.0 today 8. Anemia -Etiology unknown. -Transfused pre procedure and on 03/02/18. HGB 9 today 9. CHADS2-VASC </= 5 -Warfarin to started last night with acute/chronic renal disease. Please adjust to keep INR 2-2.5 10. COPD - chronic dyspnea 11. Cardiomyopathy Continue keflex 250mg QID x 7 days post ICD implant.
--- NOTE | 2018-03-03 14:20 | PDOC.PN ---
- Subjective Encounter Start Date: 03/03/18 Encounter Start Time: 08:40 Pt seen for followup re: acute hypoxic respiratory failure. Feels better, had episodes of hypoglycemia. - Objective Resuscitation Status - Order Detail: 02/27/18 16:08 Resuscitation Status Routine Resuscitation Status: FULL: Full Resuscitation Discussed with: confirmed with pt MAR Reviewed: Yes Vital Signs & Weight: Vital Signs (12 hours) Temp Pulse Pulse Pulse Resp BP BP 03/03/18 12:19 97.6 F 70 20 03/03/18 08:40 70 69 112/54 L 115/54 L 03/03/18 08:05 97.6 F 70 20 03/03/18 07:19 75 16 03/03/18 07:18 75 16 03/03/18 07:16 75 16 03/03/18 05:00 03/03/18 04:10 97.4 F L 70 18 BP Pulse Ox 03/03/18 12:19 112/55 L 100 03/03/18 08:40 03/03/18 08:05 125/59 L 95 03/03/18 07:19 100 03/03/18 07:18 100 03/03/18 07:16 100 03/03/18 05:00 108/50 L 03/03/18 04:10 96/52 L 100 Weight Weight 169 lb 4.8 oz I&O: 03/02/18 03/03/18 03/04/18 06:59 06:59 06:59 Intake Total 1290 1740 Output Total 1500 1850 Balance -210 -110 Result Diagrams: 03/02/18 05:33 03/03/18 04:35 Additional Labs: Accuchecks 03/03/18 03/03/18 03/03/18 10:55 05:31 05:03 POC Glucose 115 H 213 H 45 L* 03/03/18 03/03/18 03/02/18 00:49 00:03 20:13 POC Glucose 163 H 46 L* 85 03/02/18 17:17 POC Glucose 74 EKG Reviewed by me: Yes (Tele: V-paced rhythm) Phys Exam - Physical Examination Constitutional: NAD HEENT: moist MMs Neck: supple Respiratory: clear to auscultation bilateral Cardiovascular: RRR Gastrointestinal: soft Neurological: moves all 4 limbs Psychiatric: normal affect Dx/Plan (1) Acute respiratory failure with hypoxia Code(s): J96.01 - ACUTE RESPIRATORY FAILURE WITH HYPOXIA Status: Acute Comment: continue diuretics (2) Hypoglycemia Code(s): E16.2 - HYPOGLYCEMIA, UNSPECIFIED Status: Acute Comment: discontinue glyburide. Pt is on hypoglycemia protocol. (3) Acute on chronic systolic CHF (congestive heart failure), NYHA class 3 Code(s): I50.23 - ACUTE ON CHRONIC SYSTOLIC (CONGESTIVE) HEART FAILURE Status : Acute Comment: IV furosemide (4) Acute worsening of stage 4 chronic kidney disease Code(s): N18.4 - CHRONIC KIDNEY DISEASE, STAGE 4 (SEVERE) Status: Acute Comment: creatinine stabilizing, 3.76 today (5) CAD (coronary artery disease) Code(s): I25.10 - ATHSCL HEART DISEASE OF [place] CORONARY ARTERY W/O ANG PCTRS Status: Chronic Qualifiers: Coronary Disease-Associated Artery/Lesion type: [place] artery [place] vs. transplanted heart: [place] heart Associated angina: without angina Qualified Code(s): I25.10 - Atherosclerotic heart disease of [place] coronary artery without angina pectoris Comment: stable (6) DM type 2 (diabetes mellitus, type 2) Status: Chronic Qualifiers: Diabetes mellitus assisted insulin use: without assisted use Diabetes mellitus complication status: with unspecified complications Qualified Code(s) : E11.8 - Type 2 diabetes mellitus with unspecified complications Comment: episodes of hypoglycemia (7) Dyslipidemia Code(s): E78.5 - HYPERLIPIDEMIA, UNSPECIFIED Status: Chronic Comment: continue statin (8) Hypertension Code(s): I10 - ESSENTIAL (PRIMARY) HYPERTENSION Status: Chronic Qualifiers: Hypertension type: essential hypertension Qualified Code(s): I10 - Essential (primary) hypertension Comment: controlled (9) Hypothyroidism Code(s): E03.9 - HYPOTHYROIDISM, UNSPECIFIED Status: Chronic Qualifiers: Hypothyroidism type: unspecified Qualified Code(s): E03.9 - Hypothyroidism , unspecified Comment: continue synthroid (10) Demand ischemia Code(s): I24.8 - OTHER FORMS OF ACUTE ISCHEMIC HEART DISEASE Status: Resolved - Plan * . Review of Systems - Review of Systems Respiratory: SOB with Excertion. negative: Cough, Shortness of Breath, Pleuritic Pain, Wheezing Cardiovascular: negative: chest pain, palpitations, orthopnea, paroxysmal nocturnal dyspnea, edema, light headedness - Medications/Allergies Allergies/Adverse Reactions: Allergies Allergy/AdvReac Type Severity Reaction Status Date / Time codeine [Codeine] Allergy Severe CHEST Verified 02/24/18 19:39 TIGHTNESS levofloxacin [From Levaquin] Allergy Intermediate Rash Verified 02/24/18 19:39 adhesive tape Allergy Verified 02/24/18 19:39 duloxetine [From Cymbalta] AdvReac Verified 02/24/18 19:39 Medications: Current Medications Acetaminophen (Tylenol) 650 mg PO Q4H PRN PRN Reason: Headache/Fever/Mild Pain (1-3) Last Admin: 03/03/18 00:48 Dose: 650 mg Albuterol/Ipratropium (Duoneb) 3 ml NEB Q4H PRN PRN Reason: Dyspnea Last Admin: 02/27/18 14:12 Dose: 3 ml Albuterol/Ipratropium (Duoneb) 3 ml NEB [id number] [facility] Last Admin: 03/03/18 07:19 Dose: 3 ml Budesonide (Pulmicort Neb Solution) 0.25 mg INH BID-RT [facility] Last Admin: 03/03/18 07:18 Dose: 0.25 mg Bumetanide (Bumex) 1 mg PO QAM [facility] Last Admin: 03/03/18 10:26 Dose: 1 mg Carvedilol (Coreg) 3.125 mg PO BID [facility] Last Admin: 03/03/18 10:28 Dose: 3.125 mg Cephalexin (Keflex) 250 mg PO QID [facility] Stop: 03/07/18 17:01 Last Admin: 03/03/18 10:27 Dose: 250 mg Dextrose/Water (Dextrose 50%) 25 gm SLOW IVP PRN PRN PRN Reason: Hypoglycemia Last Admin: 03/03/18 05:05 Dose: 25 gm Diphenhydramine HCl (Benadryl) 25 mg PO HS [facility] Last Admin: 03/02/18 20:33 Dose: 25 mg Furosemide (Lasix) 40 mg SLOW IVP 0600 [facility] Glucagon (Glucagon) 1 mg IM PRN PRN PRN Reason: Hypoglycemia Glyburide (Micronase) 2.5 mg PO DAILY-AC [facility] Last Admin: 03/03/18 08:50 Dose: Not Given Dextrose/Water (D5w) 1,000 mls @ 0 mls/hr IV .Q0M PRN PRN Reason: Hypoglycemia Insulin Human Lispro (Humalog) 0 units SC .MILD SLIDING SCALE PRN PRN Reason: Mild Correctional Scale Last Admin: 02/27/18 16:51 Dose: 4 unit Levothyroxine Sodium (Synthroid) 50 mcg PO DAILY [facility] Last Admin: 03/03/18 10:28 Dose: 50 mcg Magnesium Oxide (Magnesium Oxide) 400 mg PO BID [facility] Last Admin: 03/03/18 10:28 Dose: 400 mg Melatonin (Melatonin) 3 mg PO HS PRN PRN Reason: Insomnia Last Admin: 02/27/18 21:29 Dose: 3 mg Midodrine (Proamatine) 5 mg PO TID [facility] Last Admin: 03/03/18 10:28 Dose: Not Given Mometasone Furoate/Formoterol Fumar (Dulera 100 Mcg/5 Mcg Inhaler) 2 puff INH BID-RT [facility] Last Admin: 03/03/18 07:16 Dose: 2 puff Ondansetron HCl (Zofran) 4 mg IVP Q6H PRN PRN Reason: Nausea/Vomiting Last Admin: 03/01/18 06:37 Dose: 4 mg Rosuvastatin Calcium (Crestor) 5 mg PO QPM [facility] Last Admin: 03/02/18 20:33 Dose: 5 mg Sodium Chloride (Flush - Normal Saline) 10 ml IVF Q12HR PRN PRN Reason: Saline Flush Last Admin: 02/28/18 01:18 Dose: 10 ml Sodium Chloride (Flush - Normal Saline) 10 ml IVF PRN PRN PRN Reason: Saline Flush Warfarin Sodium (Coumadin) 2.5 mg PO 1700 [facility] Last Admin: 03/02/18 16:38 Dose: 2.5 mg
[2018-03-03] MEDS ORDERED: Potassium Chloride 20 MEQ TAB PO SCH (15:30)
--- NOTE | 2018-03-03 16:15 | PRG ---
DATE OF SERVICE: 03/03/2018 SUBJECTIVE: Patient was seen and examined at bedside and overnight events noted. Patient denies any shortness of breath or chest pain or palpitation. No history of nausea or vomiting or diarrhea or fever or chills or cramps. OBJECTIVE: GENERAL: This is an elderly female, in no apparent distress. VITAL SIGNS: Temperature 97.6. Heart rate 70. Respiratory rate 20. Blood pressure 112/55. HEENT: Atraumatic, normocephalic. Oral mucosa is moist NECK: Supple. CARDIOVASCULAR: S1, S2 heard. Rate and rhythm regular. RESPIRATORY: Clear to auscultation. GASTROINTESTINAL: Abdomen is soft. MUSCULOSKELETAL: No tenderness. No edema. DERMATOLOGIC: No skin rash. NEUROLOGIC: Alert and awake and oriented X3. No focal neurologic deficits. Moving all the extremities. PSYCHIATRIC: Mood and affect normal. LABORATORY DATA: Potassium is 4.0, BUN is 92, creatinine is 3.7. ASSESSMENT AND PLAN: 1. Acute kidney injury on chronic kidney disease, stage 4. Renal function seems to be stable. We will reduce Lasix if tolerated. 2. Cardiorenal syndrome. 3. Hypokalemia. 4. Edema, controlled. Replace potassium as tolerated. Reduce the Lasix dose. We will follow. Job ID: [id number]
[2018-03-03] MEDS: Warfarin Sodium 2.5 MG TAB PO SCH (16:43)
[2018-03-03] MEDS: diphenhydrAMINE 25 MG CAP PO SCH (22:39)
[2018-03-03] MEDS: Rosuvastatin 5 MG TAB PO SCH (22:39)
[2018-03-03] MEDS ORDERED: Carvedilol 3.125 MG TAB PO SCH (23:00)
[2018-03-04] MEDS: Dextrose 50% Abboject 50 ML SYRINGE SLOW IVP PRN (02:13)
[2018-03-04] MEDS: Acetaminophen 325 MG TAB PO PRN ×4 (02:20→21:21)
[2018-03-04 05:32] LABS: Hemoglobin 7.9 g/dL (12.0-16.0); Platelet Count 97 thou/uL (130-400)
[2018-03-04 05:33] LABS: INR-International Normal Ratio 2.9
[2018-03-04 05:50] LABS: Anion Gap 13 mmol/L (10-20); BUN (Urea Nitrogen) 82 mg/dL (9.8-20.1); Calc. Creatinine Clearance 14 mL/min (70-130); Carbon Dioxide 27 mmol/L (23-31); Chloride 102 mmol/L (98-107); Estimated GFR-MDRD 13; Glucose 98 mg/dL (83-110); Potassium 3.9 mmol/L (3.5-5.1); Sodium 138 mmol/L (136-145)
[2018-03-04] MEDS ORDERED: Furosemide 40 MG/4 ML VIAL SLOW IVP SCH (06:00)
[2018-03-04] MEDS: Budesonide 0.25 MG/2 ML NEB INH SCH ×2 (07:31→19:27)
[2018-03-04] MEDS: Mometasone/Formoterol 120 PUFF INHALER INH SCH ×2 (07:33→19:22)
[2018-03-04] MEDS: Midodrine HCl 5 MG TAB PO SCH ×3 (08:55→21:21)
[2018-03-04] MEDS: Cephalexin 250 MG CAP PO SCH ×4 (08:56→21:21)
[2018-03-04] MEDS: Bumetanide 1 MG TAB PO SCH (08:56)
[2018-03-04] MEDS: Magnesium Oxide 400 MG TAB PO SCH ×2 (08:56→21:21)
[2018-03-04] MEDS: Levothyroxine Sodium 25 MCG TAB PO SCH (08:56)
[2018-03-04] MEDS: Carvedilol 3.125 MG TAB PO SCH ×2 (08:56→21:21)
[2018-03-04] MEDS ORDERED: Magnesium Citrate 300 ML BOT PO SCH (10:00)
[2018-03-04] MEDS ORDERED: Bisacodyl 5 MG TAB PO PRN (11:11)
[2018-03-04] MEDS ORDERED: Bisacodyl 5 MG TAB PO SCH (11:15)
--- NOTE | 2018-03-04 13:33 | PDOC.PN ---
- Subjective Encounter Start Date: 03/04/18 Encounter Start Time: 08:40 Pt seen for followup re: acute hypoxic respiratory failure. Feels better. Still constipated. - Objective Resuscitation Status - Order Detail: 02/27/18 16:08 Resuscitation Status Routine Resuscitation Status: FULL: Full Resuscitation Discussed with: confirmed with pt MAR Reviewed: Yes Vital Signs & Weight: Vital Signs (12 hours) Temp Pulse Resp BP Pulse Ox 03/04/18 13:18 70 16 100 03/04/18 11:13 98.2 F 71 16 116/56 L 100 03/04/18 07:34 70 16 100 03/04/18 07:33 70 16 100 03/04/18 07:31 70 16 100 03/04/18 07:19 97.9 F 70 18 98/55 L 100 03/04/18 03:26 98.7 F 70 18 110/57 L 99 Weight Admit Weight 162 lb 9.6 oz Weight 168 lb 12.8 oz I&O: 03/03/18 03/04/18 03/05/18 06:59 06:59 06:59 Intake Total 1740 420 Output Total 1850 3475 Balance -110 -3055 Result Diagrams: 03/05/18 04:41 03/05/18 04:41 Additional Labs: Accuchecks 03/04/18 03/04/18 03/04/18 11:14 05:30 00:27 POC Glucose 98 105 68 L 03/03/18 03/03/18 03/03/18 22:20 21:34 21:06 POC Glucose 83 58 L* 88 03/03/18 03/03/18 03/03/18 16:40 16:00 14:45 POC Glucose 113 H 114 H 51 L* 03/03/18 14:36 POC Glucose 55 L* EKG Reviewed by me: Yes (Tele: AV-paced) Phys Exam - Physical Examination Constitutional: NAD HEENT: moist MMs Neck: supple Respiratory: clear to auscultation bilateral Cardiovascular: RRR Gastrointestinal: soft Neurological: moves all 4 limbs Psychiatric: normal affect Dx/Plan (1) Acute respiratory failure with hypoxia Code(s): J96.01 - ACUTE RESPIRATORY FAILURE WITH HYPOXIA Status: Acute Comment: continue oral furosemide (2) Constipation Code(s): K59.00 - CONSTIPATION, UNSPECIFIED Status: Acute Comment: Trial soap suds enema, Dulcolax (3) Hypoglycemia Code(s): E16.2 - HYPOGLYCEMIA, UNSPECIFIED Status: Acute Comment: Pt is on hypoglycemia protocol. (4) Acute on chronic systolic CHF (congestive heart failure), NYHA class 3 Code(s): I50.23 - ACUTE ON CHRONIC SYSTOLIC (CONGESTIVE) HEART FAILURE Status : Acute Comment: oral furosemide (5) Acute worsening of stage 4 chronic kidney disease Code(s): N18.4 - CHRONIC KIDNEY DISEASE, STAGE 4 (SEVERE) Status: Acute Comment: creatinine improved, 3.34 today (6) CAD (coronary artery disease) Code(s): I25.10 - ATHSCL HEART DISEASE OF [place] CORONARY ARTERY W/O ANG PCTRS Status: Chronic Qualifiers: Coronary Disease-Associated Artery/Lesion type: [place] artery [place] vs. transplanted heart: [place] heart Associated angina: without angina Qualified Code(s): I25.10 - Atherosclerotic heart disease of [place] coronary artery without angina pectoris Comment: stable (7) DM type 2 (diabetes mellitus, type 2) Status: Chronic Qualifiers: Diabetes mellitus assisted insulin use: without assisted use Diabetes mellitus complication status: with unspecified complications Qualified Code(s) : E11.8 - Type 2 diabetes mellitus with unspecified complications Comment: glyburide discontinued (8) Dyslipidemia Code(s): E78.5 - HYPERLIPIDEMIA, UNSPECIFIED Status: Chronic Comment: continue statin (9) Hypertension Code(s): I10 - ESSENTIAL (PRIMARY) HYPERTENSION Status: Chronic Qualifiers: Hypertension type: essential hypertension Qualified Code(s): I10 - Essential (primary) hypertension Comment: controlled (10) Hypothyroidism Code(s): E03.9 - HYPOTHYROIDISM, UNSPECIFIED Status: Chronic Qualifiers: Hypothyroidism type: unspecified Qualified Code(s): E03.9 - Hypothyroidism , unspecified Comment: continue synthroid (11) Demand ischemia Code(s): I24.8 - OTHER FORMS OF ACUTE ISCHEMIC HEART DISEASE Status: Resolved - Plan * . Review of Systems - Review of Systems Respiratory: negative: Cough, Shortness of Breath, SOB with Excertion, Pleuritic Pain, Wheezing Cardiovascular: negative: chest pain, palpitations, orthopnea, paroxysmal nocturnal dyspnea, edema, light headedness Gastrointestinal: Constipation - Medications/Allergies Allergies/Adverse Reactions: Allergies Allergy/AdvReac Type Severity Reaction Status Date / Time codeine [Codeine] Allergy Severe CHEST Verified 02/24/18 19:39 TIGHTNESS levofloxacin [From Levaquin] Allergy Intermediate Rash Verified 02/24/18 19:39 adhesive tape Allergy Verified 02/24/18 19:39 duloxetine [From Cymbalta] AdvReac Verified 02/24/18 19:39 Medications: Current Medications Acetaminophen (Tylenol) 650 mg PO Q4H PRN PRN Reason: Headache/Fever/Mild Pain (1-3) Last Admin: 03/04/18 06:08 Dose: 650 mg Albuterol/Ipratropium (Duoneb) 3 ml NEB Q4H PRN PRN Reason: Dyspnea Last Admin: 02/27/18 14:12 Dose: 3 ml Albuterol/Ipratropium (Duoneb) 3 ml NEB [id number] [facility] Last Admin: 03/04/18 13:18 Dose: 3 ml Bisacodyl (Dulcolax) 10 mg PO DAILYPRN PRN PRN Reason: Constipation Budesonide (Pulmicort Neb Solution) 0.25 mg INH BID-RT [facility] Last Admin: 03/04/18 07:31 Dose: 0.25 mg Bumetanide (Bumex) 1 mg PO QAM [facility] Last Admin: 03/04/18 08:56 Dose: 1 mg Carvedilol (Coreg) 3.125 mg PO BID [facility] Last Admin: 03/04/18 08:56 Dose: 3.125 mg Cephalexin (Keflex) 250 mg PO QID [facility] Stop: 03/07/18 17:01 Last Admin: 03/04/18 12:44 Dose: 250 mg Dextrose/Water (Dextrose 50%) 25 gm SLOW IVP PRN PRN PRN Reason: Hypoglycemia Last Admin: 03/04/18 02:13 Dose: 25 gm Diphenhydramine HCl (Benadryl) 25 mg PO HS [facility] Last Admin: 03/03/18 22:39 Dose: 25 mg Furosemide (Lasix) 40 mg PO 0900,1400 [facility] Last Admin: 03/04/18 12:44 Dose: 40 mg Glucagon (Glucagon) 1 mg IM PRN PRN PRN Reason: Hypoglycemia Dextrose/Water (D5w) 1,000 mls @ 0 mls/hr IV .Q0M PRN PRN Reason: Hypoglycemia Insulin Human Lispro (Humalog) 0 units SC .MILD SLIDING SCALE PRN PRN Reason: Mild Correctional Scale Last Admin: 02/27/18 16:51 Dose: 4 unit Levothyroxine Sodium (Synthroid) 50 mcg PO DAILY [facility] Last Admin: 03/04/18 08:56 Dose: 50 mcg Magnesium Oxide (Magnesium Oxide) 400 mg PO BID [facility] Last Admin: 03/04/18 08:56 Dose: 400 mg Melatonin (Melatonin) 3 mg PO HS PRN PRN Reason: Insomnia Last Admin: 02/27/18 21:29 Dose: 3 mg Midodrine (Proamatine) 5 mg PO TID [facility] Last Admin: 03/04/18 08:55 Dose: 5 mg Mometasone Furoate/Formoterol Fumar (Dulera 100 Mcg/5 Mcg Inhaler) 2 puff INH BID-RT [facility] Last Admin: 03/04/18 07:33 Dose: 2 puff Ondansetron HCl (Zofran) 4 mg IVP Q6H PRN PRN Reason: Nausea/Vomiting Last Admin: 03/01/18 06:37 Dose: 4 mg Potassium Chloride (Klor-Con) 40 meq PO QAM-WM [facility] Rosuvastatin Calcium (Crestor) 5 mg PO QPM [facility] Last Admin: 03/03/18 22:39 Dose: 5 mg Sodium Chloride (Flush - Normal Saline) 10 ml IVF Q12HR PRN PRN Reason: Saline Flush Last Admin: 03/03/18 14:55 Dose: 10 ml Sodium Chloride (Flush - Normal Saline) 10 ml IVF PRN PRN PRN Reason: Saline Flush Last Admin: 03/03/18 14:56 Dose: 10 ml Warfarin Sodium (Coumadin) 2.5 mg PO 1700 [facility] Last Admin: 03/03/18 16:43 Dose: 2.5 mg
[2018-03-04] MEDS ORDERED: Furosemide 40 MG TAB PO SCH (14:00)
[2018-03-04] MEDS ORDERED: Warfarin Sodium 2 MG TAB PO SCH (17:00)
--- NOTE | 2018-03-04 20:44 | PRG ---
DATE OF SERVICE: 03/04/2018 SUBJECTIVE: Patient was seen and examined at bedside and overnight events noted. Patient denies any shortness of breath or chest pain or palpitation. No history of nausea or vomiting or diarrhea or fever or chills or cramps. OBJECTIVE: GENERAL: This is an elderly white female, in no apparent distress. VITAL SIGNS: Temperature 98.6. Pulse 70. Respiratory rate 20. Blood pressure 111/55. HEENT: Atraumatic, normocephalic. Oral mucosa is moist NECK: Supple. CARDIOVASCULAR: S1, S2 heard. Rate and rhythm regular. RESPIRATORY: Clear to auscultation. GASTROINTESTINAL: Abdomen is soft. MUSCULOSKELETAL: No tenderness. No edema. DERMATOLOGIC: No skin rash. NEUROLOGIC: Alert and awake and oriented X3. No focal neurologic deficits. Moving all the extremities. PSYCHIATRIC: Mood and affect normal. LABORATORY DATA: Potassium is 3.9, BUN is 82, and creatinine is 3.3. ASSESSMENT AND PLAN: 1. Acute kidney injury on chronic kidney disease, stage 4. Renal function is stable. . 2. Cardiorenal syndrome. We will make diuretics orally. 3. Hypokalemia, replaced. 4. Edema, controlled. Saturating well on room air. We will reduce diuretic oral dose and we will monitor. Limit fluid intake. Job ID: [id number]
[2018-03-04] MEDS: diphenhydrAMINE 25 MG CAP PO SCH (21:21)
[2018-03-04] MEDS: Rosuvastatin 5 MG TAB PO SCH (21:21)
[2018-03-05 05:45] LABS: INR-International Normal Ratio 3.8; Prothrombin Time 37.2 SEC (12.0-14.7)
[2018-03-05] MEDS: Budesonide 0.25 MG/2 ML NEB INH SCH ×2 (07:37→19:36)
[2018-03-05] MEDS: Mometasone/Formoterol 120 PUFF INHALER INH SCH ×2 (07:40→19:37)
[2018-03-05] MEDS: Cephalexin 250 MG CAP PO SCH ×4 (08:28→21:05)
[2018-03-05] MEDS: Bumetanide 1 MG TAB PO SCH (08:28)
[2018-03-05] MEDS: Polyethylene Glycol 3350 17 GM Packet PO SCH (08:28)
[2018-03-05] MEDS: Furosemide 40 MG TAB PO SCH (08:29)
[2018-03-05] MEDS: Levothyroxine Sodium 25 MCG TAB PO SCH (08:29)
[2018-03-05] MEDS: Carvedilol 3.125 MG TAB PO SCH ×2 (08:29→21:04)
[2018-03-05] MEDS: Midodrine HCl 5 MG TAB PO SCH ×3 (08:29→21:05)
[2018-03-05] MEDS: Acetaminophen 325 MG TAB PO PRN ×2 (08:29→21:05)
[2018-03-05] MEDS: Magnesium Oxide 400 MG TAB PO SCH ×2 (08:29→21:05)
[2018-03-05] MEDS ORDERED: Magnesium Citrate 300 ML BOT PO SCH (11:30)
[2018-03-05 11:36] LABS: Anion Gap 12 mmol/L (10-20); BUN (Urea Nitrogen) 72 mg/dL (9.8-20.1); Calc. Creatinine Clearance 14 mL/min (70-130); Calcium 8.4 mg/dL (7.8-10.44); Carbon Dioxide 28 mmol/L (23-31); Chloride 103 mmol/L (98-107); Estimated GFR-MDRD 13; Glucose 141 mg/dL (83-110); Potassium 3.9 mmol/L (3.5-5.1); Sodium 139 mmol/L (136-145)
[2018-03-05 11:44] LABS: Band 6 % (5-11); Burr Cells MODERATE= 6-15 cells (100X) (0-1/hpf); Hemoglobin 8.4 g/dL (12.0-16.0); Hypochromia SLIGHT = 6-15 cells (100X) (0-5/hpf); Lymphocytes 11 % (21-51); MDiff Complete? YES; Mean Corpuscular Hemoglobin 29.8 pg (27.0-31.0); Mean Corpuscular Volume 93.2 fL (78.0-98.0); Microcytosis SLIGHT = 6-15 cells (100X) (0-5/hpf); Monocytes 5 % (0-10); Neutrophil 76 % (42-75); Ovalocytes SLIGHT = 2-5 cells (100X) (0-1/hpf); Platelet Count 107 thou/uL (130-400); Platelet Morphology Comment Appears Decreased; Polychromasia SLIGHT = 2-3 cells (100X) (0-2/hpf); RBC Distribution Width 21.6 % (11.5-14.5); Reactive Lymphocytes 2 % (0-10); Red Blood Cell (RBC) Count 2.82 mill/uL (4.20-5.40); White Blood Cell (WBC) Count 9.1 thou/uL (4.8-10.8)
--- NOTE | 2018-03-05 12:19 | PRG ---
DATE OF SERVICE: 03/05/2018 SUBJECTIVE: This morning, she is definitely better though she is still short of breath. OBJECTIVE: VITAL SIGNS: Sats are on room air, respirations 16, temperature 98, pulse 70, blood pressure is 107/54. CHEST: Decreased breath sounds. No wheezing. CARDIAC: Normal S1, S2. No gallops. ABDOMEN: No masses. LABORATORY DATA: White count 9,000, H and H is 8 and 26, platelet count is 107. Creatinine 3.2. Lytes are normal. IMPRESSION: Chronic obstructive pulmonary disease, congestive heart failure, azotemia, much improved. PLAN: Continue present PT, supportive care. Eventually placement. Job ID: [id number]
--- NOTE | 2018-03-05 13:16 | PDOC.PN ---
- Subjective Encounter Start Date: 03/05/18 Encounter Start Time: 08:20 Pt seen for followup re: acute hypoxic respiratory failure. Had a small bowel movement yesterday. Feels slightly better. - Objective Resuscitation Status - Order Detail: 02/27/18 16:08 Resuscitation Status Routine Resuscitation Status: FULL: Full Resuscitation Discussed with: confirmed with pt MAR Reviewed: Yes Vital Signs & Weight: Vital Signs (12 hours) Temp Pulse Resp BP Pulse Ox 03/05/18 11:58 70 16 96 03/05/18 11:18 98.5 F 68 16 107/54 L 99 03/05/18 08:25 98.4 F 72 16 102/54 L 100 03/05/18 07:41 70 16 100 03/05/18 07:40 70 16 100 03/05/18 07:37 70 16 100 03/05/18 03:05 97.8 F 71 20 101/42 L 99 Weight Admit Weight 162 lb 9.6 oz Weight 163 lb 14.4 oz I&O: 03/04/18 03/05/18 03/06/18 06:59 06:59 06:59 Intake Total 420 1210 Output Total 3475 3050 Balance -3055 -1840 Result Diagrams: 03/06/18 04:34 03/06/18 04:34 Additional Labs: Accuchecks 03/05/18 03/05/18 03/04/18 11:12 05:11 20:41 POC Glucose 161 H 160 H 207 H 03/04/18 16:54 POC Glucose 198 H EKG Reviewed by me: Yes (Tele: V-paced) Phys Exam - Physical Examination Constitutional: NAD HEENT: moist MMs Neck: supple Respiratory: clear to auscultation bilateral Cardiovascular: RRR Gastrointestinal: soft Neurological: moves all 4 limbs Psychiatric: normal affect Dx/Plan (1) Acute respiratory failure with hypoxia Code(s): J96.01 - ACUTE RESPIRATORY FAILURE WITH HYPOXIA Status: Acute Comment: on oral furosemide (2) Acute on chronic systolic CHF (congestive heart failure), NYHA class 3 Code(s): I50.23 - ACUTE ON CHRONIC SYSTOLIC (CONGESTIVE) HEART FAILURE Status : Acute Comment: on oral furosemide (3) Acute worsening of stage 4 chronic kidney disease Code(s): N18.4 - CHRONIC KIDNEY DISEASE, STAGE 4 (SEVERE) Status: Acute Comment: check labs tomorrow (4) CAD (coronary artery disease) Code(s): I25.10 - ATHSCL HEART DISEASE OF [place] CORONARY ARTERY W/O ANG PCTRS Status: Chronic Qualifiers: Coronary Disease-Associated Artery/Lesion type: [place] artery [place] vs. transplanted heart: [place] heart Associated angina: without angina Qualified Code(s): I25.10 - Atherosclerotic heart disease of [place] coronary artery without angina pectoris Comment: stable (5) DM type 2 (diabetes mellitus, type 2) Status: Chronic Qualifiers: Diabetes mellitus skilled nursing insulin use: without skilled nursing use Diabetes mellitus complication status: with unspecified complications Qualified Code(s) : E11.8 - Type 2 diabetes mellitus with unspecified complications Comment: monitor accuchecks (6) Dyslipidemia Code(s): E78.5 - HYPERLIPIDEMIA, UNSPECIFIED Status: Chronic Comment: continue statin (7) Hypertension Code(s): I10 - ESSENTIAL (PRIMARY) HYPERTENSION Status: Chronic Qualifiers: Hypertension type: essential hypertension Qualified Code(s): I10 - Essential (primary) hypertension Comment: controlled (8) Hypothyroidism Code(s): E03.9 - HYPOTHYROIDISM, UNSPECIFIED Status: Chronic Qualifiers: Hypothyroidism type: unspecified Qualified Code(s): E03.9 - Hypothyroidism , unspecified Comment: continue synthroid (9) Demand ischemia Code(s): I24.8 - OTHER FORMS OF ACUTE ISCHEMIC HEART DISEASE Status: Resolved (10) Constipation Code(s): K59.00 - CONSTIPATION, UNSPECIFIED Status: Resolved (11) Hypoglycemia Code(s): E16.2 - HYPOGLYCEMIA, UNSPECIFIED Status: Resolved - Plan * . Review of Systems - Review of Systems Cardiovascular: negative: chest pain, palpitations, orthopnea, paroxysmal nocturnal dyspnea, edema, light headedness Gastrointestinal: negative: Nausea, Vomiting, Abdominal Pain, Diarrhea, Constipation, Melena, Hematochezia - Medications/Allergies Allergies/Adverse Reactions: Allergies Allergy/AdvReac Type Severity Reaction Status Date / Time codeine [Codeine] Allergy Severe CHEST Verified 02/24/18 19:39 TIGHTNESS levofloxacin [From Levaquin] Allergy Intermediate Rash Verified 02/24/18 19:39 adhesive tape Allergy Verified 02/24/18 19:39 duloxetine [From Cymbalta] AdvReac Verified 02/24/18 19:39 Medications: Current Medications Acetaminophen (Tylenol) 650 mg PO Q4H PRN PRN Reason: Headache/Fever/Mild Pain (1-3) Last Admin: 03/05/18 08:29 Dose: 650 mg Albuterol/Ipratropium (Duoneb) 3 ml NEB Q4H PRN PRN Reason: Dyspnea Last Admin: 02/27/18 14:12 Dose: 3 ml Albuterol/Ipratropium (Duoneb) 3 ml NEB D1FS-SO COUNTS INCLUDE 234 BEDS AT THE [facility] Last Admin: 03/05/18 11:58 Dose: 3 ml Bisacodyl (Dulcolax) 10 mg PO DAILYPRN PRN PRN Reason: Constipation Last Admin: 03/05/18 11:15 Dose: 10 mg Budesonide (Pulmicort Neb Solution) 0.25 mg INH BID-RT COUNTS INCLUDE 234 BEDS AT THE [facility] Last Admin: 03/05/18 07:37 Dose: 0.25 mg Bumetanide (Bumex) 1 mg PO QAM COUNTS INCLUDE 234 BEDS AT THE [facility] Last Admin: 03/05/18 08:28 Dose: 1 mg Carvedilol (Coreg) 3.125 mg PO BID COUNTS INCLUDE 234 BEDS AT THE [facility] Last Admin: 03/05/18 08:29 Dose: 3.125 mg Cephalexin (Keflex) 250 mg PO QID COUNTS INCLUDE 234 BEDS AT THE [facility] Stop: 03/07/18 17:01 Last Admin: 03/05/18 12:35 Dose: 250 mg Dextrose/Water (Dextrose 50%) 25 gm SLOW IVP PRN PRN PRN Reason: Hypoglycemia Last Admin: 03/04/18 02:13 Dose: 25 gm Diphenhydramine HCl (Benadryl) 25 mg PO HS COUNTS INCLUDE 234 BEDS AT THE [facility] Last Admin: 03/04/18 21:21 Dose: 25 mg Furosemide (Lasix) 40 mg PO DAILY-AC COUNTS INCLUDE 234 BEDS AT THE [facility] Last Admin: 03/05/18 08:29 Dose: 40 mg Glucagon (Glucagon) 1 mg IM PRN PRN PRN Reason: Hypoglycemia Dextrose/Water (D5w) 1,000 mls @ 0 mls/hr IV .Q0M PRN PRN Reason: Hypoglycemia Insulin Human Lispro (Humalog) 0 units SC .MILD SLIDING SCALE PRN PRN Reason: Mild Correctional Scale Last Admin: 02/27/18 16:51 Dose: 4 unit Levothyroxine Sodium (Synthroid) 50 mcg PO DAILY COUNTS INCLUDE 234 BEDS AT THE [facility] Last Admin: 03/05/18 08:29 Dose: 50 mcg Magnesium Oxide (Magnesium Oxide) 400 mg PO BID COUNTS INCLUDE 234 BEDS AT THE [facility] Last Admin: 03/05/18 08:29 Dose: 400 mg Melatonin (Melatonin) 3 mg PO HS PRN PRN Reason: Insomnia Last Admin: 02/27/18 21:29 Dose: 3 mg Midodrine (Proamatine) 5 mg PO TID COUNTS INCLUDE 234 BEDS AT THE [facility] Last Admin: 03/05/18 08:29 Dose: 5 mg Mometasone Furoate/Formoterol Fumar (Dulera 100 Mcg/5 Mcg Inhaler) 2 puff INH BID-RT COUNTS INCLUDE 234 BEDS AT THE [facility] Last Admin: 03/05/18 07:40 Dose: 2 puff Ondansetron HCl (Zofran) 4 mg IVP Q6H PRN PRN Reason: Nausea/Vomiting Last Admin: 03/01/18 06:37 Dose: 4 mg Polyethylene Glycol (Miralax) 17 gm PO DAILY COUNTS INCLUDE 234 BEDS AT THE [facility] Last Admin: 03/05/18 08:28 Dose: 17 gm Potassium Chloride (Klor-Con) 40 meq PO QAM-WM COUNTS INCLUDE 234 BEDS AT THE [facility] Last Admin: 03/05/18 08:28 Dose: 40 meq Rosuvastatin Calcium (Crestor) 5 mg PO QPM COUNTS INCLUDE 234 BEDS AT THE [facility] Last Admin: 03/04/18 21:21 Dose: 5 mg Sodium Chloride (Flush - Normal Saline) 10 ml IVF Q12HR PRN PRN Reason: Saline Flush Last Admin: 03/03/18 14:55 Dose: 10 ml Sodium Chloride (Flush - Normal Saline) 10 ml IVF PRN PRN PRN Reason: Saline Flush Last Admin: 03/03/18 14:56 Dose: 10 ml
--- NOTE | 2018-03-05 18:58 | PRG ---
DATE OF SERVICE: 03/05/2018 SUBJECTIVE: Patient was seen and examined at bedside and overnight events noted. Patient denies any shortness of breath or chest pain or palpitation. No history of nausea or vomiting or diarrhea or fever or chills or cramps. OBJECTIVE: GENERAL: This is a thin built white female, in no apparent distress. VITAL SIGNS: Temperature 96, pulse 70, respiratory rate 18, blood pressure 102/67. HEENT: Atraumatic, normocephalic. Oral mucosa is moist NECK: Supple. CARDIOVASCULAR: S1, S2 heard. Rate and rhythm regular. RESPIRATORY: Clear to auscultation. GASTROINTESTINAL: Abdomen is soft. MUSCULOSKELETAL: No tenderness. No edema. DERMATOLOGIC: No skin rash. NEUROLOGIC: Alert and awake and oriented X3. No focal neurologic deficits. Moving all the extremities. PSYCHIATRIC: Mood and affect normal. LABORATORY DATA: Potassium is 3.9, BUN is 72, and creatinine is 3.2. ASSESSMENT AND PLAN: 1. Acute kidney injury on chronic kidney disease, stage 4, with improvement on renal function. 2. Cardiorenal syndrome. . 3. Edema, controlled. Saturating okay on room air. Edema much better. Monitor renal functions and electrolytes closely. Recheck labs in the morning. Job ID: [id number]
[2018-03-05] MEDS: diphenhydrAMINE 25 MG CAP PO SCH (21:05)
[2018-03-05] MEDS: Rosuvastatin 5 MG TAB PO SCH (21:05)
[2018-03-06 05:53] LABS: #Lymphocytes 0.9 thou/uL (1.20-3.40); #Monocytes 0.8 thou/uL (0.11-0.59); #Neutrophils 6.6 thou/uL (1.40-6.50); %Basophils 0.1 % (0.0-1.0); %Eosinophils 0.2 % (0.0-10.0); %Lymphocytes 10.9 % (21.0-51.0); %Neutrophils 78.9 % (42.0-75.0); Hemoglobin 8.1 g/dL (12.0-16.0); Mean Corpuscular Hemoglobin 29.9 pg (27.0-31.0); Mean Corpuscular Volume 93.4 fL (78.0-98.0); Mean Platelet Volume 10.3 fL (7.4-10.4); Platelet Count 106 thou/uL (130-400); RBC Distribution Width 21.9 % (11.5-14.5); Red Blood Cell (RBC) Count 2.73 mill/uL (4.20-5.40); White Blood Cell (WBC) Count 8.4 thou/uL (4.8-10.8)
[2018-03-06 05:54] LABS: INR-International Normal Ratio 2.9; Prothrombin Time 30.5 SEC (12.0-14.7)
[2018-03-06 06:05] LABS: Anion Gap 11 mmol/L (10-20); BUN (Urea Nitrogen) 62 mg/dL (9.8-20.1); Calc. Creatinine Clearance 17 mL/min (70-130); Calcium 8.1 mg/dL (7.8-10.44); Carbon Dioxide 30 mmol/L (23-31); Chloride 103 mmol/L (98-107); Estimated GFR-MDRD 17; Glucose 136 mg/dL (83-110); Potassium 3.5 mmol/L (3.5-5.1); Sodium 140 mmol/L (136-145)
[2018-03-06] MEDS: Budesonide 0.25 MG/2 ML NEB INH SCH (07:23)
[2018-03-06] MEDS: Mometasone/Formoterol 120 PUFF INHALER INH SCH ×2 (07:23→21:07)
[2018-03-06] MEDS: Polyethylene Glycol 3350 17 GM Packet PO SCH (09:08)
[2018-03-06] MEDS: Midodrine HCl 5 MG TAB PO SCH ×3 (09:08→20:00)
[2018-03-06] MEDS: Cephalexin 250 MG CAP PO SCH ×4 (09:08→20:01)
[2018-03-06] MEDS: Furosemide 40 MG TAB PO SCH (09:08)
[2018-03-06] MEDS: Bumetanide 1 MG TAB PO SCH (09:08)
[2018-03-06] MEDS: Carvedilol 3.125 MG TAB PO SCH ×2 (09:08→20:00)
[2018-03-06] MEDS: Magnesium Oxide 400 MG TAB PO SCH ×2 (09:08→20:01)
[2018-03-06] MEDS: Levothyroxine Sodium 25 MCG TAB PO SCH (09:08)
[2018-03-06] MEDS ORDERED: Epoetin (ESRD) 10,000 UNITS/ML VIAL SC SCH (10:00)
--- NOTE | 2018-03-06 10:35 | PRG ---
DATE OF SERVICE: 03/06/2018 SUBJECTIVE: An 87-year-old female being seen for acute kidney injury. The patient denies any nausea, vomiting, or chest pain. OBJECTIVE: CONSTITUTIONAL: Awake, alert, in no acute distress. VITAL SIGNS: . GENERAL APPEARANCE AND MENTAL STATUS: Fair. HEAD/NECK: Normocephalic. Atraumatic. EYES: EOMI. No deformity. EARS: Clear. No ulcers. NOSE: Intact. No lesions. MOUTH: Clear. No discharge. THROAT: Clear. No exudate. LUNGS: Clear. No crackles. CARDIAC: S1, S2. No rub. ABDOMEN: Benign. Bowel sounds positive. GENITALIA/RECTUM: [place] absent. BACK/EXTREMITIES: Edema 0+. NEUROLOGICAL: Alert and motor intact. SKIN: LYMPHATICS: LABORATORY DATA: Labs show hemoglobin 8.1. Creatinine 2.59. IMPRESSION AND PLAN: 1. Acute kidney injury with chronic kidney disease stage 4, stable. 2. Hypertension, stable. 3. Anemia, stable. 4. Congestive heart failure, stable. No urgent indication for dialysis. For anemia, I will give her Epogen 10,000 units subcu. Job ID: [id number]
--- NOTE | 2018-03-06 11:27 | PRG ---
DATE OF SERVICE: 03/06/2018 SUBJECTIVE: This morning, she is better. OBJECTIVE: VITAL SIGNS: Saturations are 100% on room air, respiratory rate , temperature 97, blood pressure 105/53. CHEST: Decreased breath sounds. No wheezing. CARDIAC: Normal S1 and S2. ABDOMEN: Negative mass. LABORATORY DATA: Her creatinine and BUN are much improved 2.5 and 62. IMPRESSION: Congestive heart failure, status post AV node ablation, renal failure, chronic obstructive pulmonary disease. PLAN: Pulmonary rogers, she is much improved. Disposition as per primary care physician. Pulmonary will follow at a distance. Please call if needed. Job ID: [id number]
--- NOTE | 2018-03-06 14:53 | PDOC.CTH ---
Cardiology Progress Note - Subjective EP Follow up 03/06/18 She is doing good today. Less SOB. still legs weakl on ambulation. - Objective Vital Signs Temp Pulse Resp BP Pulse Ox 03/06/18 13:29 80 14 03/06/18 12:22 97.9 F 71 18 107/59 L 100 03/06/18 07:38 97.8 F 71 18 105/53 L 100 03/06/18 07:23 80 14 03/06/18 04:20 98.0 F 68 20 98/55 L 99 Admit Weight 162 lb 9.6 oz Weight 163 lb 3.2 oz 03/05/18 03/06/18 03/07/18 06:59 06:59 06:59 Intake Total 1210 1360 Output Total 3050 2375 Balance -1840 -1015 - Physical Examination General/Neuro: alert & oriented x3, NAD Lungs: CTA Heart: RRR Abdomen: no HSM Extremities: other: (Resolving ICd site hematoma under dressing.) - Labs Result Diagrams: 03/06/18 04:34 03/06/18 04:34 Troponin/CKMB CK-MB (CK-2) 3.2 ng/mL (0-6.6) 02/24/18 13:53 Troponin I 0.215 ng/mL (< 0.028) H 02/25/18 04:59 - Assessment/Plan - Assessment/Plan 1. A/C systolic congestive heart failure 2. Severe mitral regurgitations 3. Persistent atrial fibrillation -s/p AVJ ablation on 02/28/18 -Amiodarone DCd 02/28/18 in favor of rate control strategy -Aysmptomatic with AF 4. Ventricular tachycardia 5. Bi-V ICD, medtronic -upgrade on 02/28/18 to correct LV dyssynchrony -hematoma at implant site. pressure dressing in place. Keep in place over weekend and change PRN 6. CKD -Creatinine improving 3.76-> 2.79 -per nephrology 7. Hypokalemia 8. Anemia -Etiology unknown. -Transfused pre procedure and on 03/02/18. HGB 8.1 today 9. CHADS2-VASC </= 5 -Warfarin to started last night with acute/chronic renal disease. Please adjust to keep INR 2-2.5 10. COPD - chronic dyspnea 11. Cardiomyopathy Continue keflex 250mg QID x 7 days post ICD implant. Woundcheck in 1 week at office.
--- NOTE | 2018-03-06 15:51 | PDOC.PN ---
- Subjective Encounter Start Date: 03/06/18 Encounter Start Time: 08:40 Pt seen for followup re: acute hypoxic respiratory failure. c/o black tarry stools. - Objective Resuscitation Status - Order Detail: 02/27/18 16:08 Resuscitation Status Routine Resuscitation Status: FULL: Full Resuscitation Discussed with: confirmed with pt Vital Signs & Weight: Vital Signs (12 hours) Temp Pulse Resp BP Pulse Ox 03/06/18 13:29 80 14 03/06/18 12:22 97.9 F 71 18 107/59 L 100 03/06/18 07:38 97.8 F 71 18 105/53 L 100 03/06/18 07:23 80 14 03/06/18 04:20 98.0 F 68 20 98/55 L 99 Weight Admit Weight 162 lb 9.6 oz Weight 163 lb 3.2 oz I&O: 03/05/18 03/06/18 03/07/18 06:59 06:59 06:59 Intake Total 1210 1360 Output Total 3050 2375 Balance -1840 -1015 Result Diagrams: 03/06/18 04:34 03/06/18 04:34 Additional Labs: Accuchecks 03/06/18 03/06/18 03/05/18 11:25 05:44 20:34 POC Glucose 174 H 129 H 183 H 03/05/18 17:07 POC Glucose 154 H Phys Exam - Physical Examination Constitutional: NAD HEENT: moist MMs Neck: supple Respiratory: clear to auscultation bilateral Cardiovascular: RRR Gastrointestinal: soft Neurological: moves all 4 limbs Psychiatric: normal affect Dx/Plan (1) Acute respiratory failure with hypoxia Code(s): J96.01 - ACUTE RESPIRATORY FAILURE WITH HYPOXIA Status: Acute Comment: Improving, on oral furosemide (2) UGIB (upper gastrointestinal bleed) Code(s): K92.2 - GASTROINTESTINAL HEMORRHAGE, UNSPECIFIED Status: Acute Comment: start PPI drip, consult GI. Hold warfarin. (3) Acute on chronic systolic CHF (congestive heart failure), NYHA class 3 Code(s): I50.23 - ACUTE ON CHRONIC SYSTOLIC (CONGESTIVE) HEART FAILURE Status : Acute Comment: continue oral furosemide (4) Acute worsening of stage 4 chronic kidney disease Code(s): N18.4 - CHRONIC KIDNEY DISEASE, STAGE 4 (SEVERE) Status: Acute Comment: creatinine improved to 2.59 (5) CAD (coronary artery disease) Code(s): I25.10 - ATHSCL HEART DISEASE OF [place] CORONARY ARTERY W/O ANG PCTRS Status: Chronic Qualifiers: Coronary Disease-Associated Artery/Lesion type: [place] artery [place] vs. transplanted heart: [place] heart Associated angina: without angina Qualified Code(s): I25.10 - Atherosclerotic heart disease of [place] coronary artery without angina pectoris Comment: stable (6) DM type 2 (diabetes mellitus, type 2) Status: Chronic Qualifiers: Diabetes mellitus manager long term care insulin use: without manager long term care use Diabetes mellitus complication status: with unspecified complications Qualified Code(s) : E11.8 - Type 2 diabetes mellitus with unspecified complications Comment: monitor accuchecks (7) Dyslipidemia Code(s): E78.5 - HYPERLIPIDEMIA, UNSPECIFIED Status: Chronic Comment: will continue statin (8) Hypertension Code(s): I10 - ESSENTIAL (PRIMARY) HYPERTENSION Status: Chronic Qualifiers: Hypertension type: essential hypertension Qualified Code(s): I10 - Essential (primary) hypertension Comment: controlled (9) Hypothyroidism Code(s): E03.9 - HYPOTHYROIDISM, UNSPECIFIED Status: Chronic Qualifiers: Hypothyroidism type: unspecified Qualified Code(s): E03.9 - Hypothyroidism , unspecified Comment: on synthroid (10) Demand ischemia Code(s): I24.8 - OTHER FORMS OF ACUTE ISCHEMIC HEART DISEASE Status: Resolved (11) Constipation Code(s): K59.00 - CONSTIPATION, UNSPECIFIED Status: Resolved (12) Hypoglycemia Code(s): E16.2 - HYPOGLYCEMIA, UNSPECIFIED Status: Resolved - Plan * . Review of Systems - Review of Systems Constitutional: weakness. negative: fever, chills, sweats, malaise Cardiovascular: negative: chest pain, palpitations, orthopnea, paroxysmal nocturnal dyspnea, edema, light headedness Gastrointestinal: Melena. negative: Nausea, Vomiting, Abdominal Pain, Diarrhea , Constipation, Hematochezia - Medications/Allergies Allergies/Adverse Reactions: Allergies Allergy/AdvReac Type Severity Reaction Status Date / Time codeine [Codeine] Allergy Severe CHEST Verified 02/24/18 19:39 TIGHTNESS levofloxacin [From Levaquin] Allergy Intermediate Rash Verified 02/24/18 19:39 adhesive tape Allergy Verified 02/24/18 19:39 duloxetine [From Cymbalta] AdvReac Verified 02/24/18 19:39 Medications: Current Medications Acetaminophen (Tylenol) 650 mg PO Q4H PRN PRN Reason: Headache/Fever/Mild Pain (1-3) Last Admin: 03/05/18 21:05 Dose: 650 mg Albuterol/Ipratropium (Duoneb) 3 ml NEB Q4H PRN PRN Reason: Dyspnea Last Admin: 02/27/18 14:12 Dose: 3 ml Albuterol/Ipratropium (Duoneb) 3 ml NEB C4AC-QU [facility] Last Admin: 03/06/18 13:29 Dose: 3 ml Bisacodyl (Dulcolax) 10 mg PO DAILYPRN PRN PRN Reason: Constipation Last Admin: 03/05/18 11:15 Dose: 10 mg Bumetanide (Bumex) 1 mg PO QAM [facility] Last Admin: 03/06/18 09:08 Dose: 1 mg Carvedilol (Coreg) 3.125 mg PO BID [facility] Last Admin: 03/06/18 09:08 Dose: 3.125 mg Cephalexin (Keflex) 250 mg PO QID [facility] Stop: 03/07/18 17:01 Last Admin: 03/06/18 12:26 Dose: 250 mg Dextrose/Water (Dextrose 50%) 25 gm SLOW IVP PRN PRN PRN Reason: Hypoglycemia Last Admin: 03/04/18 02:13 Dose: 25 gm Diphenhydramine HCl (Benadryl) 25 mg PO HS [facility] Last Admin: 03/05/18 21:05 Dose: 25 mg Epoetin [place] (Procrit) 10,000 units SC Q7D [facility] Last Admin: 03/06/18 12:31 Dose: 10,000 units Furosemide (Lasix) 40 mg PO DAILY-AC [facility] Last Admin: 03/06/18 09:08 Dose: 40 mg Glucagon (Glucagon) 1 mg IM PRN PRN PRN Reason: Hypoglycemia Dextrose/Water (D5w) 1,000 mls @ 0 mls/hr IV .Q0M PRN PRN Reason: Hypoglycemia Pantoprazole Sodium 80 mg/ (Sodium Chloride) 100 mls @ 10 mls/hr IVP INF [facility] Insulin Human Lispro (Humalog) 0 units SC .MILD SLIDING SCALE PRN PRN Reason: Mild Correctional Scale Last Admin: 02/27/18 16:51 Dose: 4 unit Levothyroxine Sodium (Synthroid) 50 mcg PO DAILY [facility] Last Admin: 03/06/18 09:08 Dose: 50 mcg Magnesium Oxide (Magnesium Oxide) 400 mg PO BID [facility] Last Admin: 03/06/18 09:08 Dose: 400 mg Melatonin (Melatonin) 3 mg PO HS PRN PRN Reason: Insomnia Last Admin: 02/27/18 21:29 Dose: 3 mg Midodrine (Proamatine) 5 mg PO TID [facility] Last Admin: 03/06/18 09:08 Dose: 5 mg Mometasone Furoate/Formoterol Fumar (Dulera 100 Mcg/5 Mcg Inhaler) 2 puff INH BID-RT [facility] Last Admin: 03/06/18 07:23 Dose: 2 puff Ondansetron HCl (Zofran) 4 mg IVP Q6H PRN PRN Reason: Nausea/Vomiting Last Admin: 03/01/18 06:37 Dose: 4 mg Polyethylene Glycol (Miralax) 17 gm PO DAILY [facility] Last Admin: 03/06/18 09:08 Dose: 17 gm Potassium Chloride (Klor-Con) 40 meq PO QAM-WM [facility] Last Admin: 03/06/18 09:08 Dose: 40 meq Rosuvastatin Calcium (Crestor) 5 mg PO QPM [facility] Last Admin: 03/05/18 21:05 Dose: 5 mg Sodium Chloride (Flush - Normal Saline) 10 ml IVF Q12HR PRN PRN Reason: Saline Flush Last Admin: 03/03/18 14:55 Dose: 10 ml Sodium Chloride (Flush - Normal Saline) 10 ml IVF PRN PRN PRN Reason: Saline Flush Last Admin: 03/03/18 14:56 Dose: 10 ml
[2018-03-06] MEDS: Pantoprazole 80 MG in Sodium Chloride 0.9% 100 ML IVP SCH (16:02)
[2018-03-06] MEDS: diphenhydrAMINE 25 MG CAP PO SCH (20:00)
[2018-03-06] MEDS: Rosuvastatin 5 MG TAB PO SCH (20:00)
--- NOTE | 2018-03-07 01:32 | CON ---
DATE OF CONSULTATION: 03/06/2018 REASON FOR CONSULTATION: 1. Melena. 2. Anemia. CONSULTING PHYSICIAN: Dr. Jono Bonner. HISTORY OF PRESENT ILLNESS: The patient is an 87-year-old female with a past medical history of hypothyroidism, diabetes, history of bladder cancer, COPD, aortic stenosis, hypertension, chronic kidney disease, stage IV, systolic congestive heart failure with an ejection fraction of 10 to 15%, severe mitral regurgitation, paroxysmal atrial fibrillation on anticoagulation, and achalasia, who was initially presenting to the hospital with complaints of shortness of breath. On chart review, the patient was admitted on February 24, 2018 with complaints of increased shortness of breath after her hospitalization in January of 2018. 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 She was placed on diuretic management at that time with good response to treatment and during the course of this hospitalization, she was also evaluated for an AICD placement given the fact that her ejection fraction is 10 to 15%. However, on admission, she was noted to have a mild anemia that down trended during the course of this hospitalization and while she did respond appropriately to the infusion of 2 units of PRBCs and has continued to down trend to this very day. Upon conferring with the patient, she states that on admission she had been experiencing constipation and had not had a bowel movement until approximately 24-48 hours ago when she was given MiraLAX as a laxative to facilitate having a bowel movement. With that regimen, she had approximately 6 bowel movements within the last 24 hours, but characterizes these stools as semi solid/pasty dark black stools that was confirmed per nursing staff. This was all also associated with increased generalized abdominal cramping as well as mild nausea without vomiting. She currently denies any fever, chills, abdominal pain, odynophagia, although she does have symptoms of dysphagia related to her history of achalasia, hematemesis or hematochezia. Of note, her last upper endoscopy was in November of 2016 for which she underwent an EGD with botulinum toxin injected at the distal esophagus, at the lower esophageal sphincter in part of treatment of her achalasia. At that time, there was no abnormality seen within the gastric mucosa or duodenal mucosa as well. REVIEW OF SYSTEMS: A 10-category review of systems was obtained with all responses negative except for the pertinent positives as listed in HPI. PAST MEDICAL HISTORY: As per HPI. PAST SURGICAL HISTORY: 1. Multiple back surgeries including laminectomy. 2. Right total knee repair. 3. Cholecystectomy. 4. Mastoid surgery. 5. Hysterectomy. 6. Ankle surgery. 7. Wrist surgery. 8. Recently AICD placement. FAMILY HISTORY: Denies any GI malignancies. SOCIAL HISTORY: Denies any tobacco, alcohol, or illicit drug use. OUTPATIENT AND INPATIENT MEDICATIONS: Reviewed. ALLERGIES: 1. CYMBALTA. 2. LEVAQUIN. 3. CODEINE. PHYSICAL EXAMINATION: VITAL SIGNS: Temperature 97.8, pulse 69, blood pressure 102/55, respiratory rate 16, saturating 99% on room air. GENERAL: The patient was lying in bed, in no acute distress. Alert and oriented x4. HEENT: Neck supple. No JVD noted. No scleral icterus noted as well. CARDIOVASCULAR: Regular rate and rhythm with a 3/6 systolic murmur best heard at the left lower sternal border. No discernible gallops or rubs. RESPIRATORY: Clear to auscultation bilaterally with no discernible wheezes or rales. ABDOMEN: Normoactive bowel sounds. Soft, nondistended. Tenderness to palpation in the midepigastric and right upper quadrant regions. EXTREMITIES: No cyanosis, clubbing, or edema. LABORATORY DATA: CBC with a white blood cell count of 8.4, hemoglobin 8.1, hematocrit 25.5, platelets 106. INR 2.9, iron 33, TIBC 401, ferritin 203. Chemistry with a sodium of 140, potassium 3.5, chloride 103, CO2 30, BUN 62, creatinine 2.59, glucose 136, and upon chart review, she was noted to have elevated LFTs on admission with an AST of 159, ALT 338, alkaline phosphatase 94, and total bilirubin of 1.7. IMAGING DATA: No current GI imaging is available for review. ASSESSMENT AND PLAN: The patient is an 87-year-old female with past medical history of hypothyroidism, diabetes, history of bladder cancer, chronic kidney disease stage 4, chronic obstructive pulmonary disease, achalasia, status post botulinum toxin injection, systolic congestive heart failure with an ejection fraction of 10 to 15%, now status post automatic implantable cardioverter-defibrillator placement, severe mitral regurgitation, paroxysmal atrial fibrillation, and hypertension presenting with anemia and melenic type stools concerning for an upper gastrointestinal bleed. Melena; the patient was initially presenting to the hospital with increased shortness of breath related to an [id number] exacerbation of her congestive heart failure. However, during the course of this hospitalization, she has had downtrending hemoglobin and hematocrit concerning for a possible bleeding source. It was not until yesterday when she began to get laxatives as part of her bowel regimen that she started having increased frequency of semi-solid black stools concerning for melena. Given her downtrending hemoglobin and hematocrit during the course of this hospitalization and the appearance of these melenic type stools now, it is highly concerning for an upper gastrointestinal bleed. Per the most recent esophagogastroduodenoscopy that we have in our system, she does not have a history of peptic ulcer disease, but the current differential could include esophagitis, gastritis, duodenitis, peptic ulcer disease, supratherapeutic anticoagulation with mucosal oozing of blood, arteriovenous malformation, Dieulafoy lesion and/or gastrointestinal neoplasm (much less likely). RECOMMENDATIONS: 1. We would continue to trend H and H and transfuse as necessary to maintain an H and H of 7/21. 2. Continue to monitor clinically for signs of active GI bleeding. 3. We would make the patient n.p.o. at midnight and preparation for an EGD tomorrow. 4. Intraluminal evaluation of the upper GI tract. 5. We would continue PPI drip given increased concern for upper GI bleeding. 6. We would avoid any additional anticoagulation at this time. 7. Elevated LFTs. Per chart review, the patient was noted to have moderately elevated LFTs on admission with no clear etiology as to the source of this transaminitis. The pattern was primarily hepatocellular given the AST and ALT predominance, but did have a slight cholestatic picture given that her total bilirubin was 1.7. These have not been rechecked during this hospitalization and could be due to a variety different reasons including drug-induced liver injury, congestive hepatopathy, viral hepatitis (less likely) or other underlying liver disorder. For now given stabilization of her cardiac status, I would like to see what her LFTs are doing now given the highest likelihood of congestive hepatopathy. RECOMMENDATIONS: 1. We would repeat her chemistry with LFTs tomorrow for further evaluation of her transaminitis. 2. If she continues to have significant transaminitis, we would consider further workup at that time. 3. We will continue to follow, please call with any additional questions. Job ID: [id number]
[2018-03-07] MEDS: Pantoprazole 80 MG in Sodium Chloride 0.9% 100 ML IVP SCH (01:38)
[2018-03-07] MEDS: Carvedilol 3.125 MG TAB PO SCH ×2 (04:59→21:15)
[2018-03-07] MEDS: Midodrine HCl 5 MG TAB PO SCH ×3 (04:59→21:15)
[2018-03-07] MEDS: Levothyroxine Sodium 25 MCG TAB PO SCH (04:59)
[2018-03-07] MEDS: Cephalexin 250 MG CAP PO SCH ×3 (04:59→17:16)
[2018-03-07 05:16] LABS: #Basophils 0.1 thou/uL (0.0-0.2); #Lymphocytes 0.9 thou/uL (1.20-3.40); #Monocytes 0.5 thou/uL (0.11-0.59); #Neutrophils 6.3 thou/uL (1.40-6.50); %Basophils 0.7 % (0.0-1.0); %Eosinophils 0.3 % (0.0-10.0); %Lymphocytes 11.3 % (21.0-51.0); %Monocytes 6.8 % (0.0-10.0); %Neutrophils 80.9 % (42.0-75.0); Mean Corpuscular Hemoglobin 29.5 pg (27.0-31.0); Mean Corpuscular Volume 95.1 fL (78.0-98.0); Mean Platelet Volume 10.7 fL (7.4-10.4); Platelet Count 98 thou/uL (130-400); RBC Distribution Width 22.6 % (11.5-14.5); Red Blood Cell (RBC) Count 2.72 mill/uL (4.20-5.40); White Blood Cell (WBC) Count 7.8 thou/uL (4.8-10.8)
[2018-03-07 05:23] LABS: INR-International Normal Ratio 2.5; Prothrombin Time 27.4 SEC (12.0-14.7)
[2018-03-07 05:38] LABS: ALT (SGPT) 36 U/L (8-55); AST (SGOT) 70 U/L (5-34); Albumin 2.3 g/dL (3.4-4.8); Alkaline Phosphatase 83 U/L (40-150); Anion Gap 9 mmol/L (10-20); BUN (Urea Nitrogen) 50 mg/dL (9.8-20.1); Bilirubin, Total 1.3 mg/dL (0.2-1.2); Calc. Creatinine Clearance 20 mL/min (70-130); Carbon Dioxide 32 mmol/L (23-31); Chloride 102 mmol/L (98-107); Estimated GFR-MDRD 21; Globulin 1.8 g/dL (2.4-3.5); Glucose 81 mg/dL (83-110); Potassium 3.7 mmol/L (3.5-5.1); Protein, Total 4.1 g/dL (6.0-8.3); Sodium 139 mmol/L (136-145)
[2018-03-07] MEDS: Mometasone/Formoterol 120 PUFF INHALER INH SCH ×2 (08:08→18:35)
[2018-03-07] MEDS ORDERED: KETAMINE 100 MG/ML (5ML VIAL) ONE (11:56)
--- NOTE | 2018-03-07 12:38 | PRG ---
DATE OF SERVICE: 03/07/2018 SUBJECTIVE: An 87-year-old female being seen for acute kidney injury. The patient denies any nausea, vomiting, or chest pain. OBJECTIVE: CONSTITUTIONAL: The patient is awake and alert. VITAL SIGNS: Afebrile, pulse 74, breathing 16, and blood pressure 104/56. GENERAL APPEARANCE AND MENTAL STATUS: Fair. HEAD/NECK: Normocephalic. Atraumatic. EYES: EOMI. No deformity. EARS: Clear. No ulcers. NOSE: Intact. No lesions. MOUTH: Clear. No discharge. THROAT: Clear. No exudate. LUNGS: Clear. No crackles. CARDIAC: S1, S2. No rub. ABDOMEN: Benign. Bowel sounds positive. GENITALIA/RECTUM: Trammell absent. BACK/EXTREMITIES: Edema 0+. NEUROLOGICAL: Alert and motor intact. SKIN: LYMPHATICS: LABORATORY DATA: Labs show hemoglobin 8. Creatinine 2.19. IMPRESSION: 1. Acute kidney injury, improved. 2. Chronic kidney disease, stage 4, stable. 3. Anemia, stable. Continue Epogen and consider 1 unit of packed red blood cell transfusion. 4. Hypertension, stable. 5. Medication based on GFR, appropriate. 6. Congestive heart failure, stable. Job ID: [id number]
[2018-03-07] MEDS: Furosemide 40 MG TAB PO SCH (13:36)
[2018-03-07] MEDS: Bumetanide 1 MG TAB PO SCH (13:36)
[2018-03-07] MEDS: Magnesium Oxide 400 MG TAB PO SCH ×2 (13:36→21:15)
[2018-03-07] MEDS ORDERED: PROPOFOL 200 MG/20 ML VIAL ONE (13:55)
--- NOTE | 2018-03-07 14:39 | PDOC.CTH ---
Cardiology Progress Note - Subjective EP PROGRESS NOTE: 03/07/18 She is doing well today. Less SOB. Had endoscopy today. Fecal impaction. Feels weak today. - Objective Vital Signs Temp Pulse Resp BP Pulse Ox 03/07/18 13:09 70 18 03/07/18 12:50 98.0 F 78 15 129/54 L 100 03/07/18 08:09 80 14 03/07/18 07:27 97.4 F L 72 19 104/56 L 100 03/07/18 04:00 98.3 F 70 18 107/52 L 99 Admit Weight 162 lb 9.6 oz Weight 161 lb 11.2 oz 03/06/18 03/07/18 03/08/18 06:59 06:59 06:59 Intake Total 1360 977.2 Output Total 2375 1425 Balance -1015 -447.8 - Physical Examination General/Neuro: alert & oriented x3, NAD Neck: carotid US brisk, no JVD present Lungs: CTA, unlabored respirations Heart: PMI normal Abdomen: NT/ND, soft Other PE findings: ICD site stable. Pressure dressing off. 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 A/C systolic congestive heart failure 2. Severe mitral regurgitations 3. Persistent atrial fibrillation -s/p AVJ ablation on 02/28/18 -Amiodarone DCd 02/28/18 in favor of rate control strategy -Aysmptomatic with AF 4. Recent history of Ventricular tachycardia 5. Bi-V ICD, medtronic -upgrade on 02/28/18 to correct LV dyssynchrony -hematoma at implant site. pressure dressing in place. Keep in place over weekend and change PRN 6. CKD -Creatinine improving 3.76-> 2.79 -per nephrology 7. Hypokalemia 8. Anemia -Transfused pre procedure and on 03/02/18. HGB 8.1 today 9. CHADS2-VASC </= 5 -Warfarin to started last night with acute/chronic renal disease. Please adjust to keep INR 2-2.5. On hold for possible GIB 10. COPD - chronic dyspnea 11. Cardiomyopathy 12. GI Bleed suspected - dark tarry stools. Coumadin on hold. had upper and lower endoscopy. Will await GI clearance before resuming anticoagulation. If not deemed safe, would consider Watchman as OP once she is stronger and recovered. Continue keflex 250mg QID x 7 days post ICD implant. Woundcheck in 1 week at office.
[2018-03-07] MEDS: Polyethylene Glycol 3350 17 GM Packet PO SCH (15:18)
[2018-03-07] MEDS: Fluconazole In NaCl,Iso-Osm 100 MG in Admixture Fee 1 EACH IVPB SCH (15:20)
--- NOTE | 2018-03-07 15:26 | PDOC.PN ---
- Subjective Encounter Start Date: 03/07/18 Encounter Start Time: 15:24 Pt seen for followup re: acute hypoxic respiratory failure. Feels slightly better. - Objective Resuscitation Status - Order Detail: 02/27/18 16:08 Resuscitation Status Routine Resuscitation Status: FULL: Full Resuscitation Discussed with: confirmed with pt MAR Reviewed: Yes Vital Signs & Weight: Vital Signs (12 hours) Temp Pulse Resp BP Pulse Ox 03/07/18 13:09 70 18 03/07/18 12:50 98.0 F 78 15 129/54 L 100 03/07/18 08:09 80 14 03/07/18 07:27 97.4 F L 72 19 104/56 L 100 03/07/18 04:00 98.3 F 70 18 107/52 L 99 Weight Admit Weight 162 lb 9.6 oz Weight 161 lb 11.2 oz I&O: 03/06/18 03/07/18 03/08/18 06:59 06:59 06:59 Intake Total 1360 977.2 Output Total 2375 1425 Balance -1015 -447.8 Result Diagrams: 03/07/18 04:31 03/07/18 04:31 Additional Labs: Accuchecks 03/07/18 03/06/18 03/06/18 05:49 20:31 16:31 POC Glucose 107 187 H 181 H EKG Reviewed by me: Yes (Tele: V-paced) Phys Exam - Physical Examination Constitutional: NAD HEENT: moist MMs Neck: supple Respiratory: clear to auscultation bilateral Cardiovascular: RRR Gastrointestinal: soft Neurological: moves all 4 limbs Psychiatric: normal affect Dx/Plan (1) Acute respiratory failure with hypoxia Code(s): J96.01 - ACUTE RESPIRATORY FAILURE WITH HYPOXIA Status: Acute Comment: Improving, will continue oral furosemide (2) UGIB (upper gastrointestinal bleed) Code(s): K92.2 - GASTROINTESTINAL HEMORRHAGE, UNSPECIFIED Status: Acute Comment: Pt had EGD, await report. Hb stable. (3) Acute on chronic systolic CHF (congestive heart failure), NYHA class 3 Code(s): I50.23 - ACUTE ON CHRONIC SYSTOLIC (CONGESTIVE) HEART FAILURE Status : Acute Comment: oral furosemide (4) Acute worsening of stage 4 chronic kidney disease Code(s): N18.4 - CHRONIC KIDNEY DISEASE, STAGE 4 (SEVERE) Status: Acute Comment: creatinine improved to 2.19 (5) CAD (coronary artery disease) Code(s): I25.10 - ATHSCL HEART DISEASE OF [place] CORONARY ARTERY W/O ANG PCTRS Status: Chronic Qualifiers: Coronary Disease-Associated Artery/Lesion type: [place] artery [place] vs. 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 use Diabetes mellitus complication status: with unspecified complications Qualified Code(s) : E11.8 - Type 2 diabetes mellitus with unspecified complications Comment: reasonable control (7) Dyslipidemia Code(s): E78.5 - HYPERLIPIDEMIA, UNSPECIFIED Status: Chronic Comment: on statin (8) Hypertension Code(s): I10 - ESSENTIAL (PRIMARY) HYPERTENSION Status: Chronic Qualifiers: Hypertension type: essential hypertension Qualified Code(s): I10 - Essential (primary) hypertension Comment: controlled (9) Hypothyroidism Code(s): E03.9 - HYPOTHYROIDISM, UNSPECIFIED Status: Chronic Qualifiers: Hypothyroidism type: unspecified Qualified Code(s): E03.9 - Hypothyroidism , unspecified Comment: on synthroid (10) Demand ischemia Code(s): I24.8 - OTHER FORMS OF ACUTE ISCHEMIC HEART DISEASE Status: Resolved (11) Constipation Code(s): K59.00 - CONSTIPATION, UNSPECIFIED Status: Resolved (12) Hypoglycemia Code(s): E16.2 - HYPOGLYCEMIA, UNSPECIFIED Status: Resolved - Plan * . Review of Systems - Review of Systems Respiratory: SOB with Excertion Cardiovascular: negative: chest pain, palpitations, orthopnea, paroxysmal nocturnal dyspnea, edema, light headedness Gastrointestinal: negative: Nausea, Vomiting, Abdominal Pain, Diarrhea, Constipation, Melena, Hematochezia - Medications/Allergies Allergies/Adverse Reactions: Allergies Allergy/AdvReac Type Severity Reaction Status Date / Time codeine [Codeine] Allergy Severe CHEST Verified 02/24/18 19:39 TIGHTNESS levofloxacin [From Levaquin] Allergy Intermediate Rash Verified 02/24/18 19:39 adhesive tape Allergy Verified 02/24/18 19:39 duloxetine [From Cymbalta] AdvReac Verified 02/24/18 19:39 Medications: Current Medications Acetaminophen (Tylenol) 650 mg PO Q4H PRN PRN Reason: Headache/Fever/Mild Pain (1-3) Last Admin: 03/05/18 21:05 Dose: 650 mg Albuterol/Ipratropium (Duoneb) 3 ml NEB Q4H PRN PRN Reason: Dyspnea Last Admin: 02/27/18 14:12 Dose: 3 ml Albuterol/Ipratropium (Duoneb) 3 ml NEB [id number] [facility] Last Admin: 03/07/18 13:09 Dose: 3 ml Bisacodyl (Dulcolax) 10 mg PO DAILYPRN PRN PRN Reason: Constipation Last Admin: 03/05/18 11:15 Dose: 10 mg Bisacodyl (Dulcolax) 10 mg IN Q8H DENNIS Bumetanide (Bumex) 1 mg PO QAM [facility] Last Admin: 03/07/18 13:36 Dose: 1 mg Carvedilol (Coreg) 3.125 mg PO BID [facility] Last Admin: 03/07/18 04:59 Dose: 3.125 mg Cephalexin (Keflex) 250 mg PO QID [facility] Stop: 03/07/18 17:01 Last Admin: 03/07/18 13:37 Dose: 250 mg Dextrose/Water (Dextrose 50%) 25 gm SLOW IVP PRN PRN PRN Reason: Hypoglycemia Last Admin: 03/04/18 02:13 Dose: 25 gm Diphenhydramine HCl (Benadryl) 25 mg PO HS [facility] Last Admin: 03/06/18 20:00 Dose: 25 mg Epoetin Rodrick (Procrit) 10,000 units SC Q7D [facility] Last Admin: 03/06/18 12:31 Dose: 10,000 units Furosemide (Lasix) 40 mg PO DAILY-AC [facility] Last Admin: 03/07/18 13:36 Dose: 40 mg Glucagon (Glucagon) 1 mg IM PRN PRN PRN Reason: Hypoglycemia Dextrose/Water (D5w) 1,000 mls @ 0 mls/hr IV .Q0M PRN PRN Reason: Hypoglycemia Fluconazole/Sodium Chloride 100 mg/ Miscellaneous Medication 50 mls @ 100 mls/ hr IVPB 1400 [facility] Last Admin: 03/07/18 15:20 Dose: 50 mls Insulin Human Lispro (Humalog) 0 units SC .MILD SLIDING SCALE PRN PRN Reason: Mild Correctional Scale Last Admin: 02/27/18 16:51 Dose: 4 unit Levothyroxine Sodium (Synthroid) 50 mcg PO DAILY [facility] Last Admin: 03/07/18 04:59 Dose: 50 mcg Magnesium Oxide (Magnesium Oxide) 400 mg PO BID [facility] Last Admin: 03/07/18 13:36 Dose: 400 mg Melatonin (Melatonin) 3 mg PO HS PRN PRN Reason: Insomnia Last Admin: 02/27/18 21:29 Dose: 3 mg Midodrine (Proamatine) 5 mg PO TID [facility] Last Admin: 03/07/18 04:59 Dose: 5 mg Mometasone Furoate/Formoterol Fumar (Dulera 100 Mcg/5 Mcg Inhaler) 2 puff INH BID-RT [facility] Last Admin: 03/07/18 08:08 Dose: 2 puff Ondansetron HCl (Zofran) 4 mg IVP Q6H PRN PRN Reason: Nausea/Vomiting Last Admin: 03/01/18 06:37 Dose: 4 mg Pantoprazole Sodium (Protonix) 40 mg IVP DAILY [facility] Polyethylene Glycol (Miralax) 17 gm PO DAILY [facility] Last Admin: 03/07/18 15:18 Dose: Not Given Potassium Chloride (Klor-Con) 40 meq PO QAM-WM [facility] Last Admin: 03/07/18 13:36 Dose: 40 meq Rosuvastatin Calcium (Crestor) 5 mg PO QPM [facility] Last Admin: 03/06/18 20:00 Dose: 5 mg Sodium Chloride (Flush - Normal Saline) 10 ml IVF Q12HR PRN PRN Reason: Saline Flush Last Admin: 03/03/18 14:55 Dose: 10 ml Sodium Chloride (Flush - Normal Saline) 10 ml IVF PRN PRN PRN Reason: Saline Flush Last Admin: 03/03/18 14:56 Dose: 10 ml
[2018-03-07] MEDS: Bisacodyl 10 MG SUPP PR SCH (18:10)
[2018-03-07] MEDS: Rosuvastatin 5 MG TAB PO SCH (21:15)
[2018-03-07] MEDS: diphenhydrAMINE 25 MG CAP PO SCH (21:15)
[2018-03-08] MEDS: Acetaminophen 325 MG TAB PO PRN (00:46)
[2018-03-08 05:27] LABS: INR-International Normal Ratio 1.7; Prothrombin Time 20.1 SEC (12.0-14.7)
[2018-03-08] MEDS: Bisacodyl 10 MG SUPP PR SCH ×4 (05:28→23:28)
[2018-03-08 05:30] LABS: #Eosinphils 0.1 thou/uL (0.0-0.7); #Lymphocytes 1.2 thou/uL (1.20-3.40); #Monocytes 0.5 thou/uL (0.11-0.59); #Neutrophils 5.3 thou/uL (1.40-6.50); %Basophils 0.2 % (0.0-1.0); %Eosinophils 1.7 % (0.0-10.0); %Lymphocytes 16.9 % (21.0-51.0); %Monocytes 6.7 % (0.0-10.0); %Neutrophils 74.4 % (42.0-75.0); Hemoglobin 7.8 g/dL (12.0-16.0); Mean Corpuscular HGB CONC 31.8 g/dL (32.0-36.0); Mean Corpuscular Hemoglobin 30.4 pg (27.0-31.0); Mean Corpuscular Volume 95.8 fL (78.0-98.0); Mean Platelet Volume 10.6 fL (7.4-10.4); Platelet Count 89 thou/uL (130-400); RBC Distribution Width 22.8 % (11.5-14.5); Red Blood Cell (RBC) Count 2.55 mill/uL (4.20-5.40); White Blood Cell (WBC) Count 7.2 thou/uL (4.8-10.8)
[2018-03-08] MEDS: Mometasone/Formoterol 120 PUFF INHALER INH SCH ×2 (08:06→20:26)
[2018-03-08] MEDS: Levothyroxine Sodium 25 MCG TAB PO SCH (08:57)
[2018-03-08] MEDS: Furosemide 40 MG TAB PO SCH (09:00)
--- NOTE | 2018-03-08 09:19 | PRG ---
DATE OF SERVICE: 03/08/2018 SUBJECTIVE: This morning, she is awake, alert, and responsive. She looks less short of breath. Her INR is 1.7. H and H are stable at 7.8 and 24 with a low platelet count of 89,000. She underwent an endoscopy yesterday. OBJECTIVE: VITAL SIGNS: Saturations are 100% on room air, temperature 97, blood pressure is 96/58. CHEST: Decreased breath sounds. No wheezing. CARDIAC: Normal S1 and S2. No gallops. ABDOMEN: No masses. IMPRESSION: Congestive heart failure, chronic obstructive pulmonary disease, azotemia, severe deconditioning. PLAN: Placement. Continue supportive care. Continue neb treatment and Dulera. Job ID: [id number]
--- NOTE | 2018-03-08 09:36 | OP ---
DATE OF PROCEDURE: 03/07/2018 PROCEDURE PERFORMED: Esophagogastroduodenoscopy with biopsy of esophagus and cautery of small gastric arteriovenous malformation. PREPROCEDURE DIAGNOSES: 1. Reported melena. 2. History of achalasia with some dysphagia. 3. Chronic anemia. 4. Recent treatment with anticoagulants held. ANESTHESIA: TIVA. POSTPROCEDURE DIAGNOSES: 1. White plaques in the esophagus, proximal greater than distal, possibly Ying, biopsied. Some of this does irrigate away, some of it is adherent. 2. No signs of gastrointestinal bleeding in the esophagus, stomach, or duodenum. There were 2 small arteriovenous malformations, one with slight oozing. These were cauterized with 7-Prydeinig heater probe. 3. Rectal exam reveals a very large fecal impaction. This was broken up digitally. RECOMMENDATIONS: 1. IV Protonix q.12 hours. 2. Manual fecal disimpaction alternating with suppositories and enemas ordered and discussed with nurses. 3. Await histopathology of the esophagus. We would start Diflucan and can stop that once the patient is clear. PROCEDURE IN DETAIL: The patient was informed of the risks, benefits, and possible complications of endoscopy including perforation, reaction to medication, and aspiration. Informed consent was obtained. The patient was brought to the endoscopy suite, where she was sedated in gradual fashion. Once she was comfortable, a bite block was placed into her oropharynx. The endoscope was advanced to the esophagus, stomach, and second and third portion of the duodenum. The esophagus showed some white plaques in the esophagus consist of Ying. Some of these were washed easily and could be residual food or pills. The GE junction was encountered and passed easily. There was no resistance to passage of the scope. There was no evidence of strictures or masses. There were no signs of esophagitis. Retroflexed views in the stomach were normal. In the antrum of stomach, there were 2 small atypical AVM for slight oozing, but no active hemorrhage and no ulcers. These were cauterized with 7-Prydeinig heater probe. The duodenum was normal in the third portion. There was no signs of old blood or active bleeding or old bleeding. Retroflexed views in the stomach were normal. The stomach had normal distensibility. The scope was removed. The esophagus was biopsied. The patient tolerated the procedure well with no complications. Job ID: [id number]
[2018-03-08] MEDS: Bumetanide 1 MG TAB PO SCH (09:37)
[2018-03-08] MEDS: Carvedilol 3.125 MG TAB PO SCH ×2 (09:37→20:31)
[2018-03-08] MEDS: Magnesium Oxide 400 MG TAB PO SCH ×2 (09:37→20:31)
[2018-03-08] MEDS: Pantoprazole 40 MG VIAL IVP SCH (09:38)
[2018-03-08] MEDS: Polyethylene Glycol 3350 17 GM Packet PO SCH (09:38)
--- NOTE | 2018-03-08 10:46 | PRG ---
DATE OF SERVICE: 03/08/2018 SUBJECTIVE: An 87-year-old female being seen for acute kidney injury. The patient denied nausea, vomiting, or chest pain. OBJECTIVE: GENERAL: The patient is awake and alert. VITAL SIGNS: Afebrile. Pulse 72, breathing 16, blood pressure 96/58. GENERAL APPEARANCE AND MENTAL STATUS: Fair. HEAD/NECK: Normocephalic. Atraumatic. EYES: EOMI. No deformity. EARS: Clear. No ulcers. NOSE: Intact. No lesions. MOUTH: Clear. No discharge. THROAT: Clear. No exudate. LUNGS: Clear. No crackles. CARDIAC: S1, S2. No rub. ABDOMEN: Benign. Bowel sounds positive. GENITALIA/RECTUM: Trammell absent. BACK/EXTREMITIES: Edema 0+. NEUROLOGICAL: Alert and motor intact. SKIN: LYMPHATICS: LABORATORY DATA: Labs show hemoglobin 7.8. Creatinine is 2.04. . ASSESSMENT AND PLAN: 1. Chronic kidney disease stage 4, stable. 2. Hypertension, stable. 3. Anemia. I would recommend 1 unit of packed red blood cell transfusion. I will sign off on this patient. Please reconsult as needed. Job ID: [id number]
[2018-03-08] MEDS: Midodrine HCl 5 MG TAB PO SCH ×3 (10:52→20:31)
--- NOTE | 2018-03-08 12:23 | PDOC.PN ---
- Subjective Encounter Start Date: 03/08/18 Encounter Start Time: 07:40 Pt seen for followup re: acute hypoxic respiratory failure. Feels better. - Objective Resuscitation Status - Order Detail: 02/27/18 16:08 Resuscitation Status Routine Resuscitation Status: FULL: Full Resuscitation Discussed with: confirmed with pt MAR Reviewed: Yes Vital Signs & Weight: Vital Signs (12 hours) Temp Pulse Resp BP Pulse Ox 03/08/18 12:07 97.4 F L 70 17 113/55 L 99 03/08/18 08:03 75 18 100 03/08/18 07:37 97.5 F L 72 19 96/58 L 100 03/08/18 04:00 97.6 F 69 20 91/50 L 100 03/08/18 01:34 70 18 99 Weight Admit Weight 162 lb 9.6 oz Weight 161 lb 11.2 oz I&O: 03/07/18 03/08/18 03/09/18 06:59 06:59 06:59 Intake Total 977.2 1080 Output Total 1425 2150 Balance -447.8 -1070 Result Diagrams: 03/08/18 04:38 03/08/18 04:38 Additional Labs: Accuchecks 03/08/18 03/08/18 03/07/18 10:43 05:14 20:12 POC Glucose 187 H 85 203 H 03/07/18 17:24 POC Glucose 176 H EKG Reviewed by me: Yes (Tele: V-paced) Phys Exam - Physical Examination Constitutional: NAD HEENT: moist MMs Neck: supple Respiratory: clear to auscultation bilateral Cardiovascular: RRR Gastrointestinal: soft Neurological: moves all 4 limbs Psychiatric: normal affect Dx/Plan (1) Acute respiratory failure with hypoxia Code(s): J96.01 - ACUTE RESPIRATORY FAILURE WITH HYPOXIA Status: Acute Comment: Improving (2) UGIB (upper gastrointestinal bleed) Code(s): K92.2 - GASTROINTESTINAL HEMORRHAGE, UNSPECIFIED Status: Acute Comment: transfuse one unit pRBC (3) Acute on chronic systolic CHF (congestive heart failure), NYHA class 3 Code(s): I50.23 - ACUTE ON CHRONIC SYSTOLIC (CONGESTIVE) HEART FAILURE Status : Acute Comment: continue oral furosemide (4) Acute worsening of stage 4 chronic kidney disease Code(s): N18.4 - CHRONIC KIDNEY DISEASE, STAGE 4 (SEVERE) Status: Acute Comment: creatinine improved to 2.04 (5) CAD (coronary artery disease) Code(s): I25.10 - ATHSCL HEART DISEASE OF [place] CORONARY ARTERY W/O ANG PCTRS Status: Chronic Qualifiers: Coronary Disease-Associated Artery/Lesion type: [place] artery [place] vs. 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: without assisted use Diabetes mellitus complication status: with unspecified complications Qualified Code(s) : E11.8 - Type 2 diabetes mellitus with unspecified complications Comment: reasonable control (7) Dyslipidemia Code(s): E78.5 - HYPERLIPIDEMIA, UNSPECIFIED Status: Chronic Comment: continue statin (8) Hypertension Code(s): I10 - ESSENTIAL (PRIMARY) HYPERTENSION Status: Chronic Qualifiers: Hypertension type: essential hypertension Qualified Code(s): I10 - Essential (primary) hypertension Comment: controlled (9) Hypothyroidism Code(s): E03.9 - HYPOTHYROIDISM, UNSPECIFIED Status: Chronic Qualifiers: Hypothyroidism type: unspecified Qualified Code(s): E03.9 - Hypothyroidism , unspecified Comment: on synthroid (10) Demand ischemia Code(s): I24.8 - OTHER FORMS OF ACUTE ISCHEMIC HEART DISEASE Status: Resolved (11) Constipation Code(s): K59.00 - CONSTIPATION, UNSPECIFIED Status: Resolved (12) Hypoglycemia Code(s): E16.2 - HYPOGLYCEMIA, UNSPECIFIED Status: Resolved - Plan * . Review of Systems - Review of Systems Respiratory: SOB with Excertion. negative: Cough, Shortness of Breath, Pleuritic Pain, Wheezing Cardiovascular: negative: chest pain, palpitations, orthopnea, paroxysmal nocturnal dyspnea, edema, light headedness - Medications/Allergies Allergies/Adverse Reactions: Allergies Allergy/AdvReac Type Severity Reaction Status Date / Time codeine [Codeine] Allergy Severe CHEST Verified 02/24/18 19:39 TIGHTNESS levofloxacin [From Levaquin] Allergy Intermediate Rash Verified 02/24/18 19:39 adhesive tape Allergy Verified 02/24/18 19:39 duloxetine [From Cymbalta] AdvReac Verified 02/24/18 19:39 Medications: Current Medications Acetaminophen (Tylenol) 650 mg PO Q4H PRN PRN Reason: Headache/Fever/Mild Pain (1-3) Last Admin: 03/08/18 00:46 Dose: 650 mg Albuterol/Ipratropium (Duoneb) 3 ml NEB Q4H PRN PRN Reason: Dyspnea Last Admin: 02/27/18 14:12 Dose: 3 ml Albuterol/Ipratropium (Duoneb) 3 ml NEB [id number] [facility] Last Admin: 03/08/18 11:36 Dose: 3 ml Bisacodyl (Dulcolax) 10 mg PO DAILYPRN PRN PRN Reason: Constipation Last Admin: 03/05/18 11:15 Dose: 10 mg Bisacodyl (Dulcolax) 10 mg ND Q8H [facility] Last Admin: 03/08/18 05:31 Dose: 10 mg Bumetanide (Bumex) 1 mg PO QAM [facility] Last Admin: 03/08/18 09:37 Dose: 1 mg Carvedilol (Coreg) 3.125 mg PO BID [facility] Last Admin: 03/08/18 09:37 Dose: 3.125 mg Dextrose/Water (Dextrose 50%) 25 gm SLOW IVP PRN PRN PRN Reason: Hypoglycemia Last Admin: 03/04/18 02:13 Dose: 25 gm Diphenhydramine HCl (Benadryl) 25 mg PO HS [facility] Last Admin: 03/07/18 21:15 Dose: 25 mg Epoetin Rodrick (Procrit) 10,000 units SC Q7D [facility] Last Admin: 03/06/18 12:31 Dose: 10,000 units Furosemide (Lasix) 40 mg PO DAILY-AC [facility] Last Admin: 03/08/18 09:00 Dose: 40 mg Glucagon (Glucagon) 1 mg IM PRN PRN PRN Reason: Hypoglycemia Dextrose/Water (D5w) 1,000 mls @ 0 mls/hr IV .Q0M PRN PRN Reason: Hypoglycemia Fluconazole/Sodium Chloride 100 mg/ Miscellaneous Medication 50 mls @ 100 mls/ hr IVPB 1400 [facility] Last Admin: 03/07/18 15:20 Dose: 50 mls Insulin Human Lispro (Humalog) 0 units SC .MILD SLIDING SCALE PRN PRN Reason: Mild Correctional Scale Last Admin: 02/27/18 16:51 Dose: 4 unit Levothyroxine Sodium (Synthroid) 50 mcg PO DAILY [facility] Last Admin: 03/08/18 08:57 Dose: 50 mcg Magnesium Oxide (Magnesium Oxide) 400 mg PO BID [facility] Last Admin: 03/08/18 09:37 Dose: 400 mg Melatonin (Melatonin) 3 mg PO HS PRN PRN Reason: Insomnia Last Admin: 02/27/18 21:29 Dose: 3 mg Midodrine (Proamatine) 5 mg PO TID [facility] Last Admin: 03/08/18 10:52 Dose: 5 mg Mometasone Furoate/Formoterol Fumar (Dulera 100 Mcg/5 Mcg Inhaler) 2 puff INH BID-RT [facility] Last Admin: 03/08/18 08:06 Dose: 2 puff Ondansetron HCl (Zofran) 4 mg IVP Q6H PRN PRN Reason: Nausea/Vomiting Last Admin: 03/01/18 06:37 Dose: 4 mg Pantoprazole Sodium (Protonix) 40 mg IVP DAILY [facility] Last Admin: 03/08/18 09:38 Dose: 40 mg Polyethylene Glycol (Miralax) 17 gm PO DAILY [facility] Last Admin: 03/08/18 09:38 Dose: Not Given Potassium Chloride (Klor-Con) 40 meq PO QAM-WM [facility] Last Admin: 03/08/18 09:37 Dose: 40 meq Rosuvastatin Calcium (Crestor) 5 mg PO QPM [facility] Last Admin: 03/07/18 21:15 Dose: 5 mg Sodium Chloride (Flush - Normal Saline) 10 ml IVF Q12HR PRN PRN Reason: Saline Flush Last Admin: 03/08/18 09:40 Dose: 10 ml Sodium Chloride (Flush - Normal Saline) 10 ml IVF PRN PRN PRN Reason: Saline Flush Last Admin: 03/08/18 09:46 Dose: 10 ml
--- NOTE | 2018-03-08 12:54 | PRG ---
DATE OF SERVICE: 03/08/2018 SUBJECTIVE: The patient is alert and conversant. She has had some bowel movements with enema after being disimpacted under sedation during the EGD yesterday. There is no abdominal pain. There is no nausea or vomiting. OBJECTIVE: VITAL SIGNS: Temperature is 97.5, blood pressure 96/58, pulse of 72. GENERAL: She is alert, in no distress. HEENT: Shows anicteric sclerae. Oropharynx clear. Poor dentition. NECK: Supple. CV: Shows normal S1 and S2. Normal rate and rhythm. CHEST: There is ecchymosis in the left upper chest from subcutaneous device. Chest exam shows breath sounds. No adventitious sound. ABDOMEN: Soft, nontender. No distention. She has active bowel sounds. EXTREMITIES: Show no edema. LABORATORY DATA: WBC 7.3, hemoglobin 7.8, platelet count of 89. Creatinine is 2.04. ASSESSMENT: 1. History of melena, negative upper endoscopy yesterday for any active source of bleeding. She did have 2 small arteriovenous malformations that were ablated. There was questionable Ying esophagitis that was biopsied, currently on empiric fluconazole. 2. Anemia, multifactorial. 3. Coronary artery disease. 4. Congestive heart failure. 5. Aortic stenosis. 6. Atrial fibrillation. 7. Chronic obstructive pulmonary disease, status post hypoxic respiratory failure. 8. Hypertension. 9. Stage 4 chronic kidney disease. RECOMMENDATION: 1. Overall, stable from GI standpoint. Continue daily MiraLAX. 2. We will follow up on esophageal biopsy result. Job ID: [id number]
[2018-03-08 13:14] VITALS: BMI 25.7
[2018-03-08] MEDS: Fluconazole In NaCl,Iso-Osm 100 MG in Admixture Fee 1 EACH IVPB SCH (14:30)
--- NOTE | 2018-03-08 15:55 | PDOC.CTH ---
Cardiology Progress Note - Subjective EP Follow up 03/08/18 Pt seem to be ding fair. Still bedbound. - Objective Vital Signs Temp Pulse Resp BP Pulse Ox 03/08/18 12:07 97.4 F L 70 17 113/55 L 99 03/08/18 08:03 75 18 100 03/08/18 07:37 97.5 F L 72 19 96/58 L 100 03/08/18 04:00 97.6 F 69 20 91/50 L 100 Admit Weight 162 lb 9.6 oz Weight 161 lb 11.2 oz 03/07/18 03/08/18 03/09/18 06:59 06:59 06:59 Intake Total 977.2 1080 Output Total 1425 2150 Balance -447.8 -1070 - Physical Examination General/Neuro: alert & oriented x3, NAD Neck: no JVD present Lungs: CTA Heart: RRR Abdomen: no HSM Other PE findings: Sof ICd pocket hematoma. - Labs Result Diagrams: 03/08/18 04:38 03/08/18 04:38 Troponin/CKMB CK-MB (CK-2) 3.2 ng/mL (0-6.6) 02/24/18 13:53 Troponin I 0.215 ng/mL (< 0.028) H 02/25/18 04:59 - Assessment/Plan 1. A/C systolic congestive heart failure 2. Severe mitral regurgitations 3. Persistent atrial fibrillation -s/p AVJ ablation on 02/28/18 -Amiodarone DCd 02/28/18 in favor of rate control strategy -Aysmptomatic with AF 4. Recent history of Ventricular tachycardia 5. Bi-V ICD, medtronic -upgrade on 02/28/18 to correct LV dyssynchrony -hematoma at implant site. pressure dressing in place. Keep in place over weekend and change PRN 6. CKD -Creatinine improving 3.76-> 2.79 -per nephrology 7. Hypokalemia 8. Anemia -Transfused pre procedure and on 03/02/18. HGB 8.1 -> 7.8 today 9. CHADS2-VASC </= 5 -Warfarin to started last Tuesday night hence ongoing afib.. Now on hold for GIB/anemia. 10. COPD - chronic dyspnea 11. Cardiomyopathy 12. GI Bleed suspected - dark tarry stools. Coumadin on hold. had upper and lower endoscopy. Will await GI clearance before resuming anticoagulation. If not deemed safe, would consider [facility] as OP once she is stronger and recovered. Would Sign out. call if can be further help.
[2018-03-08] MEDS: diphenhydrAMINE 25 MG CAP PO SCH (20:31)
[2018-03-08] MEDS: Rosuvastatin 5 MG TAB PO SCH (20:31)
[2018-03-09] MEDS: Acetaminophen 325 MG TAB PO PRN ×2 (01:19→06:11)
[2018-03-09 05:12] LABS: INR-International Normal Ratio 1.7
[2018-03-09] MEDS: Bisacodyl 10 MG SUPP PR SCH ×3 (06:02→23:10)
[2018-03-09] MEDS: Mometasone/Formoterol 120 PUFF INHALER INH SCH ×2 (07:15→20:19)
[2018-03-09] MEDS: Bumetanide 1 MG TAB PO SCH (08:14)
[2018-03-09] MEDS: Magnesium Oxide 400 MG TAB PO SCH ×2 (08:14→20:28)
[2018-03-09] MEDS: Furosemide 40 MG TAB PO SCH (08:15)
[2018-03-09] MEDS: Polyethylene Glycol 3350 17 GM Packet PO SCH (08:15)
[2018-03-09] MEDS: Levothyroxine Sodium 25 MCG TAB PO SCH (08:15)
[2018-03-09] MEDS: Midodrine HCl 5 MG TAB PO SCH ×3 (08:15→20:28)
[2018-03-09] MEDS: Pantoprazole 40 MG VIAL IVP SCH (08:15)
[2018-03-09] MEDS: Carvedilol 3.125 MG TAB PO SCH ×2 (08:15→20:29)
[2018-03-09 09:24] LABS: #Lymphocytes 1.1 thou/uL (1.20-3.40); #Monocytes 0.6 thou/uL (0.11-0.59); #Neutrophils 4.6 thou/uL (1.40-6.50); %Basophils 0.4 % (0.0-1.0); %Eosinophils 0.1 % (0.0-10.0); %Monocytes 9.4 % (0.0-10.0); Hemoglobin 8.7 g/dL (12.0-16.0); Mean Corpuscular HGB CONC 30.8 g/dL (32.0-36.0); Mean Corpuscular Hemoglobin 29.3 pg (27.0-31.0); Mean Corpuscular Volume 95.3 fL (78.0-98.0); Platelet Count 85 thou/uL (130-400); RBC Distribution Width 21.4 % (11.5-14.5); Red Blood Cell (RBC) Count 2.95 mill/uL (4.20-5.40); White Blood Cell (WBC) Count 6.3 thou/uL (4.8-10.8)
--- NOTE | 2018-03-09 09:52 | PRG ---
DATE OF SERVICE: 03/09/2018 SUBJECTIVE: This morning, she is better. She is still weak. OBJECTIVE: VITAL SIGNS: Saturations are 90% on room air, temperature 97, respiratory rate 18, pulse 80, blood pressure 110/55. CHEST: Decreased breath sounds. No wheezing. CARDIAC: Normal S1, S2. No gallops. ABDOMEN: No masses. IMPRESSION: 1. Chronic obstructive pulmonary disease, stable. 2. Congestive heart failure, improved. 3. Azotemia, better. H and H stable. DISPOSITION: Primary care physician. Job ID: [id number]
[2018-03-09 10:51] LABS: Anion Gap 13 mmol/L (10-20); BUN (Urea Nitrogen) 40 mg/dL (9.8-20.1); Calc. Creatinine Clearance 22 mL/min (70-130); Calcium 8.1 mg/dL (7.8-10.44); Carbon Dioxide 26 mmol/L (23-31); Chloride 100 mmol/L (98-107); Estimated GFR-MDRD 23; Glucose 145 mg/dL (83-110); Potassium 4.1 mmol/L (3.5-5.1); Sodium 135 mmol/L (136-145)
[2018-03-09] MEDS: Fluconazole 100 MG TAB PO SCH (14:48)
--- NOTE | 2018-03-09 15:07 | PDOC.PN ---
- Subjective Encounter Start Date: 03/09/18 Encounter Start Time: 08:00 Pt seen for followup re: acute hypoxic respiratory failure. Feels better today. - Objective Resuscitation Status - Order Detail: 02/27/18 16:08 Resuscitation Status Routine Resuscitation Status: FULL: Full Resuscitation Discussed with: confirmed with pt MAR Reviewed: Yes Vital Signs & Weight: Vital Signs (12 hours) Temp Pulse Pulse Resp BP BP Pulse Ox 03/09/18 12:59 75 18 96 03/09/18 11:15 97.6 F 69 18 114/55 L 96 03/09/18 11:00 69 123/59 L 03/09/18 07:35 97.5 F L 18 L 18 110/55 L 96 03/09/18 07:12 71 18 97 03/09/18 03:15 97.7 F 70 22 H 105/52 L 97 Pulse Ox 03/09/18 12:59 03/09/18 11:15 03/09/18 11:00 98 03/09/18 07:35 03/09/18 07:12 03/09/18 03:15 Weight Admit Weight 162 lb 9.6 oz Weight 162 lb 6.4 oz I&O: 03/08/18 03/09/18 03/10/18 06:59 06:59 06:59 Intake Total 1080 1120 Output Total 2150 750 Balance -1070 370 Result Diagrams: 03/09/18 04:44 03/09/18 10:12 Additional Labs: Accuchecks 03/09/18 03/09/18 03/08/18 10:40 05:27 20:29 POC Glucose 211 H 98 117 H 03/08/18 16:49 POC Glucose 126 H EKG Reviewed by me: Yes (Tele: V-paced) Phys Exam - Physical Examination Constitutional: NAD HEENT: moist MMs Neck: supple Respiratory: clear to auscultation bilateral Cardiovascular: RRR Gastrointestinal: soft Neurological: moves all 4 limbs Psychiatric: normal affect Dx/Plan (1) Acute respiratory failure with hypoxia Code(s): J96.01 - ACUTE RESPIRATORY FAILURE WITH HYPOXIA Status: Acute Comment: Improving (2) UGIB (upper gastrointestinal bleed) Code(s): K92.2 - GASTROINTESTINAL HEMORRHAGE, UNSPECIFIED Status: Acute Comment: hemoglobin improved after transfusion of one unit pRBC. Warfarin on hold until cleared by GI. (3) Acute on chronic systolic CHF (congestive heart failure), NYHA class 3 Code(s): I50.23 - ACUTE ON CHRONIC SYSTOLIC (CONGESTIVE) HEART FAILURE Status : Acute Comment: stable, continue oral furosemide (4) Acute worsening of stage 4 chronic kidney disease Code(s): N18.4 - CHRONIC KIDNEY DISEASE, STAGE 4 (SEVERE) Status: Acute Comment: creatinine stable at 2.04 (5) CAD (coronary artery disease) Code(s): I25.10 - ATHSCL HEART DISEASE OF [place] CORONARY ARTERY W/O ANG PCTRS Status: Chronic Qualifiers: Coronary Disease-Associated Artery/Lesion type: [place] artery [place] vs. 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 use: without fpc use Diabetes mellitus complication status: with unspecified complications Qualified Code(s) : E11.8 - Type 2 diabetes mellitus with unspecified complications Comment: reasonable control (7) Dyslipidemia Code(s): E78.5 - HYPERLIPIDEMIA, UNSPECIFIED Status: Chronic Comment: continue statin (8) Hypertension Code(s): I10 - ESSENTIAL (PRIMARY) HYPERTENSION Status: Chronic Qualifiers: Hypertension type: essential hypertension Qualified Code(s): I10 - Essential (primary) hypertension Comment: controlled (9) Hypothyroidism Code(s): E03.9 - HYPOTHYROIDISM, UNSPECIFIED Status: Chronic Qualifiers: Hypothyroidism type: unspecified Qualified Code(s): E03.9 - Hypothyroidism , unspecified Comment: on synthroid (10) Demand ischemia Code(s): I24.8 - OTHER FORMS OF ACUTE ISCHEMIC HEART DISEASE Status: Resolved (11) Constipation Code(s): K59.00 - CONSTIPATION, UNSPECIFIED Status: Resolved (12) Hypoglycemia Code(s): E16.2 - HYPOGLYCEMIA, UNSPECIFIED Status: Resolved - Plan * . Review of Systems - Review of Systems Cardiovascular: negative: chest pain, palpitations, orthopnea, paroxysmal nocturnal dyspnea, edema, light headedness Gastrointestinal: negative: Nausea, Vomiting, Abdominal Pain, Diarrhea, Constipation, Melena, Hematochezia - Medications/Allergies Allergies/Adverse Reactions: Allergies Allergy/AdvReac Type Severity Reaction Status Date / Time codeine [Codeine] Allergy Severe CHEST Verified 02/24/18 19:39 TIGHTNESS levofloxacin [From Levaquin] Allergy Intermediate Rash Verified 02/24/18 19:39 adhesive tape Allergy Verified 02/24/18 19:39 duloxetine [From Cymbalta] AdvReac Verified 02/24/18 19:39 Medications: Current Medications Acetaminophen (Tylenol) 650 mg PO Q4H PRN PRN Reason: Headache/Fever/Mild Pain (1-3) Last Admin: 03/09/18 06:11 Dose: 650 mg Albuterol/Ipratropium (Duoneb) 3 ml NEB Q4H PRN PRN Reason: Dyspnea Last Admin: 02/27/18 14:12 Dose: 3 ml Albuterol/Ipratropium (Duoneb) 3 ml NEB [id number] [facility] Last Admin: 03/09/18 12:59 Dose: 3 ml Bisacodyl (Dulcolax) 10 mg PO DAILYPRN PRN PRN Reason: Constipation Last Admin: 03/05/18 11:15 Dose: 10 mg Bisacodyl (Dulcolax) 10 mg MN Q8H [facility] Last Admin: 03/09/18 14:51 Dose: 10 mg Bumetanide (Bumex) 1 mg PO QAM [facility] Last Admin: 03/09/18 08:14 Dose: 1 mg Carvedilol (Coreg) 3.125 mg PO BID [facility] Last Admin: 03/09/18 08:15 Dose: 3.125 mg Dextrose/Water (Dextrose 50%) 25 gm SLOW IVP PRN PRN PRN Reason: Hypoglycemia Last Admin: 03/04/18 02:13 Dose: 25 gm Diphenhydramine HCl (Benadryl) 25 mg PO HS [facility] Last Admin: 03/08/18 20:31 Dose: 25 mg Epoetin Rodrick (Procrit) 10,000 units SC Q7D [facility] Last Admin: 03/06/18 12:31 Dose: 10,000 units Fluconazole (Diflucan) 100 mg PO 1400 [facility] Last Admin: 03/09/18 14:48 Dose: 100 mg Furosemide (Lasix) 40 mg PO DAILY-AC [facility] Last Admin: 03/09/18 08:15 Dose: 40 mg Glucagon (Glucagon) 1 mg IM PRN PRN PRN Reason: Hypoglycemia Dextrose/Water (D5w) 1,000 mls @ 0 mls/hr IV .Q0M PRN PRN Reason: Hypoglycemia Insulin Human Lispro (Humalog) 0 units SC .MILD SLIDING SCALE PRN PRN Reason: Mild Correctional Scale Last Admin: 02/27/18 16:51 Dose: 4 unit Levothyroxine Sodium (Synthroid) 50 mcg PO 0600 [facility] Magnesium Oxide (Magnesium Oxide) 400 mg PO BID [facility] Last Admin: 03/09/18 08:14 Dose: 400 mg Melatonin (Melatonin) 3 mg PO HS PRN PRN Reason: Insomnia Last Admin: 02/27/18 21:29 Dose: 3 mg Midodrine (Proamatine) 5 mg PO TID [facility] Last Admin: 03/09/18 14:47 Dose: 5 mg Mometasone Furoate/Formoterol Fumar (Dulera 100 Mcg/5 Mcg Inhaler) 2 puff INH BID-RT [facility] Last Admin: 03/09/18 07:15 Dose: 2 puff Ondansetron HCl (Zofran) 4 mg IVP Q6H PRN PRN Reason: Nausea/Vomiting Last Admin: 03/01/18 06:37 Dose: 4 mg Pantoprazole Sodium (Protonix) 40 mg IVP DAILY [facility] Last Admin: 03/09/18 08:15 Dose: 40 mg Polyethylene Glycol (Miralax) 17 gm PO DAILY [facility] Last Admin: 03/09/18 08:15 Dose: 17 gm Potassium Chloride (Klor-Con) 40 meq PO QAM-WM [facility] Last Admin: 03/09/18 08:15 Dose: 40 meq Rosuvastatin Calcium (Crestor) 5 mg PO QPM [facility] Last Admin: 03/08/18 20:31 Dose: 5 mg Sodium Chloride (Flush - Normal Saline) 10 ml IVF Q12HR PRN PRN Reason: Saline Flush Last Admin: 03/09/18 08:17 Dose: 10 ml Sodium Chloride (Flush - Normal Saline) 10 ml IVF PRN PRN PRN Reason: Saline Flush Last Admin: 03/08/18 09:46 Dose: 10 ml
[2018-03-09] MEDS: diphenhydrAMINE 25 MG CAP PO SCH (20:28)
[2018-03-09] MEDS: Rosuvastatin 5 MG TAB PO SCH (20:29)
--- NOTE | 2018-03-10 00:01 | PRG ---
DATE OF SERVICE: 03/09/2018 SUBJECTIVE: The patient feels better today. She is alert, very conversant. She is breathing easier. She denies any nausea, vomiting, or abdominal pain. No overt bleeding such as melena. OBJECTIVE: VITAL SIGNS: Temperature is 98.1, blood pressure 156/60, pulse of 86. GENERAL: She is alert, in no distress. HEENT: Anicteric sclerae. Oropharynx clear. CV: Shows normal S1 and S2. Regular rate and rhythm. CHEST: Shows breath sounds. No adventitious sounds. ABDOMEN: Soft. No distention. No tympany. No tenderness. She has active bowel sounds. EXTREMITIES: Shows no edema. LABORATORY DATA: WBC 6.3, hemoglobin 8.7 after 2 units, platelet count of 85. Electrolytes within normal range. Creatinine is 2.04. Esophageal biopsy showed candidal esophagitis. ASSESSMENT: 1. History of melena, negative upper endoscopy for any source of active bleeding. She did have 2 small nonbleeding AVMs that were ablated. 2. Ying esophagitis confirmed by biopsy, currently on fluconazole. 3. Anemia, multifactorial. 4. Coronary artery disease. 5. Congestive heart failure. 6. Aortic stenosis. 7. Atrial fibrillation. 8. Chronic obstructive pulmonary disease. 9. Hypertension. 10. Stage 4 chronic kidney disease. RECOMMENDATIONS: 1. As her EGD did not show any source of active bleeding and there was no further signs of overt bleeding, can restart warfarin. 2. Continue GI prophylaxis with pantoprazole. 3. Fluconazole 100 mg daily x7 days for candidal esophagitis. 4. GI service will sign off for now, please recall if needed. Job ID: [id number]
[2018-03-10] MEDS: Acetaminophen 325 MG TAB PO PRN ×2 (01:08→05:41)
[2018-03-10 05:11] LABS: INR-International Normal Ratio 1.5; Prothrombin Time 17.7 SEC (12.0-14.7)
[2018-03-10 05:19] LABS: Hemoglobin 9.3 g/dL (12.0-16.0); Platelet Count 95 thou/uL (130-400)
[2018-03-10] MEDS: Bisacodyl 10 MG SUPP PR SCH ×2 (05:34→15:32)
[2018-03-10] MEDS ORDERED: Levothyroxine Sodium 25 MCG TAB PO SCH (06:00)
[2018-03-10] MEDS: Furosemide 40 MG TAB PO SCH (08:09)
[2018-03-10] MEDS: Carvedilol 3.125 MG TAB PO SCH (08:10)
[2018-03-10] MEDS: Bumetanide 1 MG TAB PO SCH (08:10)
[2018-03-10] MEDS: Magnesium Oxide 400 MG TAB PO SCH (08:10)
[2018-03-10] MEDS: Midodrine HCl 5 MG TAB PO SCH ×2 (08:11→15:32)
[2018-03-10] MEDS: Pantoprazole 40 MG VIAL IVP SCH (08:11)
[2018-03-10] MEDS: Polyethylene Glycol 3350 17 GM Packet PO SCH (08:12)
[2018-03-10] MEDS: Mometasone/Formoterol 120 PUFF INHALER INH SCH (09:39)
[2018-03-10] MEDS: Fluconazole 100 MG TAB PO SCH (13:38)
[2018-03-10 15:32] VITALS: BP 110/57; TEMP 98.1
--- NOTE | 2018-03-11 05:49 | DIS ---
DATE OF ADMISSION: 02/25/2018 DATE OF DISCHARGE: 03/10/2018 PRIMARY CARE PHYSICIAN: Dr. Nidia Hood. DISCHARGE DISPOSITION: [facility] in [place]. DISCHARGE DIAGNOSES: 1. Acute hypoxic respiratory failure. 2. Upper gastrointestinal bleed, status post EGD and cauterization of arteriovenous malformation. 3. Persistent atrial fibrillation, status post AV junction ablation on 02/28/2018 and upgrade of Bi-V ICD on 02/28/2018, with hematoma at the implant site by Dr. Wilde. 4. Acute on chronic systolic congestive heart failure, NYHA class III, stable. 5. Acute on chronic kidney disease, improved. 6. History of coronary artery disease. 7. Diabetes mellitus. 8. Dyslipidemia. 9. Hypertension. 10. Hypothyroidism. 11. Demand ischemia. 12. Constipation and fecal impaction, improved. DISCHARGE MEDICATIONS: Please note that the patient has been taken off warfarin due to high bleeding risk. She is also taken off amiodarone status post ablation. 1. Glyburide 2.5 mg daily. 2. Crestor 40 mg daily. 3. DHEA 50 mg daily. 4. Magnesium 400 mg p.o. b.i.d. 5. Levothyroxine 50 mcg daily. 6. Breo Ellipta 1 puff daily. 7. Coreg 3.125 mg daily. 8. Aspirin 81 mg daily. 9. Protonix daily 40 mg. 10. MiraLAX 17 g daily. 11. Midodrine 5 mg p.o. t.i.d. 12. Melatonin 3 mg p.o. at bedtime p.r.n. 13. Lasix 40 mg daily. 14. Diflucan 100 mg for 7 days. 15. Procrit every 7 days, 10,000 units. 16. Bumex 1 mg daily. 17. Dulcolax p.r.n. 18. Tylenol p.r.n. IN-HOUSE CONSULTATIONS: 1. Gastroenterology, Dr. Fan. 2. Electrophysiology, Dr. Wilde. 3. Pulmonary Medicine. 4. Cardiology, Dr. Blake. 5. Nephrology, . PROCEDURES DONE IN HOSPITAL: 1. Successful AV christina ablation and Bi-V ICD upgrade by Dr. Wilde on 02/28/2018. 2. EGD by Dr. Basilio on 03/07/2018, with biopsy of the esophagus and cautery of small gastric AV malformation. White plaques in the esophagus were seen consistent with Ying. No active GI bleed was seen in the esophagus, duodenum, or stomach. Rectal exam revealed a very large fecal impaction, which was broken up digitally by Dr. Basilio. 3. Multiple chest x-rays while she was in the hospital. Most recent on 03/01/2018, which shows left lung opacification consistent with atelectasis. HISTORY OF PRESENTING ILLNESS: Ms. Vela is an 87-year-old, very pleasant, elderly female with past medical history of chronic congestive heart failure, chronic kidney disease stage 4, diabetes, and hypertension, who was brought in for complaints of shortness of breath. She was recently admitted to our facility and was discharged few weeks ago for atrial fibrillation and shortness of breath, and at that time was diagnosed with chronic congestive heart failure. In the emergency room, she was diagnosed with atrial fibrillation with RVR as well as acute on chronic kidney disease. Nephrology and Cardiology were consulted and she was diuresed for possible acute CHF as well. Please see admission history and physical for further details. At the time of admission, her BNP was 3406 and creatinine of 3.08. HOSPITAL COURSE: The patient was seen by Nephrology, , who followed along and eventually her renal function improved and stabilized. No dialysis was necessary. She was seen by Cardiology for her atrial fibrillation and RVR. Initially, Dr. Rahman saw the patient and later Dr. Blake followed the patient along. They agreed with diuresis, but referred the patient to electrophysiology, Dr. Wilde, for persistent recurrent atrial fibrillation. Dr. Wilde recommended that she underwent an ablation which was done successfully. She also has AICD in place, which was upgraded at the same time by Dr. Wilde. Her hospitalization was also complicated by some melena for which GI team was consulted. The patient was on anticoagulation with Eliquis when she came to the hospital. This was changed to Coumadin while she was in the hospital while she was undergoing ablation, etc. With regard to this melena, H and H were continued and she was transfused p.r.n. GI team recommended EGD. This was done, which showed small AVMs without any specific bleeding. She was, however, found to have Ying esophagitis and was started on Diflucan while in the hospital along with proton pump inhibitor. As of this morning, the patient is stable. Her renal function has improved so as her acute congestive heart failure. She is hemodynamically stable and all the consultants involved in her case have signed off and cleared her for discharge. I have discussed this with Cardiology as well. At this time, she will not restart the anticoagulation given her high fall risk. She was also noticed to have a hematoma at the pacemaker insertion site, which has not grown in size. Please note that this is my first day with the patient and the patient has been here for 14 days already. However, at this time, she will be discharged to the next site of care. She is going to [facility]. She has been working with physical therapist and has walked with them yesterday. 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 I have requested our director of casework department and nursing staff to call the son and update them that she is cleared for discharge today to the inpatient rehab facility. She was seen and examined prior to discharge. PHYSICAL EXAMINATION: This morning, VITAL SIGNS: Temperature 98.3, pulse of 72, respirations 18, saturating 97% on room air, blood pressure 117/58. GENERAL: No acute distress. Awake, alert, and oriented x3. CHEST: Clear to auscultation without any wheezing, rales, or rhonchi. The hematoma site at the pacemaker insertion site shows changes consistent with improvement. It is swollen and there is no erythema or tenderness. Bruising is noticed. HEART: Rate and rhythm are regular without any murmurs, rubs, or gallops. EXTREMITIES: Free of any cyanosis, clubbing, or edema. PLAN: Discharge plan was discussed with Ms. Vela who is in agreement. Discharge plan was also discussed with Dr. Blake. Dr. Wilde and Dr. Fan have signed off on her. DISCHARGE LABS: Hemoglobin 9.3, hematocrit 30, which was 8.7 yesterday. Her creatinine on the day of discharge is 1.81, which was 3.08 on admission. TOTAL TIME SPENT: 40 minutes. Job ID: [id number]
== END 2018-03-10 15:50 | DRG 226 ==
LOC: ERS 13:28 → 2SW 15:43 → OBSVTOIN 02-25 09:09 → 2NO 03-02 15:44
PROVIDERS: ADMIT Internal Medicine; ATTEND Internal Medicine
PROC: 30233N1 Transfusion of Nonautologous Red Blood Cells into Peripheral Vein, Percutaneous Approach (ICD-10-PCS; 2018-02-27)
PROC: 02HL3KZ Insertion of Defibrillator Lead into Left Ventricle, Percutaneous Approach (ICD-10-PCS; 2018-02-28)
PROC: 0JH609Z Insertion of Cardiac Resynchronization Defibrillator Pulse Generator into Chest Subcutaneous Tissue and Fascia, Open Approach (ICD-10-PCS; 2018-02-28)
PROC: 02583ZZ Destruction of Conduction Mechanism, Percutaneous Approach (ICD-10-PCS; 2018-02-28)
PROC: 0JPT0PZ Removal of Cardiac Rhythm Related Device from Trunk Subcutaneous Tissue and Fascia, Open Approach (ICD-10-PCS; 2018-02-28)
PROC: 4A023FZ Measurement of Cardiac Rhythm, Percutaneous Approach (ICD-10-PCS; 2018-02-28)
PROC: 4A0234Z Measurement of Cardiac Electrical Activity, Percutaneous Approach (ICD-10-PCS; 2018-02-28)
PROC: 02K83ZZ Map Conduction Mechanism, Percutaneous Approach (ICD-10-PCS; 2018-02-28)
PROC: 0DB58ZX Excision of Esophagus, Via Natural or Artificial Opening Endoscopic, Diagnostic (ICD-10-PCS; principal; 2018-03-07)
PROC: 0W3P8ZZ Control Bleeding in Gastrointestinal Tract, Via Natural or Artificial Opening Endoscopic (ICD-10-PCS; 2018-03-07)
DX: I13.2 Hypertensive heart and chronic kidney disease with heart failure and with stage 5 chronic kidney disease, or end stage renal disease (principal); I50.23 Acute on chronic systolic (congestive) heart failure; J96.01 Acute respiratory failure with hypoxia; K92.1 Melena; I24.8 Other forms of acute ischemic heart disease; N18.5 Chronic kidney disease, stage 5; N17.9 Acute kidney failure, unspecified; I47.2 Ventricular tachycardia; I48.1 Persistent atrial fibrillation; B37.81 Candidal esophagitis; E11.22 Type 2 diabetes mellitus with diabetic chronic kidney disease; E87.6 Hypokalemia; E87.70 Fluid overload, unspecified; D64.9 Anemia, unspecified; Q27.33 Arteriovenous malformation of digestive system vessel; K56.41 Fecal impaction; J44.9 Chronic obstructive pulmonary disease, unspecified; I25.10 Atherosclerotic heart disease of native coronary artery without angina pectoris; E03.9 Hypothyroidism, unspecified; E11.649 Type 2 diabetes mellitus with hypoglycemia without coma; E78.5 Hyperlipidemia, unspecified; I42.9 Cardiomyopathy, unspecified; Z95.810 Presence of automatic (implantable) cardiac defibrillator
CPT/HCPCS: 33224; 33225; 36415; 36416; 36430; 71045; 76942; 80048; 80053; 80076; 82274; 82553; 82565; 82728; 83540; 83550; 83735; 83880; 84484; 85014; 85018; 85025; 85027; 85049; 85610; 86850; 86900; 86901; 88305; 88312; 88313; 93005; 93010; 93623; 93650; 93798; 94640; 94664; 94760; 96374; C1769; C1882; C1900; C2630; C9113; J1265; J1450; J1644; J1650; J1940; J2001; J2405; J2704; J2916; J3010; J3490; J7050; J7620; J7626; P9016; Q4081

== ENCOUNTER 2018-03-26 04:05 | Inpatient (IN) | payer MEDICARE ==
[2018-03-26] MEDS ORDERED: Morphine 4 MG/ML VIAL ONE (04:33)
[2018-03-26] MEDS ORDERED: Ondansetron PF 4 MG/2 ML Vial ONE (04:33)
[2018-03-26 04:59] LABS: Bilirubin Negative (Negative); Blood, Urine Negative (Negative); Clarity CLOUDY (Clear); Glucose, Urine (Dipstick) Negative (Negative); Leukocyte Moderate (Negative); Nitrite Negative (Negative); Protein, Urine (Dipstick) Trace mg/dL (Neg-Trace); pH, Urine 7.5 (5.0-9.0)
[2018-03-26 04:59] LABS: Mean Corpuscular HGB CONC 31.5 g/dL (32.0-36.0); Mean Corpuscular Hemoglobin 31.5 pg (27.0-31.0); Mean Platelet Volume 9.2 fL (7.4-10.4); Platelet Count 213 thou/uL (130-400); RBC Distribution Width 21.7 % (11.5-14.5); Red Blood Cell (RBC) Count 4.13 mill/uL (4.20-5.40); White Blood Cell (WBC) Count 8.6 thou/uL (4.8-10.8)
[2018-03-26 05:02] LABS: Bacteria/HPF 1+ HPF (None Seen); Hyaline Casts/LPF 0-3 HYALINE CAST LPF (0-3 Hyaline); Pathc Cast-AUWi Flag 0.14 (0-2.49); RBC/HPF 0-3 HPF (0-3); Squamous Epithelial None Seen HPF (0-3)
[2018-03-26 05:25] LABS: #Lymphocytes 1.1 thou/uL (1.20-3.40); #Monocytes 0.4 thou/uL (0.11-0.59); #Neutrophils 7.1 thou/uL (1.40-6.50); %Basophils 0.3 % (0.0-1.0); %Eosinophils 0.3 % (0.0-10.0); %Lymphocytes 12.9 % (21.0-51.0); %Monocytes 4.3 % (0.0-10.0); %Neutrophils 82.2 % (42.0-75.0); Anisocytosis SLIGHT = 6-15 cells (100X) (0-5/hpf); MDiff Complete? YES; Platelet Morphology Comment Appears Adequate
[2018-03-26 05:31] LABS: ALT (SGPT) 16 U/L (8-55); AST (SGOT) 41 U/L (5-34); Albumin 3.3 g/dL (3.4-4.8); Alkaline Phosphatase 78 U/L (40-150); Anion Gap 19 mmol/L (10-20); BUN (Urea Nitrogen) 32 mg/dL (9.8-20.1); Bilirubin, Total 1.7 mg/dL (0.2-1.2); CK (CPK) 24 U/L (29-168); Calc. Creatinine Clearance 0 mL/min (70-130); Calcium 9.4 mg/dL (7.8-10.44); Carbon Dioxide 24 mmol/L (23-31); Chloride 98 mmol/L (98-107); Estimated GFR-MDRD 27; Globulin 2.7 g/dL (2.4-3.5); Glucose 135 mg/dL (83-110); Lipase 9 U/L (8-78); Potassium 5.3 mmol/L (3.5-5.1); Sodium 136 mmol/L (136-145)
[2018-03-26 05:40] LABS: CKMB 1.4 ng/mL (0-6.6)
[2018-03-26] MEDS ORDERED: Cefepime 2 GM VIAL ONE (06:48)
[2018-03-26] MEDS ORDERED: Sodium Chloride 0.65% Nasal 44 ML BOT EA NARE PRN (07:12)
[2018-03-26] MEDS ORDERED: hydrALAZINE 20 MG/ML VIAL SLOW IVP PRN (07:12)
[2018-03-26] MEDS ORDERED: Acetaminophen 325 MG TAB PO PRN (07:12)
[2018-03-26] MEDS ORDERED: Senokot S 8.6-50 MG TAB PO PRN (07:12)
[2018-03-26] MEDS ORDERED: Calcium Carbonate 500 MG ChewTAB PO PRN (07:12)
[2018-03-26] MEDS ORDERED: Bisacodyl 10 MG SUPP PR PRN (07:12)
[2018-03-26] MEDS ORDERED: Cepastat Lozenges 1 LOZ PO PRN (07:12)
[2018-03-26] MEDS ORDERED: Bisacodyl 5 MG TAB PO PRN (07:12)
[2018-03-26] MEDS ORDERED: Loratadine 10 MG TAB PO PRN (07:12)
[2018-03-26] MEDS ORDERED: Diabetic Tussin 200 MG/10 ML UDCUP PO PRN (07:12)
[2018-03-26] MEDS ORDERED: Eucerin (Mineral Oil/Petrolatum,White) 30 gm Jar TOP PRN (07:12)
[2018-03-26] MEDS ORDERED: Loperamide HCl 2 MG CAP PO PRN (07:12)
[2018-03-26] MEDS ORDERED: Artificial Tears 18 DROP/0.9 ML EA EYE PRN (07:12)
[2018-03-26] MEDS ORDERED: VANCOMYCIN IVPB SCH (07:14)
[2018-03-26] MEDS ORDERED: Dextrose 5% in Water 1,000 ML IV PRN (07:15)
[2018-03-26] MEDS ORDERED: HumaLOG 300 UNITS/3 ML VIAL SC PRN ×2 (07:15)
[2018-03-26] MEDS ORDERED: Dextrose 50% Abboject 50 ML SYRINGE SLOW IVP PRN (07:15)
[2018-03-26 08:33] LABS: Troponin I 0.085 ng/mL (< 0.028)
[2018-03-26] MEDS: Piperacillin/Tazobactam 3.375 GM in Sodium Chloride 0.9% 100 ML IVPB SCH ×3 (08:40→20:44)
--- NOTE | 2018-03-26 08:40 | RAD ---
CHEST 1 VIEW: Date: 03/26/18 INDICATION: History of nausea and shortness of breath. COMPARISON: Prior exam dated 03/01/18. FINDINGS: There is increased air space opacity within the right lung base obscuring the right heart border. Car diomegaly is stable. Left lung is clear. AICD is unchanged. Chronic osseous changes are similar appea ring. Vertebroplasty change at thoracolumbar spine is similar. IMPRESSION: Findings suspicious for right middle lobe pneumonia. POS: BH
[2018-03-26 08:45] VITALS: BMI 23.1
[2018-03-26] MEDS: Folic Acid 1 MG TAB PO SCH (09:26)
[2018-03-26] MEDS: Cyanocobalamin (Vitamin B-12) 1,000 MCG TAB PO SCH (09:26)
[2018-03-26] MEDS: Saccharomyces boulardii 250 MG CAP PO SCH (09:26)
[2018-03-26] MEDS: Enoxaparin Sodium 30 MG/0.3 ML SYRINGE SC SCH (09:33)
[2018-03-26] MEDS: Famotidine 20 MG TAB PO SCH (09:33)
[2018-03-26] MEDS ORDERED: Melatonin 3 MG TAB PO PRN (11:36)
[2018-03-26 11:39] LABS: Lactic Acid 3.6 mmol/L (0.5-2.2)
[2018-03-26 11:46] LABS: Troponin I 0.076 ng/mL (< 0.028)
--- NOTE | 2018-03-26 12:29 | HP ---
PRIMARY CARE PHYSICIAN: Nidia Hood DO REASON FOR ADMISSION: Pneumonia, UTI, sepsis. HISTORY OF PRESENT ILLNESS: An 87-year-old female, who has multiple medical problems, who was recently admitted in our hospital. She was discharged to [facility] on March 10, 2018. During that admission, the patient had upper endoscopy for melenic stool and the patient was treated with cauterization for AV malformation. The patient also had early this month AV christina ablation and BiV ICD was upgraded. She was doing well up until last night. Yesterday, she was not feeling good during entire day. She was not participating with therapy. She was having dysuria, increased frequency, cough, shortness of breath, and condition gotten worse last night and that is why the patient was sent to emergency room for evaluation. Routine blood test showed finding suggestive of right middle lobe pneumonia. Her urinalysis was also suggestive of UTI. Chronically elevated troponin. She was also found with lactic acidosis. The patient has increasing cough, increasing shortness of breath, and she was feeling more weak than usual and that is why she was sent from snf to emergency room, and subsequently, the patient was admitted to telemetry floor. The patient was also having nausea, poor appetite, but no vomiting. She denies any dizziness. She denies any orthopnea, PND, or leg swelling. In the emergency room, her oxygen saturation dropped to 86%, but she was maintaining her oxygen saturation with 2 L nasal cannula. Her vitals are stable. The patient's family member also present at bedside and updated about the patient's plan and obtained history from them as well. REVIEW OF SYSTEMS: CONSTITUTIONAL: Negative for weight loss or gain, ability to conduct usual activities. SKIN: Negative for rash, itching. EYES: Negative for double vision, pain. ENT/MOUTH: Negative for nose bleeding, neck stiffness, pain, tenderness. CARDIOVASCULAR: Negative for palpitations, dyspnea on exertion, orthopnea. RESPIRATORY: Negative for shortness of breath, wheezing, cough, hemoptysis, fever or night sweats. GASTROINTESTINAL: Negative for poor appetite, abdominal pain, heartburn, nausea, vomiting, constipation, or diarrhea. GENITOURINARY: Negative for urgency, frequency, dysuria, nocturia. MUSCULOSKELETAL: Negative for pain, swelling. NEUROLOGIC/PSYCHIATRIC: Negative for anxiety, depression. ALLERGY/IMMUNOLOGIC: Negative for skin rash, bleeding tendency. Please see my HPI for pertinent positive and negative. All other review of systems reviewed and negative except as mentioned in HPI. PAST MEDICAL HISTORY: History of recurrent fall, history of vertebral compression fracture, bladder cancer, hypothyroidism, hypertension, dyslipidemia, coronary artery disease, moderate aortic stenosis, severe mitral regurgitation, severe tricuspid regurgitation, ischemic cardiomyopathy, chronic kidney disease stage 3, chronic physical deconditioning, T12 vertebral fracture, dyslipidemia, diabetes type 2, chronic atrial fibrillation. PAST SURGICAL HISTORY: Mastoid surgery, colonoscopy, EGD, cystourethroscopy, laminectomy, right total knee arthroplasty, BiV pacemaker placement, cholecystectomy, hysterectomy, thyroidectomy, ankle surgery, right wrist surgery. PAST PSYCHIATRIC HISTORY: Anxiety and depression. CURRENT HOME MEDICATIONS: 1. Tylenol PM 2 tablets at bedtime. 2. Aspirin 81 mg daily. 3. Bumex 1 mg b.i.d. 4. Colace 100 mg b.i.d. 5. Breo Ellipta one inhalation daily. 6. DuoNeb q.4 hourly. 7. Levothyroxine 50 mcg daily. 8. Magnesium 400 mg b.i.d. 9. Potassium chloride 20 mEq p.o. daily. 10. Crestor 40 mg p.o. at bedtime. 11. Coreg 3.125 mg b.i.d. 12. Procrit as needed. 13. Lasix 40 mg daily. 14. Melatonin 3 mg p.o. q.h.s. p.r.n. 15. Midodrine 5 mg t.i.d. 16. Protonix 40 mg daily. 17. MiraLAX 17 g daily. 18. Potassium chloride 40 mEq p.o. daily. ALLERGIES: CODEINE, LEVAQUIN. FAMILY HISTORY: Sister with advanced COPD. Mother with coronary artery disease by age of 60. SOCIAL HISTORY: The patient currently is a resident of [facility]. No history of tobacco, alcohol, or illicit drug abuse. EMERGENCY ROOM COURSE: The patient has received cefepime, vancomycin, morphine, IV fluid. PHYSICAL EXAMINATION: VITAL SIGNS: On arrival, blood pressure 134/52, pulse 76, respiratory rate 18, temperature 99.2, saturation 95% on 2 L oxygen. Weight 74.8 kg. GENERAL: The patient is currently alert, awake, chronically ill, in no obvious acute distress. HEENT: Head; normocephalic, atraumatic. Eyes; pupils round, reactive to light. Extraocular muscles intact. ENT; oropharynx within normal limits. Moist mucous membranes. No oral lesion. No pharyngeal erythema. No exudate. NECK: Supple. No JVD. No thyromegaly. No carotid bruit. No jugular venous distention. LUNGS: Right lower lobe rales noted. Few wheezing heard. Coarse breath sound. CARDIAC: S1 and S2. Irregular. Systolic murmur present parasternally and at apex and at the aortic area. No gallop. No rub. ABDOMEN: Soft. Bowel sounds present. Nontender. Nondistended. No organomegaly. No mass. No suprapubic tenderness. BACK: Unremarkable. No CVA tenderness. EXTREMITIES: Upper extremities; passive movement of all joints are normal. Lower extremity, trace lower extremity edema noted. Good distal pulsation. SKIN: No skin rash. HEMATOLOGIC: No lymphadenopathy. NEUROLOGIC: Grossly nonfocal examination. SIGNIFICANT LABORATORY DATA: EKG showing pacemaker rhythm. Chest x-ray showing right lower lobe infiltration. CBC; WBC 8.6, hemoglobin 13.0, platelets 213, MCV 100. BMP: Sodium 136, potassium 5.3, BUN 32, creatinine 1.79, glucose 135, calcium 9.4. Lactic acid 2.9. LFTs; AST 41, ALT 16, alkaline phosphatase 78, albumin 3.3. BNP 1717, CK-MB 1.4, troponin 0.067 and 0.085. Lipase 9. Urinalysis suggestive of UTI. ASSESSMENT: 1. Right middle lobe healthcare-associated pneumonia. 2. Urinary tract infection. 3. Lactic acidosis. 4. Hyperkalemia. 5. Macrocytosis. 6. Severe ischemic cardiomyopathy with chronic systolic heart failure ACC stage C associated with [id number] aortic stenosis, severe mitral regurgitation, severe tricuspid regurgitation, currently euvolemic. 7. Hypothyroidism. 8. Hypertension, but with currently low blood pressure. 9. Diabetes, type 2. 10. Chronic obstructive pulmonary disease. 11. Chronic kidney disease, stage 3. 12. Coronary artery disease. 13. Physical deconditioning. PLAN: Admission to telemetry floor. Empiric vancomycin and Zosyn. Folic acid and vitamin B12 therapy. Selected home medication will be reconciled. DVT prophylaxis with Lovenox. GI prophylaxis with Pepcid 20 mg p.o. b.i.d. Nutritional support. The patient does have chronically elevated troponin. Today, we will hold diuretic therapy. Plan of care discussed with the patient's family member. CODE STATUS: The patient is full code. The patient's daughter is surrogate decision maker. Job ID: [id number]
[2018-03-26] MEDS: Midodrine HCl 5 MG TAB PO SCH ×2 (14:31→20:45)
[2018-03-26] MEDS: Metoclopramide HCl 10 MG/2 ML VIAL IVP PRN (18:09)
[2018-03-26] MEDS: Mometasone/Formoterol 120 PUFF INHALER INH SCH (19:34)
[2018-03-26] MEDS: Rosuvastatin 20 MG TAB PO SCH (20:45)
[2018-03-26] MEDS: Aspirin 81 mg Enteric Coated Tablet PO SCH (20:45)
[2018-03-27] MEDS: Piperacillin/Tazobactam 3.375 GM in Sodium Chloride 0.9% 100 ML IVPB SCH ×4 (02:24→20:49)
[2018-03-27] MEDS ORDERED: Vancomycin HCl 1 GM in Premix Bag 1 BAG IVPB SCH (05:00)
[2018-03-27] MEDS: Levothyroxine Sodium 50 MCG TAB PO SCH (05:29)
[2018-03-27 05:33] LABS: Vancomycin, Random 10.4 ug/mL (See Comment)
[2018-03-27 05:46] LABS: ALT (SGPT) 9 U/L (8-55); AST (SGOT) 16 U/L (5-34); Albumin 2.3 g/dL (3.4-4.8); Alkaline Phosphatase 47 U/L (40-150); Anion Gap 13 mmol/L (10-20); BUN (Urea Nitrogen) 35 mg/dL (9.8-20.1); Bilirubin, Total 1.5 mg/dL (0.2-1.2); Calc. Creatinine Clearance 23 mL/min (70-130); Carbon Dioxide 25 mmol/L (23-31); Chloride 103 mmol/L (98-107); Estimated GFR-MDRD 28; Globulin 1.7 g/dL (2.4-3.5); Glucose 85 mg/dL (83-110); Potassium 3.9 mmol/L (3.5-5.1); Sodium 137 mmol/L (136-145)
[2018-03-27 06:26] LABS: #Lymphocytes 2.1 thou/uL (1.20-3.40); #Monocytes 0.5 thou/uL (0.11-0.59); #Neutrophils 6.6 thou/uL (1.40-6.50); %Basophils 0.1 % (0.0-1.0); %Eosinophils 0.2 % (0.0-10.0); %Lymphocytes 22.9 % (21.0-51.0); %Monocytes 5.7 % (0.0-10.0); %Neutrophils 71.1 % (42.0-75.0); Anisocytosis SLIGHT = 6-15 cells (100X) (0-5/hpf); Elliptocytes SLIGHT = 2-5 cells (100X) (0-1/hpf); Hemoglobin 9.4 g/dL (12.0-16.0); MDiff Complete? YES; Mean Corpuscular HGB CONC 31.9 g/dL (32.0-36.0); Mean Corpuscular Hemoglobin 32.5 pg (27.0-31.0); Mean Platelet Volume 8.8 fL (7.4-10.4); Platelet Count 130 thou/uL (130-400); RBC Distribution Width 21.2 % (11.5-14.5); Red Blood Cell (RBC) Count 2.88 mill/uL (4.20-5.40); White Blood Cell (WBC) Count 9.2 thou/uL (4.8-10.8)
[2018-03-27] MEDS ORDERED: Levothyroxine Sodium 25 MCG TAB PO SCH (09:00)
[2018-03-27] MEDS: Enoxaparin Sodium 30 MG/0.3 ML SYRINGE SC SCH (09:44)
[2018-03-27] MEDS: Famotidine 20 MG TAB PO SCH (09:44)
[2018-03-27] MEDS: Polyethylene Glycol 3350 17 GM Packet PO SCH (09:44)
[2018-03-27] MEDS: Cyanocobalamin (Vitamin B-12) 1,000 MCG TAB PO SCH (09:44)
[2018-03-27] MEDS: Folic Acid 1 MG TAB PO SCH (09:44)
[2018-03-27] MEDS: Saccharomyces boulardii 250 MG CAP PO SCH (09:44)
[2018-03-27] MEDS: Midodrine HCl 5 MG TAB PO SCH ×3 (09:44→20:57)
[2018-03-27] MEDS: Mometasone/Formoterol 120 PUFF INHALER INH SCH ×2 (10:52→18:43)
[2018-03-27] MEDS: Vancomycin HCl 1 GM in Premix Bag 1 BAG IVPB SCH (11:07)
--- NOTE | 2018-03-27 11:31 | PDOC.PN ---
- Subjective Encounter Start Date: 03/27/18 Encounter Start Time: 08:00 -: old records requested/rev Patient seen and examined. No new complaints. No overnight events pt feels better today - Objective Resuscitation Status - Order Detail: 03/26/18 07:12 Resuscitation Status Routine Resuscitation Status: FULL: Full Resuscitation MAR Reviewed: Yes Vital Signs & Weight: Vital Signs (12 hours) Temp Pulse Resp BP Pulse Ox 03/27/18 10:52 72 16 03/27/18 08:00 98.3 F 70 16 126/58 L 98 03/27/18 07:50 92 L 03/27/18 07:49 68 16 03/27/18 04:00 97.3 F L 71 24 H 92/59 L 98 03/27/18 00:46 69 14 93 L Weight Weight 146 lb I&O: 03/26/18 03/27/18 03/28/18 06:59 06:59 06:59 Intake Total 3100 Balance 3100 Result Diagrams: 03/27/18 04:38 03/27/18 04:38 Additional Labs: Accuchecks 03/27/18 03/26/18 03/26/18 05:45 20:03 16:57 POC Glucose 94 114 H 104 03/26/18 11:19 POC Glucose 132 H EKG Reviewed by me: Yes Phys Exam - Physical Examination Constitutional: NAD HEENT: PERRLA, moist MMs, sclera anicteric Neck: no JVD, supple Respiratory: no wheezing, no rhonchi right base rales Cardiovascular: RRR, no rub SM+ Gastrointestinal: soft, non-tender, no distention, positive bowel sounds Musculoskeletal: no edema, pulses present Neurological: non-focal, normal sensation, moves all 4 limbs Lymphatic: no nodes Psychiatric: normal affect, A&O x 3 Skin: no rash, normal turgor Dx/Plan (1) Right middle lobe pneumonia Code(s): J18.1 - LOBAR PNEUMONIA, UNSPECIFIED ORGANISM Status: Acute (2) UTI (urinary tract infection) Status: Acute (3) Hyperkalemia Code(s): E87.5 - HYPERKALEMIA Status: Acute (4) Lactic acidosis Code(s): E87.2 - ACIDOSIS Status: Acute (5) CAD (coronary artery disease) Code(s): I25.10 - ATHSCL HEART DISEASE OF [place] CORONARY ARTERY W/O ANG PCTRS Status: Chronic Qualifiers: Comment: (6) CKD (chronic kidney disease), stage IV Code(s): N18.4 - CHRONIC KIDNEY DISEASE, STAGE 4 (SEVERE) Status: Chronic (7) COPD (chronic obstructive pulmonary disease) Status: Chronic (8) Chronic systolic heart failure, ACC/AHA stage C Code(s): I50.22 - CHRONIC SYSTOLIC (CONGESTIVE) HEART FAILURE Status: Chronic (9) Diabetes type 2, controlled Code(s): E11.9 - TYPE 2 DIABETES MELLITUS WITHOUT COMPLICATIONS Status: Chronic (10) Dyslipidemia Code(s): E78.5 - HYPERLIPIDEMIA, UNSPECIFIED Status: Chronic Comment: (11) Elevated troponin Code(s): R74.8 - ABNORMAL LEVELS OF OTHER SERUM ENZYMES Status: Chronic (12) Hypertension Code(s): I10 - ESSENTIAL (PRIMARY) HYPERTENSION Status: Chronic Qualifiers: Comment: controlled (13) Hypothyroidism Code(s): E03.9 - HYPOTHYROIDISM, UNSPECIFIED Status: Chronic Qualifiers: Comment: (14) Macrocytosis Code(s): D75.89 - OTHER SPECIFIED DISEASES OF BLOOD AND BLOOD-FORMING ORGANS Status: Chronic (15) Moderate aortic stenosis by prior echocardiogram Code(s): I35.0 - NONRHEUMATIC AORTIC (VALVE) STENOSIS Status: Chronic (16) Severe mitral regurgitation by prior echocardiogram Code(s): I34.0 - NONRHEUMATIC MITRAL (VALVE) INSUFFICIENCY Status: Chronic (17) Severe tricuspid regurgitation by prior echocardiogram Code(s): I07.1 - RHEUMATIC TRICUSPID INSUFFICIENCY Status: Chronic - Plan cont current plan of care, continue antibiotics, PT/OT * continue vancomycin and zosyn * follow on culture * medication reviewed as below * symptomatic treatment * selected home meds * continue PT. Review of Systems - Review of Systems ENT: negative: Ear Pain, Ear Discharge, Nose Pain, Nose Discharge, Nose Congestion, Mouth Pain, Mouth Swelling, Throat Pain, Throat Swelling, Other Respiratory: negative: Cough, Dry, Shortness of Breath, Hemoptysis, SOB with Excertion, Pleuritic Pain, Sputum, Wheezing Cardiovascular: negative: chest pain, palpitations, orthopnea, paroxysmal nocturnal dyspnea, edema, light headedness, other Gastrointestinal: negative: Nausea, Vomiting, Abdominal Pain, Diarrhea, Constipation, Melena, Hematochezia, Other Genitourinary: negative: Dysuria, Frequency, Incontinence, Hematuria, Retention , Other Musculoskeletal: negative: Neck Pain, Shoulder Pain, Arm Pain, Back Pain, Hand Pain, Leg Pain, Foot Pain, Other - Medications/Allergies Allergies/Adverse Reactions: Allergies Allergy/AdvReac Type Severity Reaction Status Date / Time codeine [Codeine] Allergy Severe CHEST Verified 02/24/18 19:39 TIGHTNESS levofloxacin [From Levaquin] Allergy Intermediate Rash Verified 02/24/18 19:39 adhesive tape Allergy Verified 02/24/18 19:39 duloxetine [From Cymbalta] AdvReac Verified 02/24/18 19:39 Medications: Current Medications Acetaminophen (Tylenol) 650 mg PO Q4H PRN PRN Reason: Headache/Fever/Mild Pain (1-3) Albuterol/Ipratropium (Duoneb) 3 ml NEB [id number] [facility] Last Admin: 03/27/18 07:49 Dose: 3 ml Albuterol/Ipratropium (Duoneb) 3 ml NEB Q4H PRN PRN Reason: SOB &/or Wheezing Artificial Tears (Tears Naturale) 2 drop EA EYE PRN PRN PRN Reason: Dry Eyes Aspirin (Ecotrin) 81 mg PO HS [facility] Last Admin: 03/26/18 20:45 Dose: 81 mg Bisacodyl (Dulcolax) 10 mg PO DAILYPRN PRN PRN Reason: Constipation Bisacodyl (Dulcolax) 10 mg NC DAILYPRN PRN PRN Reason: Constipation Calcium Carbonate (Tums) 1,000 mg PO Q4H PRN PRN Reason: Heartburn or Indigestion Cyanocobalamin (Vitamin B-12) 1,000 mcg PO DAILY [facility] Last Admin: 03/27/18 09:44 Dose: 1,000 mcg Dextrose/Water (Dextrose 50%) 25 gm SLOW IVP PRN PRN PRN Reason: Hypoglycemia Enoxaparin Sodium (Lovenox) 30 mg SC 0900 [facility] Last Admin: 03/27/18 09:44 Dose: 30 mg Famotidine (Pepcid) 20 mg PO Q24HR [facility] Last Admin: 03/27/18 09:44 Dose: 20 mg Folic Acid (Folvite) 1 mg PO DAILY [facility] Last Admin: 03/27/18 09:44 Dose: 1 mg Glucagon (Glucagon) 1 mg IM PRN PRN PRN Reason: Hypoglycemia Guaifenesin (Robitussin Sf) 200 mg PO Q4H PRN PRN Reason: Cough Hydralazine HCl (Apresoline) 10 mg SLOW IVP Q4H PRN PRN Reason: SBP > 180 and HR < 70 Piperacillin Sod/Tazobactam (Sod 3.375 gm/ Sodium Chloride) 100 mls @ 200 mls/ hr IVPB 0200,0800,1400,2000 [facility] Last Admin: 03/27/18 09:43 Dose: 100 mls Dextrose/Water (D5w) 1,000 mls @ 0 mls/hr IV .Q0M PRN PRN Reason: Hypoglycemia Vancomycin HCl 1 gm/ Device 200 mls @ 200 mls/hr IVPB 0900 [facility] Last Admin: 03/27/18 11:07 Dose: 200 mls Insulin Human Lispro (Humalog) 0 units SC .MODERATE SLIDING SC PRN PRN Reason: Moderate Correctional Scale Insulin Human Lispro (Humalog) 0 units SC .BEDTIME SLIDING SC PRN PRN Reason: Bedtime Correctional Scale Levothyroxine Sodium (Synthroid) 50 mcg PO 0600 [facility] Last Admin: 03/27/18 05:29 Dose: 50 mcg Loperamide HCl (Imodium) 2 mg PO PRN PRN PRN Reason: Diarrhea/Loose Stools Loratadine (Claritin) 10 mg PO DAILYPRN PRN PRN Reason: Sinus Symptoms Melatonin (Melatonin) 3 mg PO HS PRN PRN Reason: Insomnia Metoclopramide HCl (Reglan) 5 mg IVP Q4H PRN PRN Reason: Nausea Last Admin: 03/26/18 18:09 Dose: 5 mg Midodrine (Proamatine) 5 mg PO TID [facility] Last Admin: 03/27/18 09:44 Dose: 5 mg Mineral Oil/White Petrolatum (Eucerin Cream) 0 gm TOP BIDPRN PRN PRN Reason: Dry Skin Miscellaneous Medication (Pharmacy To Dose) 1 each IVPB .VANCOMYCIN [facility] Mometasone Furoate/Formoterol Fumar (Dulera 100 Mcg/5 Mcg Inhaler) 2 puff INH BID-RT [facility] Last Admin: 03/27/18 10:52 Dose: 2 puff Non-Formulary Medication (Prasterone (Dhea) [Dhea]) 50 mg PO DAILY [facility] Polyethylene Glycol (Miralax) 17 gm PO DAILY [facility] Last Admin: 03/27/18 09:44 Dose: 17 gm Rosuvastatin Calcium (Crestor) 40 mg PO QPM [facility] Last Admin: 03/26/18 20:45 Dose: 40 mg Saccharomyces Boulardii (Florastor) 250 mg PO DAILY [facility] Last Admin: 03/27/18 09:44 Dose: 250 mg Senna/Docusate Sodium (Senokot S) 2 tab PO BID PRN PRN Reason: Constipation Sodium Chloride ([place] Nasal [place] 0.65%) 0 ml EA NARE QIDPRN PRN PRN Reason: Nasal Congestion Throat Lozenges (Cepastat Lozenges) 1 magaly PO Q2H PRN PRN Reason: Sore Throat
[2018-03-27] MEDS ORDERED: Sodium Chloride 0.9% 10 ML ONE (15:39)
[2018-03-27] MEDS: Aspirin 81 mg Enteric Coated Tablet PO SCH (20:57)
[2018-03-27] MEDS: Rosuvastatin 20 MG TAB PO SCH (20:57)
[2018-03-28] MEDS: Piperacillin/Tazobactam 3.375 GM in Sodium Chloride 0.9% 100 ML IVPB SCH ×5 (02:33→23:59)
[2018-03-28] MEDS: Levothyroxine Sodium 50 MCG TAB PO SCH (06:34)
[2018-03-28] MEDS: Mometasone/Formoterol 120 PUFF INHALER INH SCH ×2 (07:33→19:46)
--- NOTE | 2018-03-28 10:17 | PQF ---
KRISTIN GALLOWAY, CARLOS FLORES MD [phone] [facility]291 [phone] CLINICAL DOCUMENTATION IMPROVEMENT CLARIFICATION FORM: ICD-10 Updated PLEASE DO AN ADDENDUM TO THE PROGRESS NOTE WITH ANY DOCUMENTATION UPDATES OR ADDITIONS AND CARRY THROUGH TO DC SUMMARY. THANK YOU. DATE: 03/28/2018 ATTN: DR. ARCINIEGA Please exercise your independent, professional judgment in responding to the clarification form. Clinical indicators are provided on the bottom of this form for your review Please check appropriate box(s): [ x ] Empirically treating Gram Negative Pneumonia [ ] Empirically treating Anaerobic Pneumonia [ ] Pneumonia secondary to (specify organism / underlying disease) [ ] Simple Pneumonia (community acquired - nosocomial) [ ] Other diagnosis [ ] Unable to determine In addition, please specify: Present on Admission (POA): [x ] Yes [ ] No [ ] Unable to determine For continuity of documentation, please document condition throughout progress notes and discharge summary. Thank You. CLINICAL INDICATORS - SIGNS / SYMPTOMS / LABS *2/3-ER: Temp of 99.2 on arrival to ER. *2/3-ER: Not on O2 at home. *2/3-H&P: CXR showed right middle lobe pneumonia. *2/3-H&P: In ER, sats dropped to 86% but maintaining sats on 2L NC. *2/3-H&P also includes: Healthcare-Associated Pneumonia in Diagnoses. RISK FACTORS *2/3-H&P: Recently admitted to this hospital and DC'd to SNF on 03-10-2018. *2/3-H&P: Has multiple medical problems. TREATMENTS *Empiric Vancomycin and Zosyn. *Supplemental O2 via NC. *O2 monitoring. Thank you, Ana (This form is maintained as a part of the permanent medical record) 2014 [employer]. All Rights Reserved Ana Montiel RN, CDIS [email or web address] [phone] [email or web address]
--- NOTE | 2018-03-28 10:30 | PQF ---
KRISTIN GALLOWAY, CARLOS FLORES MD [id number] [facility] [id number] CLINICAL DOCUMENTATION IMPROVEMENT CLARIFICATION FORM: ICD-10 Updated PLEASE DO AN ADDENDUM TO THE PROGRESS NOTE WITH ANY DOCUMENTATION UPDATES OR ADDITIONS AND CARRY THROUGH TO DC SUMMARY. THANK YOU. DATE: 03/28/2018 ATTN: DR. ARCINIEGA Please exercise your independent, professional judgment in responding to the clarification form. Clinical indicators are provided on the bottom of this form for your review Please check appropriate box(s): [ ] Acute Respiratory Failure: [ ] with Hypoxia [ ] with Hypercapnia [ x ] Acute On Chronic Respiratory Failure: [x ] with Hypoxia [ ] with Hypercapnia [ ] Acute Respiratory Failure due to: (etiology) [ ] ARDS (Acute Respiratory Distress Syndrome) [ ] Chronic Respiratory Failure only: [ ] with Hypoxia [ ] with Hypercapnia [ ] Hypoxia [ ] Other diagnosis [ ] Unable to determine In addition, please specify: Present on Admission (POA): [ x] Yes [ ] No [ ] Unable to determine For continuity of documentation, please document condition throughout progress notes and discharge summary. Thank You. CLINICAL INDICATORS - SIGNS / SYMPTOMS / LABS *2/3-H&P: Patient c/o shortness of breath with cough and general malaise. *2/3-ER: Not on O2 at home. *2/3-H&P: In ER, sats dropped to 86% but maintaining sats on 2L. *2/3-ER: Chest x-ray showing right middle lobe pneumonia. RISK FACTORS *2/3-H&P: Recent admit with DC to SNF on 03-10-2018. *2/3-H&P: Multiple medical problems. *2/3-H&P: Significant heart history. TREATMENTS Oxygen Monitoring of oxygenation status Respiratory treatments Antibiotics IV Thank you, Ana (This form is maintained as a part of the permanent medical record) 2014 [employer]. All Rights Reserved Ana Montiel RN, CDIS [email or web address] [phone] [facility]
--- NOTE | 2018-03-28 10:52 | PDOC.PN ---
- Subjective Encounter Start Date: 03/28/18 Encounter Start Time: 07:40 Patient seen and examined. No new complaints. No overnight events - Objective Resuscitation Status - Order Detail: 03/26/18 07:12 Resuscitation Status Routine Resuscitation Status: FULL: Full Resuscitation MAR Reviewed: Yes Vital Signs & Weight: Vital Signs (12 hours) Temp Pulse Resp BP Pulse Ox 03/28/18 08:00 98 F 70 20 127/60 96 03/28/18 07:31 80 16 100 03/28/18 04:00 98.1 F 70 17 112/56 L 100 03/28/18 00:21 88 12 100 03/28/18 00:00 98.3 F 70 20 116/57 L 99 Weight Weight 149 lb 4 oz I&O: 03/27/18 03/28/18 03/29/18 06:59 06:59 06:59 Intake Total 3100 1230 Balance 3100 1230 Result Diagrams: 03/27/18 04:38 03/27/18 04:38 Additional Labs: Accuchecks 03/28/18 03/27/18 03/27/18 05:40 20:25 17:13 POC Glucose 107 167 H 117 H 03/27/18 10:46 POC Glucose 146 H EKG Reviewed by me: Yes Phys Exam - Physical Examination Constitutional: NAD HEENT: PERRLA, moist MMs, sclera anicteric Neck: no JVD, supple Respiratory: no wheezing, no rhonchi right base rales Cardiovascular: RRR, no rub SM+ Gastrointestinal: soft, non-tender, no distention, positive bowel sounds Musculoskeletal: no edema, pulses present Neurological: non-focal, normal sensation, moves all 4 limbs Lymphatic: no nodes Psychiatric: normal affect, A&O x 3 Skin: no rash, normal turgor Dx/Plan (1) Right middle lobe pneumonia Code(s): J18.1 - LOBAR PNEUMONIA, UNSPECIFIED ORGANISM Status: Acute Comment : empirically treating gram negative and gram positive organism (2) UTI (urinary tract infection) Status: Acute (3) Hyperkalemia Code(s): E87.5 - HYPERKALEMIA Status: Resolved (4) Lactic acidosis Code(s): E87.2 - ACIDOSIS Status: Acute (5) CAD (coronary artery disease) Code(s): I25.10 - ATHSCL HEART DISEASE OF [place] CORONARY ARTERY W/O ANG PCTRS Status: Chronic Qualifiers: Comment: (6) CKD (chronic kidney disease), stage IV Code(s): N18.4 - CHRONIC KIDNEY DISEASE, STAGE 4 (SEVERE) Status: Chronic (7) COPD (chronic obstructive pulmonary disease) Status: Chronic (8) Chronic systolic heart failure, ACC/AHA stage C Code(s): I50.22 - CHRONIC SYSTOLIC (CONGESTIVE) HEART FAILURE Status: Chronic (9) Diabetes type 2, controlled Code(s): E11.9 - TYPE 2 DIABETES MELLITUS WITHOUT COMPLICATIONS Status: Chronic (10) Dyslipidemia Code(s): E78.5 - HYPERLIPIDEMIA, UNSPECIFIED Status: Chronic Comment: (11) Elevated troponin Code(s): R74.8 - ABNORMAL LEVELS OF OTHER SERUM ENZYMES Status: Chronic (12) Hypertension Code(s): I10 - ESSENTIAL (PRIMARY) HYPERTENSION Status: Chronic Qualifiers: Comment: controlled (13) Hypothyroidism Code(s): E03.9 - HYPOTHYROIDISM, UNSPECIFIED Status: Chronic Qualifiers: Comment: (14) Macrocytosis Code(s): D75.89 - OTHER SPECIFIED DISEASES OF BLOOD AND BLOOD-FORMING ORGANS Status: Chronic (15) Moderate aortic stenosis by prior echocardiogram Code(s): I35.0 - NONRHEUMATIC AORTIC (VALVE) STENOSIS Status: Chronic (16) Severe mitral regurgitation by prior echocardiogram Code(s): I34.0 - NONRHEUMATIC MITRAL (VALVE) INSUFFICIENCY Status: Chronic (17) Severe tricuspid regurgitation by prior echocardiogram Code(s): I07.1 - RHEUMATIC TRICUSPID INSUFFICIENCY Status: Chronic (18) Acute respiratory failure with hypoxia Code(s): J96.01 - ACUTE RESPIRATORY FAILURE WITH HYPOXIA Status: Resolved Comment: present on admission - Plan cont current plan of care, continue antibiotics, respiratory therapy * medication reviewed as below * symptomatic treatment * continue vancomycin and zosyn * repeat labs tomorrow * overall stable and improving. Review of Systems - Review of Systems ENT: negative: Ear Pain, Ear Discharge, Nose Pain, Nose Discharge, Nose Congestion, Mouth Pain, Mouth Swelling, Throat Pain, Throat Swelling, Other Respiratory: negative: Cough, Dry, Shortness of Breath, Hemoptysis, SOB with Excertion, Pleuritic Pain, Sputum, Wheezing Cardiovascular: negative: chest pain, palpitations, orthopnea, paroxysmal nocturnal dyspnea, edema, light headedness, other Gastrointestinal: negative: Nausea, Vomiting, Abdominal Pain, Diarrhea, Constipation, Melena, Hematochezia, Other Genitourinary: negative: Dysuria, Frequency, Incontinence, Hematuria, Retention , Other Musculoskeletal: negative: Neck Pain, Shoulder Pain, Arm Pain, Back Pain, Hand Pain, Leg Pain, Foot Pain, Other - Medications/Allergies Allergies/Adverse Reactions: Allergies Allergy/AdvReac Type Severity Reaction Status Date / Time codeine [Codeine] Allergy Severe CHEST Verified 02/24/18 19:39 TIGHTNESS levofloxacin [From Levaquin] Allergy Intermediate Rash Verified 02/24/18 19:39 adhesive tape Allergy Verified 02/24/18 19:39 duloxetine [From Cymbalta] AdvReac Verified 02/24/18 19:39 Medications: Current Medications Acetaminophen (Tylenol) 650 mg PO Q4H PRN PRN Reason: Headache/Fever/Mild Pain (1-3) Albuterol/Ipratropium (Duoneb) 3 ml NEB [id number] [facility] Last Admin: 03/28/18 07:31 Dose: 3 ml Albuterol/Ipratropium (Duoneb) 3 ml NEB Q4H PRN PRN Reason: SOB &/or Wheezing Artificial Tears (Tears Naturale) 2 drop EA EYE PRN PRN PRN Reason: Dry Eyes Aspirin (Ecotrin) 81 mg PO HS [facility] Last Admin: 03/27/18 20:57 Dose: 81 mg Bisacodyl (Dulcolax) 10 mg PO DAILYPRN PRN PRN Reason: Constipation Bisacodyl (Dulcolax) 10 mg [place] DAILYPRN PRN PRN Reason: Constipation Calcium Carbonate (Tums) 1,000 mg PO Q4H PRN PRN Reason: Heartburn or Indigestion Cyanocobalamin (Vitamin B-12) 1,000 mcg PO DAILY [facility] Last Admin: 03/27/18 09:44 Dose: 1,000 mcg Dextrose/Water (Dextrose 50%) 25 gm SLOW IVP PRN PRN PRN Reason: Hypoglycemia Enoxaparin Sodium (Lovenox) 30 mg SC 0900 [facility] Last Admin: 03/27/18 09:44 Dose: 30 mg Famotidine (Pepcid) 20 mg PO Q24HR [facility] Last Admin: 02/04/19 09:44 Dose: 20 mg Folic Acid (Folvite) 1 mg PO DAILY [facility] Last Admin: 03/27/18 09:44 Dose: 1 mg Glucagon (Glucagon) 1 mg IM PRN PRN PRN Reason: Hypoglycemia Guaifenesin (Robitussin Sf) 200 mg PO Q4H PRN PRN Reason: Cough Hydralazine HCl (Apresoline) 10 mg SLOW IVP Q4H PRN PRN Reason: SBP > 180 and HR < 70 Piperacillin Sod/Tazobactam (Sod 3.375 gm/ Sodium Chloride) 100 mls @ 200 mls/ hr IVPB 0200,0800,1400,2000 [facility] Last Admin: 03/28/18 02:33 Dose: 100 mls Dextrose/Water (D5w) 1,000 mls @ 0 mls/hr IV .Q0M PRN PRN Reason: Hypoglycemia Vancomycin HCl 1 gm/ Device 200 mls @ 200 mls/hr IVPB 0900 [facility] Last Admin: 03/27/18 11:07 Dose: 200 mls Insulin Human Lispro (Humalog) 0 units SC .MODERATE SLIDING SC PRN PRN Reason: Moderate Correctional Scale Insulin Human Lispro (Humalog) 0 units SC .BEDTIME SLIDING SC PRN PRN Reason: Bedtime Correctional Scale Levothyroxine Sodium (Synthroid) 50 mcg PO 0600 [facility] Last Admin: 03/28/18 06:34 Dose: 50 mcg Loperamide HCl (Imodium) 2 mg PO PRN PRN PRN Reason: Diarrhea/Loose Stools Loratadine (Claritin) 10 mg PO DAILYPRN PRN PRN Reason: Sinus Symptoms Melatonin (Melatonin) 3 mg PO HS PRN PRN Reason: Insomnia Metoclopramide HCl (Reglan) 5 mg IVP Q4H PRN PRN Reason: Nausea Last Admin: 03/26/18 18:09 Dose: 5 mg Midodrine (Proamatine) 5 mg PO TID [facility] Last Admin: 03/27/18 20:57 Dose: 5 mg Mineral Oil/White Petrolatum (Eucerin Cream) 0 gm TOP BIDPRN PRN PRN Reason: Dry Skin Miscellaneous Medication (Pharmacy To Dose) 1 each IVPB .VANCOMYCIN [facility] Mometasone Furoate/Formoterol Fumar (Dulera 100 Mcg/5 Mcg Inhaler) 2 puff INH BID-RT [facility] Last Admin: 03/28/18 07:33 Dose: 2 puff Prasterone (Dhea) [ (Dhea] 50 Mg) 1 each PO DAILY [facility] Polyethylene Glycol (Miralax) 17 gm PO DAILY [facility] Last Admin: 03/27/18 09:44 Dose: 17 gm Rosuvastatin Calcium (Crestor) 40 mg PO QPM [facility] Last Admin: 03/27/18 20:57 Dose: 40 mg Saccharomyces Boulardii (Florastor) 250 mg PO DAILY [facility] Last Admin: 03/27/18 09:44 Dose: 250 mg Senna/Docusate Sodium (Senokot S) 2 tab PO BID PRN PRN Reason: Constipation Sodium Chloride ([place] Nasal [place] 0.65%) 0 ml EA NARE QIDPRN PRN PRN Reason: Nasal Congestion Throat Lozenges (Cepastat Lozenges) 1 magaly PO Q2H PRN PRN Reason: Sore Throat
[2018-03-28] MEDS: Cyanocobalamin (Vitamin B-12) 1,000 MCG TAB PO SCH (11:00)
[2018-03-28] MEDS: Prasterone (Dhea) [Dhea] 50 MG PO SCH (11:00)
[2018-03-28] MEDS: Folic Acid 1 MG TAB PO SCH (11:00)
[2018-03-28] MEDS: Midodrine HCl 5 MG TAB PO SCH ×3 (11:00→22:09)
[2018-03-28] MEDS: Saccharomyces boulardii 250 MG CAP PO SCH (11:00)
[2018-03-28] MEDS: Enoxaparin Sodium 30 MG/0.3 ML SYRINGE SC SCH (11:12)
[2018-03-28] MEDS: Polyethylene Glycol 3350 17 GM Packet PO SCH (11:14)
[2018-03-28] MEDS: Vancomycin HCl 1 GM in Premix Bag 1 BAG IVPB SCH (11:14)
[2018-03-28] MEDS: Famotidine 20 MG TAB PO SCH (11:18)
[2018-03-28] MEDS: Rosuvastatin 20 MG TAB PO SCH ×2 (22:09)
[2018-03-28] MEDS: Aspirin 81 mg Enteric Coated Tablet PO SCH (22:09)
[2018-03-28] MEDS: Metoclopramide HCl 10 MG/2 ML VIAL IVP PRN (22:16)
[2018-03-29] MEDS: Levothyroxine Sodium 50 MCG TAB PO SCH (05:30)
[2018-03-29] MEDS: Piperacillin/Tazobactam 3.375 GM in Sodium Chloride 0.9% 100 ML IVPB SCH ×2 (05:30→11:59)
[2018-03-29 06:03] LABS: Anion Gap 10 mmol/L (10-20); BUN (Urea Nitrogen) 17 mg/dL (9.8-20.1); Calc. Creatinine Clearance 0 mL/min (70-130); Calcium 8.4 mg/dL (7.8-10.44); Carbon Dioxide 26 mmol/L (23-31); Chloride 104 mmol/L (98-107); Estimated GFR-MDRD 44; Glucose 71 mg/dL (83-110); Potassium 3.1 mmol/L (3.5-5.1); Sodium 137 mmol/L (136-145)
[2018-03-29] MEDS: Mometasone/Formoterol 120 PUFF INHALER INH SCH (07:32)
[2018-03-29] MEDS ORDERED: Potassium Chloride 20 MEQ TAB PO SCH (07:45)
[2018-03-29] MEDS: Enoxaparin Sodium 30 MG/0.3 ML SYRINGE SC SCH (08:56)
[2018-03-29] MEDS: Midodrine HCl 5 MG TAB PO SCH (08:56)
[2018-03-29] MEDS: Famotidine 20 MG TAB PO SCH (08:56)
[2018-03-29] MEDS: Cyanocobalamin (Vitamin B-12) 1,000 MCG TAB PO SCH (08:56)
[2018-03-29] MEDS: Folic Acid 1 MG TAB PO SCH (08:56)
[2018-03-29] MEDS: Saccharomyces boulardii 250 MG CAP PO SCH (08:56)
[2018-03-29] MEDS: Vancomycin HCl 1 GM in Premix Bag 1 BAG IVPB SCH (08:57)
[2018-03-29] MEDS: Prasterone (Dhea) [Dhea] 50 MG PO SCH (08:57)
[2018-03-29 09:05] LABS: Magnesium 1.6 mg/dL (1.6-2.6); Phosphorus 2.7 mg/dL (2.3-4.7); Vancomycin, Trough 19.4 ug/mL
[2018-03-29] MEDS: Polyethylene Glycol 3350 17 GM Packet PO SCH (09:07)
[2018-03-29] MEDS ORDERED: Apixaban 5 MG TAB PO SCH (10:15)
[2018-03-29] MEDS ORDERED: Fluconazole 100 MG TAB PO SCH (10:15)
[2018-03-29] MEDS ORDERED: Apixaban 2.5 MG TAB PO SCH ×2 (10:30→21:00)
--- NOTE | 2018-03-29 10:38 | PDOC.PN ---
- Subjective Encounter Start Date: 03/29/18 Encounter Start Time: 07:50 -: old records requested/rev Patient seen and examined. No new complaints. No overnight events - Objective Resuscitation Status - Order Detail: 03/26/18 07:12 Resuscitation Status Routine Resuscitation Status: FULL: Full Resuscitation MAR Reviewed: Yes Vital Signs & Weight: Vital Signs (12 hours) Temp Pulse Resp BP Pulse Ox 03/29/18 07:30 70 20 97 03/29/18 02:50 98.6 F 70 20 130/63 99 03/29/18 02:15 88 18 98 03/28/18 23:30 97.8 F Weight Weight 5.33 oz I&O: 03/28/18 03/29/18 03/30/18 06:59 06:59 06:59 Intake Total 1230 600 Balance 1230 600 Result Diagrams: 03/27/18 04:38 03/29/18 04:59 Additional Labs: Accuchecks 03/29/18 03/28/18 03/28/18 05:34 21:09 17:04 POC Glucose 80 123 H 135 H 03/28/18 10:59 POC Glucose 132 H EKG Reviewed by me: Yes Phys Exam - Physical Examination Constitutional: NAD HEENT: PERRLA, moist MMs, sclera anicteric Neck: no JVD, supple Respiratory: no wheezing, no rhonchi right side rales Cardiovascular: RRR SM+ Gastrointestinal: soft, non-tender, no distention, positive bowel sounds Musculoskeletal: no edema, pulses present Neurological: non-focal, normal sensation Lymphatic: no nodes Psychiatric: normal affect, A&O x 3 Skin: no rash, normal turgor Dx/Plan (1) Right middle lobe pneumonia Code(s): J18.1 - LOBAR PNEUMONIA, UNSPECIFIED ORGANISM Status: Acute Comment : empirically treating gram negative and gram positive organism (2) UTI (urinary tract infection) Status: Acute (3) Hyperkalemia Code(s): E87.5 - HYPERKALEMIA Status: Resolved (4) Lactic acidosis Code(s): E87.2 - ACIDOSIS Status: Acute (5) CAD (coronary artery disease) Code(s): I25.10 - ATHSCL HEART DISEASE OF [place] CORONARY ARTERY W/O ANG PCTRS Status: Chronic Qualifiers: Comment: (6) CKD (chronic kidney disease), stage IV Code(s): N18.4 - CHRONIC KIDNEY DISEASE, STAGE 4 (SEVERE) Status: Chronic (7) COPD (chronic obstructive pulmonary disease) Status: Chronic (8) Chronic systolic heart failure, ACC/AHA stage C Code(s): I50.22 - CHRONIC SYSTOLIC (CONGESTIVE) HEART FAILURE Status: Chronic (9) Diabetes type 2, controlled Code(s): E11.9 - TYPE 2 DIABETES MELLITUS WITHOUT COMPLICATIONS Status: Chronic (10) Dyslipidemia Code(s): E78.5 - HYPERLIPIDEMIA, UNSPECIFIED Status: Chronic Comment: (11) Elevated troponin Code(s): R74.8 - ABNORMAL LEVELS OF OTHER SERUM ENZYMES Status: Chronic (12) Hypertension Code(s): I10 - ESSENTIAL (PRIMARY) HYPERTENSION Status: Chronic Qualifiers: Comment: controlled (13) Hypothyroidism Code(s): E03.9 - HYPOTHYROIDISM, UNSPECIFIED Status: Chronic Qualifiers: Comment: (14) Macrocytosis Code(s): D75.89 - OTHER SPECIFIED DISEASES OF BLOOD AND BLOOD-FORMING ORGANS Status: Chronic (15) Moderate aortic stenosis by prior echocardiogram Code(s): I35.0 - NONRHEUMATIC AORTIC (VALVE) STENOSIS Status: Chronic (16) Severe mitral regurgitation by prior echocardiogram Code(s): I34.0 - NONRHEUMATIC MITRAL (VALVE) INSUFFICIENCY Status: Chronic (17) Severe tricuspid regurgitation by prior echocardiogram Code(s): I07.1 - RHEUMATIC TRICUSPID INSUFFICIENCY Status: Chronic (18) PAF (paroxysmal atrial fibrillation) Code(s): I48.0 - PAROXYSMAL ATRIAL FIBRILLATION Status: Chronic (19) Ying esophagitis Code(s): B37.81 - CANDIDAL ESOPHAGITIS Status: Acute - Plan cont current plan of care, plan discussed w/ family, continue antibiotics * start elliquis * start diflucan * omnicef * medication reviewed as below * symptomatic treatment * see discharge summery. Review of Systems - Review of Systems ENT: negative: Ear Pain, Ear Discharge, Nose Pain, Nose Discharge, Nose Congestion, Mouth Pain, Mouth Swelling, Throat Pain, Throat Swelling, Other Respiratory: negative: Cough, Dry, Shortness of Breath, Hemoptysis, SOB with Excertion, Pleuritic Pain, Sputum, Wheezing Cardiovascular: negative: chest pain, palpitations, orthopnea, paroxysmal nocturnal dyspnea, edema, light headedness, other Gastrointestinal: negative: Nausea, Vomiting, Abdominal Pain, Diarrhea, Constipation, Melena, Hematochezia, Other Genitourinary: negative: Dysuria, Frequency, Incontinence, Hematuria, Retention , Other Musculoskeletal: negative: Neck Pain, Shoulder Pain, Arm Pain, Back Pain, Hand Pain, Leg Pain, Foot Pain, Other - Medications/Allergies Allergies/Adverse Reactions: Allergies Allergy/AdvReac Type Severity Reaction Status Date / Time codeine [Codeine] Allergy Severe CHEST Verified 02/24/18 19:39 TIGHTNESS levofloxacin [From Levaquin] Allergy Intermediate Rash Verified 02/24/18 19:39 adhesive tape Allergy Verified 02/24/18 19:39 duloxetine [From Cymbalta] AdvReac Verified 02/24/18 19:39 Medications: Current Medications Acetaminophen (Tylenol) 650 mg PO Q4H PRN PRN Reason: Headache/Fever/Mild Pain (1-3) Albuterol/Ipratropium (Duoneb) 3 ml NEB [id number] [facility] Last Admin: 03/29/18 07:30 Dose: 3 ml Albuterol/Ipratropium (Duoneb) 3 ml NEB Q4H PRN PRN Reason: SOB &/or Wheezing Apixaban (Eliquis) 2.5 mg PO BID [facility] Apixaban (Eliquis) 2.5 mg PO NOW [facility] Stop: 03/29/18 12:00 Artificial Tears (Tears Naturale) 2 drop EA EYE PRN PRN PRN Reason: Dry Eyes Aspirin (Ecotrin) 81 mg PO HS [facility] Last Admin: 03/28/18 22:09 Dose: 81 mg Bisacodyl (Dulcolax) 10 mg PO DAILYPRN PRN PRN Reason: Constipation Bisacodyl (Dulcolax) 10 mg [place] DAILYPRN PRN PRN Reason: Constipation Calcium Carbonate (Tums) 1,000 mg PO Q4H PRN PRN Reason: Heartburn or Indigestion Cyanocobalamin (Vitamin B-12) 1,000 mcg PO DAILY [facility] Last Admin: 03/29/18 08:56 Dose: 1,000 mcg Dextrose/Water (Dextrose 50%) 25 gm SLOW IVP PRN PRN PRN Reason: Hypoglycemia Famotidine (Pepcid) 20 mg PO Q24HR [facility] Last Admin: 03/29/18 08:56 Dose: 20 mg Fluconazole (Diflucan) 100 mg PO NOW [facility] Stop: 03/29/18 12:00 Fluconazole (Diflucan) 100 mg PO DAILY [facility] Folic Acid (Folvite) 1 mg PO DAILY [facility] Last Admin: 03/29/18 08:56 Dose: 1 mg Glucagon (Glucagon) 1 mg IM PRN PRN PRN Reason: Hypoglycemia Guaifenesin (Robitussin Sf) 200 mg PO Q4H PRN PRN Reason: Cough Hydralazine HCl (Apresoline) 10 mg SLOW IVP Q4H PRN PRN Reason: SBP > 180 and HR < 70 Dextrose/Water (D5w) 1,000 mls @ 0 mls/hr IV .Q0M PRN PRN Reason: Hypoglycemia Vancomycin HCl 1 gm/ Device 200 mls @ 200 mls/hr IVPB 0900 [facility] Last Admin: 03/29/18 08:57 Dose: 200 mls Piperacillin Sod/Tazobactam (Sod 3.375 gm/ Sodium Chloride) 100 mls @ 200 mls/ hr IVPB Q6HR [facility] Last Admin: 03/29/18 05:30 Dose: 100 mls Insulin Human Lispro (Humalog) 0 units SC .MODERATE SLIDING SC PRN PRN Reason: Moderate Correctional Scale Insulin Human Lispro (Humalog) 0 units SC .BEDTIME SLIDING SC PRN PRN Reason: Bedtime Correctional Scale Levothyroxine Sodium (Synthroid) 50 mcg PO 0600 [facility] Last Admin: 03/29/18 05:30 Dose: 50 mcg Loperamide HCl (Imodium) 2 mg PO PRN PRN PRN Reason: Diarrhea/Loose Stools Loratadine (Claritin) 10 mg PO DAILYPRN PRN PRN Reason: Sinus Symptoms Melatonin (Melatonin) 3 mg PO HS PRN PRN Reason: Insomnia Metoclopramide HCl (Reglan) 5 mg IVP Q4H PRN PRN Reason: Nausea Last Admin: 03/28/18 22:16 Dose: 5 mg Midodrine (Proamatine) 5 mg PO TID [facility] Last Admin: 03/29/18 08:56 Dose: 5 mg Mineral Oil/White Petrolatum (Eucerin Cream) 0 gm TOP BIDPRN PRN PRN Reason: Dry Skin Miscellaneous Medication (Pharmacy To Dose) 1 each IVPB .VANCOMYCIN [facility] Mometasone Furoate/Formoterol Fumar (Dulera 100 Mcg/5 Mcg Inhaler) 2 puff INH BID-RT [facility] Last Admin: 03/29/18 07:32 Dose: 2 puff Prasterone (Dhea) [ (Dhea] 50 Mg) 1 each PO DAILY [facility] Last Admin: 03/29/18 08:57 Dose: 1 each Polyethylene Glycol (Miralax) 17 gm PO DAILY [facility] Last Admin: 03/29/18 09:07 Dose: Not Given Rosuvastatin Calcium (Crestor) 40 mg PO QPM [facility] Last Admin: 03/28/18 22:09 Dose: Not Given Saccharomyces Boulardii (Florastor) 250 mg PO DAILY [facility] Last Admin: 03/29/18 08:56 Dose: 250 mg Senna/Docusate Sodium (Senokot S) 2 tab PO BID PRN PRN Reason: Constipation Sodium Chloride ([place] Nasal [place] 0.65%) 0 ml EA NARE QIDPRN PRN PRN Reason: Nasal Congestion Throat Lozenges (Cepastat Lozenges) 1 magaly PO Q2H PRN PRN Reason: Sore Throat
--- NOTE | 2018-03-29 12:15 | DIS ---
DATE OF ADMISSION: 03/26/2018 DATE OF DISCHARGE: 03/29/2018 PRIMARY CARE PHYSICIAN: Nidia Hood DO DISCHARGE DISPOSITION: [facility] home. PRIMARY DISCHARGE DIAGNOSIS: Right middle lobe health-care associated pneumonia, treated as a gram-negative and gram-positive infection; urinary tract infection due to Klebsiella and Proteus; lactic acidosis due to sepsis; hyperkalemia on admission, resolved; mild acute respiratory failure with hypoxia on admission, resolved. SECONDARY DISCHARGE DIAGNOSES: History of Ying esophagitis, not treated; coronary artery disease; chronic systolic heart failure ACC stage C; chronic kidney disease stage 4; chronic obstructive pulmonary disease; diabetes type 2; dyslipidemia; hypertension; hypothyroidism; moderate aortic stenosis; paroxysmal atrial fibrillation; severe mitral regurgitation; severe tricuspid regurgitation. PRIMARY PROCEDURE/OPERATION: None. RADIOLOGICAL INVESTIGATION: Chest x-ray showed right middle lobe pneumonia. SIGNIFICANT LABORATORY DATA: WBC 9.2, hemoglobin 9.4, and platelet 130. Sodium 137, potassium 3.1, BUN 17, creatinine 1.17, calcium 8.4. Urinalysis suggestive of UTI. Urine culture grew Klebsiella and Proteus. Blood culture negative. DISCHARGE MEDICATIONS: New medications: 1. Florastor 250 mg p.o. daily for 7 days. 2. Diflucan 100 mg p.o. daily for 2 weeks. 3. Eliquis 2.5 mg p.o. b.i.d. 4. Omnicef 300 mg p.o. b.i.d. for 7 days. 5. Aspirin 81 mg p.o. daily. 6. Colace 100 mg p.o. b.i.d. 7. Breo Ellipta one inhalation daily. 8. DuoNeb q.4 hourly p.r.n. 9. Synthroid 50 mcg p.o. daily. 10. Magnesium 400 mg p.o. b.i.d. 11. Potassium chloride 20 mEq p.o. at bedtime. 12. Prasterone 50 mg p.o. daily. 13. Crestor 40 mg p.o. daily. 14. Coreg 3.125 mg p.o. b.i.d. 15. Vitamin B12 1000 mcg p.o. daily. 16. Folic acid 1 mg p.o. daily. 17. Lasix 40 mg p.o. daily. 18. Lisinopril 5 mg p.o. daily. 19. Midodrine 5 mg t.i.d. 20. Protonix 40 mg p.o. daily. 21. MiraLAX 17 g p.o. daily. 22. Melatonin 3 mg p.o. at bedtime p.r.n. CONTRAINDICATION: None. CODE STATUS: Full code. INPATIENT CONSULT: None. ALLERGIES: CODEINE, LEVAQUIN, ADHESIVE TAPE, AND CYMBALTA. DISCHARGE PLAN: Posthospital, the patient is planned for discharge to fdc home. Subsequently, the patient will follow up with Dr. Wilde and her botany professor. HOSPITAL COURSE: An 87-year-old female who was admitted by me on March 26, 2018. Please see my HPI for further details. This patient was initially hypoxic. She was having cough and dyspnea, and she was found with right middle lobe pneumonia. Her urinalysis was also consistent with UTI. This patient was recently admitted in our hospital for CHF. During this admission, we treated her with broad-spectrum antibiotic therapy with vancomycin and Zosyn. She had significant clinical improvement. Her urine culture grew Klebsiella and Proteus and based on culture result, we changed to Omnicef upon discharge. This patient was also on room air. By the time of discharge, she had significant clinical improvement. We noted that this patient was previously had upper endoscopy and biopsy showed Ying esophagitis and this patient was not treated as per family member and that is why we started Diflucan therapy upon discharge for 2 weeks. This patient was also cleared from the statistical reporting analyst for starting anticoagulation therapy and after discussion with family member and with the patient about risk and benefit of Eliquis therapy, they agreed with Eliquis therapy. We are starting low dose of Eliquis therapy for chronic anticoagulation. If this patient has recurrent future bleeding, then this patient will need Watchman procedure with Dr. Wilde. The patient wants to go back to rehab for more PT/OT. I have seen and examined this patient at bedside today. Please see my progress note from today for further detail. Plan of care discussed with the family member. Paperwork for discharge done and discharge medication reconciliation done. Total time spent on discharge day, 31 minutes. Job ID: [id number]
[2018-03-29 12:34] LABS: Platelet Count 127 thou/uL (130-400)
[2018-03-29 12:59] VITALS: TEMP 98.1
[2018-03-29 13:21] VITALS: BP 140/65
[2018-03-30] MEDS ORDERED: Fluconazole 100 MG TAB PO SCH (09:00)
== END 2018-03-29 13:21 | DRG 193 ==
LOC: ERS 04:05 → 2NO 05:28
PROVIDERS: ADMIT Hospitalist; ATTEND Hospitalist
DX: J18.1 Lobar pneumonia, unspecified organism (principal); J96.21 Acute and chronic respiratory failure with hypoxia; N39.0 Urinary tract infection, site not specified; E87.2 Acidosis; J44.0 Chronic obstructive pulmonary disease with (acute) lower respiratory infection; N18.4 Chronic kidney disease, stage 4 (severe); I13.0 Hypertensive heart and chronic kidney disease with heart failure and stage 1 through stage 4 chronic kidney disease, or unspecified chronic kidney disease; I50.22 Chronic systolic (congestive) heart failure; B37.81 Candidal esophagitis; E87.5 Hyperkalemia; D75.89 Other specified diseases of blood and blood-forming organs; I25.5 Ischemic cardiomyopathy; E03.9 Hypothyroidism, unspecified; I25.10 Atherosclerotic heart disease of native coronary artery without angina pectoris; E11.22 Type 2 diabetes mellitus with diabetic chronic kidney disease; E78.5 Hyperlipidemia, unspecified; I08.3 Combined rheumatic disorders of mitral, aortic and tricuspid valves
CPT/HCPCS: 36415; 36416; 51701; 71045; 80048; 80053; 80202; 81003; 81015; 82550; 82553; 83605; 83690; 83735; 83880; 84100; 84484; 85014; 85018; 85025; 85049; 87040; 87077; 87086; 87186; 93005; 94640; 94760; 96361; 96365; 96375; A4353; J0692; J1650; J2270; J2405; J2543; J2765; J3370; J7050; J7620

== ENCOUNTER 2018-05-29 15:46 | Emergency (ER) | payer MEDICARE ==
--- NOTE | 2018-05-29 16:22 | RAD ---
Left shoulder 3 views HISTORY: Left shoulder pain. Injury. FINDINGS: There is marked narrowing of the glenohumeral joint with remodeling of the glenoid. Bulky o steophytosis with heterotopic ossification. Prominent subchondral sclerosis and subcortical cyst form ation. Acromioclavicular alignment is maintained. Osseous structures are diffusely demineralized. No acute fracture, dislocation, or aggressive osseous erosions. IMPRESSION: Severe osteoarthritic changes left shoulder. Osteoporosis.
== END 2018-05-29 17:30 | disposition home or self-care (01) ==
LOC: ERS 15:46
DX: M19.012 Primary osteoarthritis, left shoulder (principal); M25.512 Pain in left shoulder; G89.29 Other chronic pain; I48.91 Unspecified atrial fibrillation; E11.9 Type 2 diabetes mellitus without complications; E78.5 Hyperlipidemia, unspecified; J44.9 Chronic obstructive pulmonary disease, unspecified; I11.0 Hypertensive heart disease with heart failure; I50.9 Heart failure, unspecified; E03.9 Hypothyroidism, unspecified; F41.9 Anxiety disorder, unspecified

== ENCOUNTER 2018-08-10 10:30 | Inpatient (IN) | payer MEDICARE ==
--- NOTE | 2018-08-14 12:02 | RAD ---
XR Chest 1 View History: Pre cardiac cath Comparison: Radiograph March 01, 2018 Findings: Interval resolution of large left effusion. Cement within a mid thoracic vertebral fracture . Heart size is enlarged. Pulmonary arteries and left atrium is enlarged. No pneumothorax. No focal airspace consolidation. Impression: Interval improvement left layering pleural effusion and right middle lobe pneumonia.
[2018-08-14 12:25] LABS: #Eosinphils 0.2 thou/uL (0.0-0.7); #Monocytes 0.5 thou/uL (0.11-0.59); #Neutrophils 4.5 thou/uL (1.40-6.50); %Basophils 0.3 % (0.0-1.0); %Eosinophils 3.4 % (0.0-10.0); %Lymphocytes 27.9 % (21.0-51.0); %Monocytes 6.9 % (0.0-10.0); %Neutrophils 61.5 % (42.0-75.0); Hemoglobin 12.8 g/dL (12.0-16.0); Mean Corpuscular HGB CONC 31.9 g/dL (32.0-36.0); Mean Corpuscular Hemoglobin 33.3 pg (27.0-31.0); Mean Platelet Volume 9.2 fL (7.4-10.4); Platelet Count 145 thou/uL (130-400); RBC Distribution Width 12.7 % (11.5-14.5); Red Blood Cell (RBC) Count 3.83 mill/uL (4.20-5.40); White Blood Cell (WBC) Count 7.3 thou/uL (4.8-10.8)
[2018-08-14 12:44] LABS: ALT (SGPT) 24 U/L (8-55); AST (SGOT) 24 U/L (5-34); Albumin 3.5 g/dL (3.4-4.8); Alkaline Phosphatase 45 U/L (40-150); Anion Gap 12 mmol/L (10-20); BUN (Urea Nitrogen) 28 mg/dL (9.8-20.1); Bilirubin, Total 1.2 mg/dL (0.2-1.2); Calc. Creatinine Clearance 0 mL/min (70-130); Calcium 9.5 mg/dL (7.8-10.44); Carbon Dioxide 33 mmol/L (23-31); Chloride 100 mmol/L (98-107); Cholesterol 141 mg/dl (< 200 Desired); Estimated GFR-MDRD 38; Globulin 2.2 g/dL (2.4-3.5); Glucose 101 mg/dL (83-110); HDL Cholesterol 70 mg/dL (>60 Neg Risk); LDL Cholesterol, Calculated 51 mg/dL; Potassium 4.2 mmol/L (3.5-5.1); Protein, Total 5.7 g/dL (6.0-8.3); Sodium 141 mmol/L (136-145); Triglycerides 99 mg/dL (Less than 150)
[2018-08-14 12:51] VITALS: BMI 21.7
[2018-08-14] MEDS ORDERED: Communication Order-Pharmacy FS SCH (18:30)
[2018-08-14] MEDS: Midodrine HCl 5 MG TAB PO SCH (20:55)
[2018-08-14] MEDS: Rosuvastatin 20 MG TAB PO SCH (20:55)
[2018-08-14] MEDS: Magnesium Oxide 400 MG TAB PO SCH (20:56)
[2018-08-15] MEDS: Folic Acid 1 MG TAB PO SCH (05:27)
[2018-08-15] MEDS: Lisinopril 10 MG TAB PO SCH (05:27)
[2018-08-15] MEDS: Aspirin 81 mg Enteric Coated Tablet PO SCH (05:27)
[2018-08-15] MEDS: Levothyroxine Sodium 50 MCG TAB PO SCH (05:27)
[2018-08-15] MEDS: Carvedilol 3.125 MG TAB PO SCH ×2 (05:27→16:32)
[2018-08-15] MEDS: Magnesium Oxide 400 MG TAB PO SCH ×2 (05:27→21:26)
[2018-08-15] MEDS: Cyanocobalamin (Vitamin B-12) 1,000 MCG TAB PO SCH (05:28)
[2018-08-15] MEDS: Midodrine HCl 5 MG TAB PO SCH ×3 (05:28→19:33)
[2018-08-15] MEDS ORDERED: Sodium Chloride 0.9% 1,000 ML IV SCH ×2 (06:00→08:15)
[2018-08-15] MEDS ORDERED: Lidocaine 1% (PF) 30 ML VIAL ONE (06:37)
[2018-08-15] MEDS ORDERED: Heparin 10,000 UNITS/1 ML VIAL ONE (06:37)
[2018-08-15 06:40] LABS: Anion Gap 11 mmol/L (10-20); BUN (Urea Nitrogen) 24 mg/dL (9.8-20.1); Calc. Creatinine Clearance 30 mL/min (70-130); Calcium 9.1 mg/dL (7.8-10.44); Carbon Dioxide 27 mmol/L (23-31); Chloride 104 mmol/L (98-107); Estimated GFR-MDRD 41; Glucose 126 mg/dL (83-110); Potassium 4.1 mmol/L (3.5-5.1); Sodium 138 mmol/L (136-145)
[2018-08-15] MEDS ORDERED: Fentanyl 100 MCG/2 ML VIAL ONE (07:05)
[2018-08-15] MEDS ORDERED: Midazolam HCl 2 mg/2 ml Vial ONE (07:06)
[2018-08-15] MEDS ORDERED: Protamine Sulfate 50 MG/5 ML VIAL ONE (07:51)
[2018-08-15] MEDS ORDERED: Nitroglycerin 0.4 MG TAB (25 Tab Bottle) SL PRN (08:15)
[2018-08-15] MEDS ORDERED: Acetaminophen/Codeine 30-300mg Tablet PO PRN ×2 (08:15)
[2018-08-15] MEDS ORDERED: Sodium Chloride 0.9% 200 ML IV PRN (08:15)
[2018-08-15] MEDS ORDERED: Iopamidol 370 76% 50 ML VIAL FS ONE (09:09)
[2018-08-15] MEDS ORDERED: Iopamidol 370 76% 100 ML VIAL ONE (09:09)
[2018-08-15] MEDS: Potassium Chloride 20 MEQ TAB PO SCH (10:53)
--- NOTE | 2018-08-15 13:30 | CCL ---
SURGEON: Antonio Blake M.D. INDICATIONS: Severe aortic stenosis. PROCEDURE: 1. Left and right heart catheterization. 2. Selective coronary arteriography. 3. Left ventriculography. The patient is brought to the [facility] and the right groin was prepped and draped in the usual manner. 1% lidocaine was infiltrated. She was given versed 1 mg and Fentanyl 25 mg for contiguous moderate IV sedation for 45 minutes. A 6 [place] sheath was placed into the right femoral artery followed by a 7 [place] sheath in the right femoral vein. Heparin 3000 units was given. A 7 [place] balloon tip [place] catheter was inserted and right heart pressures were obtained. Then a double lumen pigtail was inserted and simultaneous pressures were obtained from both lumens. There was good tracking of the pressures. With the straight wire and the double lumen pigtail, the valve could not be crossed. The double lumen pigtail was removed and a 6 [place] Judkin's right 4 was inserted and with straight wire was able to be advanced into the left ventricle. Left ventricular pressure was obtained. The right 4 was then exchanged over a wire for the 6 [place] double lumen pigtail. Simultaneous left ventricular and aortic pressures were obtained. Thermodilution cardiac output was performed and the [place] catheter was removed. Left ventriculogram was performed using 30 mL of contrast at 12 mL per second in an MOREAU 30 degree projection. Pressures were obtained. The double lumen pigtail was removed. 6 [place] Judkin's left 4 followed by a 6 [place] Judkin's right 4 was used for coronary arteriography. Protamine 10 mg was given and the sheaths were pulled and adequate hemostasis was obtained. RESULTS: PRESSURES: Right atrium 4/5, mean of 5; right ventricle 29/4; pulmonary artery 29/15, mean of 20. Pulmonary capillary wedge 10/11, mean of 9. Aorta 133/50, mean of 82. Left ventricle 151/9. HEMODYNAMICS: Cardiac output 2.62 liters per minute. Cardiac index 1.6 liters per minute/per m sq. Mean left ventricular/aortic gradient was 27 mm. Aortic valve area is 0.57 cm sq. LEFT VENTRICULOGRAM: There was proximal to mid inferior akinesis and severe global hypokinesis with ejection fraction of 15 to 20%. There was mild mitral regurgitation. CORONARY ARTERIOGRAPHY: 1. Left main was normal. 2. The LAD had a 20% mid stenosis. 3. The circumflex had a 20% mid stenosis. 4. The right coronary artery was small and normal. IMPRESSION: 1. Minimal coronary artery disease. 2. Severe left ventricular dysfunction. 3. Severe aortic stenosis. 4. Mild mitral regurgitation. MTDD
[2018-08-15] MEDS: diphenhydrAMINE 25 MG CAP PO PRN (13:51)
[2018-08-15] MEDS: Rosuvastatin 20 MG TAB PO SCH (21:26)
[2018-08-16] MEDS: Levothyroxine Sodium 50 MCG TAB PO SCH (05:40)
[2018-08-16 06:33] LABS: Anion Gap 11 mmol/L (10-20); BUN (Urea Nitrogen) 20 mg/dL (9.8-20.1); Calc. Creatinine Clearance 31 mL/min (70-130); Calcium 9.2 mg/dL (7.8-10.44); Carbon Dioxide 27 mmol/L (23-31); Chloride 109 mmol/L (98-107); Estimated GFR-MDRD 43; Glucose 119 mg/dL (83-110); Potassium 4.9 mmol/L (3.5-5.1); Sodium 142 mmol/L (136-145)
[2018-08-16 07:37] VITALS: TEMP 98.2
[2018-08-16] MEDS: Potassium Chloride 20 MEQ TAB PO SCH (10:10)
[2018-08-16] MEDS: Midodrine HCl 5 MG TAB PO SCH (10:10)
[2018-08-16] MEDS: Lisinopril 10 MG TAB PO SCH (10:11)
[2018-08-16] MEDS: Magnesium Oxide 400 MG TAB PO SCH (10:11)
[2018-08-16] MEDS: Aspirin 81 mg Enteric Coated Tablet PO SCH (10:11)
[2018-08-16] MEDS: Folic Acid 1 MG TAB PO SCH (10:12)
[2018-08-16] MEDS: Cyanocobalamin (Vitamin B-12) 1,000 MCG TAB PO SCH (10:12)
[2018-08-16] MEDS: Carvedilol 3.125 MG TAB PO SCH (10:12)
[2018-08-16] MEDS: diphenhydrAMINE 25 MG CAP PO PRN (10:19)
[2018-08-16 10:20] VITALS: BP 131/61
--- NOTE | 2018-08-16 10:45 | DIS ---
DATE OF ADMISSION: 08/14/2018 DATE OF DISCHARGE: 08/16/2018 DISCHARGE DIAGNOSES: 1. Severe aortic stenosis. 2. Severe nonischemic cardiomyopathy with ejection fraction of 15% to 20%. 3. Minimal coronary artery disease at this time. 4. History of silent inferior myocardial infarction. 5. Status post biventricular implantable cardioverter-defibrillator. 6. Status post atrioventricular node ablation. 7. Chronic atrial fibrillation. 8. History of nonsustained ventricular tachycardia. 9. Hypercholesterolemia under good control. 10. Hypertension. 11. Former smoker. 12. Chronic obstructive pulmonary disease. 13. Hypothyroidism. 14. Positive family history. 15. History of supraventricular tachycardia. 16. History of gastrointestinal bleed, on Xarelto and Coumadin, but she has done well with low-dose Eliquis. DISCHARGE PLAN: Arrangements are being made for her to see Dr. Pablo at [facility] in [place] for TAVR. DISCHARGE MEDICATIONS: 1. Eliquis 2.5 mg b.i.d. will be resumed on August 17. 2. Aspirin 81 daily. 3. Carvedilol 3.125 b.i.d. 4. Vitamin B12 1000 mcg daily. 5. Benadryl 25 mg p.r.n. 6. Folic acid 1 mg daily. 7. DuoNebs q.6 hours. 8. Synthroid 50 mcg daily. 9. Lisinopril 10 mg daily. 10. Magnesium oxide 400 daily. 11. Midodrine 2.5 mg t.i.d. 12. Nitroglycerin p.r.n. 13. Protonix 40 daily. 14. KCl 20 mEq daily. 15. Furosemide 40 q.a.m. 16. Rosuvastatin 40 daily. 17. Breo Ellipta one puff daily. HOSPITAL COURSE: Mrs. Vela underwent catheterization to further evaluate her aortic stenosis and coronary artery disease. She was admitted the day before for gentle hydration with chronic kidney disease and at times creatinine of up to 4.06 in the past. Her admission creatinine was 1.32, and on the day of discharge, her creatinine was 1.18. Catheterization revealed severe aortic stenosis with a mean valve gradient of 27 mm and an aortic valve area of 0.57 cm2. She had ejection fraction of 15% to 20%. She only had minimal coronary artery disease. She was hydrated and creatinine continued to be stable throughout her hospitalization. Arrangements will be made for her to be evaluated for TAVR at [facility] in [place]. Job ID: [id number]
[2018-08-17] MEDS ORDERED: Furosemide 40 MG TAB PO SCH (07:30)
== END 2018-08-16 12:18 | disposition home or self-care (01) | DRG 287 ==
LOC: UNDOADMIN 08-14 09:27 → SURG A 08-14 09:27 → 2NO 08-14 09:27 → EDSTATUS 08-15 10:30
PROVIDERS: ADMIT Internal Medicine Cardiovascular Disease; ATTEND Internal Medicine Cardiovascular Disease
PROC: 4A023N8 Measurement of Cardiac Sampling and Pressure, Bilateral, Percutaneous Approach (ICD-10-PCS; principal; 2018-08-14)
PROC: B2111ZZ Fluoroscopy of Multiple Coronary Arteries using Low Osmolar Contrast (ICD-10-PCS; 2018-08-14)
PROC: B2161ZZ Fluoroscopy of Right and Left Heart using Low Osmolar Contrast (ICD-10-PCS; 2018-08-14)
DX: I35.0 Nonrheumatic aortic (valve) stenosis (principal); I42.8 Other cardiomyopathies; I25.10 Atherosclerotic heart disease of native coronary artery without angina pectoris; E11.9 Type 2 diabetes mellitus without complications; I48.2 Chronic atrial fibrillation; E78.00 Pure hypercholesterolemia, unspecified; I10 Essential (primary) hypertension; E03.9 Hypothyroidism, unspecified; Z88.5 Allergy status to narcotic agent; Z88.1 Allergy status to other antibiotic agents; Z87.891 Personal history of nicotine dependence; I25.2 Old myocardial infarction; Z95.810 Presence of automatic (implantable) cardiac defibrillator
CPT/HCPCS: 36415; 71045; 80048; 80053; 80061; 85025; 85347; 93460; 94640; 94760; 99152; C1769; J1644; J2001; J2250; J2720; J3010; J7620; Q0163; Q9967